=== PATIENT | male | born 1960 | race Caucasian/White ===

== ENCOUNTER → 2016-05-12 | Outpatient (CLI) | payer OTHER ==
[~2016-05-12] MED LIST: /ADVA50050; /DULO30CA; /GLIP10TAB; /PANT40TA; /TIOT18INH; ALBU17IN2; ALBU83IN; ATEN25TA; AVAP300T; BABY81CH; BENT20TA; BYETTA; DEPA500T2; GLUCTAB2; JANUVIA; KLON1TAB; LASI20TA; PROZ40CA; SIMV40TA2; SYNT300T; THERGRAN; TOPI200T; TRAZ50TA; VITAMIN B-6; XANA0.5T
[2016-05-12 17:38] LABS: FREE T4 1.16 NG/DL (0.76-1.46)
== END ==
LOC: M WUC 14:50
PROVIDERS: ATTEND Physician Assistant Medical
DX: E06.3 Autoimmune thyroiditis (principal)

== ENCOUNTER → 2017-03-06 | Outpatient (CLI) | payer OTHER ==
[2017-03-06 13:39] LABS: HEMATOCRIT 45.6 % (42.0-52.0); HEMOGLOBIN 14.6 g/dl (14.0-18.0); MEAN CORPUSCULAR HEMOGLOBIN 32.6 pg (27.0-33.0); MEAN CORPUSCULAR VOLUME 101.8 fl (80.0-96.0); PLATELET COUNT, AUTOMATED 304 10^3/uL (150-450); RED BLOOD COUNT 4.48 10^6/uL (4.30-6.10); RED CELL DISTRIBUTION WIDTH 13.7 % (11.5-14.5); WHITE BLOOD COUNT 7.1 10^3/uL (4.0-10.0)
[2017-03-06 13:46] LABS: APPEARANCE, URINE CLEAR (CLEAR); BACTERIA, URINE AUTO NEGATIVE (NEGATIVE); BILIRUBIN, URINE AUTO NEGATIVE (NEGATIVE); BLOOD, URINE BLOOD NEGATIVE (NEGATIVE); COLOR, URINE YELLOW (YELLOW); GLUCOSE, URINE (UA) AUTO 3+ mg/dL (NEGATIVE); KETONE, URINE AUTO NEGATIVE (NEGATIVE); LEUKOCYTE ESTERASE, URINE AUTO NEGATIVE (NEGATIVE); MUCUS, URINE SMALL (NEGATIVE); NITRITE, URINE AUTO NEGATIVE (NEGATIVE); PROTEIN, URINE AUTO NEGATIVE (NEGATIVE); RBC, URINE AUTO 0 /HPF (0-3); SQUAMOUS EPITHELIAL CELL UR AU 0 /HPF (0-6); WBC, URINE AUTO 0 /HPF (0-3)
[2017-03-06 13:51] LABS: INR 0.89; PROTHROMBIN TIME 12.1 SECONDS (12.4-14.5)
[2017-03-06 13:52] LABS: PARTIAL THROMBOPLASTIN TIME 30.9 SECONDS (26.8-37.9)
[2017-03-06 14:04] LABS: ANION GAP 4 MEQ/L (8-16); BLOOD UREA NITROGEN 22 MG/DL (7-18); CALCIUM LEVEL 9.7 MG/DL (8.5-10.1); CARBON DIOXIDE LEVEL 30 MEQ/L (21-32); CHLORIDE LEVEL 112 MEQ/L (98-107); CREATININE FOR GFR 1.06 MG/DL (0.70-1.30); GLOMERULAR FILTRATION RATE > 60.0 (>56); GLUCOSE, FASTING 115 MG/DL (70-105); SODIUM LEVEL 146 MEQ/L (136-145)
[2017-03-06 14:10] LABS: POTASSIUM SERUM 5.7 MEQ/L (3.5-5.1)
== END ==
LOC: M SMT 09:56
DX: Z01.818 Encounter for other preprocedural examination (principal); A63.0 Anogenital (venereal) warts; Z79.01 Long term (current) use of anticoagulants; E11.9 Type 2 diabetes mellitus without complications; Z79.84 Long term (current) use of oral hypoglycemic drugs; Z79.82 Long term (current) use of aspirin; Z79.899 Other long term (current) drug therapy
CPT/HCPCS: 80048

== ENCOUNTER 2018-10-20 18:34 | Emergency (ER) | payer MEDICARE, OTHER ==
[~2018-10-20] VITALS: Ht 182.9 cm; Wt 94.5 kg
[~2018-10-20 18:34] MED LIST changes: -/ADVA50050; -/DULO30CA; -/PANT40TA; -/TIOT18INH; +ADVA1AER2; +CITA40TA4; +CLOP75TA2; +CYMB1CAP5; +GLIM4TAB5 PO; +HYDR-4517 PO; +INVO300T; +LEVO150T7; +LINZ145C PO; +LOSA50TA88; +METO1TAB87; +NAPR-855; +NITR0.4S14; +PROT1TAB2; +SIMV40TA20; +SPIR1CAP; +TOPI200T7
[2018-10-20] MEDS ORDERED: CLOP75TA2 (18:46)
[2018-10-20] MEDS ORDERED: JARD1TAB3 (18:46)
[2018-10-20] MEDS ORDERED: INCR1INH (18:46)
[2018-10-20] MEDS ORDERED: DERMABOND TOPICAL SKIN ADHESIVE TOP ONE (19:15)
[2018-10-20 19:43] VITALS: BP 164/92
== END 2018-10-20 19:43 | disposition home or self-care (01) ==
LOC: M ED 18:34
DX: S61.512A Laceration without foreign body of left wrist, initial encounter (principal); W26.0XXA Contact with knife, initial encounter; Y92.018 Other place in single-family (private) house as the place of occurrence of the external cause; E11.9 Type 2 diabetes mellitus without complications; J44.9 Chronic obstructive pulmonary disease, unspecified; K21.9 Gastro-esophageal reflux disease without esophagitis; I25.10 Atherosclerotic heart disease of native coronary artery without angina pectoris; Z95.5 Presence of coronary angioplasty implant and graft; Z79.899 Other long term (current) drug therapy; Z79.84 Long term (current) use of oral hypoglycemic drugs; Z79.82 Long term (current) use of aspirin; Z79.01 Long term (current) use of anticoagulants; Z88.8 Allergy status to other drugs, medicaments and biological substances; Z87.891 Personal history of nicotine dependence

== ENCOUNTER 2020-12-27 15:17 | Inpatient (IN) | payer MEDICARE ==
[~2020-12-27] VITALS: Ht 182.9 cm; Wt 95.5 kg
[~2020-12-27 15:17] MED LIST changes: +INCR1INH; +JARD1TAB3; +dexameTHASONE 4 MG/ML 1ML VIAL (J1100 PER 1MG) IV SCH
--- OUTSIDE RECORDS SUMMARY | 2020-12-27 15:23 | CCD | Continuity of Care Document ---
Author Author Jesse SEGURA PA-C Organization Unknown Address [address] [place] [address], [address] [place] [address] Phone [phone] Care Team Providers Care Graphite Grinder Name Role Phone Tanner Agiula M.D. AUTM [phone] Lori Gil MD AUTM [phone] Problems Active Problems Provider Date Essential hypertension Selina Guadarrama NP Onset: History of polyp of colon Selina Guadarrama NP Onset: 2020 Social History Type Date Description Comments Sex Unknown ETOH Use 12/07/2020 Denies alcohol use Tobacco Use Reviewed: 12/07/20 Patient has never smoked Smoking Status Reviewed: 12/07/20 Patient has never smoked Tattoo/Piercing 12/07/2020 Tattoo Tattoo/Piercing 12/07/2020 Pierced ears Allergies and adverse reactions Active Allergies Criticality Reaction | Severity Comments Date Zoloft Unable to assess criticality 01/05/2020 Medications Active Medications SIG Qnty Indications Ordering Provide r Date Miralax 17GM/Scoop Powder 255 gm bottle take as directed for colon prep with 4 dulcolax tabs 2 hours before 255gm Z86.010 Yamile Segura PA-C 12/07/2020 Trazodone HCL 50mg Tablets 2 In PM Unknown Nitroglycerin 0.4mg Tablets Sub 1 every 5 minutes does not exceed 3 in 15 as needed Unknow n Bystolic 10mg Tablets 1 by mouth once a day Unknown Albuterol Sulfate (2 .5mg/3ML) 0.083% Nebulizer 1 unit dose via nebulizer every 2-4 hours for sob or wheezing Unknown Anoro Ellipta 62.5-25mcg/Inh Aeros ol 1 Dose In Am Unknown Spiriva Handihaler 18mcg Capsules 1 Dose In Am 1 In PM Unknown Melatonin ER 10mg Tablets ER as needed Unknown Multi Vitamin Tablets 1 by mouth every day Unknown Aspirin [address] 1 by mouth every day Unknown Metoprolol Tartrate 25mg Tablets 1/2 In Am 1/2 In PM Unknown Topiramate 100mg Tablets 1 tab by mouth in am 2 tabs by mouth at bedtime Unknown Simvastatin 40mg Tablets 1 by mouth once a day Unknown Pantoprazole Sodium 40mg Tablets D R 1 by mouth every day Unknown Losartan Potassium 50mg Tablets 1 by mouth every day Unknown Levothyroxine Sodium 175mcg Tablet s 1 In Am Unknown Naproxen 375mg Tablets take one tablet by mouth twice a day with food Unknown Metformin HCL 500mg Tablets 2 In Am 2 In PM Unknown Citalopram Hydrobromide 40mg Table ts 1 PO AT Bedtime Unknown Immunizations Description No Information Available Vital Signs Date Vital Result Comment 12/07/2020 10:15am Body Temperature 97.4 F Height 72 inches 6'0" Weight 227.00 lb BP Systolic 127 mmHg BP Diastolic 82 mmHg Heart Rate 87 /min BMI (Body Mass Index) 30.8 kg/m2 03/18/2020 8:38am Body Temperature 97.7 F Height 72 inches 6'0" Weight 242.00 lb BP Systolic 120 mmHg BP Diastolic 72 mmHg Heart Rate 82 /min BMI (Body Mass Index) 32.8 kg/m2 Results Description No Information Available Procedures Date Code Description Status 12/07/2020 15960 Office/Outpatient Established Mo d MDM 30-39 Min Completed Medical Devices Description No Information Available Encounters Type Date Location Provider Dx Diagnosis Office Visit 12/07/2020 10:00a [facility] Office SINDI Espinosa Z86.010 Personal history of colonic polyps K21.9 Gastro-esophageal reflux dis ease without esophagitis Assessments Date Code Description Provider 12/07/2020 Z86.010 Personal history of colonic poly ps Yamile Segura PA-C 12/07/2020 K21.9 Gastro-esophageal reflux disease without esophagitis Yamile Segura PA-C Plan of Treatment Future Appointment(s):* 03/17/2021 9:20 am - Yamile Segura PA-C at [facility] * 03/10/2021 9:30 am - Conrad Bryant MD at Outpatient - 12/07/2020 - Yamile Segura PA-C* Z86.010 Personal history of colonic polyps * K21.9 Gastro-esophageal reflux disease without esophagitis * * New Medication:* Miralax 17 GM/Scoop * Comments:* CRC surveillance:60-year-old male with a personal history of colon polyps. Discussed the risks of colonoscopy including but not limited to bleeding, infection, and perforation. Discussed alternatives to colonoscopy including stool studies and imaging however given the patient's history of colon polyps a colonoscopy is recommended. The patient understands risks and benefits and agrees to proceed with colonoscopy. He has a significant cardiac history so we will schedule this at [facility]. We will obtain cardiac clearance. He will hold Plavix 5 days prior to procedure.Reflux:70-year-old male with longstanding history of reflux on PPI therapy. I discussed with the patient that I like to obtain endoscopy to evaluate for including but not limited to esophagitis, precancerous and cancerous lesions. The risks of endoscopy were reviewed including but not li mited to bleeding, infection, perforation. The patient understands the risk and benefits of the procedure and agrees to proceed. Discussed that antireflux medicines can make it harder to absorb calcium, magnesium, iron, and B12 and they should have these levels checked yearly with his PCP. Also discussed the link between PPIs and cardiac and kidney disease and dementia. The patient will follow-up after the procedure. Functional Status Description No Information Available Mental Status Description No Information Available Referrals Description No Information Available
--- OUTSIDE RECORDS SUMMARY | 2020-12-27 15:23 | CCD | Continuity of Care Document ---
Author Author Jesse Gil MD Organization Unknown Address [address] [place] [address] Phone [phone] Care Team Providers Care Public Health Teacher Name Role Phone Vale, Harley Finney AUTM [phone] Tanner Aguila M.D. AUTM [phone] Steven Landry M.D. AUTM [phone] [facility] AUTM [phone] HouseUriah ware MD AUTM [phone] Hamilton Jensen D.O. AUTM [phone] Jayla Bee MD AUTM [phone] Benito Waever MD AUTM [phone] Problems Active Problems Provider Date Essential hypertension Tanner Caldera MD Onset: 2017 Mixed hyperlipidemia Tanner Caldera MD Onset: 07/20/19 18 Type 2 diabetes mellitus Tanner Caldera MD Onset: 06/27 Generalized anxiety disorder Tanner Caldera MD Onset: 07/19/2017 Depressive disorder Tanner Caldera MD Onset: 8 Hypothyroidism Tanner Caldera MD Onset: 8 Chronic obstructive lung disease Tanner Caldera MD Ons et: 07/19/2017 Chronic pain Tanner Caldera MD Onset: 8 History of Hodgkin lymphoma Tanner Caldera MD Onset: 0 07/19/2017 Myocardial infarction Tanner Caldera MD Onset: 018 Coronary artery bypass grafts x 2 Tanner Caldera MD On set: 07/19/2017 Migraine Tanner Caldera MD Onset: 8 History of human papilloma virus infection Tanner avery MD Onset: 07/19/2017 Gastroesophageal reflux disease Tanner Caldera MD Onse t: 07/19/2017 Obstructive sleep apnea syndrome Tanner Caldera MD Ons et: 07/19/2017 Note: severe Carcinoma of prostate Darrell Hancock PA-C Onset: 01/26/2019 Hereditary peripheral neuropathy Lori Gil MD Onset: 09/14/2020 Note: I think he has [place]-Znpho-Cakbt , based on foot exam Social History Type Date Description Comments Sex Male Tobacco Use Start: Unknown End: Former Cigarette Sm oker 1 ppd x3 years quit over 30 years ago Tobacco Use Start: Unknown End: Unknown Current smokless tob acco user 1 can per day x40 years Smoking Status Reviewed: 09/14/20 Current smokless tobacco user 1 can per day x40 years Smokeless Tobacco 09/14/2020 Current Smokeless Tobacco User 1 can per day x40 years ETOH Use 09/14/2020 Has consumed alcohol in the past sober x7 years Recreational Drug Use 09/14/2020 Denies Drug Use Tobacco Use Reviewed: 09/11/19 Patient is a former smoker 1 ppd x3 years quit over 30 years ago Exercise Type/Frequency 03/27/2019 Does not exercise unable Allergies and adverse reactions Active Allergies Criticality Reaction | Severity Comments Date Zoloft Unable to assess criticality suicidal | Severe 07/19/2017 Medications Active Medications SIG Qnty Indications Ordering Provide r Date Glipizide ER 5mg Tablets ER 24HR Take 1 Tablet By Mouth Once Daily With Largest Meal 90tabs Stephen Gil MD 09/14/2020 Levothyroxine Sodium 175mcg Tablet s take 1 tablet by mouth once daily 90tabs E03.8 Lori Gil MD 01/2021 E03.9 Pantoprazole Sodium 40mg Tablets D R take 1 tablet by mouth once daily 90tabs K21.9 Lori Gil MD Onetouch Verio Strips test 2x/day 300units E11.21 Lori Gil MD 12/04/2018 Bufystouch Verio w/Device Kit use as directed 1units E11.21 Tanner Caldera MD 12/05/19 19 Onetouch Finepoint Lancets Misc test 1-3 times daily and as needed 270units E11.21 Mahad Wilson 12/04/2018 Topiramate 200mg Tablets Take 1 tablet by mouth once daily 90tabs G43.009 Lori Gil MD 07/19/2017 Proair HFA 108(90Base) mcg/Act Aer osol 1-2 puffs q4-6 as needed wheezing/sob 25.5gm J44.9 Tanner caromna MD 07/19/2017 Citalopram Hydrobromide 40mg Table ts take 1 tablet by mouth once daily 90tabs F41.1 Lori Gil MD 0 07/19/2017 F43.23 Trazodone HCL 50mg Tablets Take 1 To 2 Tablets By Mouth Once Daily AT Bedtime 180tabs G47.09 Lori adamson MD 07/19/2017 Simvastatin 40mg Tablets Take 1 Tablet By Mouth Once Daily AT Bedtime 90tabs E78.2 Lori Gil MD Albuterol Sulfate (2 .5mg/3ML) 0.083% Nebulizer Use 1 Vial In Nebulizer Every 2 To 4 Michael rs For Shortness Of Breath For Wheezing 375units J44.9 Tanner Caldera MD 07/20/19 18 Losartan Potassium 50mg Tablets Take 1 tablet by mouth once daily 90tabs I10 Lori Gil MD Metformin HCL ER 500mg Tablets ER 24HR take 2 tablets by mouth twice daily 360tabs E11.21 Leann guillermo MD Aspirin 81 Low Dose 81mg Chewtabs 1 by mouth every day I10 Unknown Nitrostat 0.4mg Tablets Sub 1 sl as needed chest pain q5 min (max 3tabs in 15 min) I25.10 Unknown Naproxen 375mg Tablets Take 1 tablet by mouth twice daily as needed 180tabs M54.5 Lori Gil MD Multivitamin Adult Chewtabs 1 by mouth every morning 30units Unknown Melatonin 10mg Capsules 1 by mouth every night one hour before bedtime G47.09 Unknown Bystolic 10mg Tablets 1 by mouth twice a day I10 Tanner Aguila M.D. Stiolto Respimat 2.5-2.5mcg/Act Ae rosol 2 inhalations daily J44.9 Unknown Clopidogrel Bisulfate 75mg Tablets 1 by mouth every day Tanner Aguila M.D. Immunizations CPT Code Status Date Vaccine Lot # [id number] Given 12/15/2020 Flu, Multi-Dose Vial W/Preservative (Age 6Mo And Up)Quad 0.5 [id number] Given 12/12/2019 Flu, Multi-Dose Vial W/Preservative (Age 6Mo And Up)Quad 0.5 [id number] 29414 Given 11/21/2018 Flu, Multi-Dose Vial W/Preservative (Age 6Mo And Up)Quad 0.5 [id number] Given 12/11/2017 Zoster (Shingles) Shingrix 49391 Given 11/20/2017 Adacel - Tdap [id number] 66499 Given 11/20/2017 Flu, Multi-Dose Vial W/Preservative (Age 6Mo And Up)Quad 0.5 [id number] Given 05/05/2017 Zoster (Shingles) Shingrix 27045 Given 02/26/2014 Pneumococcal 23 Vaccine 63852 Given 01/19/2010 Adacel - Tdap Vital Signs Date Vital Result Comment 12/15/2020 10:10am BP Systolic 134 mmHg BP Diastolic 70 mmHg Heart Rate 80 /min Body Temperature 98.6 F Respiratory Rate 16 /min Weight 223.00 lb Weight 101.153 kg Height 71 inches 5'11" BMI (Body Mass Index) 31.1 kg/m2 [place] Body Weight 172 lb 09/14/2020 9:07am BP Systolic 132 mmHg BP Diastolic 72 mmHg Heart Rate 86 /min Body Temperature 98.5 F Respiratory Rate 18 /min Weight 222.00 lb Weight 100.699 kg Height 71 inches 5'11" BMI (Body Mass Index) 31.0 kg/m2 [place] Body Weight 172 lb Results Test Acquired Date Facility Test Result H/L Range Note Glycohemoglobin 12/15/2020 [facility] %A1cwb 6.80 High 4.00-6.00 1, 2 Estimated Average Glucose 148.46 mg/dL Comprehensive Metabolic Panel 12/15/2020 [facility] Glucose 120.00 mg/dL High 70.00-110.00 Urea Nitrogen 27 mg/dL High 9-21 Creatinine 1.1 mg/dL 0.7-1.3 GFR 72.99 mL/min 3 Potassium 4.9 mmol/L 3.5-5.1 Chloride 108 mmol/L High 98-107 Total Protein 6.7 g/dL 6.4-8.3 Albumin 4.19 g/dL 3.30-5.00 Alt 14 U/L 0-55 Ast 18 U/L 5-34 Alkaline Phosphatase 66 U/L 40-150 Carbon Dioxide 22.24 mmol/L 22.00-31.00 Albumin/Globulin 1.67 Ratio Osmolality 300.00 High 275.00-295.00 Calcium 9.70 mg/dL 8.90-10.40 Total Bilirubin 0.3 mg/dL 0.2-1.2 Globulin 2.51 2.30-4.20 BUN/Creatinine 24.55 Ratio Sodium 142 mmol/L 136-145 Laboratory test finding 12/15/2020 [facility] TSH 1.461 uIU/mL 0.350-4.940 CBC/Automated Differential 12/15/2020 [facility] WBC 6.10 k/uL 4.60-10.20 Abs Neut 4.17 2.00-7.50 % Neut 68.3 % 37.0-80.0 Abs Lymphs 1.07 Low 1.20-4.80 % Lymphs 17.5 % 10.0-50.0 Abs Monos 0.650 0.000-0.900 % Monos 10.70 % 0.00-12.00 Abs Eos 0.160 0.000-0.700 % Eos 2.60 % 0.00-7.00 Abs Basos 0.040 0.000-0.200 % Baso 0.70 % 0.00-4.00 Abs Ig 0.010 0.000-0.040 % Ig 0.20 % 0.00-0.50 RBC 4.07 m/uL 4.04-6.13 Hemoglobin 13.3 g/dL 12.2-18.1 Hematocrit 41.4 % Low 42.0-53.7 MCV 101.7 fL High 80.0-97.0 MCH 32.7 pg High 27.0-31.2 MCHC 32.1 g/dL 31.8-35.4 RDW-CV 13.4 % 11.6-14.8 Platelet 349 K/uL 142-424 MPV 10.8 fL 0.0-99.9 Laboratory test finding 12/15/2020 [facility] Vitamin B12 665.80 pg/mL 213.00-816.00 Lipid Panel(New) 12/15/2020 [facility] Cholesterol 129 mg/dL 112-200 4 Triglyceride 77 mg/dL 1-200 5 HDL 50 mg/dL 30-70 6 Cholesterol/HDL 2.58 Low 4.00-6.70 NHDL 79.00 mg/dL 0.00-100.00 7 Calculated LDL 63.60 mg/dL 20.00-130.00 8 Glycohemoglobin 09/14/2020 [facility] %A1cwb 7.00 High 4.00-6.00 9, 10 Estimated Average Glucose 154.20 mg/dL Comprehensive Metabolic Panel 09/14/2020 [facility] Glucose 168.00 mg/dL High 70.00-110.00 Urea Nitrogen 20 mg/dL 9-21 Creatinine 1.2 mg/dL 0.7-1.3 GFR 66.07 mL/min 11 Potassium 4.8 mmol/L 3.5-5.1 Chloride 111 mmol/L High 98-107 Total Protein 6.4 g/dL 6.4-8.3 Albumin 3.89 g/dL 3.30-5.00 Alt 21 U/L 0-55 Ast 17 U/L 5-34 Alkaline Phosphatase 73 U/L 40-150 Carbon Dioxide 26.40 mmol/L 22.00-31.00 Albumin/Globulin 1.55 Ratio Osmolality 304.00 High 275.00-295.00 Calcium 9.10 mg/dL 8.90-10.40 Total Bilirubin 0.2 mg/dL 0.2-1.2 Globulin 2.51 2.30-4.20 BUN/Creatinine 16.67 Ratio Sodium 144 mmol/L 136-145 1 FASTING Fastin hours FAS TING Fastin hours FASTING Fastin hours FASTING Fastin hours FASTING Fastin hours FASTING Fastin hours 2 GOAL <7 3 NORMAL FUNCTION OR MILD DEANNE L DISEASE:>60 ml/min ADVANCED RENAL DISEASE:15-59 ml/min RENAL FAILURE:<15 ml/min 4 GOAL LESS THAN 200 5 GOAL LESS THAN 200 6 GOAL GREATER THAN 45 7 GOAL LESS THAN 100 8 GOAL LESS THAN 100 9 FASTING Fastin hours FAS TING Fastin hours 10 GOAL <7 11 NORMAL FUNCTION OR MILD DEANNE L DISEASE:>60 ml/min ADVANCED RENAL DISEASE:15-59 ml/min RENAL FAILURE:<15 ml/min Procedures Date Code Description Status 12/15/2020 85272 Office/Outpatient Established Mo d MDM 30-39 Min Completed 09/14/2020 01881 Office/Outpatient Established Mo d MDM 30-39 Min Completed 12/12/2019 [id number] Diabetic Retinal Eye Exam Comple [facility] 10/30/2019 [id number] Depression Screening Completed 03/20/2019 273923203 Depression Screening Completed 09/11/2018 [id number] Depression Screening Completed 04/09/2018 [id number] Diabetic Retinal Eye Exam Comple [facility] 07/19/2017 [id number] Depression Screening Completed 06/12/2017 [id number] Diabetic Retinal Eye Exam Comple [facility] 2012 [id number] Colonoscopy Completed Medical Devices Description No Information Available Encounters Type Date Location Provider Dx Diagnosis Office Visit 12/15/2020 9:30a [address] Lori Gil MD 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 I10 Essential (primary) hyperten jorge alberto E78.2 Mixed hyperlipidemia E03.9 Hypothyroidism, unspecified 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, including tongue R53.83 Other fatigue Z23 Encounter for immunization R06.02 Shortness of breath Z68.31 Body mass index [BMI] 31.0-3 1.9, adult Office Visit 09/14/2020 8:45a [address] Lori Gil MD 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 I10 Essential (primary) hyperten jorge alberto E78.2 Mixed hyperlipidemia E03.9 Hypothyroidism, unspecified K21.9 Gastro-esophageal reflux dis ease without esophagitis J44.9 Chronic obstructive pulmonar y disease, unspecified G47.09 Other insomnia M25.541 Pain in joints of right hand F41.1 Generalized anxiety disorder Z12.11 Encounter for screening for malignant neoplasm of colon Assessments Date Code Description Provider 12/15/2020 E11.21 Type 2 diabetes mellitus with di abetic nephropathy Lori Gil MD 12/15/2020 I10 Essential (primary) hypertension Lori Gil MD 12/15/2020 E78.2 Mixed hyperlipidemia Lori estrada MD 12/15/2020 E03.9 Hypothyroidism, unspecified Wendy Gil MD 12/15/2020 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, incl uding tongue Lori Gil MD 12/15/2020 R53.83 Other fatigue Mahad Kaiser 12/15/2020 Z23 Encounter for immunization Lori Gil MD 12/15/2020 R06.02 Shortness of breath Lori gastelum MD 12/15/2020 Z68.31 Body mass index [BMI] 31.0-31.9, adult Lori Gil MD 09/14/2020 E11.21 Type 2 diabetes mellitus with di abetic nephropathy Lori Gil MD 09/14/2020 I10 Essential (primary) hypertension Lori Gil MD 09/14/2020 E78.2 Mixed hyperlipidemia Lori estrada MD 09/14/2020 E03.9 Hypothyroidism, unspecified Wendy Gil MD 09/14/2020 K21.9 Gastro-esophageal reflux disease without esophagitis Lori Gil MD 09/14/2020 J44.9 Chronic obstructive pulmonary di sease, unspecified Lori Gil MD 09/14/2020 G47.09 Other insomnia Mahad Kaiser 09/14/2020 M25.541 Pain in joints of right hand Stephen Gil MD 09/14/2020 F41.1 Generalized anxiety disorder Stephen Gil MD 09/14/2020 Z12.11 Encounter for screening for christian gnant neoplasm of colon Lori Gil MD Plan of Treatment Future Appointment(s):* 03/22/2021 10:00 am - Lori Gil MD at [address] 12/15/2020 - Lori Gil MD* E11.21 Type 2 diabetes mellitus with diabetic nephropathy* Comments:* Patient Goals: Advised to watch a diet low in carbohydrates and sugar. Patient advised to exercise as tolerated 3-5 days a week for at least 30 minutes per day. Check feet on a regular basis and keep skin moist call the office with blood sugar reading below 70 or above 400. Advised to continue current medications. Patients labs drawn today and the office will notify the patient of results and if any change in treatment plan needed. Last Hgb A1C: 7.0 on 09/14/20 Return in 3 months * I10 Essential (primary) hypertension* Comments:* Patient Goals: Patient advised to follow a low sodium and low caffeine diet. Encouraged patient to increase exercise and physical activity. Patient advised to continue checking blood pressures at home and keep log for next office visit. Continue present management. * E78.2 Mixed hyperlipidemia* Comments:* Continue present management and medications. Follow healthy, low fat diet and exercise as tolerated. Will check lipid panel today and notify with resultsLast LDL 67 on 03/15/20 * E03.9 Hypothyroidism, unspecified* Comments:* Labs drawn. Office will notify patient of results and if any change in dose needed. 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 Tolerated well. Advised if body aches, headache, chills or fevers occur, this should resolve in 24 to 48 hours. Please contact office if it lasts longer than this. Patient advised can use over the counter Ibuprofen or Tylenol if tolerated. If swelling occurs at injection site, can apply ice 15 minutes on 15 minutes off. * R06.02 Shortness of breath* Comments:* Advised patient to call Dr. Whittaker's office to get an appointment sooner than January for evaluation of SOB and symptom of flutter * Z68.31 Body mass index [BMI] 31.0-31.9, adult* Comments:* Patient advised to follow a low fat, low cholesterol diet and increase exercise as tolerated. Functional Status Functional Condition Comment Date Status Glasses Active Mental Status Description No Information Available Referrals Refer to Reason for Referral Status Appt Date Benito Weaver MD Referral Reason: Consult for leukoplakia on gums . Sent [facility] [address] [facility] [place] [address] [phone] Hamilton Jensen D.O. This is a regular referral. Patient needs consultation for colonscopy. Please evaluate and treat. Existing patient to specialist but not seen in over 1 year Closed 12/07/2020 [facility] [id number] [facility], [address] [place] [address] [phone]
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
--- OUTSIDE RECORDS SUMMARY | 2020-12-27 15:23 | CCD | Continuity of Care Document ---
Author Author Jesse SEGURA PA-C Organization Unknown Address [address] [place] [address], [address] [place] [address] Phone [phone] Care Team Providers Care Air Lift Operator Name Role Phone Tanner Aguila M.D. AUTM [phone] Lori Gil MD AUTM [phone] Problems Active Problems Provider Date Essential hypertension [...] kg/m2 Results Description No Information Available Procedures Description No Information Available Medical Devices Description No Information Available Encounters Description No Information Available Assessments Date Code Description Provider 12/07/2020 Z86.010 Personal history of colonic poly ps Yamile Segura PA-C 12/07/2020 K21.9 Gastro-esophageal reflux disease without esophagitis Yamile Segura PA-C Plan of Treatment Future Appointment(s):* 03/17/2021 9:20 am - Yamile Segura PA-C at [facility] * 03/10/2021 9:30 am - Conrad Bryant MD at [facility] 12/07/2020 - Yamile Segura PA-C* Z86.010 Personal history of colonic polyps * K21.9 Gastro-esophageal reflux disease without esophagitis* New Medication:* Miralax 17 GM/Scoop Functional Status Description No Information Available Mental Status Description No Information Available Referrals Description No Information Available
--- OUTSIDE RECORDS SUMMARY | 2020-12-27 15:23 | CCD | Continuity of Care Document ---
Author Author Jesse Gil MD Organization Unknown Address [address] [place] [address] Phone [phone] Care Team Providers Care Case Mgr Name Role Phone Vale, Harley Finney AUTM [phone] Tanner Aguila M.D. AUTM [phone] Steven Landry M.D. AUTM [phone] [facility] AUTM [phone] HouseUriah ware MD AUTM [phone] Hamilton Jensen D.O. AUTM [phone] Jayla Bee MD AUTM [phone] Benito Weaver MD AUTM [phone] Problems Active Problems Provider Date Essential hypertension [...] Onset: 09/14/2020 Note: I think he has Smfdymn-Cvybs-Guyls , based on foot exam Social History [...] 2x/day 300units E11.21 Lori Gil MD 12/04/2018 [employer] Verio w/Device Kit use as directed 1units [...] Of Breath For Wheezing 375units J44.9 Tanner Caldear MD 07/20/19 18 Losartan Potassium 50mg Tablets [...] CPT Code Status Date Vaccine Lot # [id number] Given 12/15/2020 Flu, Multi-Dose Vial W/Preservative (Age 6Mo And Up)Quad 0.5 [id number] 34247 Given 12/12/2019 Flu, Multi-Dose Vial W/Preservative (Age 6Mo And Up)Quad 0.5 [id number] 25739 Given 11/21/2018 Flu, Multi-Dose Vial W/Preservative (Age 6Mo And Up)Quad 0.5 [id number] 79427 Given 12/11/2017 Zoster (Shingles) Shingrix 26518 Given 11/20/2017 Adacel - Tdap [id number] 42719 Given 11/20/2017 Flu, Multi-Dose Vial W/Preservative (Age 6Mo And Up)Quad 0.5 [id number] 24596 Given 05/05/2017 Zoster (Shingles) Shingrix 28715 Given 02/26/2014 Pneumococcal 23 Vaccine 35230 Given 01/19/2010 Adacel - Tdap Vital Signs Date Vital Result Comment 12/15/2020 10:10am BP Systolic 134 mmHg BP Diastolic 70 mmHg Heart Rate 80 /min Body Temperature 98.6 F Respiratory Rate 16 /min Weight 223.00 lb Weight 101.153 kg Height 71 inches 5'11" BMI (Body Mass Index) 31.1 kg/m2 [facility] [facility] Weight 172 lb 09/14/2020 9:07am BP Systolic 132 mmHg BP Diastolic 72 mmHg Heart Rate 86 /min Body Temperature 98.5 F Respiratory Rate 18 /min Weight 222.00 lb Weight 100.699 kg Height 71 inches 5'11" BMI (Body Mass Index) 31.0 kg/m2 [facility] Weight 172 lb Results Test Acquired [...] 10.8 fL 0.0-99.9 Laboratory test finding 12/15/2020 [facility] Vitamin B12 665.80 pg/mL 213.00-816.00 Lipid Panel(New) 12/15/2020 [facility] Cholesterol 129 mg/dL 112-200 4 Triglyceride 77 mg/dL 1-200 5 HDL 50 mg/dL 30-70 6 Cholesterol/HDL 2.58 Low 4.00-6.70 NHDL 79.00 mg/dL 0.00-100.00 7 Calculated LDL 63.60 mg/dL 20.00-130.00 8 Glycohemoglobin 09/14/2020 [facility] %A1cwb 7.00 High 4.00-6.00 9, 10 Estimated Average Glucose 154.20 mg/dL Comprehensive Metabolic Panel 09/14/2020 [facility] Glucose 168.00 mg/dL High 70.00-110.00 Urea [...] ml/min Procedures Date Code Description Status 12/15/2020 01937 Office/Outpatient Established Mo d MDM 30-39 Min Completed 09/14/2020 97420 Office/Outpatient Established Mo d MDM 30-39 Min Completed 12/12/2019 [id number] Diabetic Retinal Eye Exam [facility] 10/30/2019 [id number] Depression Screening Completed 03/20/2019 972460896 Depression Screening Completed 09/11/2018 798113940 Depression Screening Completed 04/09/2018 [id number] Diabetic Retinal Eye Exam [facility] 07/19/2017 827229813 Depression Screening Completed 06/12/2017 [id number] Diabetic Retinal Eye Exam [facility] 2012 [id number] Colonoscopy Completed Medical Devices Description No Information [...] diabetic nephropathy I10 Essential (primary) hyperten jorge alberot E78.2 Mixed hyperlipidemia E03.9 Hypothyroidism, unspecified K21.9 [...] Consult for leukoplakia on gums . Sent [facility] [address] [facility] [place] [address] [phone] Hamilton Jensen D.O. This is a regular referral. Patient needs consultation for colonscopy. Please evaluate and treat. Existing patient to specialist but not seen in over 1 year Closed 12/07/2020 [facility] [address] [facility], [address] [place] [address] [phone]
--- OUTSIDE RECORDS SUMMARY | 2020-12-27 15:26 | CCD ---
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 Home Care Physical Therapist Name Role Phone Carina GOTTLIEB MD Unavailable Unavailable Carina GOTTLIEB MD Unavailable Unavailable Carina GOTTLIEB MD Unavailable Unavailable Carina GOTTLIEB MD Unavailable Unavailable Carina GOTTLIEB MD Unavailable Unavailable Carina GOTTLIEB MD Unavailable Unavailable Carina GOTTLIEB MD Unavailable Unavailable Carina GOTTLIEB MD Unavailable Unavailable Carina GOTTLIEB MD Unavailable Unavailable Carina GOTTLIEB MD Unavailable Unavailable Carina GOTTLIEB MD Unavailable Unavailable Carina GOTTLIEB MD Unavailable Unavailable Carina GOTTLIEB MD Unavailable Unavailable Carina GOTTLIEB MD Unavailable Unavailable Carina GOTTLIEB MD Unavailable Unavailable Carina GOTTLIEB MD Unavailable Unavailable Carina GOTTLIEB MD Unavailable Unavailable Carina GOTTLIEB MD Unavailable Unavailable Carina GOTTLIEB MD Unavailable Unavailable Carina GOTTLIEB MD Unavailable Unavailable Carina GOTTLIEB MD Unavailable Unavailable Carina GOTTLIEB MD Unavailable Unavailable Carina GOTTLIEB MD Unavailable Unavailable Carina GOTTLIEB MD Unavailable Unavailable Carina GOTTLIEB MD Unavailable Unavailable Carina GOTTLIEB MD Unavailable Unavailable Carina GOTTLIEB MD Unavailable Unavailable Carina GOTTLIEB MD Unavailable Unavailable Carina GOTTLIEB MD Unavailable Unavailable Carina GOTTLIEB MD Unavailable Unavailable Carina GOTTLIEB MD Unavailable Unavailable Carina GOTTLIEB MD Unavailable Unavailable Carina GOTTLIEB MD Unavailable Unavailable Carina GOTTLIEB MD Unavailable Unavailable Carina GOTTLIEB MD Unavailable Unavailable Carina GOTTLIEB MD Unavailable Unavailable Carina GOTTLIEB MD Unavailable Unavailable Carina GOTTLIEB MD Unavailable Unavailable Carina GOTTLIEB MD Unavailable Unavailable Carina GOTTLIEB MD Unavailable Unavailable Carina GOTTLIEB MD Unavailable Unavailable Carina GOTTLIEB MD Unavailable Unavailable Carina GOTTLIEB MD Unavailable Unavailable Carina GOTTLIEB MD Unavailable Unavailable Carina GOTTLIEB MD Unavailable Unavailable Carina GOTTLIEB MD Unavailable Unavailable Carina GOTTLIEB MD Unavailable Unavailable Carina GOTTLIEB MD Unavailable Unavailable Carina GOTTLIEB MD Unavailable Unavailable Carina GOTTLIEB MD Unavailable Unavailable Carina GOTTLIEB MD Unavailable Unavailable Carina GOTTLIEB MD Unavailable Unavailable Carina GOTTLIEB MD Unavailable Unavailable Carina GOTTLIEB MD Unavailable Unavailable Carina GOTTLIEB MD Unavailable Unavailable Carina GOTTLIEB MD Unavailable Unavailable Carina GOTTLIEB MD Unavailable Unavailable Carina GOTTLIEB MD Unavailable Unavailable Carina GOTTLIEB MD Unavailable Unavailable Carina GOTTLIEB MD Unavailable Unavailable Carina GOTTLIEB MD Unavailable Unavailable Carina GOTTLIEB MD Unavailable Unavailable Carina GOTTLIEB MD Unavailable Unavailable Carina GOTTLIEB MD Unavailable Unavailable Carina GOTTLIEB MD Unavailable Unavailable Carina GOTTLIEB MD Unavailable Unavailable Carina GOTTLIEB MD Unavailable Unavailable Carina GOTTLIEB MD Unavailable Unavailable Carina GOTTLIEB MD Unavailable Unavailable Carina GOTTLIEB MD Unavailable Unavailable Carina GOTTLIEB MD Unavailable Unavailable Carina GOTTLIEB MD Unavailable Unavailable Carina GOTTLIEB MD Unavailable Unavailable Carina GOTTLIEB MD Unavailable Unavailable Carina GOTTLIEB MD Unavailable Unavailable Carina GOTTLIEB MD Unavailable Unavailable Carina GOTTLIEB MD Unavailable Unavailable Carina GOTTLIEB MD Unavailable Unavailable Carina GOTTLIEB MD Unavailable Unavailable Carina GOTTLIEB MD Unavailable Unavailable BULL, E ZANE MD Unavailable Unavailable BULL, E ZANE MD Unavailable Unavailable BULL, E ZANE MD Unavailable Unavailable BULL, E ZANE MD Unavailable Unavailable Segura, R Yamile PA Unavailable Unavailable Segura, R Yamile PA Unavailable Unavailable Segura, R Yamile PA Unavailable Unavailable Segura, R Yamile PA Unavailable Unavailable Segura, R Yamile PA Unavailable Unavailable Segura, R Yamile PA Unavailable Unavailable Segura, R Yamile PA Unavailable Unavailable Segura, R Yamile PA Unavailable Unavailable Segura, R Yamile PA Unavailable Unavailable Segura, R Yamile PA Unavailable Unavailable Segura, R Yamile PA Unavailable Unavailable Segura, R Yamile PA Unavailable Unavailable Segura, R Yamile PA Unavailable Unavailable Segura, R Yamile PA Unavailable Unavailable Segura, R Yamile PA Unavailable Unavailable Segura, R Yamile PA Unavailable Unavailable Segura, R Yamile PA Unavailable Unavailable Segura, R Yamile PA Unavailable Unavailable Segura, R Yamile PA Unavailable Unavailable Segura, R Yamile PA Unavailable Unavailable Segura, R Yamile PA Unavailable Unavailable Segura, R Yamile PA Unavailable Unavailable Segura, R Yamile PA Unavailable Unavailable El-Khally, A Ziad MD Unavailable Unavailable El-Khally, A Ziad MD Unavailable Unavailable El-Khally, A Ziad MD Unavailable Unavailable El-Khally, A Ziad MD Unavailable Unavailable El-Khally, A Ziad MD Unavailable Unavailable El-Khally, A Ziad MD Unavailable Unavailable El-Khally, A Ziad MD Unavailable Unavailable El-Khally, A Ziad MD Unavailable Unavailable El-Khally, A Ziad MD Unavailable Unavailable El-Khally, A Ziad MD Unavailable Unavailable El-Khally, A Ziad MD Unavailable Unavailable El-Khally, A Ziad MD Unavailable Unavailable El-Khally, A Ziad MD Unavailable Unavailable El-Khally, A Ziad MD Unavailable Unavailable El-Khally, A Ziad MD Unavailable Unavailable El-Khally, A Ziad MD Unavailable Unavailable El-Khally, A Ziad MD Unavailable Unavailable El-Khally, A Ziad MD Unavailable Unavailable El-Khally, A Ziad MD Unavailable Unavailable El-Khally, A Ziad MD Unavailable Unavailable El-Khally, A Ziad MD Unavailable Unavailable El-Khally, A Ziad MD Unavailable Unavailable El-Khally, A Ziad MD Unavailable Unavailable El-Khally, A Ziad MD Unavailable Unavailable El-Khally, A Ziad MD Unavailable Unavailable El-Khally, A Ziad MD Unavailable Unavailable El-Khally, A Ziad MD Unavailable Unavailable El-Khally, A Ziad MD Unavailable Unavailable El-Khally, A Ziad MD Unavailable Unavailable El-Khally, A Ziad MD Unavailable Unavailable El-Khally, A Ziad MD Unavailable Unavailable El-Khally, A Ziad MD Unavailable Unavailable El-Khally, A Ziad MD Unavailable Unavailable El-Khally, A Ziad MD Unavailable Unavailable El-Khally, A Ziad MD Unavailable Unavailable El-Khally, A Ziad MD Unavailable Unavailable El-Khally, A Ziad MD Unavailable Unavailable El-Khally, A Ziad MD Unavailable Unavailable El-Khally, A Ziad MD Unavailable Unavailable El-Khally, A Ziad MD Unavailable Unavailable El-Khally, A Ziad MD Unavailable Unavailable El-Khally, A Ziad MD Unavailable Unavailable El-Khally, A Ziad MD Unavailable Unavailable OMARBASHACHRIS MD Unavailable Unavailable OMARBASHA, CHRIS MD Unavailable Unavailable OMARBASHA, BASXIOMARA MD Unavailable Unavailable OMARBASHA, CHRIS MD Unavailable Unavailable OMARBASHA, CHRIS MD Unavailable Unavailable OMARBASHACHRIS MD Unavailable Unavailable OMARBASHA, CHRIS MD Unavailable Unavailable OMARBASHA, CHRIS MD Unavailable Unavailable OMARBASHA, CHRIS MD Unavailable Unavailable OMARBASHA, CHRIS MD Unavailable Unavailable OMARBASHA, CHRIS MD Unavailable Unavailable OMARBASHA, CHRIS MD Unavailable Unavailable OMARBASHA, CHRIS MD Unavailable Unavailable OMARBASHA, CHRIS MD Unavailable Unavailable OMARBASHACHRIS MD Unavailable Unavailable OMARBASHA BASXIOMARA MD Unavailable Unavailable OMARBASHA BASXIOMARA MD Unavailable Unavailable OMARBASHA, BASHAR MD Unavailable Unavailable OMARBASHA, BASXIOMARA MD Unavailable Unavailable OMARBASHA, BASHAR MD Unavailable Unavailable OMARBASHA, BASXIOMARA MD Unavailable Unavailable OMARBASHA, BASXIOMARA MD Unavailable Unavailable OMARBASHA, BASXIOMARA MD Unavailable Unavailable OMARBASHA, BASHAR MD Unavailable Unavailable OMARBASHA, BASHAR MD Unavailable Unavailable OMARBASHA, BASXIOMARA MD Unavailable Unavailable OMARBASHA, BASXIOMARA MD Unavailable Unavailable OMARBASHA, BASXIOMARA MD Unavailable Unavailable OMARBASHA, BASXIOMARA MD Unavailable Unavailable OMARBASHA, BASXIOMARA MD Unavailable Unavailable OMARBASHA, BASXIOMARA MD Unavailable Unavailable OMARBASHA, CHRIS MD Unavailable Unavailable OMARBASHA, CHRIS MD Unavailable Unavailable OMARBASHACHRIS MD Unavailable Unavailable OMARBASHA, CHRIS MD Unavailable Unavailable OMARBASHA, CHRIS MD Unavailable Unavailable OMARBASHA, CHRIS MD Unavailable Unavailable OMARBASHA, CHRIS MD Unavailable Unavailable OMARBASHA, CHRIS MD Unavailable Unavailable OMARBASHA, CHRIS MD Unavailable Unavailable OMARBASHA, CHRIS MD Unavailable Unavailable OMARBASHA, CHRIS MD Unavailable Unavailable OMARBASHA, CHRIS MD Unavailable Unavailable OMARBASHA, CHRIS MD Unavailable Unavailable OMARBASHA, CHRIS MD Unavailable Unavailable OMARBASHA, CHRIS MD Unavailable Unavailable OMARBASHA, CHRIS MD Unavailable Unavailable OMARBASHA, CHRIS MD Unavailable Unavailable OMARBASHA, CHRIS MD Unavailable Unavailable OMARBASHACHRIS MD Unavailable Unavailable OMARBASHACHRIS MD Unavailable Unavailable OMARBASHACHRIS MD Unavailable Unavailable OMARBASHA, CHRIS MD Unavailable Unavailable OMARBASHA, CHRIS MD Unavailable Unavailable OMARBASHACHRIS MD Unavailable Unavailable OMARBASHACHRIS MD Unavailable Unavailable OMARBASHACHRIS MD Unavailable Unavailable OMARBASHACHRIS MD Unavailable Unavailable OMARBASHACHRIS MD Unavailable Unavailable OMARBASHACHRIS MD Unavailable Unavailable OMARBASHACHRIS MD Unavailable Unavailable OMARBASHACHRIS MD Unavailable Unavailable OMARBASHACHRIS MD Unavailable Unavailable OMARBASHACHRIS MD Unavailable Unavailable OMARBASHACHRIS MD Unavailable Unavailable OMARBASHACHIRS MD Unavailable Unavailable OMARBASHACHRIS MD Unavailable Unavailable OMARBASHACHRIS MD Unavailable Unavailable OMARBASHACHRIS MD Unavailable Unavailable OMARBASHACHRIS MD Unavailable Unavailable OMARBASHACHRIS MD Unavailable Unavailable OMARBASHACHRIS MD Unavailable Unavailable OMARBASHACHRIS MD Unavailable Unavailable OMARBASHACHRIS MD Unavailable Unavailable OMARBASHA, CHRIS MD Unavailable Unavailable Marina Javed MD Unavailable Unavailable Marina Javed MD Unavailable Unavailable Marina Javed MD Unavailable Unavailable Marina Javed MD Unavailable Unavailable Marina Javed MD Unavailable Unavailable Flintrop, Marina Edwards MD Unavailable Unavailable [place], Marina Edwards MD Unavailable Unavailable [place], Marina Edwards MD Unavailable Unavailable [place], Marina Edwards MD Unavailable Unavailable [place], Marina Edwards MD Unavailable Unavailable [place], Marina Edwards MD Unavailable Unavailable [place], Marina Edwards MD Unavailable Unavailable [place], Marina Edwards MD Unavailable Unavailable [place], Marina Edwards MD Unavailable Unavailable [place], Marina Edwards MD Unavailable Unavailable [place], Marina Edwards MD Unavailable Unavailable [place], Marina Edwards MD Unavailable Unavailable [place], Marina Edwards MD Unavailable Unavailable [place], Marina Edwards MD Unavailable Unavailable [place], Marina Edwards MD Unavailable Unavailable [place], Marina Edwards MD Unavailable Unavailable [place], Marina Edwards MD Unavailable Unavailable [place], Marina Edwards MD Unavailable Unavailable [place], Marina Edwards MD Unavailable Unavailable [place], Marina Edwards MD Unavailable Unavailable [place], Marina Edwards MD Unavailable Unavailable [place], Marina Edwards MD Unavailable Unavailable [place], Marina Edwards MD Unavailable Unavailable [place], Marina Edwards MD Unavailable Unavailable [place], Marina Edwards MD Unavailable Unavailable [place], Marina Edwards MD Unavailable Unavailable [place], Marina Edwards MD Unavailable Unavailable [place], Marina Edwards MD Unavailable Unavailable [place], Marina Edwards MD Unavailable Unavailable [place], Marina Edwards MD Unavailable Unavailable [place], Marina Edwards MD Unavailable Unavailable [place], Marina Edwards MD Unavailable Unavailable [place], Marina Edwards MD Unavailable Unavailable [place], Marina Edwards MD Unavailable Unavailable [place], Marina Edwards MD Unavailable Unavailable [place], Marina Edwards MD Unavailable Unavailable [place], Marina Edwards MD Unavailable Unavailable [place], Marina Edwards MD Unavailable Unavailable [place], Marina Edwards MD Unavailable Unavailable [place], Marina Edwards MD Unavailable Unavailable [place], Marina Edwards MD Unavailable Unavailable [place], Marina Edwards MD Unavailable Unavailable [place], Marina Edwards MD Unavailable Unavailable [place], Marina Edwards MD Unavailable Unavailable [place], Marina Edwards MD Unavailable Unavailable [place], Marina Edwards MD Unavailable Unavailable [place], Marina Edwards MD Unavailable Unavailable [place], Marina Edwards MD Unavailable Unavailable [place], Marina Edwards MD Unavailable Unavailable [place], Marina Edwards MD Unavailable Unavailable [place]rop, Marina Edwards MD Unavailable Unavailable [place], Marina Edwards MD Unavailable Unavailable [place], Marina Edwards MD Unavailable Unavailable [place], Marina Edwards MD Unavailable Unavailable [place], Marina Edwards MD Unavailable Unavailable [place], Marina Edwards MD Unavailable Unavailable [place], Marina Edwards MD Unavailable Unavailable [place], Marina Edwards MD Unavailable Unavailable [place], Marina Edwards MD Unavailable Unavailable [place], Marina Edwards MD Unavailable Unavailable [place], Marina Edwards MD Unavailable Unavailable [place], Marina Edwards MD Unavailable Unavailable [place], Marina Edwards MD Unavailable Unavailable [place]rop, Marina Edwards MD Unavailable Unavailable [place], Marina Edwards MD Unavailable Unavailable [place], Marina Edwards MD Unavailable Unavailable [place], Marina Edwards MD Unavailable Unavailable [place]rop, Marina Edwards MD Unavailable Unavailable [place]rop, Marina Edwards MD Unavailable Unavailable [place]rop, Marina Edwards MD Unavailable Unavailable [place], Marina Edwards MD Unavailable Unavailable [place], Marina Edwards MD Unavailable Unavailable [place], Marina Edwards MD Unavailable Unavailable MINCOLLA, Isabel EDWARDS MD Unavailable Unavailable MINCOLLA, Isabel EDWARDS MD Unavailable Unavailable MINCOLLA, Isabel EDWARDS MD Unavailable Unavailable MINCOLLA, Isabel EDWARDS MD Unavailable Unavailable MINCOLLA, Isabel EDWARDS MD Unavailable Unavailable MINCOLLA, Isabel EDWARDS MD Unavailable Unavailable MINCOLLA, Isabel EDWARDS MD Unavailable Unavailable MINCOLLA, Isabel EDWARDS MD Unavailable Unavailable MINCOLLA, Isabel EDWARDS MD Unavailable Unavailable MINCOLLIsabel López MD Unavailable Unavailable MINCOLLIsabel López MD Unavailable Unavailable MINCOLLAIsabel MD Unavailable Unavailable MINCOLLA, Isabel EDWARDS MD Unavailable Unavailable MINCOLLA, Isabel EDWARDS MD Unavailable Unavailable MINCOLLA, Isabel EDWARDS MD Unavailable Unavailable MINCOLLA, Isabel EDWARDS MD Unavailable Unavailable MINCOLLA, Isabel EDWARDS MD Unavailable Unavailable MINCOLLA, Isabel EDWARDS MD Unavailable Unavailable MINCOLLA, Isabel EDWARDS MD Unavailable Unavailable MINCOLLAIsabel MD Unavailable Unavailable MINCOLLAIsabel MD Unavailable Unavailable MINCOLLAIsabel MD Unavailable Unavailable MINCOLLAIsabel MD Unavailable Unavailable MINCOLLAIsabel MD Unavailable Unavailable MINCOLLAIsabel MD Unavailable Unavailable MINCOLLAIsabel MD Unavailable Unavailable MINCOLLAIsabel MD Unavailable Unavailable MINCOLLIsabel López MD Unavailable Unavailable MINCOLLAIsabel MD Unavailable Unavailable MINCOLLIsabel López MD Unavailable Unavailable MINCOLLIsabel López MD Unavailable Unavailable MINCOWINNIEAIsabel MD Unavailable Unavailable MINCOLLAIsabel MD Unavailable Unavailable MINCOLLAIsabel MD Unavailable Unavailable MINCOLLA, Isabel EDWARDS MD Unavailable Unavailable MINCOLLA, Isabel EDWARDS MD Unavailable Unavailable MINCOLLA, Isabel EDWARDS MD Unavailable Unavailable MINCOLLA, Isabel EDWARDS MD Unavailable Unavailable MINCOLLA, Isabel EDWARDS MD Unavailable Unavailable MINCOLLA, Isabel EDWARDS MD Unavailable Unavailable MINCOLLA, Isabel EDWARDS MD Unavailable Unavailable MINCOLLA, Isabel EDWARDS MD Unavailable Unavailable MINCOLLA, Isabel EDWARDS MD Unavailable Unavailable MINCOLLA, Isabel EDWARDS MD Unavailable Unavailable MINCOLLA, Isabel EDWARDS MD Unavailable Unavailable MINCOLLA, Isabel EDWARDS MD Unavailable Unavailable MINCOLLA, Isabel EDWARDS MD Unavailable Unavailable MINCOLLA, Isabel EDWARDS MD Unavailable Unavailable MINCOLLA, Isabel EDWARDS MD Unavailable Unavailable MINCOLLA, Isabel EDWARDS MD Unavailable Unavailable MINCOLLA, Isabel EDWARDS MD Unavailable Unavailable MINCOLLA, Isabel EDWARDS MD Unavailable Unavailable MINCOLLA, Isabel EDWARDS MD Unavailable Unavailable MINCOLLA, Isabel EDWARDS MD Unavailable Unavailable MINCOLLA, Isabel EDWARDS MD Unavailable Unavailable MINCOLLA, Isabel EDWARDS MD Unavailable Unavailable MINCOLLA, Isabel EDWARDS MD Unavailable Unavailable MINCOLLA, Isabel EDWARDS MD Unavailable Unavailable MINCOLLA, Isabel EDWARDS MD Unavailable Unavailable MINCOLLA, Isabel EDWARDS MD Unavailable Unavailable MINCOLLA, Isabel EDWARDS MD Unavailable Unavailable MINCOLLA, Isabel EDWARDS MD Unavailable Unavailable MINCOLLA, Isabel EDWARDS MD Unavailable Unavailable MINCOLLA, Isabel EDWARDS MD Unavailable Unavailable MINCOLLA, Isabel EDWARDS MD Unavailable Unavailable MINCOLLA, Isabel EDWARDS MD Unavailable Unavailable MINCOLLA, Isabel EDWARDS MD Unavailable Unavailable MINCOLLA, Isabel EDWARDS MD Unavailable Unavailable MINCOLLA, Isabel EDWARDS MD Unavailable Unavailable MINCOLLA, Isabel EDWARDS MD Unavailable Unavailable MINCOLLA, Isabel EDWARDS MD Unavailable Unavailable MINCOLLA, Isabel EDWARDS MD Unavailable Unavailable MINCOLLA, Isabel EDWARDS MD Unavailable Unavailable MINCOLLA, Isabel EDWARDS MD Unavailable Unavailable MINCOLLA, Isabel EDWARDS MD Unavailable Unavailable MINCOLLA, Isabel EDWARDS MD Unavailable Unavailable MINCOLLA, Isabel EDWARDS MD Unavailable Unavailable MINCOLLA, Isabel EDWARDS MD Unavailable Unavailable MINCOLLA, Isabel EDWARDS MD Unavailable Unavailable MINCOLLA, Isabel EDWARDS MD Unavailable Unavailable MINCOLLA, Isabel EDWARDS MD Unavailable Unavailable MINCOLLA, Isabel EDWARDS MD Unavailable Unavailable MINCOLLA, Isabel EDWARDS MD Unavailable Unavailable MINCOLLA, Isabel EDWARDS MD Unavailable Unavailable Mahoney, Suze PAINTER SPRAY Unavailable Unavailable Mahoney, Suze PAINTER SPRAY Unavailable Unavailable Mahoney, Suze PAINTER SPRAY Unavailable Unavailable Mahoney, Suze PAINTER SPRAY Unavailable Unavailable Mahoney, Suze PAINTER SPRAY Unavailable Unavailable Mahoney, Suze PAINTER SPRAY Unavailable Unavailable Mahoney, Suze PAINTER SPRAY Unavailable Unavailable Mahoney, Suze PAINTER SPRAY Unavailable Unavailable Mahoney, Suze PAINTER SPRAY Unavailable Unavailable Mahoney, Suze PAINTER SPRAY Unavailable Unavailable Mahoney, Suze PAINTER SPRAY Unavailable Unavailable Mahoney, Suze PAINTER SPRAY Unavailable Unavailable Mahoney, Suze PAINTER SPRAY Unavailable Unavailable CEMER, ADNAN MD Unavailable Unavailable CEMER, ADNAN MD Unavailable Unavailable CEMER, ADNAN MD Unavailable Unavailable CEMER, ADNAN MD Unavailable Unavailable CEMER, ADNAN MD Unavailable Unavailable CEMER, ADNAN MD Unavailable Unavailable CEMER, ADNAN MD Unavailable Unavailable CEMER, ADNAN MD Unavailable Unavailable CEMER, ADNAN MD Unavailable Unavailable CEMER, ADNAN MD Unavailable Unavailable CEMER, ADNAN MD Unavailable Unavailable CEMER, ADNAN MD Unavailable Unavailable CEMER, ADNAN MD Unavailable Unavailable CEMER, ADNAN MD Unavailable Unavailable CEMER, ADNAN MD Unavailable Unavailable CEMER, ADNAN MD Unavailable Unavailable CEMER, ADNAN MD Unavailable Unavailable CEMER, ADNAN MD Unavailable Unavailable CEMER, ADNAN MD Unavailable Unavailable CEMER, ADNAN MD Unavailable Unavailable CEMER, ADNAN MD Unavailable Unavailable CEMER, ADNAN MD Unavailable Unavailable CEMER, ADNAN MD Unavailable Unavailable CEMER, ADNAN MD Unavailable Unavailable CEMER, ADNAN MD Unavailable Unavailable CEMER, ADNAN MD Unavailable Unavailable CEMER, ADNAN MD Unavailable Unavailable CEMER, ADNAN MD Unavailable Unavailable CEMER, ADNAN MD Unavailable Unavailable CEMER, ADNAN MD Unavailable Unavailable CEMER, ADNAN MD Unavailable Unavailable CEMER, ADNAN MD Unavailable Unavailable CEMER, ADNAN MD Unavailable Unavailable CEMER, ADNAN MD Unavailable Unavailable CEMER, ADNAN MD Unavailable Unavailable CEMER, ADNAN MD Unavailable Unavailable CEMER, ADNAN MD Unavailable Unavailable CEMER, ADNAN MD Unavailable Unavailable CEMER, ADNAN MD Unavailable Unavailable CEMER, ADNAN MD Unavailable Unavailable CEMER, ADNAN MD Unavailable Unavailable CEMER, ADNAN MD Unavailable Unavailable CEMER, ADNAN MD Unavailable Unavailable CEMER, ADNAN MD Unavailable Unavailable CEMER, ADNAN MD Unavailable Unavailable CEMER, ADNAN MD Unavailable Unavailable CEMER, ADNAN MD Unavailable Unavailable CEMER, ADNAN MD Unavailable Unavailable CEMELANA DAN MD Unavailable Unavailable CEMELANA DAN MD Unavailable Unavailable CEMELANA DAN MD Unavailable Unavailable CEMELANA DAN MD Unavailable Unavailable CEMELANA DAN MD Unavailable Unavailable CEMELANA DAN MD Unavailable Unavailable CEMELANA DAN MD Unavailable Unavailable CEMERELANA MD Unavailable Unavailable ZABOROWSKI, J DUONG PAINTER SPRAY Unavailable Unavailable ZABOROWSKI, J DUONG PAINTER SPRAY Unavailable Unavailable ZABOROWSKI, J DUONG PAINTER SPRAY Unavailable Unavailable ZABOROWSKI, J DUONG PAINTER SPRAY Unavailable Unavailable ZABOROWSKI, J DUONG PAINTER SPRAY Unavailable Unavailable ZABOROWSKI, J DUONG PAINTER SPRAY Unavailable Unavailable ZABOROWSKI, J DUONG PAINTER SPRAY Unavailable Unavailable ZABOROWSKI, J DUONG PAINTER SPRAY Unavailable Unavailable ZABOROWSKI, J DUONG PAINTER SPRAY Unavailable Unavailable ZABOROWSKI, J DUONG PAINTER SPRAY Unavailable Unavailable ZABOROWSKI, J DUONG PAINTER SPRAY Unavailable Unavailable ZABOROWSKI, J DUONG PAINTER SPRAY Unavailable Unavailable ZABOROWSKI, J DUONG PAINTER SPRAY Unavailable Unavailable ZABOROWSKI, J DUONG PAINTER SPRAY Unavailable Unavailable ZABOROWSKI, J DUONG PAINTER SPRAY Unavailable Unavailable ZABOROWSKI, J DUONG PAINTER SPRAY Unavailable Unavailable ZABOROWSKI, J DUONG PAINTER SPRAY Unavailable Unavailable ZABOROWSKI, J DUONG PAINTER SPRAY Unavailable Unavailable ZABOROWSKI, J DUONG PAINTER SPRAY Unavailable Unavailable ZABOROWSKI, J DUONG PAINTER SPRAY Unavailable Unavailable ZABOROWSKI, J DUONG PAINTER SPRAY Unavailable Unavailable ZABOROWSKI, J DUONG PAINTER SPRAY Unavailable Unavailable ZABOROWSKI, J DUONG PAINTER SPRAY Unavailable Unavailable ZABOROWSKI, J DUONG PAINTER SPRAY Unavailable Unavailable ZABOROWSKI, J DUONG PAINTER SPRAY Unavailable Unavailable ZABOROWSKI, J DUONG PAINTER SPRAY Unavailable Unavailable ZABOROWSKI, J DUONG PAINTER SPRAY Unavailable Unavailable ZABOROWSKI, J DUONG PAINTER SPRAY Unavailable Unavailable ZABOROWSKI, J DUONG PAINTER SPRAY Unavailable Unavailable ZABOROWSKI, J DUONG PAINTER SPRAY Unavailable Unavailable ZABOROWSKI, J DUONG PAINTER SPRAY Unavailable Unavailable ZABOROWSKI, J DUONG PAINTER SPRAY Unavailable Unavailable ZABOROWSKI, J DUONG PAINTER SPRAY Unavailable Unavailable ZABOROWSKI, J DUONG PAINTER SPRAY Unavailable Unavailable ZABOROWSKI, J DUONG PAINTER SPRAY Unavailable Unavailable ZABOROWSKI, J DUONG PAINTER SPRAY Unavailable Unavailable ZABOROWSKI, J DUONG PAINTER SPRAY Unavailable Unavailable ZABOROWSKI, J DUONG PAINTER SPRAY Unavailable Unavailable ZABOROWSKI, J DUONG PAINTER SPRAY Unavailable Unavailable ZABOROWSKI, J DUONG PAINTER SPRAY Unavailable Unavailable ZABOROWSKI, J DUONG PAINTER SPRAY Unavailable Unavailable ZABOROWSKI, J DUONG PAINTER SPRAY Unavailable Unavailable ZABOROWSKI, J DUONG PAINTER SPRAY Unavailable Unavailable ZABOROWSKI, J DUONG PAINTER SPRAY Unavailable Unavailable ZABOROWSKI, J DUONG PAINTER SPRAY Unavailable Unavailable ZABOROWSKI, J DUONG PAINTER SPRAY Unavailable Unavailable ZABOROWSKI, J DUONG PAINTER SPRAY Unavailable Unavailable ZABOROWSKI, J DUONG PAINTER SPRAY Unavailable Unavailable MINCOLLA, Isabel EDWARDS MD Unavailable Unavailable MINCOLLA, Isabel EDWARDS MD Unavailable Unavailable MINCOLLA, Isabel EDWARDS MD Unavailable Unavailable MINCOLLA, Isabel EDWARDS MD Unavailable Unavailable MINCOLLA, Isabel EDWARDS MD Unavailable Unavailable MINCOLLA, Isabel EDWARDS MD Unavailable Unavailable MINCOLLA, Isabel EDWARDS MD Unavailable Unavailable MINCOLLA, Isabel EDWARDS MD Unavailable Unavailable MINCOLLA, Isabel EDWARDS MD Unavailable Unavailable MINCOLLA, Isabel EDWARDS MD Unavailable Unavailable MINCOLLA, Isabel EDWARDS MD Unavailable Unavailable MINCOLLA, Isabel EDWARDS MD Unavailable Unavailable MINCOLLA, Isabel EDWARDS MD Unavailable Unavailable MINCOLLA, Isabel EDWARDS MD Unavailable Unavailable MINCOLLA, Isabel EDWARDS MD Unavailable Unavailable MINCOLLA, Isabel EDWARDS MD Unavailable Unavailable MINCOLLA, Isabel EDWARDS MD Unavailable Unavailable MINCOLLA, Isabel EDWARDS MD Unavailable Unavailable MINCOLLA, Isabel EDWARDS MD Unavailable Unavailable MINCOLLA, Isabel EDWARDS MD Unavailable Unavailable MINCOLLA, Isabel EDWARDS MD Unavailable Unavailable MINCOLLA, Isabel EDWARDS MD Unavailable Unavailable MINCOLLA, Isabel EDWARDS MD Unavailable Unavailable MINCOLLA, Isabel EDWARDS MD Unavailable Unavailable MINCOLLA, Isabel EDWARDS MD Unavailable Unavailable MINCOLLA, Isabel EDWARDS MD Unavailable Unavailable MINCOLLA, Isabel EDWARDS MD Unavailable Unavailable MINCOLLA, Isabel EDWARDS MD Unavailable Unavailable MINCOLLA, Isabel EDWARDS MD Unavailable Unavailable MINCOLLA, Isabel EDWARDS MD Unavailable Unavailable MINCOLLA, Isabel EDWARDS MD Unavailable Unavailable MINCOLLA, Isabel EDWARDS MD Unavailable Unavailable MINCOLLA, Isabel EDWARDS MD Unavailable Unavailable MINCOLLA, Isabel EDWARDS MD Unavailable Unavailable MINCOLLA, Isabel EDWARDS MD Unavailable Unavailable MINCOLLA, Isabel EDWARDS MD Unavailable Unavailable MINCOLLA, Isabel EDWARDS MD Unavailable Unavailable MINCOLLA, Isabel EDWARDS MD Unavailable Unavailable MINCOLLA, Isabel EDWARDS MD Unavailable Unavailable MINCOLLA, Isabel EDWARDS MD Unavailable Unavailable MINCOLLA, Isabel EDWARDS MD Unavailable Unavailable MINCOLLA, Isabel EDWARDS MD Unavailable Unavailable MINCOLLA, Isabel EDWARDS MD Unavailable Unavailable MINCOLLA, Isabel EDWARDS MD Unavailable Unavailable MINCOLLA, Isabel EDWARDS MD Unavailable Unavailable MINCOLLA, Isabel EDWARDS MD Unavailable Unavailable MINCOLLA, Isabel EDWARDS MD Unavailable Unavailable MINCOLLA, Isabel EDWARDS MD Unavailable Unavailable MINCOLLA, Isabel EDWARDS MD Unavailable Unavailable MINCOLLA, Isabel EDWARDS MD Unavailable Unavailable MINCOLLA, Isabel EDWARDS MD Unavailable Unavailable MINCOLLA, Isabel EDWARDS MD Unavailable Unavailable MINCOLLA, Isabel EDWARDS MD Unavailable Unavailable MINCOLLA, Isabel EDWARDS MD Unavailable Unavailable MINCOLLA, Isabel EDWARDS MD Unavailable Unavailable MINCOLLA, Isabel EDWARDS MD Unavailable Unavailable MINCOLLA, Isabel EDWARDS MD Unavailable Unavailable MINCOLLA, Isabel EDWARDS MD Unavailable Unavailable MINCOLLA, Isabel EDWARDS MD Unavailable Unavailable MINCOLLA, Isabel EWDARDS MD Unavailable Unavailable MINCOLLA, Isabel EDWARDS MD Unavailable Unavailable MINCOLLA, Isabel EDWARDS MD Unavailable Unavailable MINCOLLA, Isabel EDWARDS MD Unavailable Unavailable MINCOLLA, Isabel EDWARDS MD Unavailable Unavailable MINCOLLA, Isabel EDWARDS MD Unavailable Unavailable MINCOLLA, Isabel EDWARDS MD Unavailable Unavailable MINCOLLA, Isabel EDWARDS MD Unavailable Unavailable MINCOLLA, Isabel EDWARDS MD Unavailable Unavailable MINCOLLA, Isabel EDWARDS MD Unavailable Unavailable MINCOLLA, Isabel EDWARDS MD Unavailable Unavailable MINCOLLA, Isabel EDWARDS MD Unavailable Unavailable MINCOLLA, Isabel EDWARDS MD Unavailable Unavailable MINCOLLA, Isabel EDWARDS MD Unavailable Unavailable MINCOLLA, Isabel EDWARDS MD Unavailable Unavailable MINCOLLA, Isabel EDWARDS MD Unavailable Unavailable MINCOLLA, Isabel EDWARDS MD Unavailable Unavailable MINCOLLA, Isabel EDWARDS MD Unavailable Unavailable MINCOLLA, Isabel EDWARDS MD Unavailable Unavailable MINCOLLA, Isabel EDWARDS MD Unavailable Unavailable MINCOLLA, Isabel EDWARDS MD Unavailable Unavailable MINCOLLA, Isabel EDWARDS MD Unavailable Unavailable MINCOLLA, Isabel EDWARDS MD Unavailable Unavailable MINCOLLA, Isabel EDWARDS MD Unavailable Unavailable MINCOLLA, Isabel EDWARDS MD Unavailable Unavailable Cumberland, D Selina PAINTER SPRAY Unavailable Unavailable Cumberland, D Selina PAINTER SPRAY Unavailable Unavailable Cumberland, D Selina PAINTER SPRAY Unavailable Unavailable Chiara, D Selina PAINTER SPRAY Unavailable Unavailable Chiara, D Selina PAINTER SPRAY Unavailable Unavailable Chiara, D Selina PAINTER SPRAY Unavailable Unavailable Cumberland, D Selina PAINTER SPRAY Unavailable Unavailable Chiara, D Selina PAINTER SPRAY Unavailable Unavailable Chiara, D Selina PAINTER SPRAY Unavailable Unavailable Chiara, D Selina PAINTER SPRAY Unavailable Unavailable Cumberland, D Selina PAINTER SPRAY Unavailable Unavailable Cumberland, D Selina PAINTER SPRAY Unavailable Unavailable Cumberland, D Selina PAINTER SPRAY Unavailable Unavailable Chiara, D Selina PAINTER SPRAY Unavailable Unavailable Cumberland, D Selina PAINTER SPRAY Unavailable Unavailable Chiara, D Selina PAINTER SPRAY Unavailable Unavailable Chiara, D Selina PAINTER SPRAY Unavailable Unavailable Cihara, D Selina PAINTER SPRAY Unavailable Unavailable Chiara, D Selina PAINTER SPRAY Unavailable Unavailable Chiara, D Selina PAINTER SPRAY Unavailable Unavailable Cumberland, D Selina PAINTER SPRAY Unavailable Unavailable Cumberland, D Selina PAINTER SPRAY Unavailable Unavailable Chiara, D Selina PAINTER SPRAY Unavailable Unavailable Cumberland, D Selina PAINTER SPRAY Unavailable Unavailable Chiara, D Selina PAINTER SPRAY Unavailable Unavailable Cumberland, D Selina PAINTER SPRAY Unavailable Unavailable Cumberland, D Selina PAINTER SPRAY Unavailable Unavailable Cumberland, D Selina PAINTER SPRAY Unavailable Unavailable Gris, Sharmin Harris MD Unavailable Unavailable Gris, Sharmin Harris MD Unavailable Unavailable Gris, Sharmin Harris MD Unavailable Unavailable Gris, Sharmin Harris MD Unavailable Unavailable Gris, Sharmin Harris MD Unavailable Unavailable Gris, Sharmin Harris MD Unavailable Unavailable Gris, Sharmin Harris MD Unavailable Unavailable Gris, Sharmin Harris MD Unavailable Unavailable Gris, Sharmin Harris MD Unavailable Unavailable Gris, Sharmin Harris MD Unavailable Unavailable Gris, Sharmin Harris MD Unavailable Unavailable Gris, Sharmin Harris MD Unavailable Unavailable Gris, Sharmin Harris MD Unavailable Unavailable Gris, Sharmin Harris MD Unavailable Unavailable Gris, Sharmin Harris MD Unavailable Unavailable Gris, Sharmin Harris MD Unavailable Unavailable Gris, Sharmin Harris MD Unavailable Unavailable Dieterzpauline, Sharmin Harris MD Unavailable Unavailable DieterzSharmin carpenter MD Unavailable Unavailable Odalyshamee, Sharmin Harrsi MD Unavailable Unavailable Gris, Sharmin Harris MD Unavailable Unavailable Gris, Sharmin Harris MD Unavailable Unavailable Gris, Sharmin Harris MD Unavailable Unavailable Gris, Sharmin Harris MD Unavailable Unavailable Gris, Sharmin Harris MD Unavailable Unavailable Gris, Sharmin Harris MD Unavailable Unavailable Gris, Sharmin Harris MD Unavailable Unavailable Gris, Sharmin Harris MD Unavailable Unavailable Gris, Sharmin Harris MD Unavailable Unavailable Dieterzhauer, Sharmin Harris MD Unavailable Unavailable Salzhauer, Sharmin Harris MD Unavailable Unavailable Salzhauer, Sharmin Harris MD Unavailable Unavailable Salzhauer, Sharmin Harris MD Unavailable Unavailable Salzhauer, Sharmin Harris MD Unavailable Unavailable Salzhauer, Sharmin Harris MD Unavailable Unavailable Salzhauer, Sharmin Harris MD Unavailable Unavailable Salzhauer, Sharmin Harris MD Unavailable Unavailable Salzhauer, Sharmin Harris MD Unavailable Unavailable Salzhauer, Sharmin Harris MD Unavailable Unavailable Salzhauer, Sharmin Harris MD Unavailable Unavailable Salzhauer, Sharmin Harris MD Unavailable Unavailable Salzhauer, Sharmin Harris MD Unavailable Unavailable Salzhauer, Sharmin Harris MD Unavailable Unavailable Salzhauer, Sharmin Harris MD Unavailable Unavailable Salzhauer, Sharmin Harris MD Unavailable Unavailable Salzhauer, Sharmin Harris MD Unavailable Unavailable Salzhauer, Sharmin Harris MD Unavailable Unavailable Salzhauer, Sharmin Harris MD Unavailable Unavailable Salzhauer, Sharmin Harris MD Unavailable Unavailable Salzhauer, Sharmin Harris MD Unavailable Unavailable Salzhauer, Sharmin Harris MD Unavailable Unavailable Salzhauer, Sharmin Harris MD Unavailable Unavailable Salzhauer, Sharmin Harris MD Unavailable Unavailable Salzhauer, Sharmin Harris MD Unavailable Unavailable Salzhauer, Sharmin Harris MD Unavailable Unavailable Salzhauer, Sharmin Harris MD Unavailable Unavailable Salzhauer, Sharmin Harris MD Unavailable Unavailable Salzhauer, Sharmin Harris MD Unavailable Unavailable Salzhamee, Sharmin Harris MD Unavailable Unavailable Salzhauer, Sharmin Harris MD Unavailable Unavailable Salzhauer, Sharmin Harris MD Unavailable Unavailable Salzhauer, Sharmin Harris MD Unavailable Unavailable Salzhauer, Sharmin Harris MD Unavailable Unavailable Salzhauer, Sharmin Harris MD Unavailable Unavailable Salzhauer, Sharmin Harris MD Unavailable Unavailable Salzhauer, Sharmin Harris MD Unavailable Unavailable Salzhauer, Sharmin Harris MD Unavailable Unavailable Salzhauer, Sharmin Harris MD Unavailable Unavailable Salzhauer, Sharmin Harris MD Unavailable Unavailable Salzhamee, Sharmin Harris MD Unavailable Unavailable Salzpauline, Sharmin Harris MD Unavailable Unavailable Salzhauer, Sharmin Harris MD Unavailable Unavailable Salzpauline, Sharmin Harris MD Unavailable Unavailable Salzhauer, Sharmin Harris MD Unavailable Unavailable Salzhauer, W Steven MD Unavailable Unavailable Salzhauer, W Steven MD Unavailable Unavailable Salzhauer, W Steven MD Unavailable Unavailable Salzhauer, W Steven MD Unavailable Unavailable Salzhauer, W Steven MD Unavailable Unavailable Salzhauer, W Steven MD Unavailable Unavailable ALEKSIC, ILIJA MD Unavailable Unavailable ALEKSIC, ILIJA MD Unavailable Unavailable ALEKSIC, ILIJA MD Unavailable Unavailable ALEKSIC, ILIJA MD Unavailable Unavailable ALEKSIC, ILIJA MD Unavailable Unavailable ALEKSIC, ILIJA MD Unavailable Unavailable ALEKSIC, ILIJA MD Unavailable Unavailable ALEKSIC, ILIJA MD Unavailable Unavailable ALEKSIC, ILIJA MD Unavailable Unavailable ALEKSIC, ILIJA MD Unavailable Unavailable ALEKSIC, ILIJA MD Unavailable Unavailable ALEKSIC, ILIJA MD Unavailable Unavailable ALEKSIC, ILIJA MD Unavailable Unavailable ALEKSIC, ILIJA MD Unavailable Unavailable ALEKSIC, ILIJA MD Unavailable Unavailable ALEKSIC, ILIJA MD Unavailable Unavailable ALEKSIC, ILIJA MD Unavailable Unavailable ALEKSIC, ILIJA MD Unavailable Unavailable ALEKSIC, ILIJA MD Unavailable Unavailable ALEKSIC, ILIJA MD Unavailable Unavailable ALEKSIC, ILIJA MD Unavailable Unavailable ALEKSIC, ILIJA MD Unavailable Unavailable ALEKSIC, ILIJA MD Unavailable Unavailable ALEKSIC, ILIJA MD Unavailable Unavailable ALEKSIC, ILIJA MD Unavailable Unavailable ALEKSIC, ILIJA MD Unavailable Unavailable ALEKSIC, ILIJA MD Unavailable Unavailable ALEKSIC, ILIJA MD Unavailable Unavailable ALEKSIC, ILIJA MD Unavailable Unavailable ALEKSIC, ILIJA MD Unavailable Unavailable ALEKSIC, ILIJA MD Unavailable Unavailable ALEKSIC, ILIJA MD Unavailable Unavailable ALEKSIC, ILIJA MD Unavailable Unavailable ALEKSIC, ILIJA MD Unavailable Unavailable ALEKSIC, ILIJA MD Unavailable Unavailable Re-disclosure Warning The records that you are about to access may contain information from federally-assisted alcohol or drug abuse programs. If such information is present, then the following federally mandated warning applies: This information has been disclosed to you from records protected by federal confidentiality rules (42 CFR part 2). The federal rules prohibit you from making any further disclosure of this information unless further disclosure is expressly permitted by the written consent of the person to whom it pertains or as otherwise permitted by 42 CFR part 2. A general authorization for the release of medical or other information is NOT sufficient for this purpose. The Federal rules restrict any use of the information to criminally investigate or prosecute any alcohol or drug abuse patient.The records that you are about to access may contain highly sensitive health information, the redisclosure of which is protected by Article 27-F of the [facility] Public Health law. If you continue you may have access to information: Regarding HIV / AIDS; Provided by facilities licensed or operated by the [facility] Office of Mental Health; or Provided by the [facility] Office for People With Developmental Disabilities. If such information is present, then the following [facility] mandated warning applies: This information has been disclosed to you from confidential records which are protected by state law. State law prohibits you from making any further disclosure of this information without the specific written consent of the person to whom it pertains, or as otherwise permitted by law. Any unauthorized further disclosure in violation of state law may result in a fine or retirement sentence or both. A general authorization for the release of medical or other information is NOT sufficient authorization for further disc losure. Advance Directives Directive Description Marker Maker Prefitter Status Observation Descr iption Data Source(s) 42986-7 HIPAA - Effective on 12/02/19. Expiration date unspecified. Scanned Document is available upon request. Phong Ribeiro completed [employer] ([facility]) 69814-8 HIPAA - Effective on 12/02/19. Expiration date unspecified. Scanned Document is available upon request. Phong Ribeiro completed [employer] ([facility]) Allergies and Adverse Reactions Type Description Substance Reaction Status Data Source(s ) Drug allergy tamsulosin tamsulosin Rash [facility] [facility] Drug allergy sertraline sertraline suicidial thought [facility] Family History Family Member Name Family Member Gender Family Member Status Date o f Status Description Data Source(s) Unknown Male Problem [facility] ([facility] Unknown Male Problem [facility] ([facility]) () Unknown Unknown Problem [facility] ([facility]) Unknown Unknown Problem [facility] ([facility]) Encounters Encounter Providers Location Date Indications Data Source(s ) Outpatient Attender: ZANE GOTTLIEB MD Main Office 12/15/2020 09:30:00 AM EDT [facility] ([facility]) Outpatient Attender: Yamile DELONG [facility] 5 11/26 10:00:00 AM EDT [facility] ([facility] Outpatient Attender: DUONG BALL NP [facility] 12:00:00 AM EDT - 11/22/2020 01:39:[address] [facility] <td><content ID="_[id number]">Medication Order</content>
<content><content styleCode="xSecondary xLabel">Encounter Diagnosis</content>: <content ID="_[id number]" styleCode="xSecondary">COPD (CHRONIC OBSTRUCTIVE PULMONARY DISEASE)</content></content></td><td><content styleCode="xSecondary">15-Sep-2020 10:06 </content><content styleCode="xLabel xSecondary"> To </content><content styleCode="xSecondary">15-Sep-2020 10:08</content>
<content styleCode="xSecondary">Pulmonary Health [facility] Office</content></td><td></td>Medication Order [facility] Office 09/15/2020 10:06:21 AM EDT - 09/15/2020 10:08:51 AM EDT COPD (CHRONIC OBSTRUCTIVE PULMONARY DISEASE) [employer] ([facility]) COPD (CHRONIC OBSTRUCTIVE PULMONARY DISE ASE) Outpatient Attender: ZANE GOTTLIEB MD Main Office 09/14/2020 08:45:00 AM EDT [facility] ([facility]) Outpatient Attender: ZANE GOTTLIEB MD Main Office 06/14/2020 02:30:00 PM EDT [facility] ([facility]) Outpatient<td><content ID="_[id number]">Office Visit</content>
<content><content styleCode="xLabel xSecondary">Encounter Reason</content>: <content ID="_[id number]" styleCode="xSecondary">COPD - The primary physician is Dr. Jerry Patel MD . The last office visit was 6 m onth(s) ago. Management changes made at the last visit include ordering Ct chest. The Gold Classification is Stage 3: Severe COPD (as per patient, from testing at Dr Woods years ago). Symptoms include dyspnea on exertion and clear sputum production, while symptoms do not include wheezing or non-productive cough. There is no known event that preceded symptom onset. The symptoms occur frequently. The episodes occur daily. The patient describes this as severe and worsening. Symptoms are exacerbated by activity. Symptoms are relieved by inhaler use and use of a nebulizer. Associated symptoms do not include fever, w eakness, hemoptysis, upper respiratory infection symptoms or chest pain. Current treatment includes inhaled albuterol and inhaled short-acting beta-2 agonists. By report there is good compliance with treatment, good tolerance of treatment and good symptom control. Pertinent medical history includes smoking (has quit).</content></content>
<content><content styleCode="xSecondary xLabel"> Encounter Diagnosis</content>: <content ID="_[id number]" styleCode="xSecondary">COPD (CHRONIC OBSTRUCTIVE PULMONARY DISEASE)</content><content styleCode="xSecondary">, </content><content [id number]" styleCode="xSecondary">PULMONARY NODULE</content></content></td><td><content styleCode="xSecondary">03-Jun-2020 13:15 </content><content styleCode="xLabel xSecondary"> To </content><content styleCode="xSecondary">03-Jun-2020 13:31</content>
<content styleCode="xSecondary">Pulmonary [facility] Office</content></td><td></td> [facility] Pulmonary [facility] Office 06/03/2020 01:15:00 PM EDT - 06/03/2020 01:31:14 PM EDT COPD - The primary physician is Dr. Jerry Patel MD . The last office visit was 6 month(s) ago. Management changes made at the last visit include ordering Ct chest. The Gold Classification is Stage 3: Severe COPD (as per patient, from testing at Dr [facility] years ago). Symptoms include dyspnea on exertion and clear sputum production, while symptoms do not include wheezing or non-productive cough. T here is no known event that preceded symptom onset. The symptoms occur frequently. The episodes occur daily. The patient describes this as severe and worsening. Symptoms are exacerbated by activity. Symptoms are relieved by inhaler use and use of a nebulizer. Associated symptoms do not include fever, weakness, hemoptysis, upper respiratory infection symptoms or chest pain. Current treatment includes inhaled albuterol and inhaled short-acting beta-2 agonists. By report there is good compliance with treatment, good tolerance of treatment and good symptom control. Pertinent medical history includes smoking (has quit).PULMONARY NODULECOPD (CHRONIC OBSTRUCTIVE PULMONARY DISEASE) [facility] ([facility]) COPD - The primary physician is Dr. Bakari Patel MD . The last office visit was 6 month(s) ago. Management changes made at the last visit include ordering Ct chest. The Gold Classification is Stage 3: Severe COPD (as per patient, from testing at Dr [facility] years ago). Symptoms include dyspnea on exertion and clear sputum production, while symptoms do not include wheezing or non-productive cough. There is no known event that preceded symptom onset. The symptoms occur frequently. The episodes occur daily. The patient describes this as severe and worsening. Symptoms are exacerbated by activity. Symptoms are relieved by inhaler use and use of a nebulizer. Associated symptoms do not include fever, weakness, hemoptysis, upper respiratory infection symptoms or chest pain. Current treatment includes inhaled albuterol and inhaled short-acting beta-2 agonists. By report there is good compliance with treatment, good tolerance of treatment and good symptom control. Pertinent medical history includes smoking (has quit). PULMONARY NODULE COPD (CHRONIC OBSTRUCTIVE PULMONARY DISE ASE) Outpatient Referrer: Jerry Javed MD 06/03/2020 08:08: 11 AM EDT [facility] Outpatient Attender: Selina Guadarrama NP [facility] 03/18/2020 0 7:20:00 AM EST [facility] ([facility] Outpatient Attender: JERRY PATEL MD Main Office 03/15/2020 09:00:00 AM EST [facility] ([facility]) Outpatient Attender: DUONG BALL NP [facility] 07/2020 12:00:00 AM EST - 03/03/2020 09:19:[address] [facility] Inpatient Attender: Noel Henson MDAdmitter: Noel knapp MD [email or web address] 02/11/2020 05:24:00 PM EST - 02/13/2020 01:35:00 PM EST [facility] Patient discharged. Outpatient Attender: Suze Perry efraín 02/01/2020 10:20:00 AM EST [facility] ([facility]) Outpatient Attender: CHRIS BLAKE MD 01:59:00 PM EST - 01/26/2020 02:00:00 PM EST PRE-OP N52.31 [facility] PRE-OP N52.31 Patient discharged. Outpatient Attender: CHRIS BLAKE MD 12:00:00 AM EST - 01/26/2020 11:59:00 PM EST COVID TESTING [facility] COVID TESTING Patient discharged. Medication Order<td><content ID="_[id number]">Medication Order</content>
<content><content styleCode="xSecondary xLabel">Encounter Diagnosis</content>: <content [id number]" styleCode="xSecondary">COPD (CHRONIC OBSTRUCTIVE PULMONARY DISEASE)</content></content></td><td><content styleCode="xSecondary">21-Jan-2020 11:34 </content><content styleCode="xLabel xSecondary"> To </content><content styleCode="xSecondary">21-Jan-2020 11:42</content>
<content styleCode="xSecondary">Pulmonary [facility] Office</content></td><td></td> [facility] Pulmonary [facility] Office 01/21/2020 11:34:20 AM EST - 01/21/2020 11:42:26 AM EST COPD (CHRONIC OBSTRUCTIVE PULMONARY DISEASE) [facility] ([facility]) COPD (CHRONIC OBSTRUCTIVE PULMONARY DISE ASE) Preadmit Attender: CHRIS Tobin DAdmitter: JERRY PATEL MDReferrer: CHRIS BLAKE MD 01/05/2020 07:45:00 AM EST ERECTILE DYSF UNCTION FOLLOWING RADICAL PROSTATECTO [facility] ERECTILE DYSFUNCTION FOLLOWING RADICAL P ROSTATECTO Admission cancelled. Disregard status an d admitted date. Outpatient Attender: Steven Landry MD [place] 12/26/2019 09:15:00 AM EDT [facility] ([facility] Outpatient Attender: GUANACO LONG MD [place] 12/16/2019 03:30:00 PM EDT [facility] ([facility] Outpatient Attender: JERRY PATEL MD Main Office 12/12/2019 11:00:00 AM EDT [facility] ([facility]) Outpatient<td><content [id number]">Office Visit</content>
<content><content styleCode="xLabel xSecondary">Encounter Reason</content>: <content [id number]" styleCode="xSecondary">COPD - The primary physician is Dr. Jerry Patel MD . The last office visit was 2 m onth(s) ago. Management changes made at the last visit include ordering CT chest and PFT. The Gold Classification is Stage 3: Severe COPD (as per patient, from testing at Dr [facility] years ago). Symptoms include dyspnea on exertion. Onset was gradual year(s) ago (in his early 40's). There is no known event that preceded symptom onset. The symptoms occur constantly (working around the house, mows his lawn with a riding mower, can't use a mask (failed a fit test at his prior work-[employer], a paper [employer])-before covid, couldn't walk around the house.). The episodes occur daily. The patient describes this as severe and worsening. Symptoms are exacerbated by activity. Symptoms are relieved by inhaler use and use of a nebulizer. Associated symptoms do not include fever, weakness, hemoptysis, upper respiratory infection symptoms or chest pain.</content></content>
<content><content styleCode="xSecondary xLabel">Encounter Diagnosis</content>: <content ID="_[id number]" styleCode="xSecondary">COPD (CHRONIC OBSTRUCTIVE PULMONARY DISEASE)</content><content styleCode="xSecondary">, </content><content ID="_[id number]" styleCode="xSecondary">ASBESTOS EXPOSURE</content><content styleCode="xSecondary">, </content><content ID="_[id number]" styleCode="xSecondary">SLEEP APNEA</content><content styleCode="xSecondary">, </content><content ID="_[id number]" styleCode="xSecondary">OBESITY</content><content styleCode="xSecondary">, </content><content [id number]" styleCode="xSecondary">PROSTATE CA</content><content styleCode="xSecondary">, </content><content [id number]" styleCode="xSecondary">MYOCARDIAL INFARCT</content><content styleCode="xSecondary">, </content><content ID="_[id number]" styleCode="xSecondary">HYPERLIPIDEMIA</content><content styleCode="xSecondary">, </content><content [id number]" styleCode="xSecondary">HYPERTENSION</content><content styleCode="xSecondary">, </content><content ID="_[id number]" styleCode="xSecondary">DIABETES MELLITUS, TYPE 2</content><content styleCode="xSecondary">, </content><content [id number]" styleCode="xSecondary">CAD (CORONARY ARTERY DISEASE)</content><content styleCode="xSecondary">, </content><content [id number]" styleCode="xSecondary">HODGKIN'S DISEASE</content></content></td><td><content styleCode="xSecondary">04-Dec-2019 14:45 </content><content styleCode="xLabel xSecondary"> To </content><content styleCode="xSecondary">04-Dec-2019 15:05</content>
<content styleCode="xSecondary">[facility] [place] [facility]</content></td><td></td> [facility] Pulmonary [facility] Office 12/04/2019 02:45:00 PM EDT - 12/04/2019 03:05:14 PM EDT PROSTATE CAMYOCARDIAL INFARCTHODGKIN'S D ISEASECOPD - The primary physician is Dr. Jerry Patel MD . The last office visit was 2 month(s) ago. M anagement changes made at the last visit include ordering CT chest and PFT. The Gold Classification is Stage 3: Severe COPD (as per patient, from testing at Dr Woods years ago). Symptoms include dyspnea on exertion. Onset was gradual year(s) ago (in his early 40's). There is no known event that preceded symptom onset. The symptoms occur constantly (working around the house, mows his lawn with a riding mower, can't use a mask (failed a fit test at his prior work- [employer], a [employer])-before covid, couldn't walk around the house.). The episodes occur daily. The patient describes this as severe and worsening. Symptoms are exacerbated by activity. Symptoms are relieved by inhaler use and use of a nebulizer. Associated symptoms do not include fever, weakness, hemoptysis, upper respiratory infection symptoms or chest pain.CAD (CORONARY ARTERY DISEASE)DIABETES MELLITUS, TYPE 2HYPERTENSIONHYPERLIPIDEMIAOBESITYSLEEP APNEAASBESTOS EXPOSURECOPD (CHRONIC OBSTRUCTIVE PULMONARY DISEASE) [facility] ([facility]) PROSTATE CA MYOCARDIAL INFARCT HODGKIN'S DISEASE COPD - The primary physician is Dr. Bakari Patel MD . The last office visit was 2 month(s) ago. Management changes made at the last visit include ordering CT chest and PFT. The Gold Classification is Stage 3: Severe COPD (as per patient, from testing at Dr Woods years ago). Symptoms include dyspnea on exertion. Onset was gradual year(s) ago (in his early 40's). There is no known event that preceded symptom onset. The symptoms occur constantly (working around the house, mows his lawn with a riding mower, can't use a mask (failed a fit test at his prior work-[employer], a [employer]-before covid, couldn't walk around the house.). The episodes occur daily. The patient describes this as severe and worsening. Symptoms are exacerbated by activity. Symptoms are relieved by inhaler use and use of a nebulizer. Associated symptoms do not include fever, weakness, hemoptysis, upper respiratory infection symptoms or chest pain. CAD (CORONARY ARTERY DISEASE) DIABETES MELLITUS, TYPE 2 HYPERTENSION HYPERLIPIDEMIA OBESITY SLEEP APNEA ASBESTOS EXPOSURE COPD (CHRONIC OBSTRUCTIVE PULMONARY DISE ASE) <td><content ID="_[id number]">Historical Summary</content></td><td><content styleCode="xSecondary">04-Dec-2019 14:45 </content><content styleCode="xLabel xSecondary"> To </content><content styleCode="xSecondary">28-Nov-2019 12:33</content>
<content styleCode="xSecondary">[facility] [place] [facility]</content></td><td></td>Historical Summary [facility] Office 12/04/2019 02:45:00 PM EDT - 11/28/2019 12:33:13 PM EDT [facility] ([facility]) <td><content ID="_[id number]">Radiology</content>
<content><con tent styleCode="xSecondary xLabel">Encounter Diagnosis</content>: <content [id number]" styleCode="xSecondary">ASBESTOS EXPOSURE</content></content></td><td><content styleCode="xSecondary">02-Dec-2019 9:15 </content><content styleCode="xLabel xSecondary"> To </content><content styleCode="xSecondary">02-Dec-2019 8:53</content>
<content styleCode="xSecondary">Pulmonary [facility]</content></td><td></td>Radiology [facility] Office 12/02/2019 09:15:00 AM EDT - 12/02/2019 08:53:09 AM EDT ASBESTOS EXPOSURE [facility] ([facility]) ASBESTOS EXPOSURE Outpatient Referrer: Jerry Javed MD 12/02/2019 08:33: 49 AM EDT [facility] PFT Testing<td><content [id number]">PFT Testing</content>
<content><content styleCode="xSecondary xLabel">Encounter Diagnosis</content>: <content ID="_[id number]" styleCode="xSecondary">COPD (CHRONIC OBSTRUCTIVE PULMONARY DISEASE)</content></content></td><td><content styleCode="xSecondary">02-Dec-2019 8:30 </content><content styleCode="xLabel xSecondary"> To </content><content styleCode="xSecondary">02-Dec-2019 8:53</content>
<content styleCode="xSecondary">[facility]</content></td><td></td> [facility] [place] 12/02/2019 08:30:00 AM EDT - 12/02/2019 08:53:33 AM EDT COPD (CHRONIC OBSTRUCTIVE PULMONARY DISEASE) [facility] ([facility]) COPD (CHRONIC OBSTRUCTIVE PULMONARY DISE ASE) Outpatient<td><content ID="_[id number]">Nurse Visit</content>
<content><content styleCode="xSecondary xLabel">Encounter Diagnosis</content>: <content ID="_[id number]" styleCode="xSecondary">COPD (CHRONIC OBSTRUCTIVE PULMONARY DISEASE)</content><content styleCode="xSecondary">, </content><content [id number]" styleCode="xSecondary">EXPOSURE TO SARS-ASSOCIATED CORONAVIRUS</content></content></td><td><content styleCode="xSecondary"> 28-Nov-2019 10:30 </content><content styleCode="xLabel xSecondary"> To </content><content styleCode="xSecondary">28-Nov-2019 16:22</content>
<content styleCode="xSecondary">Pulmonary [facility] Office</content></td><td></td> [facility] [place] 11/28/2019 10:30:00 AM EDT - 11/28/2019 04:22:58 PM EDT EXPOSURE TO SARS-ASSOCIATED CORONAVIRUSCOPD (CHRONIC OBSTRUCTIVE PULMONARY DISEASE) [facility] ([facility]) EXPOSURE TO SARS-ASSOCIATED CORONAVIRUS COPD (CHRONIC OBSTRUCTIVE PULMONARY DISE ASE) Outpatient Attender: CHRIS Tobin DAdmitter: JERRY PATEL MDConsultant: ELANA MESSER MD 11/17/2019 12:19:00 AM EDT - 11/17/2019 12:35:00 PM EDT [facility] Patient discharged. Outpatient Attender: CHRIS BLAKE MD 09:30:00 AM EDT - 11/12/2019 09:31:00 AM EDT COVID TESTING [facility] Patient discharged. Outpatient Attender: Jerry Javed MDReferrer: JERRY MESSINA MD [place] 11/07/2019 08:45:00 PM EDT - 11/07/2019 11:59:00 PM EDT [facility] Patient discharged. Outpatient Attender: JERRY PATEL MD Main Office 10/30/2019 09:15:00 AM EDT [facility] ([facility]) Immunizations Vaccine Date Status Description Data Source(s) New in 2012. IIV4 12/15/2020 10:53:00 AM EDT completed [facility] ([facility]) New in 2012. IIV4 12/12/2019 12:10:00 PM EDT completed [facility] ([facility]) Medications Medication Brand Name Start Date Product Form Dose Route Admi nistrative Instructions Pharmacy Instructions Status Indications Reaction Description Data Source(s) POLYETHYLENE GLYCOL 3350 142 MG/ML Oral Solution [Miralax] M iralax 12/07/2020 12:00:00 AM EDT active M [facility] ([facility]) perflutren lipid microsphere (DEFINITY) 8.476 mg in 10 mL NS IV drug or medication 11/22/2020 01:34:13 PM EDT mL Intravenous active [facility] Nitroglycerin 0.4 MG Sublingual Tablet n itroglycerin (NITROSTAT) 0.4 MG SL tablet nitroglycerin (NITROSTAT) 0.4 MG SL tablet 11/22/2020 12:00:00 A M EDT 0.[address] 1 t ablet (0.4 mg total) under the tongue every 5 (five) minutes as needed for chest pain [facility] Stiolto Respimat 2.5-2.5 MCG/ACT AERS [id number] 10/18/2020 12:00 :00 AM EDT active INHALE 2 PUFFS BY MOUTH ONCE DAILY [facility] 200 ACTUAT Albuterol 0.09 MG/ACTUAT Mete red Dose Inhaler [ProAir] ProAir HFA 108 (90 Base) MCG/ACT Inhalation Aerosol Solution ProAir HFA 108 (90 Base) MCG/ACT Inhalation Aerosol Solution 09/15/2020 12:00:00 AM EDT 2 {Puff} C3821 6 active ProAir HFA [facility] Medication taken as needed. Albuterol 0.83 MG/ML Inhalant Solution A lbuterol Sulfate (2.5 MG/3ML) 0.083% Inhalation Nebulization Solution Albuterol Sulfate (2.5 MG/3ML) 0.083% Inhalation Nebulization Solution 09/15/2020 12:00:00 AM EDT 1 {ampu le} [id number] active Albuterol Sulfate [facility] ([facility]) Medication taken as needed. 24 HR Glipizide 5 MG Extended Release Oral Tablet Glipizide ER 09/14/2020 12:00:00 AM EDT active M EDENT ([facility]) nebivolol 10 MG Oral Tablet nebivolol (Bystolic) 10 MG tablet nebivolol (Bystolic) 10 MG tablet 09/09/2020 12:00:00 AM EDT 10 mg Oral active Take 1 tablet (10 mg total) by mouth daily [facility] clopidogrel 75 MG Oral Tablet clopidogrel (PLAVIX) 75 MG tablet clopidogrel (PLAVIX) 75 MG tablet 09/09/2020 12:00:00 AM EDT 75 mg Oral active Take 1 tablet (75 mg total) by mouth daily [facility] 24 HR Glipizide 2.5 MG Extended Release Oral Tablet Glipizid e ER 06/18/2020 12:00:00 AM EDT ORAL completed [facility] ([facility]) Levothyroxine Sodium 0.175 MG Oral Tablet Levothyroxine Sodi um 06/07/2020 12:00:00 AM EDT ORAL active M [facility] ([facility]) Stiolto Respimat 2.5-2.5 MCG/ACT Inhalation Aerosol Solution [id number] 06/03/2020 12:00:00 AM EDT 2 {Aerosol_Soln} [id number] active Stiolto Respimat [facility] ([facility]) Suprep Bowel Prep Kit Suprep Bowel Prep Kit 03/18/2020 12:00:00 AM EST active [facility] ([facility]) nebivolol 10 MG Oral Tablet nebivolol (BYSTOLIC) 10 MG tablet nebivolol (BYSTOLIC) 10 MG tablet 03/03/2020 12:00:00 AM EST 10 mg Oral active Take 1 tablet (10 mg total) by mouth daily [facility] 30 ACTUAT umeclidinium 0.0625 MG/ACTUAT / vilanterol 0.025 MG/ACTUAT Dry Powder Inhaler [Anoro] ANORO ELLIPTA 62.5-25 MCG/INH inhaler ANORO ELLIPTA 62.5-25 MCG/INH inhaler 02/19/2020 12:00:00 AM EST ab orted INHALE 1 PUFF BY MOUTH ONCE DAILY [facility] empagliflozin 25 MG / Linagliptin 5 MG O ral Tablet [Glyxambi] GLYXAMBI 25-5 MG TABS GLYXAMBI 25-5 MG TABS 02/19/2020 12:00:00 AM EST 1 {tbl} Oral aborted Take 1 tablet by mouth daily [facility] clopidogrel 75 MG Oral Tablet clopidogrel (PLAVIX) 75 MG tablet clopidogrel (PLAVIX) 75 MG tablet 02/14/2020 12:00:00 AM EST 75 mg Oral active Take 1 tablet (75 mg total) by mouth daily [facility] 24 HR metoprolol succinate 50 MG Extende d Release Oral Tablet metoprolol succinate (TOPROL-XL) 50 MG 24 hr tablet metoprolol succinate (TOPROL-XL) 50 MG 24 hr tablet 02/14/2020 12:00:00 AM EST 50 mg Oral abort ed Take 1 tablet (50 mg total) by mouth daily [facility] 24 HR metoprolol succinate 50 MG Extende d Release Oral Tablet metoprolol succinate (TOPROL-XL) 24 hr tablet 50 mg metoprolol succinate (TOPROL-XL) 24 hr tablet 50 mg 02/13/2020 09:00:00 AM EST 50 mg Oral activ e 50 mg, Oral, Daily, First dose on 02/13/20 at 0900 [facility] Medication administered onsite Citalopram 40 MG Oral Tablet citalopram (CeleXA) table t 40 mg citalopram (CeleXA) tablet 40 mg 02/12/2020 09:00:00 PM EST 40 mg Oral active 40 mg, Oral, Nightly, First dose on Bernie 02/12/20 at 2100 [facility] Medication administered onsite Metoprolol Tartrate 25 MG Oral Tablet me toprolol tartrate (LOPRESSOR) tablet 25 mg metoprolol tartrate (LOPRESSOR) tablet 25 mg 02/12/2020 04:00:00 PM EST 25 mg Oral completed 25 mg, Oral, Once, Bernie 02/12/20 at 1600, For 1 dose [facility] Medication administered onsite furosemide (LASIX) injection 20 mg [id number] 02/12/2020 03:00:00 PM EST 20 mg Intravenous completed 20 mg, I ntravenous, Once, Bernie 02/12/20 at 1500, For 1 dose [facility] Medication administered onsite linaclotide 0.145 MG Oral Capsule linaclotide (LINZESS ) capsule 145 mcg linaclotide (LINZESS) capsule 145 mcg 02/12/2020 09:00:00 AM EST 14 5 ug Oral active 145 mcg, Oral, Every other day, First dose on Bernie 02/12/20 at 0900 [facility] Medication administered onsite pantoprazole 40 MG Delayed Release Oral Tablet pantoprazole (PROTONIX) EC tablet 40 mg pantoprazole (PROTONIX) EC tablet 40 mg 02/12/2020 09:00:[address] 40 mg Oral active Gastroesophageal Reflux Diseas e 40 mg, Oral, Daily, Indications: Gastroesophageal Reflux Disease, First dose on Bernie 02/12/20 at 0900 [facility] Gastroesophageal Reflux Disease Medication administered onsite topiramate 100 MG Oral Tablet topiramate (TOPAMAX) tab let 200 mg topiramate (TOPAMAX) tablet 200 mg 02/12/2020 09:00:00 AM EST 200 mg Oral active 200 mg, Oral, Daily, First dose on Bernie 02/12/20 at 0900
For administration and preparation considerations, refer to Hazardous Drugs in the Workplace Policy on Intranet.
[facility] Medication administered onsite clopidogrel 75 MG Oral Tablet clopidogrel (PLAVIX) tab let 75 mg clopidogrel (PLAVIX) tablet 75 mg 02/12/2020 09:00:00 AM EST 75 mg Oral active 75 mg, Oral, Daily, First dose on Bernie 02/12/20 at 0900, Post-op
May begin the same day
[facility] Medication administered onsite Losartan Potassium 25 MG Oral Tablet losartan (COZAAR) tablet 50 mg losartan (COZAAR) tablet 50 mg 02/12/2020 09:00:00 AM EST 50 mg Oral active 50 mg, Oral, Daily, First dose on Bernie 02/12/20 at 0900 [facility] Medication administered onsite 24 HR metoprolol succinate 25 MG Extende d Release Oral Tablet metoprolol succinate (TOPROL-XL) 24 hr tablet 25 mg metoprolol succinate (TOPROL-XL) 24 hr tablet 25 mg 02/12/2020 09:00:00 AM EST 25 mg Oral abort ed 25 mg, Oral, Daily, First dose on Bernie 02/12/20 at 0900 [facility] Medication administered onsite Insulin Lispro 100 UNT/ML Injectable Maricarmen ution insulin lispro (HumaLOG) injection 1-4 Units insulin lispro (HumaLOG) injection 1-4 Units 0 08:00:00 AM EST Subcutaneous active 1-4 Units, Subcutaneous, MEALSS, First dose on Sun02/12/20 at 0800
2 units Nutritional and Correction Insulin Scale Blood Glucose (mg/dl) <70 start hypoglycemia protocol Glucose &nbsp ; Eats >=50% Eats <50%& amp;nbsp; Eats Nothing (mg/dl) of meal of meal or NPO &am p;nbsp;70- 120 1 units 1 units 0 units 121-170 & amp;nbsp; 2 units 1 units 0 units 171-220 & nbsp; 2 units 1 units 0 units 221-270 &n bsp; 3 units 2 units 1 units 271- 320 3 units 2 units 1 units 321- 370 3 units 2 units 1 units 371-42 0 4 units 3 units 2 units >420 call MD 4 units 3 units 2 units Test glucose within 30 minutes of insulin administration. Administer insulin within 15 minutes (before or after) of the patient starting to eat. For patients that are NPO, use the NPO (correction) scale to cover POC glucose at 08:00, 12:00, 17:00.
[facility] Medication administered onsite Levothyroxine Sodium 0.175 MG Oral Table t levothyroxine (SYNTHROID, LEVOTHROID) tablet 175 mcg levothyroxine (SYNTHROID, LEVOTHROID) tablet 175 mcg 1 04/14/2019 06:00:00 AM EST 175 ug Oral active 175 mcg, Oral, Daily, First dose on Bernie 02/12/20 at 0600 [facility] Medication administered onsite atorvastatin 40 MG Oral Tablet atorvastatin (LIPITOR) tablet 80 mg atorvastatin (LIPITOR) tablet 80 mg 02/11/2020 09:00:00 PM EST 80 mg Oral active 80 mg, Oral, Nightly, First dose on Sun02/11/20 at 2100 [facility] Medication administered onsite Trazodone Hydrochloride 100 MG Oral Tablet traZODone ( DESYREL) tablet 100 mg traZODone (DESYREL) tablet 100 mg 02/11/2020 09:00:00 PM EST 100 mg Oral active 100 mg, Oral, Nightly, First dos e on Sun02/11/20 at 2100 [facility] Medication administered onsite 60 ACTUAT formoterol fumarate 0.005 MG/A CTUAT / mometasone furoate 0.2 MG/ACTUAT Metered Dose Inhaler mometasone-formoterol (DULERA) 200-5 MCG/ACT inhaler 2 puff mometasone-formoterol (DULERA) 200-5 MCG/ACT inhaler 2 puff 02/11/2020 08:00:00 PM EST 2 {puff} Inhalation active 2 puff, Inhalation, 2 times daily, First dose on Sun02/11/20 at 1999 [facility] Medication administered onsite Ipratropium [place] 0.2 MG/ML Inhalant S olution ipratropium (ATROVENT) 0.02 % nebulizer solution 0.5 mg ipratropium (ATROVENT) 0.02 % nebulizer solution 0.5 mg 02/11/2020 08:00:00 PM EST 0.5 mg active 0.5 mg, Nebulization, 4 times daily, First dose on Sun02/11/20 at 1999 [facility] Medication administered onsite normal saline flush 0.9 % injection 3 mL [id number] 02/11/2020 06:00:00 PM EST 3 mL Intravenous active 3 mL , Intravenous, Every 8 hours (scheduled), First dose on Sun02/11/20 at 1800
flush per protocol, D/C Main IV fluid if appropriate
[facility] Medication administered onsite Aspirin 81 MG Chewable Tablet aspirin chewable tablet 81 mg aspirin chewable tablet 81 mg 02/11/2020 06:00:00 PM EST 81 mg Oral activ e 81 mg, Oral, Daily, First dose on Sun02/11/20 at 1800, Post-op
D/C any prior aspirin order
[facility] Medication administered onsite Nitroglycerin 0.4 MG Sublingual Tablet n itroglycerin (NITROSTAT) SL tablet 0.4 mg nitroglycerin (NITROSTAT) SL tablet 0.4 mg 02/11/2020 05:32:54 P M EST 0.4 mg Sublingual active 0.4 mg, S ublingual, Every 5 min PRN, chest pain, Starting Sun02/11/20 at 1732, Post-op
May administer every 5 minutes for 3 doses and call cardio lab MD.
[facility] Medication administered onsite Acetaminophen 325 MG Oral Tablet acetaminophen (TYLENO L) 325 MG tablet 650 mg acetaminophen (TYLENOL) 325 MG tablet 650 mg 02/11/2020 05:32:54 PM EST 650 mg Oral active 650 mg, Or al, Every 4 hours PRN, headaches, and non cardiac pain, Starting Sun02/11/20 at 1732, Post-op
"Maximum dose of acetaminophen is 4,000 mg from all sources in 24 hours."
[facility] Medication administered onsite Albuterol 0.83 MG/ML Inhalant Solution a lbuterol (PROVENTIL) nebulizer solution 2.5 mg albuterol (PROVENTIL) nebulizer solution 2.5 mg 2019 05:32:32 PM EST 2.5 mg active 2.5 mg, Nebulization, RT every 6 hours as needed, wheezing, shortness of breath, Starting Sun02/11/20 at 1732 [facility] Medication administered onsite eptifibatide 0.75 MG/ML Injectable Solut ion eptifibatide (INTEGRILIN) 75 MG/100ML infusion eptifibatide (INTEGRILIN) 75 MG/100ML infusion 020 05:20:00 PM EST 2 ug/kg/min Intravenous aborted 2 mcg/kg/min, Intravenous, Continuous, Starting Sun02/11/20 at 1720
Infuse this medication only through single port tubing ([facility] Infusion Set ref [id number]). Medica tion and tubing is to be discarded if infusion off for 4 hours.
Duration of Infusion: Until 100 ml bottle is complete [facility] Medication administered onsite 30 ACTUAT umeclidinium 0.0625 MG/ACTUAT / vilanterol 0.025 MG/ACTUAT Dry Powder Inhaler [Anoro] Anoro Ellipta 62.5-25 MCG/INH Inhalation Aerosol Powder Breath Activated Anoro Ellipta 62.5-25 MCG/INH Inhalation Aerosol Powder Breath Activated 01/21/2020 12:00:00 AM EST 1 {Aero_Pow_Br_Act} [id number] suspended Anoro Ellipta [facility] Levothyroxine Sodium 0.175 MG Oral Tablet [Euthyrox] Euthyro x 11/30/2019 12:00:00 AM EDT ORAL active M [facility] ([facility]) Cephalexin 250 MG Oral Capsule Cephalexin 11/16/2019 12:00:00 AM EDT ORAL completed [facility] ([facility]) Acetaminophen 300 MG / Codeine Phosphate 30 MG Oral Ta blet Acetaminophen-Codeine #3 11/16/2019 12:00:00 AM EDT ORAL completed [facility] ([facility]) Docusate Sodium 100 MG Oral Capsule [Colace] Colace 12:00:00 AM EDT ORAL completed [facility] ([facility]) Levofloxacin 500 MG Oral Tablet Levofloxacin 10/02/2019 12:00:00 AM EDT completed [facility] ([facility]) chlorhexidine gluconate 40 MG/ML Medicated Liquid Soap [Hibi clens] Hibiclens 10/02/2019 12:00:00 AM EDT completed [facility] ([facility]) chlorhexidine gluconate 40 MG/ML Medicated Liquid Soap [Hibi clens] Hibiclens 10/02/2019 12:00:00 AM EDT completed [facility] ([facility]) Levofloxacin 500 MG Oral Tablet Levofloxacin 10/02/2019 12:00:00 AM EDT completed [facility] ([facility]) Metoprolol Tartrate 25 MG Oral Tablet mi toprolol tartrate (LOPRESSOR) 25 MG tablet metoprolol tartrate (LOPRESSOR) 25 MG tablet 03/25/2019 12:0 0:00 AM EST 25 mg Oral aborted Take 1 tablet (2 5 mg total) by mouth 2 (two) times a day [facility] Nitroglycerin 0.4 MG Sublingual Tablet n itroglycerin (NITROSTAT) 0.4 MG SL tablet nitroglycerin (NITROSTAT) 0.4 MG SL tablet 03/25/2019 12:00:00 A M EST 0.[address] 1 t ablet (0.4 mg total) under the tongue every 5 (five) minutes as needed for chest pain [facility] Bacitracin 0.5 UNT/MG / Neomycin 0.0035 MG/MG / Polymyxin B 10 UNT/MG Topical Ointment elbhcmjg-ycrmydeooy-aniqzmgjl (NEOSPORIN) 5-400-5000 ointment airruxmp-snuyshwkcv-uggbpdekz (NEOSPORIN) 5-400-5000 ointment 03/06/2019 12:00:00 AM EST 1 {application} Topical aborted Apply 1 application topically every 2 (two) hours as needed (for irritation) [facility] empagliflozin 25 MG Oral Tablet [Jardiance] JARDIANCE 25 MG TABS JARDIANCE 25 MG TABS 10/09/2018 12:00:00 AM EDT 25 mg Oral aborted Take 25 mg by mouth daily [facility] sitagliptin 50 MG Oral Tablet sitaGLIPtin (JANUVIA) 50 MG tablet sitaGLIPtin (JANUVIA) 50 MG tablet 50 mg Oral aborted Take 50 mg by mouth nightly [facility] Acetaminophen 325 MG / Hydrocodone Sea trate 10 MG Oral Tablet HYDROcodone- acetaminophen (NORCO 10-325) 10-325 MG per tablet HYDROcodone-acetaminophen (NORCO 10-325) 10-325 MG per tablet 1 {tbl} Oral a borted Take 1 tablet by mouth 2 (two) times a day [facility] 7 ACTUAT umeclidinium 0.0625 MG/ACTUAT D ry Powder Inhaler Umeclidinium [place] (INCRUSE ELLIPTA) 62.5 MCG/INH AEPB Umeclidinium [place] (INCRUSE ELLIPTA) 6 2.5 MCG/INH AEPB 1 {puff} Inhalation aborted Inh smita 1 puff daily [facility] 60 ACTUAT Fluticasone propionate 0.5 MG/ ACTUAT / salmeterol 0.05 MG/ACTUAT Dry Powder Inhaler fluticasone-salmeterol (ADVAIR) 500-50 MCG/DOSE DISKUS fluticasone-salmeterol (ADVAIR) 500-50 MCG/DOSE DISKUS 1 {puff} Inhalation aborted Inhale 1 puff 2 (two) jen es a day [facility] linaclotide 0.145 MG Oral Capsule linaclotide (LINZESS ) 145 MCG CAPS linaclotide (LINZESS) 145 MCG CAPS 145 ug Oral aborted Take 145 mcg by mouth every other day [facility] Tiotropium [place] Monohydrate (SPIRIVA HANDIHALER IN) drug or medica tion Inhalation aborted Inhale [facility] Linagliptin 5 MG Oral Tablet linaGLIPtin (TRADJENTA) 5 MG TABS linaGLIPtin (TRADJENTA) 5 MG TABS 5 mg Oral aborted Ta ke 5 mg by mouth daily [facility] Betamethasone 0.5 MG/ML Topical Cream be tamethasone dipropionate (DIPROLENE) 0.05 % cream betamethasone dipropionate (DIPROLENE) 0.05 % cream 1 {application} Topical aborted Apply 1 application topically 2 (two) times a day [facility] Insurance Providers Payer name Policy type / Coverage type Policy ID Covered green party ID Covered green party's relationship to ibarra Policy Ibarra Plan Information [place] Medigap Part B [id number] Self S [id number] BS [place] Medigap Part B [id number] [id number] Self S [id number] BS [place] Medigap Part B [id number] [id number] Self S [id number] BS [place] Medigap Part B [id number] [id number] Self S [id number] [place] Medigap Part B [id number] [id number] Self S [id number] BS [place] Medigap Part B [id number] Self BS [place] Medigap Part B [id number] Self [id number] BS [place] Medigap Part B [id number] [id number] Self S [id number] Ghi/Emblem HLTH (pr) Medigap Part B [id number] [id number] Family Dependent 9 [id number] Ghi/Emblem HLTH (pr) Medigap Part B [id number] [id number] Family Dependent 9 [id number] Ghi/Emblem HLTH (pr) Medigap Part B [id number] 2.840.1.313595.3.227.99.991.13792.0 Family Dependent 9 [id number] Ghi/Emblem HLTH (pr) Medigap Part B [id number] 2.0.1.032262.3.227.99.991.12295.0 Family Dependent 9 [id number] Ghi/Emblem HLTH (pr) Medigap Part B [id number] Family Dependent [id number] Ghi/Emblem HLTH (pr) Medigap Part B [id number] Family Depende nt Ghi/Emblem HLTH (pr) Medigap Part B [id number] 2.840.1.604429.3.227.99.991.69236.0 Family Dependent 9 [id number] Ghi/Emblem HLTH (pr) Medigap Part B [id number] 2.840.1.809606.3.227.99.991.43815.0 Family Dependent 9 [id number] MEDICARE [id number] xxxxxxxxxxx [id number] MEDICARE B [id number] P [id number] Medicare [place] Primary [id number] 2.840.1.539356.3.227.99.991.47675.0 Self 1 [id number] MEDICARE A [id number] P [id number] Medicare [place] Medicare Primary [id number] Self [id number] MEDICARE [id number] SP [id number] A Medicare [place] Medicare Primary [id number] 2.16.840.1.88[id number] Self 1 [id number] Medicare [place] Medicare Primary [id number] 2.16.840.1.780267.3.227.99.991.96056.0 Self 1 [id number] [place] Medicare Primary [id number] Self MEDICARE [id number] Aliza [id number] [id number] Medicare [place] Medicare Primary [id number] 2.16.840.1.03[id number] Self 1 [id number] Medicare [place] Medicare Primary [id number] 2.16840.1.653192.3.227.99.991.00183.0 Self 1 [id number] Medicare [place] Medicare Primary [id number] 2.16840.1.961177.3.227.99.991.43649.0 Self 1 [id number] MEDICARE BLUE PPO 306 [id number] [id number] [facility] [id number] Self [id number] [facility] [id number] Self TODAYS OPTION MEDICARE [id number] Aliza [id number] TODAYS OPTIONS [id number] SP [id number] WELLCARE [id number] SP [id number] Todays Options Ppo Commercial [id number] 2.0.1.104153.3.22 [id number] Self [id number] [employer] Medicare Adv Plan F [id number] SELF [id number] Wellcare Health Plans 14 [id number] SELF [id number] Wellcare Commercial [id number] Self [id number] WELLCARE MEDICARE [id number] Aliza [id number] [facility] [id number] Aliza [id number] [facility] [id number] xxxxxxxxxxx [id number] [facility] AARP [id number] P [id number] [facility] AARP [id number] P [id number] 1 [facility] [id number] Aliza [id number] INSURANCE COVID-19 COVID Aliza C OVID INSURANCE COVID-19 [id number] xxxxx 2 [id number] INSURANCE COVID-19 COVID Aliza C OVID [employer] PROGRESSIVE [id number] SP [id number] MEDICARE - [place] MCR [id number] S [id number] [employer]OREAN PROGRESSIVE S [id number] S [id number] MEDICARE P [id number] S [id number] A [id number] MEDICARE B [id number] P [id number] MEDICARE A [id number] [facility] AARP [id number] 1 [employer] Commercial [id number] Self [id number] [employer] Commercial [id number] Self [id number] [employer] [facility] [id number] Self [id number] [employer] [employer] (pr) Medigap Part B [id number] Self [id number] Wellcare Commercial [id number] Self [id number] [employer] Medigap Part B [id number] Self [id number] [employer] Medigap Part B [id number] 2.0.1.112980.3.227.99.991.14297.0 Self 1 [id number] [employer] (pr) [facility] Part B [id number] 2.16840.1.828034.3.227.99.991.15112.0 Self [id number] Wellcare Commercial [id number] 2.840.1.019027.3.227.99.991.31109.0 Self [id number] [employer] Commercial [id number] 2.0.1.246385.3.227.99 .824.817965.0 Self [id number] [employer] Commercial [id number] 2.0.1.394340.3.227.99 .824.782764.0 Self [id number] Wellcare Health Plans F [id number] SELF [id number] [employer] Commercial [id number] 2.0.1.141339.3.227.99 .824.000337.0 Self [id number] WELLCARE HEALTH PLANS O [id number] S [id number] Tod[employer] Options/Wellcare Commercial [id number] 2.0.1.945031.3.227.99.824.711612.0 Self [id number] TODAYS OPTIONS/SALVADOREAN O [id number] S [id number] Benef[employer] [facility] Part B [id number] 2.0.1.136593.3.227.99.991.64812.0 Self 1 [id number] [employer] (pr) [facility] Part B [id number] 2.160.1.531684.3.227.99.991.41626.0 Self [id number] [employer] Commercial [id number] 2.160.1.844096.3.227.99.991.5 1869.0 Self [id number] Tod[employer] Opt[employer] Progress Commercial [id number] 2.0.1.797729.3.227.99.824.601006.0 Self [id number] [employer] Commercial [id number] 2.0.1.935363.3.227.99.824.140487.0 Self [id number] [employer] Medigap Part B [id number] 2.16840.1.233654.3.227.99.991.88283.0 Self 1 [id number] [employer] (pr) Medigap Part B [id number] 2.160.1.841134.3.227.99.991.03393.0 Self [id number] [employer] Commercial [id number] 2.0.1.220635.3.227.99.824.640088.0 Self [id number] [employer] Commercial [id number] 2.0.1.876391.3.227.99.824.740452.0 Self [id number] [employer] Commercial [id number] 2.0.1.277900.3.227.99.824.382182.0 Self [id number] TODAYS OPTION MEDICARE PI PI TODAYS OPTION MEDICARE [id number] Aliza [id number] [employer] Medicare Adv Plan F [id number] SELF [id number] [facility] [facility] B [id number] 2.0.1.587644.3.227.99.991.67985.0 Self 1 [id number] [employer] (pr) Medigap Part B [id number] 2.160.1.564981.3.227.99.991.54326.0 Self [id number] TODAYS OPTIONS [id number] SP [id number] [employer] Options [employer] [id number] 0 [id number] [employer] Medigap Part B [id number] 2.160.1.384169.3.227.99.991.19342.0 Self 1 [id number] [employer] (pr) Medigap Part B [id number] 2.0.1.722350.3.227.99.991.48247.0 Self 4 [id number] [employer] Medigap Part B [id number] 2.16.840.1.096293.3.227.99.991.93364.0 Self 1 [id number] [employer] (pr) Medigap Part B [id number] 2.16.840.1.072518.3.227.99.991.36770.0 Self [id number] Today's Option Medicare Commercial 2.16.840.1.766152 .[id number] Self [employer] Medigap Part B [id number] Self [place] Progressive (pr) Medigap Part B [id number] Self [employer] Options Commercial [id number] Self Todays Options [id number] 18 [id number] [facility] [id number] SP [id number] [facility] [id number] S [id number] Problems, Conditions, and Diagnoses Code Display Name Description Problem Type Effective Dates Data Source(s) I34.0 Nonrheumatic mitral (valve) insufficienc y Nonrheumatic mitral (valve) insufficienc Diagnosis 11/22/2020 12:58:27 PM EDT [facility] Z79.4 alf (current) use of insulin buttermaker (cu rrent) use of insulin Diagnosis 11/22/2020 12:58:27 PM EDT [facility] E11.9 Type 2 diabetes mellitus without complic ations Type 2 diabetes mellitus without complic Diagnosis 11/22/2020 12:58:27 PM EDT [facility] I10 Essential (primary) hypertension Essential (primary) h ypertension Diagnosis 11/22/2020 12:58:27 PM EDT [facility] E78.00 Pure hypercholesterolemia, unspecified P ure hypercholesterolemia, unspecified Diagnosis 11/22/2020 12:58:27 PM EDT [facility] I25.10 Atherosclerotic heart diseas e of [place] coronary artery without angina pectoris Atherosclerotic heart disease of [place] Diagnosis 11/22/2020 12:58:27 PM EDT [facility] E78.5 Hyperlipidemia, unspecified Hyperlipidemia, unspecifie d Diagnosis 03/03/2020 08:41:47 AM EST [facility] I21.29 ST elevation (STEMI) myocardial infarcti on involving other sites ST elevation (STEMI) myocardial infarcti Diagnosis 03/03/2020 08:41:47 AM [facility] I21.3 ST elevation (STEMI) myocardial infarcti on of unspecified site ST elevation (STEMI) myocardial infarcti Diagnosis 02/11/2020 05:24:00 PM EST [facility] N52.31 Erectile dysfunction following radical p rostatectomy ERECTILE DYSFUNCTION FOLLOWING RADICAL PROSTATECTOMY Diagnosis 01/26/2020 01:59:00 PM [facility] Z01.812 Encounter for preprocedural laboratory e xamination ENCOUNTER FOR PREPROCEDURAL LABORATORY EXAMINATION Diagnosis 01/26/2020 01:59:00 PM [facility] Z20.828 Contact with and (suspected) exposure to other viral communicable diseases CONTACT W AND EXPOSURE TO OTH VIRAL COMMUNICABLE DISEASES Di agnosis 01/26/2020 01:30:00 PM [facility] Z11.59 Encounter for screening for other viral diseases ENCOUNTER FOR SCREENING FOR OTHER VIRAL DISEASES Diagnosis 01/26/2020 01:30:00 PM [facility] N47.1 Phimosis PHIMOSIS Diagnosis 11/17/2019 12:19:00 AM ED T [facility] I34.0 Nonrheumatic mitral valve regurgitation Nonrheumatic mitral valve regurgitation [id number] 11/22/2020 12:00:00 AM EDT [facility] [id number] Hereditary peripheral neuropathy Hereditary sue pheral neuropathy Problem 09/14/2020 12:00:00 AM EDT [facility]) Note: I think he has Ynznzba-Zcofw-Txpzj , based on foot exam Z86.010 History of polyp of colon History of polyp of colon Pr oblem 03/18/2020 12:00:00 AM EST [facility] ([facility] [id number] Essential hypertension Essential hypertension Problem 03/11/2020 12:00:00 AM EST [facility] ([facility] E11.9 Diabetes mellitus Diabetes mellitus [id number] 02/11/2020 12:00:00 AM [facility] E78.5 HLD (hyperlipidemia) HLD (hyperlipidemia) [id number] 02/11/2020 12:00:00 AM [facility] I10 HTN (hypertension) HTN (hypertension) [id number] 0 12:00:00 AM [facility] I21.3 STEMI (ST elevation myocardial infarctio n) STEMI (ST elevation myocardial infarction) [id number] 02/11/2020 12:00:00 AM [facility] Surgeries/Procedures Procedure Description Date Indications Data Source(s) OFFICE OUTPATIENT VISIT 25 MINUTES 12/15/2020 12:00:00 AM EDT [facility] ([facility]) OFFICE OUTPATIENT VISIT 25 MINUTES 12/07/2020 12:00:00 AM EDT [facility] ([facility] OFFICE OUTPATIENT VISIT 25 MINUTES 09/14/2020 12:00:00 AM EDT [facility] ([facility]) OFFICE OUTPATIENT VISIT 25 MINUTES 06/14/2020 12:00:00 AM EDT [facility] ([facility]) OFFICE OUTPATIENT VISIT 25 MINUTES 06/03 01:15:00 PM EDT - 06/03/2020 01:31:14 PM EDT [facility] ([facility]) CT THORAX W/O CONTRAST MATERIAL <td colspan="2"> CAT SCAN OF CHEST: CT THORAX W/O DYE (29944)Result: Are you or could you become ?: No; When was you last CXR/CT?: over week ago; Construction Rep: JOSIE Salcido</td><td> Status: Completed 03-Jun-2020 </td> 06/03/2020 12:50:37 PM EDT - 06/03/2020 12:50:48 PM EDT [facility] ([facility]) Computed tomography of chest (procedure) <td>CT Scan o f Chest</td><td></td><td>Status: Completed 03-Jun-2020 </td> 06/03/2020 12:00:00 AM EDT - 06/03/2020 12:00:00 AM EDT [facility] ([facility]) GLUC BLD GLUC MNTR DEV CLEARED FDA SPEC HOME USE <td>P OCT GLUCOSE</td><td>Routine</td><td>02/13/2020 11:32 AM EST</td><td></td><td> </td> 02/13/2020 04:32:00 PM EST [facility] GLUC BLD GLUC MNTR DEV CLEARED FDA SPEC HOME USE <td>P OCT GLUCOSE</td><td>Routine</td><td>02/13/2020 8:47 AM EST</td><td></td><td> </td> 02/13/2020 01:47:00 PM EST [facility] BLOOD COUNT COMPLETE AUTO&AUTO DIFRNTL WBC COUNT <td>C BC AND DIFFERENTIAL</td><td>Timed</td><td>02/13/2020 5:40 AM EST</td><td></td><td> </td> 02/13/2020 10:40:00 AM EST [facility] BASIC METABOLIC PANEL CALCIUM TOTAL <td>BASIC METABOLI C PANEL</td><td>Timed</td><td>02/13/2020 5:40 AM EST</td><td></td><td> </td> 02/13/2020 10:40:00 AM EST [facility] GLUC BLD GLUC MNTR DEV CLEARED FDA SPEC HOME USE <td>P OCT GLUCOSE</td><td>Routine</td><td>02/12/2020 5:50 PM EST</td><td></td><td> </td> 02/12/2020 10:50:00 PM EST [facility] CMB <td>CMB</td><td>Timed</td><t d>02/12/2020 5:19 PM EST</td><td></td><td> </td> 02/12/2020 10:19:00 PM EST [facility] POTASSIUM SERUM PLASMA/WHOLE BLOOD <td>POTASSIUM</td>< td>STAT</td><td>02/12/2020 5:19 PM EST</td><td></td><td> </td> 02/12/2020 10:19:00 PM EST [facility] CREATINE KINASE MB FRACTION ONLY <td>CKMB</td><td>Time d</td><td>02/12/2020 5:19 PM EST</td><td></td><td> </td> 02/12/2020 10:19:00 PM EST [facility] GLUC BLD GLUC MNTR DEV CLEARED FDA SPEC HOME USE <td>P OCT GLUCOSE</td><td>Routine</td><td>02/12/2020 2:10 PM EST</td><td></td><td> </td> 02/12/2020 07:10:00 PM EST [facility] ECHO TTHRC R-T 2D W/WOM-MODE COMPL SPEC&COLR DOP <td>E CHOCARDIOGRAM TRANSTHORACIC</td><td>Routine</td><td>02/12/2020 11:49 AM EST</td><td></td><td> </td> 02/12/2020 04:49:08 PM EST [facility] GLUC BLD GLUC MNTR DEV CLEARED FDA SPEC HOME USE <td>P OCT GLUCOSE</td><td>Routine</td><td>02/12/2020 9:49 AM EST</td><td></td><td> </td> 02/12/2020 02:49:00 PM EST [facility] CMB <td>CMB</td><td>STAT</td><td >02/12/2020 8:25 AM EST</td><td></td><td> </td> 02/12/2020 01:25:00 PM EST [facility] TROPONIN QUANTITATIVE <td>TROPONIN I</td><td>Routi ne</td><td>02/12/2020 8:25 AM EST</td><td></td><td> </td> 02/12/2020 01:25:00 PM EST [facility] CREATINE KINASE MB FRACTION ONLY <td>CKMB</td><td>Time d</td><td>02/12/2020 8:25 AM EST</td><td></td><td> </td> 02/12/2020 01:25:00 PM EST [facility] LIPID PANEL <td>LIPID PANEL</td><td>Add- On</td><td>02/12/2020 8:25 AM EST</td><td></td><td> </td> 02/12/2020 01:25:00 PM EST [facility] BASIC METABOLIC PANEL CALCIUM TOTAL <td>BASIC METABOLI C PANEL</td><td>Add- On</td><td>02/12/2020 8:25 AM EST</td><td></td><td> </td> 02/12/2020 01:25:00 PM EST [facility] CMB <td>CMB</td><td>STAT</td><td >02/12/2020 12:15 AM EST</td><td></td><td> </td> 02/12/2020 05:15:00 AM EST [facility] BLOOD COUNT COMPLETE AUTOMATED <td>CBC</td><td>Timed</ td><td>02/12/2020 12:15 AM EST</td><td></td><td> </td> 02/12/2020 05:15:00 AM EST [facility] LIPOPROTEIN DIRECT MEASUREMENT LDL CHOLESTEROL <td>LDL CHOLESTEROL, DIRECT</td><td>Timed</td><td>02/12/2020 12:15 AM EST</td><td></td><td> </td> 02/12/2020 05:15:00 AM EST [facility] HEMOGLOBIN GLYCOSYLATED A1C <td>HEMOGLOBIN A1C</td><td>Routine</td><td>02/12/2020 12:15 AM EST</td><td></td><td> </td> 02/12/2020 05:15:00 AM EST [facility] CREATINE KINASE MB FRACTION ONLY <td>CKMB</td><td>Time d</td><td>02/12/2020 12:15 AM EST</td><td></td><td> </td> 02/12/2020 05:15:00 AM EST [facility] LIPID PANEL <td>LIPID PANEL</td><td>Time d</td><td>02/12/2020 12:15 AM EST</td><td></td><td> </td> 02/12/2020 05:15:00 AM EST [facility] BASIC METABOLIC PANEL CALCIUM TOTAL <td>BASIC METABOLI C PANEL</td><td>Timed</td><td>02/12/2020 12:15 AM EST</td><td></td><td> </td> 02/12/2020 05:15:00 AM EST [facility] PROCALCITONIN (PCT) <td>PROCALCITONIN</td><td>Ro utine</td><td>02/11/2020 8:35 PM EST</td><td></td><td> </td> 02/12/2020 01:35:00 AM EST [facility] TROPONIN QUANTITATIVE <td>TROPONIN I</td><td>Timed </td><td>02/11/2020 8:35 PM EST</td><td></td><td> </td> 02/12/2020 01:35:00 AM EST [facility] GLUC BLD GLUC MNTR DEV CLEARED FDA SPEC HOME USE <td>P OCT GLUCOSE</td><td>Routine</td><td>02/11/2020 7:26 PM EST</td><td></td><td> </td> 02/12/2020 12:26:00 AM EST [facility] ECG ROUTINE ECG W/LEAST 12 LDS TRCG ONLY W/O I&R <td>E CG 12- LEAD</td><td>Routine</td><td>02/11/2020 6:30 PM EST</td><td></td><td></td> 02/11/2020 11:30:[address] [facility] CMB <td>CMB</td><td>STAT</td><td >02/11/2020 5:15 PM EST</td><td></td><td> </td> 02/11/2020 10:15:00 PM EST [facility] TROPONIN QUANTITATIVE <td>TROPONIN I</td><td>STAT< /td><td>02/11/2020 5:15 PM EST</td><td></td><td> </td> 02/11/2020 10:15:00 PM EST [facility] BLOOD COUNT COMPLETE AUTOMATED <td>CBC</td><td>STAT</t d><td>02/11/2020 5:15 PM EST</td><td></td><td> </td> 02/11/2020 10:15:00 PM EST [facility] CREATINE KINASE MB FRACTION ONLY <td>CKMB</td><td>STAT </td><td>02/11/2020 5:15 PM EST</td><td></td><td> </td> 02/11/2020 10:15:00 PM EST [facility] COMPREHENSIVE METABOLIC PANEL <td>COMPREHENSIVE METABO LIC PANEL</td><td>STAT</td><td>02/11/2020 5:15 PM EST</td><td></td><td> </td> 02/11/2020 10:15:00 PM EST [facility] INSJ IMPLANTABLE INTRA-ARTERIAL INFUSION PUM <td>CARDI AC CATHETERIZATION</td><td>Routine</td><td>02/11/2020 5:06 PM EST</td><td> STEMI (ST elevation myocardial infarction)</td><td></td> 02/11/2020 10:06:00 PM EST STEMI (ST elevation myocardial infarction) [facility] STEMI (ST elevation myocardial infarctio n) 2018 NCOV AMPLIFIED <td>2019 NCOV AMPLIFIED</td> <td>STAT</td><td>02/11/2020 4:40 PM EST</td><td></td><td> </td> 02/11/2020 09:40:00 PM EST [facility] Colonoscopy 12/16/2019 12:00:00 AM LUIS FERNANDO HENSON ([facility]) Diabetic Retinal Eye Exam 12/12/2019 12:00:00 AM LUIS FERNANDO LUNDBERG ([facility]) FUNDUS PHOTOGRAPHY W/INTERPRETATION & REPORT 0 12:00:00 AM EDT [facility] ([facility]) CT THORAX W/O CONTRAST MATERIAL <td colspan="2"> CAT SCAN OF CHEST: CT THORAX W/O DYE (12547)Result: Are you or could you become ?: No; When was you last CXR/CT?: over a week ago; Construction Rep: Leann Bond LRT</td><td> Status: Completed 02-Dec-2019 </td> 12/02/2019 08:46:37 AM EDT - 12/02/2019 08:46:48 AM EDT [facility] ([facility]) PFT <td>PFT</td><td></td><td>Sta tus: Completed 02-Dec-2019 Comments: Abnormal. Moderate Obstruction. No Restriction. Normal Diffusion Capacity. FEV1 60%; TLC 80%; DLCO 81%</td> 12/02/2019 12:00:00 AM EDT - 12/02/2019 12:00:00 AM EDT [facility] ([facility]) Abnormal. Moderate Obstruction. No Restr iction. Normal Diffusion Capacity. FEV1 60%; TLC 80%; DLCO 81% Computed tomography of chest (procedure) <td>CT Scan o f Chest</td><td></td><td>Status: Completed 02-Dec-2019 Comments: Abnormal. small left effusion, small RLL nodule</td> 12/02/2019 12:00:00 AM EDT - 12/02/2019 12:00:00 AM EDT [facility] ([facility]) Abnormal. small left effusion, small RLL nodule DIFFUSING CAPACITY <td>DLCO (CARBON MONOXIDE DI FFUSING CAPACITY) (74584)</td><td></td><td>Status: Completed 02-Dec-2019 </td> 12/02/2019 12:00:00 AM EDT - 12/02/2019 12:00:00 AM EDT [facility] ([facility]) GAS DILUT/WASHOUT LUNG VOL W/WO DISTRIB VENT&VOL <td>T HORACIC GAS VOLUME: AIRWAY CLOSING VOLUME MEASUREMENT: PULM FUNCTION TEST BY GAS ([id number])</td><td></td><td>Status: Completed 02-Dec-2019 </td> 12/02/2019 12:00:00 AM EDT - 12/02/2019 12:00:00 AM EDT [facility] ([facility]) VITAL CAPACITY TOTAL SEPARATE PROCEDURE <td>TOTAL PABLO L CAPACITY (98005)</td><td></td><td>Status: Completed 02-Dec-2019 </td> 12/02/2019 12:00:00 AM EDT - 12/02/2019 12:00:00 AM EDT [facility] ([facility]) SPMTRY W/VC EXPIRATORY EDDI +-MXML VOL VNTJ <td>PFT SIM PLE: BREATHING CAPACITY TEST: BREATHING CAPACITY TEST (35149)</td><td></td><td>Status: Completed 02-Dec-2019 </td> 12/02/2019 12:00:00 AM EDT - 12/02/2019 12:00:00 AM EDT [facility] ([facility]) NONINVASIVE EAR/PULSE OXIMETRY SINGLE DETER <td>REST O XIMETRY (40186)</td><td></td><td>Status: Completed 02-Dec-2019 </td> 12/02/2019 12:00:00 AM EDT - 12/02/2019 12:00:00 AM EDT [facility] ([facility]) OFFICE OUTPATIENT VISIT 5 MINUTES 2019 10:30:00 AM EDT - 11/28/2019 04:22:58 PM EDT [facility] ([facility]) COVID 19 Testing <td>COVID 19 Testing</td><td ></td><td>Status: Completed 28-Nov-2019 Comments: Pt came to the office for pre-procedural COVID19 swab. Full PFT is scheduled.</td> 11/28/2019 12:00:00 AM EDT - 11/28/2019 12:00:00 AM EDT [facility] ([facility]) Pt came to the office for pre-procedural COVID19 swab. Full PFT is scheduled. Excision; Circumcision Older Than 28 Days Of Age 0911/16 12:00:00 AM EDT [facility] ([facility]) Excision; Circumcision Older Than 28 Days Of Age 0911/16 12:00:00 AM EDT [facility] ([facility]) Polysomnography <td>Polysomnography</td><td> </td><td>Status: Completed 07-Nov-2019 Comments: Abnormal. index 5.6, low sat 87%; increased in REM and supine</td> 11/07/2019 12:00:00 AM EDT - 11/07/2019 12:00:00 AM EDT [facility] ([facility]) Abnormal. index 5.6, low sat 87%; increa sed in REM and supine Depression screening (procedure) 10/30/2019 12:00:00 A M EDT [facility] ([facility]) ECG ROUTINE ECG W/LEAST 12 LDS W/I&R 10/30/2019 12:00: 00 AM EDT [facility] ([facility]) Results ID Date Data Source [id number] 12/15/2020 12:14:00 PM EDT [facility] ([facility]) Name Value Range Interpretation Code Description Data Lucia rce(s) Supporting Document(s) Cholesterol [Mass/volume] in Serum or Plasma 129 mg/dL 112-200 [facility] [facility] ([facility]) FASTING Fastin hours FASTING Fasting : 0 hours FASTING Fastin hours FASTING Fastin hours FASTING Fastin hours FASTING Fastin hours Triglyceride [Mass/volume] in Serum or Plasma 77 mg/dL 1-200 [facility] ([facility]) FASTING Fastin hours FASTING Fasting : 0 hours FASTING Fastin hours FASTING Fastin hours FASTING Fastin hours FASTING Fastin hours Cholesterol in HDL [Mass/volume] in Serum or Plasma 50 mg/dL 30-70 [facility] ([facility]) FASTING Fastin hours FASTING Fasting : 0 hours FASTING Fastin hours FASTING Fastin hours FASTING Fastin hours FASTING Fastin hours Cholesterol.total/Cholesterol in HDL [Mass Ratio] in Serum o r Plasma 2.58 4.00-6.70 [facility] ([facility]) FASTING Fastin hours FASTING Fasting : 0 hours FASTING Fastin hours FASTING Fastin hours FASTING Fastin hours FASTING Fastin hours Cholesterol non HDL [Mass/volume] in Serum or Plasma 79.00 mg/dL 0 .00-100.00 [facility] ([facility]) FASTING Fastin hours FASTING Fasting : 0 hours FASTING Fastin hours FASTING Fastin hours FASTING Fastin hours FASTING Fastin hours Cholesterol in LDL [Mass/volume] in Serum or Plasma by calcu lation 63.60 mg/dL 20.00-130.00 [facility] ([facility]) FASTING Fastin hours FASTING Fasting : 0 hours FASTING Fastin hours FASTING Fastin hours FASTING Fastin hours FASTING Fastin hours ID Date Data Source [id number] 12/15/2020 12:14:00 PM EDT [facility] ([facility]) Name Value Range Interpretation Code Description Data Lucia rce(s) Supporting Document(s) Vitamin B12 665.80 pg/mL 213.00-816.00 [facility] ([facility]) FASTING Fastin hours FASTING Fasting : 0 hours FASTING Fastin hours FASTING Fastin hours FASTING Fastin hours FASTING Fastin hours ID Date Data Source [id number] 12/15/2020 12:14:00 PM EDT [facility] ([facility]) Name Value Range Interpretation Code Description Data Lucia rce(s) Supporting Document(s) WBC 6.10 k/uL 4.60-10.20 [facility] ([facility]) FASTING Fastin hours FASTING Fasting : 0 hours FASTING Fastin hours FASTING Fastin hours FASTING Fastin hours FASTING Fastin hours Neutrophils [#/volume] in Blood by Automated count 4.17 2.00-7. 50 [facility] ([facility]) FASTING Fastin hours FASTING Fasting : 0 hours FASTING Fastin hours FASTING Fastin hours FASTING Fastin hours FASTING Fastin hours Neutrophils/100 leukocytes in Blood by Automated count 68.3 % 37. 0-80.0 [facility] ([facility]) FASTING Fastin hours FASTING Fasting : 0 hours FASTING Fastin hours FASTING Fastin hours FASTING Fastin hours FASTING Fastin hours Lymphocytes/100 leukocytes in Blood by Automated count 1.07 1.2 0-4.80 [facility] ([facility]) FASTING Fastin hours FASTING Fasting : 0 hours FASTING Fastin hours FASTING Fastin hours FASTING Fastin hours FASTING Fastin hours Lymphocytes/100 leukocytes in Blood by Automated count 17.5 % 10. 0-50.0 [facility] ([facility]) FASTING Fastin hours FASTING Fasting : 0 hours FASTING Fastin hours FASTING Fastin hours FASTING Fastin hours FASTING Fastin hours Monocytes [#/volume] in Blood by Automated count 0.650 0.000-0.9 00 [facility] ([facility]) FASTING Fastin hours FASTING Fasting : 0 hours FASTING Fastin hours FASTING Fastin hours FASTING Fastin hours FASTING Fastin hours Monocytes/100 leukocytes in Blood by Automated count 10.70 % 0.00- 12.00 [facility] ([facility]) FASTING Fastin hours FASTING Fasting : 0 hours FASTING Fastin hours FASTING Fastin hours FASTING Fastin hours FASTING Fastin hours Eosinophils [#/volume] in Blood by Automated count 0.160 0.000-0 .700 [facility] ([facility]) FASTING Fastin hours FASTING Fasting : 0 hours FASTING Fastin hours FASTING Fastin hours FASTING Fastin hours FASTING Fastin hours Eosinophils/100 leukocytes in Blood by Automated count 2.60 % 0.0 0-7.00 [facility] ([facility]) FASTING Fastin hours FASTING Fasting : 0 hours FASTING Fastin hours FASTING Fastin hours FASTING Fastin hours FASTING Fastin hours Basophils/100 leukocytes in Blood by Automated count 0.70 % 0.00- 4.00 [facility] ([facility]) FASTING Fastin hours FASTING Fasting : 0 hours FASTING Fastin hours FASTING Fastin hours FASTING Fastin hours FASTING Fastin hours Basophils [#/volume] in Blood by Automated count 0.040 0.000-0.2 00 [facility] ([facility]) FASTING Fastin hours FASTING Fasting : 0 hours FASTING Fastin hours FASTING Fastin hours FASTING Fastin hours FASTING Fastin hours Laboratory test finding (navigational concept) 0.010 0.000-0.040 [facility] ([facility]) FASTING Fastin hours FASTING Fasting : 0 hours FASTING Fastin hours FASTING Fastin hours FASTING Fastin hours FASTING Fastin hours Laboratory test finding (navigational concept) 0.20 % 0.00-0.50 [facility] ([facility]) FASTING Fastin hours FASTING Fasting : 0 hours FASTING Fastin hours FASTING Fastin hours FASTING Fastin hours FASTING Fastin hours Hemoglobin [Mass/volume] in Blood 13.3 g/dL 12.2-18.1 [facility] ([facility]) FASTING Fastin hours FASTING Fasting : 0 hours FASTING Fastin hours FASTING Fastin hours FASTING Fastin hours FASTING Fastin hours Erythrocytes [#/volume] in Blood by Automated count 4.07 m/uL 4.04-6 .13 [facility] ([facility]) FASTING Fastin hours FASTING Fasting : 0 hours FASTING Fastin hours FASTING Fastin hours FASTING Fastin hours FASTING Fastin hours Hematocrit [Volume Fraction] of Blood by Automated count 41.4 % 4 2.0-53.7 [facility] ([facility]) FASTING Fastin hours FASTING Fasting : 0 hours FASTING Fastin hours FASTING Fastin hours FASTING Fastin hours FASTING Fastin hours Erythrocyte mean corpuscular volume [Entitic volume] b y Automated count 101.7 fL 80.0-97.0 [facility] ([facility]) FASTING Fastin hours FASTING Fasting : 0 hours FASTING Fastin hours FASTING Fastin hours FASTING Fastin hours FASTING Fastin hours Erythrocyte mean corpuscular hemoglobin [Entitic mass] by Automated count 32.7 pg 27.0-31.2 [facility] ([facility]) FASTING Fastin hours FASTING Fasting : 0 hours FASTING Fastin hours FASTING Fastin hours FASTING Fastin hours FASTING Fastin hours Erythrocyte mean corpuscular hemoglobin concentration [Mass/volume] by Automated count 32.1 g/dL 31.8-35.4 [facility] ([facility]) FASTING Fastin hours FASTING Fasting : 0 hours FASTING Fastin hours FASTING Fastin hours FASTING Fastin hours FASTING Fastin hours Erythrocyte distribution width [Ratio] by Automated count 13.4 % 11.6-14.8 [facility] ([facility]) FASTING Fastin hours FASTING Fasting : 0 hours FASTING Fastin hours FASTING Fastin hours FASTING Fastin hours FASTING Fastin hours Platelets [#/volume] in Blood by Automated count 349 K/uL 142-424 [facility] ([facility]) FASTING Fastin hours FASTING Fasting : 0 hours FASTING Fastin hours FASTING Fastin hours FASTING Fastin hours FASTING Fastin hours Platelet mean volume [Entitic volume] in Blood by [place] 10.8 f L 0.0-99.9 [facility] ([facility]) FASTING Fastin hours FASTING Fasting : 0 hours FASTING Fastin hours FASTING Fastin hours FASTING Fastin hours FASTING Fastin hours ID Date Data Source [id number] 12/15/2020 12:14:00 PM EDT [facility] ([facility]) Name Value Range Interpretation Code Description Data Lucia rce(s) Supporting Document(s) TSH 1.461 uIU/mL 0.350-4.940 [facility] ([facility]) FASTING Fastin hours FASTING Fasting : 0 hours FASTING Fastin hours FASTING Fastin hours FASTING Fastin hours FASTING Fastin hours ID Date Data Source [id number] 12/15/2020 12:14:00 PM EDT [facility] ([facility]) Name Value Range Interpretation Code Description Data Lucia rce(s) Supporting Document(s) Glucose [Mass/volume] in Serum or Plasma 120.00 mg/dL 70.00-110.00 [facility] ([facility]) FASTING Fastin hours FASTING Fasting : 0 hours FASTING Fastin hours FASTING Fastin hours FASTING Fastin hours FASTING Fastin hours Urea nitrogen [Mass/volume] in Serum or Plasma 27 mg/dL 9-21 [facility] ([facility]) FASTING Fastin hours FASTING Fasting : 0 hours FASTING Fastin hours FASTING Fastin hours FASTING Fastin hours FASTING Fastin hours Creatinine [Mass/volume] in Serum or Plasma 1.1 mg/dL 0.7-1.3 [facility] ([facility]) FASTING Fastin hours FASTING Fasting : 0 hours FASTING Fastin hours FASTING Fastin hours FASTING Fastin hours FASTING Fastin hours GFR 72.99 mL/min [facility] ([facility]) FASTING Fastin hours FASTING Fasting : 0 hours FASTING Fastin hours FASTING Fastin hours FASTING Fastin hours FASTING Fastin hours Potassium [Moles/volume] in Serum or Plasma 4.9 mmol/L 3.5-5.1 [facility] ([facility]) FASTING Fastin hours FASTING Fasting : 0 hours FASTING Fastin hours FASTING Fastin hours FASTING Fastin hours FASTING Fastin hours Chloride [Moles/volume] in Serum or Plasma 108 mmol/L 98-107 [facility] ([facility]) FASTING Fastin hours FASTING Fasting : 0 hours FASTING Fastin hours FASTING Fastin hours FASTING Fastin hours FASTING Fastin hours Protein [Mass/volume] in Serum or Plasma 6.7 g/dL 6.4-8.3 [facility] ([facility]) FASTING Fastin hours FASTING Fasting : 0 hours FASTING Fastin hours FASTING Fastin hours FASTING Fastin hours FASTING Fastin hours Albumin [Mass/volume] in Serum or Plasma 4.19 g/dL 3.30-5.00 [facility] ([facility]) FASTING Fastin hours FASTING Fasting : 0 hours FASTING Fastin hours FASTING Fastin hours FASTING Fastin hours FASTING Fastin hours Alanine aminotransferase [Enzymatic activity/volume] in Seru m or Plasma 14 U/L 0-55 [facility] ([facility]) FASTING Fastin hours FASTING Fasting : 0 hours FASTING Fastin hours FASTING Fastin hours FASTING Fastin hours FASTING Fastin hours Aspartate aminotransferase [Enzymatic activity/volume] in Serum or Plasma 18 U/L 5-34 [facility] ([facility]) FASTING Fastin hours FASTING Fasting : 0 hours FASTING Fastin hours FASTING Fastin hours FASTING Fastin hours FASTING Fastin hours Alkaline phosphatase [Enzymatic activity/volume] in Serum or Plasma 66 U/L 40-150 [facility] ([facility]) FASTING Fastin hours FASTING Fasting : 0 hours FASTING Fastin hours FASTING Fastin hours FASTING Fastin hours FASTING Fastin hours Carbon dioxide, total [Moles/volume] in Serum or Plasma 22.2 4 mmol/L 22.00-31.00 [facility] ([facility]) FASTING Fastin hours FASTING Fasting : 0 hours FASTING Fastin hours FASTING Fastin hours FASTING Fastin hours FASTING Fastin hours Osmolality of Serum or Plasma by calculation 300.00 275.00-295.00 [facility] ([facility]) FASTING Fastin hours FASTING Fasting : 0 hours FASTING Fastin hours FASTING Fastin hours FASTING Fastin hours FASTING Fastin hours Albumin/Globulin [Mass Ratio] in Serum or Plasma 1.67 Ratio [facility] ([facility]) FASTING Fastin hours FASTING Fasting : 0 hours FASTING Fastin hours FASTING Fastin hours FASTING Fastin hours FASTING Fastin hours Calcium [Mass/volume] in Serum or Plasma 9.70 mg/dL 8.90-10.40 [facility] ([facility]) FASTING Fastin hours FASTING Fasting : 0 hours FASTING Fastin hours FASTING Fastin hours FASTING Fastin hours FASTING Fastin hours Bilirubin.total [Mass/volume] in Serum or Plasma 0.3 mg/dL 0.2-1.2 [facility] ([facility]) FASTING Fastin hours FASTING Fasting : 0 hours FASTING Fastin hours FASTING Fastin hours FASTING Fastin hours FASTING Fastin hours Globulin [Mass/volume] in Serum by calculation 2.51 2.30-4.20 [facility] ([facility]) FASTING Fastin hours FASTING Fasting : 0 hours FASTING Fastin hours FASTING Fastin hours FASTING Fastin hours FASTING Fastin hours Urea nitrogen/Creatinine [Mass Ratio] in Serum or Plasma 24.55 Ratio [facility] ([facility]) FASTING Fastin hours FASTING Fasting : 0 hours FASTING Fastin hours FASTING Fastin hours FASTING Fastin hours FASTING Fastin hours Sodium [Moles/volume] in Serum or Plasma 142 mmol/L 136-145 [facility] ([facility]) FASTING Fastin hours FASTING Fasting : 0 hours FASTING Fastin hours FASTING Fastin hours FASTING Fastin hours FASTING Fastin hours ID Date Data Source [id number] 12/15/2020 12:14:00 PM EDT [facility] ([facility]) Name Value Range Interpretation Code Description Data Lucia rce(s) Supporting Document(s) Hemoglobin A1c/Hemoglobin.total in Blood 6.80 4.00-6.00 [facility] ([facility]) FASTING Fastin hours FASTING Fasting : 0 hours FASTING Fastin hours FASTING Fastin hours FASTING Fastin hours FASTING Fastin hours Estimated Average Glucose 148.46 mg/dL [facility] ([facility]) FASTING Fastin hours FASTING Fasting : 0 hours FASTING Fastin hours FASTING Fastin hours FASTING Fastin hours FASTING Fastin hours ID Date Data Source [id number] 11/22/2020 01:49:19 PM EDT [facility] INFORMATIONPatient MRN Name Date of Age Gend*PT [id number] Marilyn Ribeiro 1960 60 years M ---PT Location Admission Date/Time Visit ID Attending Provider --- --- --- --- EPI ID CSN Admitting Provider [id number] ---Cardiology Office NoteName: Marilyn Ribeiro Gender: maleDate of : 1960 Age: 60 yearsPrimary Care Provider / Referring Physician: RYAN Kaiserurrent HistoryChief Complaint: 8-month follow-upHPI:This patient is a 60 years male presents today for follow-up. He has thefollowing medical problem list:1. Cardiac catheterization 06/14/2017 showing no progression of CAD. Patient hasprevious stent placement to the right coronary artery and diagonal denmpc0411/15/2016. Cardiac catheterization 05/2017 widely patent stents in the mid rightcoronary artery and first diagonal branch. Mild disease elsewhere.2. Asthma/COPD3. Diabetes mellitus4. Hypertension5. Hyperlipidemia6. Obstructive sleep apnea, per pt repeat sleep study unremarkable, not usingcpap anymore.7. Prostatectomy for prostate cancer February. Presentation on 02/11/[address] elevation lateral wall; cardiaccatheterization revealed thrombotic occlusion anterior branch of the firstdiagonal treated with balloon angioplasty; patent stents in the right; patientdoes have moderate to severe disease in the mid LADPatient presents today for follow-up. Overall, he tells me that he has beenfeeling well. He does remain on disability secondary to back issues. 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 He hasnot had any chest pain, shortness of breath, lower extremity edema and hisweight is been stable. He does feel that his diabetes is under better control.He will be having a recheck of his lipids next month and follow- up with primarycare. Patient is very hesitant to come off of Plavix. I told him that he willbe on it at least until January. I will have him establish care with [facility] in the absence of Dr Aguila. I will have him repeat echocardiogram inDecember as well. I do appreciate his systolic murmur most likely his mitralregurgitation. He does appreciate shortness of breath if he walks upstairs buthe attributes some of that to COPD. He has not had any lower extremity edema.We reviewed his medications and he is taking them as prescribed. His bloodpressure was better upon recheck by myself.Review of Systems General Denies dizziness or lightheadedness. Denies any recent, unexpectedweight changes. HEENT Denies any loss or change of vision. Denies tinnitus. Respiratory Denies PND, orthopnea, ROMERO, hemoptysis, cough Cardiac Denies chest pain or pressure, denies palpitations GI Denies melena, hematochezia, nausea, or vomiting. MS Denies any lower extremity edema. Neuro Denies speech, motor, or sensory impairment. Psych Denies depression or anxiety. Endo Denies polyuria or polydipsia, denies temperature intolerance. Derm Denies diaphoresis, non-healing skin woundsPast HistoryPast Medical History:Diagnosis Date Acid reflux CAD (coronary artery disease) RCA, 1st diagonal Cancer COPD (chronic obstructive pulmonary disease) Depression Diabetes mellitus Excessive anger Herniated cervical disc HLD (hyperlipidemia) HTN (hypertension) Lymphoma s/p radiation and chemo Myocardial infarction STEMI OA (osteoarthritis) Sleep apnea Denies this as a problem now, does not use any device. Sleep apneaPast Surgical History:Procedure Laterality Date APPENDECTOMY CARDIAC CATHETERIZATION 11/15/2016 LAD=40% stenosis, 1st diagonal=95% stenosis, RCA=75% stenosis CARDIAC CATHETERIZATION N/A 06/14/2017 Procedure: Cardiac catheterization; Surgeon: Jerry Aguila MD; Laterality:N/A; CARDIAC CATHETERIZATION N/A 06/14/2017 Procedure: Angioplasty-coronary; Surgeon: Jerry Aguila MD; Laterality:N/A; CARDIAC CATHETERIZATION N/A 02/11/2020 Procedure: Percutaneous coronary intervention; Surgeon: GEENA INVASIVECARDIOLOGIST; Laterality: N/A; CARDIAC CATHETERIZATION N/A 02/11/2020 Procedure: Left heart cath; Surgeon: GEENA CAD TECHNICIAN;Laterality: N/A; CARDIAC CATHETERIZATION N/A 02/11/2020 Procedure: Coronary angiography; Surgeon: GEENA CAD TECHNICIAN;Laterality: N/A; CARDIAC CATHETERIZATION N/A 02/11/2020 Procedure: Left ventriculography; Surgeon: GEENA, CAD TECHNICIAN;Laterality: N/A; KNEE SURGERY Left LAPAROSCOPIC RETROPUBIC PROSTATECTOMY N/A 03/05/2019 Procedure: PROSTATECTOMY, RADICAL, ROBOT-ASSISTED, USING XI; Surgeon: MD Lencho; Laterality: N/A; MEDIASTINOSCOPY SEPTOPLASTY TONSILLECTOMY adenoids VASECTOMYFamily HistoryProblem Relation Age of Onset Heart failure Father COPD Mother Heart attack Sister Coronary artery disease BrotherSocial HistorySocioeconomic History Marital status: Legally Spouse name: Not on file Number of children: Not on file Years of education: Not on file Highest education level: Not on fileOccupational History Not on fileTobacco Use Smoking status: Former Smoker Packs/day: 0.50 Years: 2.00 Pack years: 1.00 Types: Cigarettes Quit date: 1982 Years since quittin.7 Smokeless tobacco: Current User Types: ChewVaping Use Vaping Use: Never usedSubstance and Sexual Activity Alcohol use: No Drug use: No Sexual activity: NeverOther Topics Concern Bike Helmet Not Asked History of Falls Not Asked Self-Exams Not Asked Caffeine Concern Not Asked Hobby Hazards Not Asked Sleep Concern Not Asked Daily Calcium Supplement Not Asked Lead Exposure Not Asked Special Diet Not Asked Daily Vitamin D Supplement Not Asked Service Not Asked Stress Concern Not Asked Domestic Violence in home Not Asked Radon exposure Not Asked Weight Concern Not Asked Exercise No Comment: active Seat Belt Not Asked Well water Not Asked Firearms in home Not AskedSocial History Narrative Not on fileSocial Determinants of HealthFinancial Resource Strain: Difficulty of Paying Living Expenses:Food Insecurity: Worried About Running Out of Food in the Last Year: Ran Out of Food in the Last Year:Transportation Needs: Lack of Transportation (Medical): Lack of Transportation (Non-Medical):Physical Activity: Days of Exercise per Week: Minutes of Exercise per Session:Stress: Feeling of Stress :Social Connections: Frequency of Communication with Friends and Family: Frequency of Social Gatherings with Friends and Family: Attends Sikh Services: Active Member of Clubs or Organizations: Attends Club or Organization Meetings: Marital Status:Intimate Partner Violence: Fear of Current or Ex-Partner: Emotionally Abused: Physically Abused: Sexually Abused:Medications and AllergiesALLERGIES/SENSITIVITIES: Zoloft [sertraline hcl]Current Outpatient Medications: albuterol (PROVENTIL HFA;VENTOLIN HFA) 108 (90 Base) MCG/ACT inhaler, Inhale2 puffs every 4 (four) hours as needed for wheezing, Disp: , Rfl: albuterol (PROVENTIL) (2.5 MG/3ML) 0.083% nebulizer solution, Take 2.5 mg bynebulization 2 (two) times a day as needed for shortness of breath, Disp: , Rfl: aspirin EC 81 MG EC tablet, Take 1 tablet (81 mg total) by mouth daily, Disp:, Rfl: citalopram (CELEXA) 40 MG tablet, Take 40 mg by mouth nightly , Disp: , Rfl: clopidogrel (PLAVIX) 75 MG tablet, Take 1 tablet (75 mg total) by mouthdaily, Disp: 90 tablet, Rfl: 0 clotrimazole (LOTRIMIN) 1 % cream, Apply 1 application topically 2 (two)times a day, Disp: , Rfl: glipiZIDE (GLUCOTROL) 5 MG tablet, Take 5 mg by mouth daily, Disp: , Rfl: levothyroxine (SYNTHROID, LEVOTHROID) 175 MCG tablet, Take 175 mcg by mouthdaily , Disp: , Rfl: losartan (COZAAR) 50 MG tablet, Take 50 mg by mouth daily, Disp: , Rfl: metFORMIN (GLUCOPHATE-XR) 500 MG 24 hr tablet, Take 1,000 mg by mouth 2 (two)times a day, Disp: , Rfl: naproxen (NAPROSYN) 375 MG tablet, Take 375 mg by mouth 2 (two) times a daywith meals , Disp: , Rfl: nebivolol (Bystolic) 10 MG tablet, Take 1 tablet (10 mg total) by mouthdaily, Disp: 90 tablet, Rfl: 0 nitroglycerin (NITROSTAT) 0.4 MG SL tablet, Place 1 tablet (0.4 mg total)under the tongue every 5 (five) minutes as needed for chest pain, Disp: 25tablet, Rfl: 2 pantoprazole (PROTONIX) 40 MG tablet, Take 40 mg by mouth daily, Disp: , Rfl: simvastatin (ZOCOR) 40 MG tablet, Take 40 mg by mouth nightly, Disp: , Rfl: Stiolto Respimat 2.5-2.5 MCG/ACT AERS, INHALE 2 PUFFS BY MOUTH ONCE DAILY,Disp: , Rfl: topiramate (TOPAMAX) 200 MG tablet, Take 200 mg by mouth daily, Disp: , Rfl: traZODone (DESYREL) 100 MG tablet, Take 100 mg by mouth nightly, Disp: , Rfl:Current Facility-Administered Medications: perflutren lipid microsphere (DEFINITY) 8.476 mg in 10 mL NS IV, 2-10 mL,Intravenous, Once PRN, Duong Ball NPPhysicalBMI: Body mass index is 30.83 kg/m .Blood Pressure: BP: 124/80 Pulse: Heart Rate: 84Temperature: Temp: 99.2 F Respirations: Resp: 18 Weight: Weight: (!) 103.1 kg (227 lb 6.4 oz) O2 Saturation: SpO2: 94 %Physical Exam General Well developed, well nourished, no acute distress Neck Soft and supple without lymphadenopathy or thyromegaly. No JVD. Nobruits. Lungs Clear to auscultation, no crackles, rhonchi, or wheezes Heart Normal S1 S2, systolic murmur grade 2 3/6 heard loudest at left sternalborder, no clicks, or gallops Musculoskeletal Appears to have normal range of motion x 4 extremities, nojoint swelling. No pedal edema Neuro Alert, orientedx3, no facial asymmetry Derm No rashes, or ulcers Vascular Pulses palpableDiagnosticsLabBlood work from 09/14/2020 reveals sodium 144, potassium 4.8, glucose 168, BUN20, creatinine 1.2, normal liver functions, hemoglobin A1c 7.0EKG: N/AAssessment & Plan1. Known CAD; patient had ST elevation lateral [place] February 11, 2020 treatedwith balloon angioplasty; patient does have moderate to severe disease in themid LAD2. Mild mitral regurgitation; his murmur is more impressive on today's exam. Iwkelsey have him repeat echocardiogram in . Hypertension; blood pressures under good control with current medicaltherapy4. Diabetes mellitus; followed by PCP and his A1c is under better control5. Hyperlipidemia; he is on simvastatin and lipids will be drawn at the end ofnext monthPatient will return in January for echocardiogram and to establish care with [facility] in the absence of Dr Aguila. He knows to contact our office in theinterim if he has any signs or symptoms of cardiovascular concern.We appreciate the opportunity to care for this patient.Signature: Duong Ball NPDate: November 22, 2020Time: 1:46 PMThis document or parts of this document, were dictated using [employer]. A reasonable attempt at proofreading has been made to minimize errors.Please call with any questions or corrections. Name Value Range Interpretation Code Description Data Lucia rce(s) Supporting Document(s) ID Date Data Source [id number] 09/14/2020 09:33:00 AM EDT [facility] Name Value Range Interpretation Code Description Data Lucia rce(s) Supporting Document(s) Glucose [Mass/volume] in Serum or Plasma 168.00 mg/dL 70.00-110.00 [facility] ([facility]) FASTING Fastin hours FASTING Fasting : 0 hours Urea nitrogen [Mass/volume] in Serum or Plasma 20 mg/dL 9-21 [facility] ([facility]) FASTING Fastin hours FASTING Fasting : 0 hours Creatinine [Mass/volume] in Serum or Plasma 1.2 mg/dL 0.7-1.3 [facility] ([facility]) FASTING Fastin hours FASTING Fasting : 0 hours GFR 66.07 mL/min [facility] FASTING Fastin hours FASTING Fasting : 0 hours Potassium [Moles/volume] in Serum or Plasma 4.8 mmol/L 3.5-5.1 [facility] ([facility]) FASTING Fastin hours FASTING Fasting : 0 hours Chloride [Moles/volume] in Serum or Plasma 111 mmol/L 98-107 [facility] ([facility]) FASTING Fastin hours FASTING Fasting : 0 hours Protein [Mass/volume] in Serum or Plasma 6.4 g/dL 6.4-8.3 [facility] ([facility]) FASTING Fastin hours FASTING Fasting : 0 hours Alanine aminotransferase [Enzymatic activity/volume] in Seru m or Plasma 21 U/L 0-55 [facility] ([facility]) FASTING Fastin hours FASTING Fasting : 0 hours Albumin [Mass/volume] in Serum or Plasma 3.89 g/dL 3.30-5.00 [facility] ([facility]) FASTING Fastin hours FASTING Fasting : 0 hours Aspartate aminotransferase [Enzymatic activity/volume] in Serum or Plasma 17 U/L 5-34 [facility]) FASTING Fastin hours FASTING Fasting : 0 hours Alkaline phosphatase [Enzymatic activity/volume] in Serum or Plasma 73 U/L 40-150 [facility] ([facility]) FASTING Fastin hours FASTING Fasting : 0 hours Carbon dioxide, total [Moles/volume] in Serum or Plasma 26.4 0 mmol/L 22.00-31.00 [facility] ([facility]) FASTING Fastin hours FASTING Fasting : 0 hours Albumin/Globulin [Mass Ratio] in Serum or Plasma 1.55 Ratio [facility] ([facility]) FASTING Fastin hours FASTING Fasting : 0 hours Osmolality of Serum or Plasma by calculation 304.00 275.00-295.00 [facility]) FASTING Fastin hours FASTING Fasting : 0 hours Calcium [Mass/volume] in Serum or Plasma 9.10 mg/dL 8.90-10.40 [facility]) FASTING Fastin hours FASTING Fasting : 0 hours Bilirubin.total [Mass/volume] in Serum or Plasma 0.2 mg/dL 0.2-1.2 [facility] ([facility]) FASTING Fastin hours FASTING Fasting : 0 hours Globulin [Mass/volume] in Serum by calculation 2.51 2.30-4.20 [facility]) FASTING Fastin hours FASTING Fasting : 0 hours Urea nitrogen/Creatinine [Mass Ratio] in Serum or Plasma 16.67 Ratio [facility] ([facility]) FASTING Fastin hours FASTING Fasting : 0 hours Sodium [Moles/volume] in Serum or Plasma 144 mmol/L 136-145 [facility]) FASTING Fastin hours FASTING Fasting : 0 hours ID Date Data Source [id number] 09/14/2020 09:33:00 AM EDT [facility]) Name Value Range Interpretation Code Description Data Lucia rce(s) Supporting Document(s) Hemoglobin A1c/Hemoglobin.total in Blood 7.00 4.00-6.00 [facility]) FASTING Fastin hours FASTING Fasting : 0 hours Estimated Average Glucose 154.20 mg/dL [facility] ([facility]) FASTING Fastin hours FASTING Fasting : 0 hours ID Date Data Source [id number] 09/14/2020 09:33:00 AM EDT [facility]) Name Value Range Interpretation Code Description Data Lucia rce(s) Supporting Document(s) Hemoglobin A1c/Hemoglobin.total in Blood Laboratory test result [facility] ([facility]) ID Date Data Source [id number] 06/22/2020 08:08:00 AM EDT [facility] Name Value Range Interpretation Code Description Data Lucia rce(s) Supporting Document(s) Prostate Specific Ag, Serum 0.0-4.0 [facility] [place] ECLIA methodology. According to th e [place] [employer], Serum PSA shoulddecrease and remain at undetectable levels after radicalprostatectomy. The AUA defines biochemical recurrence as an initialPSA value 0.2 ng/mL or greater followed by a subsequent confirmatoryPSA value 0.2 ng/mL or greater.Values obtained with different assay methods or kits cannot be usedinterchangeably. Results cannot be interpreted as absolute evidenceof the presence or absence of malignant disease. ID Date Data Source [id number] 06/14/2020 05:55:00 PM EDT [facility] ([facility]) Name Value Range Interpretation Code Description Data [facility] rce(s) Supporting Document(s) Opiates Urine 6 Am Laboratory test result [facility] ([facility]) INTERPRETIVE INFORMATION: Opiates, Urine , Quantitative Methodology: Quantitative Liquid Chromatography-Tandem Mass Spectrometry Positive cutoff: 20 ng/mL except as specified below 6-acetylmorphine 10 ng/mL For medical purposes only; not valid for forensic use. Identification of specific drug(s) taken by specimen donor is problematic due to common metabolites, some of which are prescription drugs themselves. The absence of expected drug(s) and/or drug metabolite(s) may indicate non-compliance, inappropriate timing of specimen collection relative to drug administration, poor drug absorption, diluted/adulterated urine, or limitations of testing. All drug analytes covered are in the non-glucuronidated (free) forms. The concentration value must be greater than or equal to the cutoff to be reported as positive. A very small amount of an unexpected drug analyte in the presence of a large amount of an expected drug analyte may reflect pharmaceutical impurity. Interpretive questions should be directed to the laboratory. This test was developed and its performance characteristics determined by [facility]. It has not been cleared or approved by the US Food and Drug Administration. This test was performed in a CLIA certified laboratory and is intended for clinical purposes. Opiates Codeine Laboratory test result [facility] ([facility]) Opiates Morphine Laboratory test result [facility]) Opiates Hydrocodone 462 ng/mL [facility] Consistent with use of a drug containing hydrocodone. Low concentrations may reflect impurity of another drug such as oxycodone. Opiates Hydromorpho Laboratory test result [facility] ([facility]) Opiates Oxycodone Laboratory test result [facility]) Opiates Oxymorphone Laboratory test result [facility]) Opiates Noroxycodone Laboratory test result [facility] ([facility]) Unit: ng/mL Opiates Noroxymorpho Laboratory test result [facility] ([facility]) Unit: ng/mL Opiates Norhydrocodo 1255 [facility] Unit: ng/mL Norhydrocodone is a metabolite of hydrocodone; consistent with use of a drug containing hydrocodone. Hydrocodone may also be a metabolite of codeine, or an impurity of oxycodone. Performed By: [facility] [address] [place] [id number] Repair Order Clerk: Ning James MD Unless otherwise specified, testing performed by [facility] [address] [address] ID Date Data Source [id number] 06/14/2020 05:55:00 PM EDT [facility] Name Value Range Interpretation Code Description Data Lucia rce(s) Supporting Document(s) Amphetamines,Urine Laboratory test result [facility]) Barbiturates,Urine Laboratory test result [facility]) Benzodiazepine,Urine Laboratory test result [facility]) Cannabinoids,Urine Laboratory test result [facility] ([facility]) Cocaine [Mass/volume] in Urine Laboratory test result [facility]) Opiates [Mass/volume] in Urine by Confirmatory method Laboratory test result Abnormal (applies to non-numeric results) [facility] ([facility]) SPECIMEN HAS BEEN SENT FOR CONFIRMATION. NOTE: Oxycodone is not sufficiently detected by this screening assay. A more sensitive assay is available upon request. Please Note: Laboratory test result [facility] ([facility]) THESE ARE SCREENING IMMUNOASSAY TESTS TH AT ARE REPORTED POSITIVE WHEN THE RESULTS EXCEED THE THRESHOLD (CUTOFF) INDICATED. A LIST OF POTENTIAL INTERFERENCES FOR EACH METHOD CAN BE MADE AVAILABLE UPON REQUEST. A CONFIRMATORY ANALYSIS IS ORDERED ON ALL DRUG CLASSES SCREENING POSITIVE BY THIS METHOD. * * * * * * * * * * * * * * * THIS ASSAY IS NOT INTENDED TO BE USED FOR MONITORING MEDICATION COMPLIANCE. Unless otherwise specified, testing performed by [facility], [address] [address] Phencyclidine,Urine Laboratory test result [facility] ([facility]) ID Date Data Source [id number] 06/14/2020 10:13:04 PM EDT [facility] Name Value Range Interpretation Code Description Data Lucia rce(s) Supporting Document(s) AMPHETAMINES,URINE (NEG) [facility] BARBITURATES,URINE (NEG) [facility] BENZODIAZEPINE,URINE (NEG) [facility] CANNABINOIDS,URINE (NEG) [facility] COCAINE,URINE (NEG) [facility] OPIATES,URINE (NEG) A [facility] SPECIMEN HAS BEEN SENT FOR CONFIRMATION. NOTE: Oxycodone is not sufficientlydetected by this screening assay. A moresensitive assay is available upon request. PHENCYCLIDINE,URINE (NEG) [facility] PLEASE NOTE: [facility] ARE REPORTED POSITIVE WHEN THE RESULT SEXCEED THE THRESHOLD (CUTOFF) INDICATED. ALIST OF POTENTIAL INTERFERENCES FOR EACHMETHOD CAN BE MADE AVAILABLE UPON REQUEST.A CONFIRMATORY ANALYSIS IS ORDERED ONALL DRUG CLASSES SCREENING POSITIVE BYTHIS METHOD.* * * * * * * * * * * * * * *THIS ASSAY IS NOT INTENDED TO BE USED FORMONITORING MEDICATION COMPLIANCE. ID Date Data Source [id number] 06/17/2020 06:12:49 PM EDT [facility] Name Value Range Interpretation Code Description Data Lucia rce(s) Supporting Document(s) OPIATES URINE 6 AM <10 ng/mL [facility] INTERPRETIVE INFORMATION: Opiates, Urin e, Quantitative Methodology: Quantitative Liquid Chromatography-Tandem Mass Spectrometry Positive cutoff: 20 ng/mL except as specified below 6- acetylmorphine 10 ng/mL For medical purposes only; not valid for forensic use. Identification of specific drug(s) taken by specimen donor is problematic due to common metabolites, some of which are prescription drugs themselves. The absence of expected drug(s) and/or drug metabolite(s) may indicate non- compliance, inappropriate timing of specimen collection relative to drug admin istration, poor drug absorption, diluted/adulterated urine, or limitations of testing. All drug analytes covered are in the non-glucuronidated (free) forms. The concentration value must be greater than or equal to the cutoff to be reported as positive. A very small amount of an unexpected drug analyte in the presence of a large amount of an expected drug analyte may reflect pharmaceutical impurity. Interpretive questions should be directed to the laboratory. This test was developed and its performance characteristics determined by [facility]. It has not been cleared or approved by the US Food and Drug Administration. This test was performed in a CLIA certified laboratory and is intended for clinical purposes. OPIATES CODEINE <20 ng/mL [facility] OPIATES MORPHINE <20 ng/mL [facility] OPIATES HYDROCODONE 462 ng/mL [facility] Consistent with use of a drug containin g hydrocodone. Low concentrations may reflect impurity of another drug such as oxycodone. OPIATES HYDROMORPHO <20 ng/mL [facility] OPIATES OXYCODONE <20 ng/mL [facility] OPIATES OXYMORPHONE <20 ng/mL [facility] OPIATES NOROXYCODONE <20 [facility] Unit: ng/mL OPIATES NOROXYMORPHO <20 [facility] Unit: ng/mL OPIATES NORHYDROCODO 1255 [facility] Unit: ng/mL Norhydrocodone is a metaboli te of hydrocodone; consistent with use of a drug containing hydrocodone. Hydrocodone may also be a metabolite of codeine, or an impurity of oxycodone. Performed By: [facility] [address] [place] [id number] Repair Order Clerk: Ning James MD ID Date Data Source [id number] 06/14/2020 08:26:00 AM EDT [facility]) Name Value Range Interpretation Code Description Data Lucia rce(s) Supporting Document(s) Free T4 1.26 ng/dL 0.70-1.48 [facility] ([facility]) TSH 3.811 uIU/mL 0.350-4.940 [facility] Vitamin B12 390.00 pg/mL 213.00-816.00 [facility]) Folate [Mass/volume] in Serum or Plasma 15.10 ng/mL 7.00-31.40 [facility] ([facility]) Iron [Mass/volume] in Serum or Plasma 91.00 ug/dL 31.00-144.00 [facility] ([facility]) ID Date Data Source [id number] 06/14/2020 08:26:00 AM EDT [facility]) Name Value Range Interpretation Code Description Data Lucia rce(s) Supporting Document(s) Glucose [Mass/volume] in Serum or Plasma 160.00 mg/dL 70.00-110.00 [facility]) Urea nitrogen [Mass/volume] in Serum or Plasma 24 mg/dL 9-21 [facility]) Creatinine [Mass/volume] in Serum or Plasma 1.1 mg/dL 0.7-1.3 [facility]) GFR 70.16 mL/min [facility]) <content>NORMAL FUNCTION OR MILD RENAL D ISEASE:>60 ml/min</content>
<content>ADVANCED RENAL DISEASE:15-59 ml/min</content>
<content>RENAL FAILURE:<15 ml/min</content>
<content></content> Sodium [Moles/volume] in Serum or Plasma 139 mmol/L 136-145 [facility] ([facility]) Potassium [Moles/volume] in Serum or Plasma 4.6 mmol/L 3.5-5.1 [facility]) Chloride [Moles/volume] in Serum or Plasma 106 mmol/L 98-107 [facility]) Protein [Mass/volume] in Serum or Plasma 7.1 g/dL 6.4-8.3 [facility] ([facility]) Alanine aminotransferase [Enzymatic activity/volume] in Seru m or Plasma 22 U/L 0-55 [facility]) Albumin [Mass/volume] in Serum or Plasma 4.50 g/dL 3.30-5.00 [facility] ([facility]) Aspartate aminotransferase [Enzymatic activity/volume] in Serum or Plasma 17 U/L 5-34 [facility]) Alkaline phosphatase [Enzymatic activity/volume] in Serum or Plasma 70 U/L 40-150 [facility]) Carbon dioxide, total [Moles/volume] in Serum or Plasma 23.0 0 mmol/L 22.00-31.00 [facility]) Albumin/Globulin [Mass Ratio] in Serum or Plasma 1.73 Ratio [facility] ([facility]) Osmolality of Serum or Plasma by calculation 295.46 275.00-295.00 [facility] ([facility]) Calcium [Mass/volume] in Serum or Plasma 9.20 mg/dL 8.90-10.40 [facility]) Bilirubin.total [Mass/volume] in Serum or Plasma 0.5 mg/dL 0.2-1.2 [facility]) Globulin [Mass/volume] in Serum by calculation 2.60 2.30-4.20 [facility]) Urea nitrogen/Creatinine [Mass Ratio] in Serum or Plasma 21.05 Ratio [facility]) ID Date Data Source [id number] 06/14/2020 08:26:00 AM EDT [facility] Name Value Range Interpretation Code Description Data Lucia rce(s) Supporting Document(s) Leukocytes [#/volume] in Blood by Automated count 9.70 k/uL 4.60-10. 20 [facility]) Neutrophils [#/volume] in Blood by Automated count 7.53 2.00-7. 50 [facility]) Neutrophils/100 leukocytes in Blood by Automated count 77.7 % 37. 0-80.0 [facility]) Lymphocytes [#/volume] in Blood by Automated count 1.27 K/UL 1.20-4. 80 [facility]) Lymphocytes/100 leukocytes in Blood by Automated count 13.1 % 10. 0-50.0 [facility]) Monocytes [#/volume] in Blood by Automated count 0.735 0.000-0.9 00 [facility]) Monocytes/100 leukocytes in Blood by Automated count 7.58 % 0.00- 12.00 [facility]) Eosinophils [#/volume] in Blood by Automated count 0.072 0.000-0 .700 [facility]) Eosinophils/100 leukocytes in Blood by Automated count 0.74 % 0.0 0-7.00 [facility]) Basophils [#/volume] in Blood by Automated count 0.085 0.000-0.2 00 [facility]) Basophils/100 leukocytes in Blood by Automated count 0.87 % 0.00- 4.00 [facility]) Erythrocytes [#/volume] in Blood by Automated count 4.69 m/uL 4.04-6 .13 [facility]) Hemoglobin [Mass/volume] in Blood 15.1 g/dL 12.2-18.1 [facility]) Hematocrit [Volume Fraction] of Blood by Automated count 47.2 % 4 2.0-53.7 [facility]) Erythrocyte mean corpuscular volume [Entitic volume] b y Automated count 101.0 fL 80.0-97.0 [facility]) Erythrocyte mean corpuscular hemoglobin [Entitic mass] by Automated count 32.1 pg 27.0-31.2 [facility] ([facility]) Erythrocyte distribution width [Ratio] by Automated count 12.7 % 11.6-14.8 [facility]) Erythrocyte mean corpuscular hemoglobin concentration [Mass/volume] by Automated count 31.9 g/dL 31.8-35.4 [facility]) Platelets [#/volume] in Blood by Automated count 300 K/uL 142-424 [facility]) Platelet mean volume [Entitic volume] in Blood by [place] 7.4 fL 0.0-99.9 [facility] ([facility]) ID Date Data Source [id number] 06/14/2020 08:26:00 AM EDT [facility]) Name Value Range Interpretation Code Description Data Lucia rce(s) Supporting Document(s) Color Laboratory test result [facility]) Clarity Laboratory test result [facility]) Leukocytes Laboratory test result [facility]) Nitrite Laboratory test result [facility]) Urobilinogen Laboratory test result [facility]) Protein Laboratory test result [facility]) pH 6.0 5.0-7.5 [facility] Hemoglobin Laboratory test result [facility]) Specific [place] 1.038 1.005-1.030 Abnormal (applies to non-nume giovanna results) [facility]) Ketones Laboratory test result [facility]) Bilirubin Laboratory test result [facility]) Glucose Laboratory test result Abnormal (applies to non -numeric results) [facility]) Laboratory test finding (navigational concept) Laboratory test result 0-5 [facility]) Laboratory test finding (navigational concept) Laboratory test result 0-2 [facility]) ID Date Data Source [id number] 06/14/2020 08:26:00 AM EDT [facility] Name Value Range Interpretation Code Description Data Lucia rce(s) Supporting Document(s) Hemoglobin A1c/Hemoglobin.total in Blood 7.53 4.00-6.00 [facility]) <content>GOAL <7</content>
<content> </content> Estimated Average Glucose 169.45 mg/dL [facility] ([facility]) ID Date Data Source [id number] 06/03/2020 01:05:00 PM EDT [facility] CT C HEST WO IV CONTRASTCLINICAL HISTORY: COPDCOMPARISON: 12/02/2019TECHNIQUE: CT scan of the chest without intravenous contrast.FINDINGS: There is no anterior chest wall mass identified. There are no significantly sized axillary lymph nodes noted.The heart is not enlarged. There is no pericardial thickening or effusion. There are coronary artery calcifications. The ascending thoracic aorta measures approximately 3.5 cm. There is no significant mediastinal lymphadenopathy noted.The central tracheobronchial tree appears patent. There is bibasilar scarring/atelectasis. There is a 3 mm pulmonary nodule in the right lower lobe, axial image number 60, stable. The previously described 5 mm right lower lobe nodular density has the appearance of focal scarring on today's CT scan. There is biapical pleuroparenchymal scarring/thickening. There is a 4 mm subpleural nodular density in the right middle lobe, axial image number 65, stable. Again noted is a trace left pleural effusion versus pleural scarring which is unchanged.Evaluation of the upper abdomen demonstrates a coarse calcification within the cortex of the left upper kidney. This is without significant change. There is no abnormal mass lesion or fluid collection identified.There are mild to moderate degenerative changes involving the thoracic spine.IMPRESSION: Stable bilateral pulmonary nodular densities as outlined above. Previously described 5 mm nodular density in the right lower lobe has the appearance of scarring on today's CT scan. Stable trace left pleural effusion versus pleural scarring. No new pulmonary nodule or mass lesion.Dictated by: SHAUNA KHAN MD on 1 Transcribed by: aa on <<TranscriptionDateTime1>>CDS G code: ,CDS Modifier: ,cc: Name Value Range Interpretation Code Description Data Lucia rce(s) Supporting Document(s) ID Date Data Source [id number] 04/26/2020 09:24:00 AM EST [facility] Name Value Range Interpretation Code Description Data Lucia rce(s) Supporting Document(s) TSH 8.387 uIU/mL 0.350-4.940 [facility] Free T4 1.10 ng/dL 0.70-1.48 [facility]) ID Date Data Source [id number] 04/26/2020 09:24:00 AM EST [facility] Name Value Range Interpretation Code Description Data Lucia rce(s) Supporting Document(s) Glucose [Mass/volume] in Serum or Plasma 171.00 mg/dL 70.00-110.00 [facility]) Sodium [Moles/volume] in Serum or Plasma 140 mmol/L 136-145 [facility]) Potassium [Moles/volume] in Serum or Plasma 4.8 mmol/L 3.5-5.1 [facility]) Chloride [Moles/volume] in Serum or Plasma 106 mmol/L 98-107 [facility]) Carbon dioxide, total [Moles/volume] in Serum or Plasma 24.0 0 mmol/L 22.00-31.00 [facility]) Urea nitrogen [Mass/volume] in Serum or Plasma 27 mg/dL 9-21 [facility]) GFR 60.86 mL/min [facility] <content>NORMAL FUNCTION OR MILD RENAL D ISEASE:>60 ml/min</content>
<content>ADVANCED RENAL DISEASE:15-59 ml/min</content>
<content>RENAL FAILURE:<15 ml/min</content>
<content></content> Creatinine [Mass/volume] in Serum or Plasma 1.3 mg/dL 0.7-1.3 [facility]) Osmolality of Serum or Plasma by calculation 299.14 275.00-295.00 [facility]) Calcium [Mass/volume] in Serum or Plasma 9.50 mg/dL 8.90-10.40 [facility]) Urea nitrogen/Creatinine [Mass Ratio] in Serum or Plasma 20.93 Ratio [facility]) ID Date Data Source [id number] 03/15/2020 10:31:00 AM EST [facility] Name Value Range Interpretation Code Description Data Lucia rce(s) Supporting Document(s) Leukocytes [#/volume] in Blood by Automated count 8.01 k/uL 4.60-10. 20 [facility]) Neutrophils [#/volume] in Blood by Automated count 5.44 2.00-7. 50 [facility]) Lymphocytes [#/volume] in Blood by Automated count 1.54 K/UL 1.20-4. 80 [facility]) Lymphocytes/100 leukocytes in Blood by Automated count 19.3 % 10. 0-50.0 [facility]) Neutrophils/100 leukocytes in Blood by Automated count 67.9 % 37. 0-80.0 [facility]) Monocytes [#/volume] in Blood by Automated count 0.699 0.000-0.9 00 [facility]) Monocytes/100 leukocytes in Blood by Automated count 8.73 % 0.00- 12.00 [facility]) Eosinophils [#/volume] in Blood by Automated count 0.238 0.000-0 .700 [facility]) Basophils [#/volume] in Blood by Automated count 0.091 0.000-0.2 00 [facility]) Eosinophils/100 leukocytes in Blood by Automated count 2.97 % 0.0 0-7.00 [facility]) Erythrocytes [#/volume] in Blood by Automated count 4.98 m/uL 4.04-6 .13 [facility]) Basophils/100 leukocytes in Blood by Automated count 1.13 % 0.00- 4.00 [facility]) Hemoglobin [Mass/volume] in Blood 15.9 g/dL 12.2-18.1 [facility] [facility] Hematocrit [Volume Fraction] of Blood by Automated count 50.8 % 4 2.0-53.7 [facility] ([facility]) Erythrocyte mean corpuscular hemoglobin [Entitic mass] by Automated count 32.0 pg 27.0-31.2 [facility] ([facility]) Erythrocyte mean corpuscular volume [Entitic volume] b y Automated count 102.0 fL 80.0-97.0 [facility] ([facility]) Erythrocyte mean corpuscular hemoglobin concentration [Mass/volume] by Automated count 31.4 g/dL 31.8-35.4 [facility] ([facility]) Erythrocyte distribution width [Ratio] by Automated count 13.1 % 11.6-14.8 [facility] ([facility]) Platelets [#/volume] in Blood by Automated count 297 K/uL 142-424 [facility] ([facility]) Platelet mean volume [Entitic volume] in Blood by [place] 7.5 fL 0.0-99.9 [facility] ([facility]) ID Date Data Source [id number] 03/15/2020 10:31:00 AM EST [facility] ([facility]) Name Value Range Interpretation Code Description Data Lucia rce(s) Supporting Document(s) Free T4 0.91 ng/dL 0.70-1.48 [facility] ([facility]) TSH 24.051 uIU/mL 0.350-4.940 [facility] ID Date Data Source [id number] 03/15/2020 10:31:00 AM EST [facility]) Name Value Range Interpretation Code Description Data Lucia rce(s) Supporting Document(s) Hemoglobin A1c/Hemoglobin.total in Blood 7.51 4.00-6.00 [facility] ([facility]) <content>GOAL <7</content>
<content> </content> Estimated Average Glucose 168.71 mg/dL M [facility] ([facility]) ID Date Data Source [id number] 03/15/2020 10:31:00 AM EST [facility] ([facility]) Name Value Range Interpretation Code Description Data Lucia rce(s) Supporting Document(s) Triglyceride [Mass/volume] in Serum or Plasma 157 mg/dL 1-200 [facility] ([facility]) GOAL LESS THAN 200 Cholesterol [Mass/volume] in Serum or Plasma 147 mg/dL 112-200 [facility] ([facility]) GOAL LESS THAN 200 Cholesterol in HDL [Mass/volume] in Serum or Plasma 48 mg/dL 30-70 [facility] ([facility]) GOAL GREATER THAN 45 Cholesterol.total/Cholesterol in HDL [Mass Ratio] in Serum o r Plasma 3.06 4.00-6.70 [facility] ([facility]) Cholesterol in LDL [Mass/volume] in Serum or Plasma by calcu lation 67.60 mg/dL 20.00-130.00 [facility] ([facility]) GOAL LESS THAN 100 Cholesterol non HDL [Mass/volume] in Serum or Plasma 99.00 mg/dL 0 .00-100.00 [facility] ([facility]) GOAL LESS THAN 100 ID Date Data Source [id number] 03/15/2020 10:31:00 AM EST [facility] ([facility]) Name Value Range Interpretation Code Description Data Lucia rce(s) Supporting Document(s) Urea nitrogen [Mass/volume] in Serum or Plasma 23 mg/dL 9-21 [facility]) Glucose [Mass/volume] in Serum or Plasma 179.00 mg/dL 70.00-110.00 [facility]) Sodium [Moles/volume] in Serum or Plasma 139 mmol/L 136-145 [facility] ([facility]) GFR 57.29 mL/min [facility] <content>NORMAL FUNCTION OR MILD RENAL D ISEASE:>60 ml/min</content>
<content>ADVANCED RENAL DISEASE:15-59 ml/min</content>
<content>RENAL FAILURE:<15 ml/min</content>
<content></content> Creatinine [Mass/volume] in Serum or Plasma 1.4 mg/dL 0.7-1.3 [facility] ([facility]) Chloride [Moles/volume] in Serum or Plasma 106 mmol/L 98-107 [facility] ([facility]) Potassium [Moles/volume] in Serum or Plasma 4.8 mmol/L 3.5-5.1 [facility] ([facility]) Protein [Mass/volume] in Serum or Plasma 7.1 g/dL 6.4-8.3 [facility] ([facility]) Albumin [Mass/volume] in Serum or Plasma 4.40 g/dL 3.30-5.00 [facility] ([facility]) Aspartate aminotransferase [Enzymatic activity/volume] in Serum or Plasma 23 U/L 5-34 [facility]) Alanine aminotransferase [Enzymatic activity/volume] in Seru m or Plasma 26 U/L 0-55 [facility] ([facility]) Alkaline phosphatase [Enzymatic activity/volume] in Serum or Plasma 78 U/L 40-150 [facility] ([facility]) Carbon dioxide, total [Moles/volume] in Serum or Plasma 25.0 0 mmol/L 22.00-31.00 [facility] ([facility]) Albumin/Globulin [Mass Ratio] in Serum or Plasma 1.63 Ratio [facility] ([facility]) Calcium [Mass/volume] in Serum or Plasma 9.70 mg/dL 8.90-10.40 [facility] ([facility]) Osmolality of Serum or Plasma by calculation 296.16 275.00-295.00 [facility] ([facility]) Urea nitrogen/Creatinine [Mass Ratio] in Serum or Plasma 16.91 Ratio [facility] ([facility]) Bilirubin.total [Mass/volume] in Serum or Plasma 0.4 mg/dL 0.2-1.2 [facility] ([facility]) Globulin [Mass/volume] in Serum by calculation 2.70 2.30-4.20 [facility] ([facility]) ID Date Data Source [id number] 03/15/2020 10:31:00 AM EST [facility] Name Value Range Interpretation Code Description Data Lucia rce(s) Supporting Document(s) Calcidiol [Mass/volume] in Serum or Plasma 44 ng/mL 30-100 [facility] ([facility]) ID Date Data Source [id number] 03/15/2020 10:31:00 AM EST [facility] Name Value Range Interpretation Code Description Data Lucia rce(s) Supporting Document(s) Hemoglobin A1c/Hemoglobin.total in Blood Laboratory test result [facility] ([facility]) Free T4 Laboratory test result [facility] ([facility]) TSH Laboratory test result [facility] ([facility]) ID Date Data Source [id number] 03/03/2020 10:10:17 AM EST [facility] INFORMATIONPatient MRN Name Date of Age Gend*PT [id number] [place] 1960 59 years M ---PT Location Admission Date/Time Visit ID Attending Provider --- --- --- --- EPI ID CSN Admitting Provider [id number] ---Cardiology Office NoteName: Marilyn Gema Gender: maleDate of : 1960 Age: 59 yearsPrimary Care Provider / Referring Physician: RYAN Napolesurrent HistoryChief Complaint: Hospital follow-upHPI:This patient is a 59 years male presents today for follow-up. He has thefollowing medical problem list:1. Cardiac catheterization 06/14/2017 showing no progression of CAD. Patient hasprevious stent placement to the right coronary artery and diagonal [id number]/15/2016. Cardiac catheterization 05/2017 widely patent stents in the mid rightcoronary artery and first diagonal branch. Mild disease elsewhere.2. Asthma/COPD3. Diabetes mellitus4. Hypertension5. Hyperlipidemia6. Obstructive sleep apnea, per pt repeat sleep study unremarkable, not usingcpap anymore.7. Prostatectomy for prostate cancer February. Presentation on 02/11/[address] elevation lateral wall; cardiaccatheterization revealed thrombotic occlusion anterior branch of the firstdiagonal treated with balloon angioplasty; patent stents in the right; patientdoes have moderate to severe disease in the mid LADPatient presents today for follow-up. We have reviewed his history and recentlywhat transpired. The patient does admit that he had cut out his metoprolol fora while as it was causing him a "headache". He also admits that his diabeteshas not been well controlled and he will be speaking to primary care regardingthat. He currently feels well. We have discussed the importance of taking hismedications as prescribed. He would like to try another beta-lamont as he doesfeel that the metoprolol causes him a headache consistently. I will switch himto Bystolic 10 mg daily. He understands the importance of taking hismedications. His lipids have been under pretty good control and he does remainon a statin. He currently denies any chest pain, shortness of breath, lowerextremity edema and weight is been stable. His cath site to right radial ishealing.Review of Systems General Denies dizziness or lightheadedness. Denies any recent, unexpectedweight changes. HEENT Denies any loss or change of vision. Denies tinnitus. Respiratory Denies PND, orthopnea, ROMERO, hemoptysis, cough, or shortness ofbreath. Cardiac Denies chest pain or pressure, denies palpitations GI Denies melena, hematochezia, nausea, or vomiting. MS Denies any lower extremity edema. Neuro Denies speech, motor, or sensory impairment. Psych Denies depression or anxiety. Endo Denies polyuria or polydipsia, denies temperature intolerance. Derm Denies diaphoresis, non-healing skin woundsPast HistoryPast Medical History:Diagnosis Date Acid reflux CAD (coronary artery disease) RCA, 1st diagonal Cancer COPD (chronic obstructive pulmonary disease) Depression Diabetes mellitus Excessive anger Herniated cervical disc HLD (hyperlipidemia) HTN (hypertension) Lymphoma s/p radiation and chemo Myocardial infarction STEMI OA (osteoarthritis) Sleep apnea Denies this as a problem now, does not use any device. Sleep apneaPast Surgical History:Procedure Laterality Date APPENDECTOMY CARDIAC CATHETERIZATION 11/15/2016 LAD=40% stenosis, 1st diagonal=95% stenosis, RCA=75% stenosis CARDIAC CATHETERIZATION N/A 06/14/2017 Procedure: Cardiac catheterization; Surgeon: Jerry Aguila MD; Laterality:N/A; CARDIAC CATHETERIZATION N/A 06/14/2017 Procedure: Angioplasty-coronary; Surgeon: Jerry Aguila MD; Laterality:N/A; CARDIAC CATHETERIZATION N/A 02/11/2020 Procedure: Percutaneous coronary intervention; Surgeon: GEENA INVASIVECARDIOLOGIST; Laterality: N/A; CARDIAC CATHETERIZATION N/A 02/11/2020 Procedure: Left heart cath; Surgeon: GEENA CAD TECHNICIAN;Laterality: N/A; CARDIAC CATHETERIZATION N/A 02/11/2020 Procedure: Coronary angiography; Surgeon: GEENA CAD TECHNICIAN;Laterality: N/A; CARDIAC CATHETERIZATION N/A 02/11/2020 Procedure: Left ventriculography; Surgeon: GEENA CAD TECHNICIAN;Laterality: N/A; KNEE SURGERY Left LAPAROSCOPIC RETROPUBIC PROSTATECTOMY N/A 03/05/2019 Procedure: PROSTATECTOMY, RADICAL, ROBOT-ASSISTED, USING XI; Surgeon: MD Lencho; Laterality: N/A; MEDIASTINOSCOPY SEPTOPLASTY TONSILLECTOMY adenoids VASECTOMYFamily HistoryProblem Relation Age of Onset Heart failure Father COPD Mother Heart attack Sister Coronary artery disease BrotherSocial HistorySocioeconomic History Marital status: Legally Spouse name: Not on file Number of children: Not on file Years of education: Not on file Highest education level: Not on fileOccupational History Not on fileSocial Needs Financial resource strain: Not on file Food insecurity: Worry: Not on file Inability: Not on file Transportation needs: Medical: Not on file Non-medical: Not on fileTobacco Use Smoking status: Former Smoker Packs/day: 0.50 Years: 2.00 Pack years: 1.00 Types: Cigarettes Last attempt to quit: 1982 Years since quittin.0 Smokeless tobacco: Current User Types: ChewSubstance and Sexual Activity Alcohol use: No Drug use: No Sexual activity: NeverLifestyle Physical activity: Days per week: Not on file Minutes per session: Not on file Stress: Not on fileRelationships Social connections: Talks on phone: Not on file Gets together: Not on file Attends islam service: Not on file Active member of club or organization: Not on file Attends meetings of clubs or organizations: Not on file Relationship status: Not on file Intimate partner violence: Fear of current or ex partner: Not on file Emotionally abused: Not on file Physically abused: Not on file Forced sexual activity: Not on fileOther Topics Concern Bike Helmet Not Asked History of Falls Not Asked Self-Exams Not Asked Caffeine Concern Not Asked Hobby Hazards Not Asked Sleep Concern Not Asked Daily Calcium Supplement Not Asked Lead Exposure Not Asked Special Diet Not Asked Daily Vitamin D Supplement Not Asked Service Not Asked Stress Concern Not Asked Domestic Violence in home Not Asked Radon exposure Not Asked Weight Concern Not Asked Exercise No Comment: active Seat Belt Not Asked Well water Not Asked Firearms in home Not AskedSocial History Narrative Not on fileMedications and AllergiesALLERGIES/SENSITIVITIES: Zoloft [sertraline hcl]Current Outpatient Medications: albuterol (PROVENTIL HFA;VENTOLIN HFA) 108 (90 Base) MCG/ACT inhaler, Inhale2 puffs every 4 (four) hours as needed for wheezing, Disp: , Rfl: albuterol (PROVENTIL) (2.5 MG/3ML) 0.083% nebulizer solution, Take 2.5 mg bynebulization 2 (two) times a day as needed for shortness of breath, Disp: , Rfl: ANORO ELLIPTA 62.5-25 MCG/INH inhaler, INHALE 1 PUFF BY MOUTH ONCE DAILY,Disp: , Rfl: aspirin EC 81 MG EC tablet, Take 1 tablet (81 mg total) by mouth daily, Disp:, Rfl: betamethasone dipropionate (DIPROLENE) 0.05 % cream, Apply 1 applicationtopically 2 (two) times a day, Disp: , Rfl: citalopram (CELEXA) 40 MG tablet, Take 40 mg by mouth nightly , Disp: , Rfl: clopidogrel (PLAVIX) 75 MG tablet, Take 1 tablet (75 mg total) by mouthdaily, Disp: 30 tablet, Rfl: 11 clotrimazole (LOTRIMIN) 1 % cream, Apply 1 application topically 2 (two)times a day, Disp: , Rfl: fluticasone-salmeterol (ADVAIR) 500-50 MCG/DOSE DISKUS, Inhale 1 puff 2 (two)times a day, Disp: , Rfl: GLYXAMBI 25-5 MG TABS, Take 1 tablet by mouth daily, Disp: , Rfl: HYDROcodone-acetaminophen (NORCO 10-325) 10-325 MG per tablet, Take 1 tabletby mouth 2 (two) times a day , Disp: , Rfl: levothyroxine (SYNTHROID, LEVOTHROID) 175 MCG tablet, Take 175 mcg by mouthdaily , Disp: , Rfl: linaclotide (LINZESS) 145 MCG CAPS, Take 145 mcg by mouth every other day ,Disp: , Rfl: losartan (COZAAR) 50 MG tablet, Take 50 mg by mouth daily, Disp: , Rfl: metFORMIN (GLUCOPHATE-XR) 500 MG 24 hr tablet, Take 1,000 mg by mouth 2 (two)times a day, Disp: , Rfl: metoprolol succinate (TOPROL-XL) 50 MG 24 hr tablet, Take 1 tablet (50 mgtotal) by mouth daily, Disp: 30 tablet, Rfl: 5 naproxen (NAPROSYN) 375 MG tablet, Take 375 mg by mouth 2 (two) times a daywith meals , Disp: , Rfl: zgfqavft-hseewdkull-gahkbekga (NEOSPORIN) 5-400-5000 ointment, Apply 1application topically every 2 (two) hours as needed (for irritation), Disp: 28.3g, Rfl: 0 nitroglycerin (NITROSTAT) 0.4 MG SL tablet, Place 1 tablet (0.4 mg total)under the tongue every 5 (five) minutes as needed for chest pain, Disp: 25tablet, Rfl: 2 pantoprazole (PROTONIX) 40 MG tablet, Take 40 mg by mouth daily, Disp: , Rfl: simvastatin (ZOCOR) 40 MG tablet, Take 40 mg by mouth nightly, Disp: , Rfl: Tiotropium [place] Monohydrate (SPIRIVA HANDIHALER IN), Inhale, Disp: , Rfl: topiramate (TOPAMAX) 200 MG tablet, Take 200 mg by mouth daily, Disp: , Rfl: traZODone (DESYREL) 100 MG tablet, Take 100 mg by mouth nightly, Disp: , Rfl:PhysicalBMI: Body mass index is 31.32 kg/m .Blood Pressure: BP: 104/62 Pulse: Heart Rate: 79Temperature: Temp: 97.6 F Respirations: Resp: 20 Weight: Weight: (!) 104.8 kg (231 lb) O2 Saturation: SpO2: 96 %Physical Exam General Well developed, well nourished, no acute distress Neck Soft and supple without lymphadenopathy or thyromegaly. No JVD. Nobruits. Lungs Clear to auscultation, no crackles, rhonchi, or wheezes Heart Normal S1 S2, no murmurs, clicks, or gallops Musculoskeletal Appears to have normal range of motion x 4 extremities, nojoint swelling. No pedal edema Neuro Alert, orientedx3, no facial asymmetry Derm No rashes, or ulcers Vascular Pulses palpableDiagnosticsLabBMP:Lab ResultsComponent Value Date NA 138 02/13/2020 K 4.5 02/13/2020 CL 104 02/13/2020 CO2 25 02/13/2020 ANIONGAP 9 02/13/2020 CALCIUM 9.7 02/13/2020 GLU 173 (H) 02/13/2020 BUN 33 (H) 02/13/2020 CREATININE 1.22 02/13/2020 GFRAA >60 02/13/2020 GFRNONAA >60 02/13/2020Hyperlipidemia:Lab ResultsComponent Value Date CHOL 152 02/12/2020 TRIG 141 02/12/2020 HDL 54 02/12/2020 CHOLHDL 2.8 02/12/2020 LDLCALC 70 02/12/2020Cardiac:Lab ResultsComponent Value Date TROPONINI 13.90 (HH) 02/12/2020 POCTROP 13.61 (HH) 11/15/2016CBC Brief:Lab ResultsComponent Value Date WBC 9.0 02/13/2020 HGB 16.9 02/13/2020 HCT 49.8 02/13/2020 PLT 288 02/13/2020HgbA1c:Lab ResultsComponent Value Date HGBA1C 7.0 (H) 02/12/2020EKG: N/AAssessment & Plan1. Known CAD with recent WI; he did have angioplasty and does have moderatedisease in the mid LAD which we will need to continue to monitor.2. Hypertension; this is under good control. Per his request, we will switchhis metoprolol to another beta-lamont and will choose Bystolic 10 mg 1 p.o.daily due to headache. He will contact us if this does not improve3. Hyperlipidemia; he does remain on a statin and his LDL has been less than 704. Diabetes mellitus; this has been elevated recently and he will be speakingwith primary care regarding his treatment for that.I will have patient return to the office in 6 months time for follow-up orsooner if need arises. He knows to contact our office if he has any signs orsymptoms of cardiovascular concern.We appreciate the opportunity to care for this patient.Signature: Duong Ball NPDate: March 03, 2020Time: 9:00 AMThis document or parts of this document, were dictated using [employer]. A reasonable attempt at proofreading has been made to minimize errors.Please call with any questions or corrections. Name Value Range Interpretation Code Description Data Lucia rce(s) Supporting Document(s) ID Date Data Source [id number] 02/16/2020 11:22:13 AM EST [facility]PAT[facility] NT INFORMATIONPatient MRN Name Date of Age Gend*PT [id number] Marilyn Ribeiro 1960 59 years M IPPT Location Admission Date/Time Visit ID Attending ProviderCV-10 02/11/20 1724 --- --- EPI ID CSN Admitting Prov ider [id number] Noel Henson MD([id number]) Attestation signed by Noel Henson MD at 02/16/2020 11:22 AMSignature: JUNIOR Gonzalezate: February 16, 2020Time: 11:22 AM Physician Discharge Summary Marilyn RibeiroMRN: [id number] date: 02/11/2020Attending Physician: Noel Henson MDAdmission Diagnosis: <principal problem not specified>Principle Procedures:1. Cardiac catheterization: 02/11/2020Interpretation [id number] man with diabetes and coronary artery disease post drug-elutingstent to the right and high diagonal who presents with acute myocardialinfarction with ST elevation in the high lateral leads.1. Thrombotic occlusion of the anterior branch of the first diagonal statuspost balloon angioplasty.2. Patent stents in the posterior branch of the same diagonal and in the rightand moderate to severe disease in the mid LAD.3. Preserved left ventricular systolic function.4. High left ventricular end-diastolic pressure may be a sign of diastolicheart failure related to diastolic dysfunction at the time of the heart attack.5. Right radial access. The patient received balloon angioplasty and we restored the flow to the culpritlesion. He has residual moderate to severe disease in the mid LAD which isessentially unchanged from the last angiogram. He will be continued withmedical therapy for that and he will follow with his electric meter inspector. He should beon dual antiplatelet therapy for at least another year. There is no residualplaque to suggest plaque rupture. I believe this was the case of a very latestent thrombosis.Echocardiogram: 02/12/2020Interpretation Summary No thrombus present. No thrombus present in the inferior vena cava. No mass seen in the inferior vena cava. The mitral valve is abnormal in structure.There is mild mitral valve leafletthickening. There is mild mitral valve leaflet calcification. There is mildmitral annular calcification.Ejection fraction mildly reduced 50 to 55% with apical hypokinesis.Fibrocalcific degenerative changes aortic and mitral valvesTrace tricuspid valve insufficiency with normal pulmonary artery pressureMild mitral valve insufficiencyTrace aortic valve insufficiencyIndication for Admission: "This patient is a 59 years male with past medical history of the followin. Cardiac catheterization 06/14/2017 showing no progression of CAD. Patient hasprevious stent placement to the right coronary artery and diagonal [id number]/15/2016. Cardiac catheterization 05/2017 widely patent stents in the mid rightcoronary artery and first diagonal branch. Mild disease elsewhere.2. Asthma/COPD3. Diabetes mellitus4. Hypertension5. Hyperlipidemia6. Obstructive sleep apnea, per pt repeat sleep study unremarkable, not usingcpap anymore. Patient reports sudden midsternal chest pain around 2 PM while havingintercourse, chest pain is substernal, associated with shortness of breath,nausea and radiated pain to right arm and jaw. Patient tried sublingual nitrowith minimal relief. EKG showed acute myocardial infarction with ST ovationusing a high lateral leads. Patient underwent emergent cardiac catheterizationwhich revealed thrombotic occlusion of the anterior branch of the first diagonalwhich was treated with balloon angioplasty was restored flow to the culpritlesion, patent stent in posterior branch. Moderate to severe disease in the midLAD, recommending medical therapy. Patient will remain on Integrilin drip,continue dual antiplatelet therapy for at least 1 year. Patient toleratedprocedure well, blue HemoBand intact right radial cath site. No hematomadrainage noted. "Hospital Course & Complications: Patient was admitted for acute myocardialinfarcton, patient underwent emergent cardiac catheterization which revealedthrombotic lesion of the anterior branch of the first diagonal, patient wastreated with balloon angioplasty and started on Integrilin drip. Patient hastolerated procedure well and post op course was un eventful. Renal functionstable post op. Procedure site right radial stable, no hematoma or drainagenoted. Patient was found in acute diastolic heart failure and lasix 40mg x 1 wasgiven yesterday, diuresed well. Beta-lamont dose increased for heart ratecontrol, patient tolerated. Patient was monitored on telemetry and remained insinus rhythm. All vital signs stable, lab reviewed. Patient was ambulatingwithout symptoms.Patient was seen and evaluated by Dr. El- Khally and deemed appropriate fordischarge to home. Patient was in agreement. Patient is in stable condition,ambulating, no angina, vital signs stable. No EKG changes. All dischargeinstructions, activity limitations and medications were reviewed. All questionsanswered. Patient verbalized the understanding of the need for strictmedications and follow up compliance. Patient will be send home with DAPT (ASA,Plavix), BB, Statin. Patient will be follow up with Dr. Aguila in 1-2 weeks.Patient is to contact our office with any discomfort or issues immediately.Past Medical History:Past Medical History:Diagnosis Date Acid reflux CAD (coronary artery disease) RCA, 1st diagonal Cancer COPD (chronic obstructive pulmonary disease) Depression Diabetes mellitus Excessive anger Herniated cervical disc HLD (hyperlipidemia) HTN (hypertension) Lymphoma s/p radiation and chemo Myocardial infarction STEMI OA (osteoarthritis) Sleep apnea Denies this as a problem now, does not use any device. Sleep apneaMost Recent Labs:Cardiac:Lab ResultsComponent Value Date TROPONINI 13.90 () 02/12/2020 POCTROP 13.61 () 11/15/2016CBC with Diff:Lab ResultsComponent Value Date WBC 9.0 02/13/2020 RBC 5.16 02/13/2020 HGB 16.9 02/13/2020 HCT 49.8 02/13/2020 MCV 96.4 (H) 02/13/2020 MCH 32.6 (H) 02/13/2020 MCHC 33.9 02/13/2020 RDW 14.8 (H) 02/13/2020 PLT 288 02/13/2020 MPV 8.1 02/13/2020 LYMPHOPCT 17.2 02/13/2020 MONOPCT 12.0 (H) 02/13/2020 EOSPCT 1.2 02/13/2020 BASOPCT 0.7 02/13/2020 NEUTROABS 6.2 02/13/2020 MONOABS 1.1 (H) 02/13/2020 BASOSABS 0.1 02/13/2020CMP:Lab ResultsComponent Value Date NA 138 02/13/2020 K 4.5 02/13/2020 CL 104 02/13/2020 CO2 25 02/13/2020 ANIONGAP 9 02/13/2020 BUN 33 (H) 02/13/2020 CREATININE 1.22 02/13/2020 BCR 27.0 (H) 02/13/2020 GLU 173 (H) 02/13/2020 CALCIUM 9.7 02/13/2020 ALBUMIN 3.7 02/11/2020 GLOB 2.4 (L) 02/11/2020 AGRC 1.5 02/11/2020 ALKPHOS 61 02/11/2020 LABBILI 0.4 02/11/2020 AST 31 02/11/2020 ALT 22 02/11/2020 GFRAA >60 02/13/2020 GFRNONAA >60 02/13/2020Coags:Lab ResultsComponent Value Date APTT 25.7 11/15/2016D-Dimer:Lab ResultsComponent Value Date PROCALCITON <0.10 02/11/2020HgbA1c:Lab ResultsComponent Value Date HGBA1C 7.0 (H) 02/12/2020Hyperlipidemia:Lab ResultsComponent Value Date CHOL 152 02/12/2020 TRIG 141 02/12/2020 HDL 54 CHOLHDL 2.8 02/12/2020 LDLCALC 70 02/12/2020Medications:Your medication listSTART taking these medications Instructions Last Dose Given Morning Afternoon Evening Bedtime As Neededclopidogrel 75 MG tabletCommonly known as: PLAVIXStart taking on: February 14, 2020 Take 1 tablet (75 mg total) by mouth dailymetoprolol succinate 50 MG 24 hr tabletCommonly known as: TOPROL-XLStart taking on: February 14, 2020 Take 1 tablet (50 mg total) by mouth dailyCONTINUE taking these medications Instructions Last Dose Given Morning Afternoon Evening Bedtime As Neededalbuterol (2.5 MG/3ML) 0.083% nebulizer solutionCommonly known as: PROVENTIL Take 2.5 mg by nebulization 2 (two) times a day as needed for shortness ofbreathalbuterol 108 (90 Base) MCG/ACT inhalerCommonly known as: PROVENTIL HFA;VENTOLIN HFA Inhale 2 puffs every 4 (four) hours as needed for wheezingaspirin EC 81 MG EC tablet Take 1 tablet (81 mg total) by mouth dailybetamethasone dipropionate 0.05 % creamCommonly known as: DIPROLENE Apply 1 application topically 2 (two) times a daycitalopram 40 MG tabletCommonly known as: CeleXA Take 40 mg by mouth nightlyclotrimazole 1 % creamCommonly known as: LOTRIMIN Apply 1 application topically 2 (two) times a dayfluticasone-salmeterol 500-50 MCG/DOSE DISKUSCommonly known as: ADVAIR Inhale 1 puff 2 (two) times a dayHYDROcodone-acetaminophen 10-325 MG per tabletCommonly known as: NORCO 10- 325 Take 1 tablet by mouth 2 (two) times a dayIncruse Ellipta 62.5 MCG/INH AepbGeneric drug: Umeclidinium [place] Inhale 1 puff dailyJardiance 25 MG TabsGeneric drug: Empagliflozin Take 25 mg by mouth dailylevothyroxine 175 MCG tabletCommonly known as: SYNTHROID, LEVOTHROID Take 175 mcg by mouth dailylinaclotide 145 MCG CapsCommonly known as: LINZESS Take 145 mcg by mouth every other daylosartan 50 MG tabletCommonly known as: COZAAR Take 50 mg by mouth dailymetFORMIN 500 MG 24 hr tabletCommonly known as: GLUCOPHATE-XR Take 1,000 mg by mouth 2 (two) times a daynaproxen 375 MG tabletCommonly known as: NAPROSYN Take 375 mg by mouth 2 (two) times a day with jhqqwmkxfktlv-ghajhexuii-marebdner 5-400-5000 ointment Apply 1 application topically every 2 (two) hours as needed (for irritation)nitroglycerin 0.4 MG SL tabletCommonly known as: NITROSTAT Place 1 tablet (0.4 mg total) under the tongue every 5 (five) minutes as neededfor chest painpantoprazole 40 MG tabletCommonly known as: PROTONIX Take 40 mg by mouth dailysimvastatin 40 MG tabletCommonly known as: ZOCOR Take 40 mg by mouth nightlysitaGLIPtin 50 MG tabletCommonly known as: JANUVIA Take 50 mg by mouth nightlySPIRIVA HANDIHALER IN Inhaletopiramate 200 MG tabletCommonly known as: TOPAMAX Take 200 mg by mouth dailyTradjenta 5 MG TabsGeneric drug: linaGLIPtin Take 5 mg by mouth dailytraZODone 100 MG tabletCommonly known as: DESYREL Take 100 mg by mouth nightlySTOP taking these medicationsmetoprolol tartrate 25 MG tabletCommonly known as: LOPRESSORWhere to Get Your MedicationsThese medications were [facility] [place] [address] clopidogrel 75 MG tablet metoprolol succinate 50 MG 24 hr tabletDischarge Exam:Vitals: Temp: [98.4 F-98.9 F] 98.9 FHeart Rate: [77-92] 86Resp: [16] 16BP: (122-156)/(77-91) 133/79Pleasant, comfortable, not in acute distress.Awake, alert, oriented times 3.Moves all extremities.HEENT: No recent change in vision or hearing.Lungs: Clear to auscultation bilaterally.Chest wall: no tendernessHeart: regular rate and rhythm, S1, S2 normal, no murmur, click, rub or gallopAbdomen: Soft, nontender, bowel sounds present.Extremities: No edema. Cardiac cath site right radial, with dry dressing,dressing C/D/I, no hematoma noted, + pulsePulses: 2+ and symmetricSkin: No rash or lumps.Neuro: grossly normalLymph nodes: Cervical, supraclavicular, and axillary nodes normal.The remainder of the physical exam is noncontributory.Discharged Condition:stableDisposition: Home or Self CareFollow Up: Dr. Aguila in 1-2 weeksSignature: Lynda Cheek NPDate: February 13, 2020Time: 12:37 PM Name Value Range Interpretation Code Description Data Lucia rce(s) Supporting Document(s) ID Date Data Source [id number] 02/13/2020 01:26:48 PM EST [facility] NT INFORMATIONPatient MRN Name Date of Age Gend*PT [id number] Marilyn Ribeiro 1960 59 years M IPPT Location Admission Date/Time Visit ID Attending ProviderCV-10 02/11/20 5031 --- Noel Henson MD([id number]) EPI ID CSN Admitting Provider [id number] Noel Henson MD([id number])DISCHARGE SUMMARYAdmission Date: 02/11/2020Discharge date: 02/13/20PRINCIPAL DIAGNOSIS: Acute high lateral myocardial infarctionCURRENT ISBOOAIHMQJA09-mmci-aut man with coronary artery disease post stenting to the right and highdiagonal about 2 years ago who presents with sudden onset substernal chest painand ST elevation in the high lateral leads.HOSPITAL COURSECoronary angiography on admission showed thrombosis in the anterior branch ofthe high diagonal just off the previously deployed stent. Systolic function wasnormal but the left ventricular end-diastolic pressure was high. He r eceivedballoon angioplasty had restored the flow. After the procedure he became chestpain-free. He had S3 gallop yesterday and he was given a higher dose ofbeta-blockers and given 1 dose of Lasix. He has residual moderate disease inthe LAD. He will be discharged to follow with Dr. Aguila.TODAY'S PHYSICAL EXAM:BP 133/79 | Pulse 86 | Temp 98.9 F (Oral) | Resp 16 | Ht 1.829 m (6') | Wt(!) 104.8 kg (231 lb 0.7 oz) | SpO2 96% | BMI 31.33 kg/m Alert and oriented. No JVD. Lungs are clear to auscultation heart sounds arenormal.SIGNIFICANT DIAGNOSTIC DATA:Results from last 7 daysLab Units 02/12/200540WBC 10*3/uL 9.0HEMOGLOBIN g/dL 16.9HEMATOCRIT % 49.8PLATELETS 10*3/uL 288Results from last 7 daysLab Units 02/12/2005048872RGSQAF mmol/L 138POTASSIUM mmol/L 4.5CHLORIDE mmol/L 104CO2 mmol/L 25BUN mg/dL 33*CREATININE mg/dL 1.22GLUCOSE mg/dL 173*CALCIUM mg/dL 9.7Results from last 7 daysLab Units 02/12/2008CK TOTAL U/L 280 371* 547*Results from last 7 daysLab Units 02/11/2020TROPONIN I ng/mL 13.90* 30.60* 1.74*Results from last 7 daysLab Units 02/12/2008358862UVOFDPUNJGM mg/dL 152TRIGLYCERIDES mg/dL 141HDL mg/dL 54DISCHARGE MEDICATION LIST Josefa Ribeiro Medication Instructions [id number] Printed on:02/13/20 1324Medication Informationalbuterol (PROVENTIL HFA;VENTOLIN HFA) 108 (90 Base) MCG/ACT inhalerInhale 2 puffs every 4 (four) hours as needed for wheezingalbuterol (PROVENTIL) (2.5 MG/3ML) 0.083% nebulizer solutionTake 2.5 mg by nebulization 2 (two) times a day as needed for shortness ofbreathaspirin EC 81 MG EC tabletTake 1 tablet (81 mg total) by mouth dailybetamethasone dipropionate (DIPROLENE) 0.05 % creamApply 1 application topically 2 (two) times a daycitalopram (CELEXA) 40 MG tabletTake 40 mg by mouth nightlyclopidogrel (PLAVIX) 75 MG tabletTake 1 tablet (75 mg total) by mouth dailyclotrimazole (LOTRIMIN) 1 % creamApply 1 application topically 2 (two) times a dayfluticasone-salmeterol (ADVAIR) 500-50 MCG/DOSE DISKUSInhale 1 puff 2 (two) times a dayHYDROcodone-acetaminophen (NORCO 10-325) 10-325 MG per tabletTake 1 tablet by mouth 2 (two) times a dayJARDIANCE 25 MG TABSTake 25 mg by mouth dailylevothyroxine (SYNTHROID, LEVOTHROID) 175 MCG tabletTake 175 mcg by mouth dailylinaclotide (LINZESS) 145 MCG CAPSTake 145 mcg by mouth every other daylinaGLIPtin (TRADJENTA) 5 MG TABSTake 5 mg by mouth dailylosartan (COZAAR) 50 MG tabletTake 50 mg by mouth dailymetFORMIN (GLUCOPHATE-XR) 500 MG 24 hr tabletTake 1,000 mg by mouth 2 (two) times a daymetoprolol succinate (TOPROL-XL) 50 MG 24 hr tabletTake 1 tablet (50 mg total) by mouth dailynaproxen (NAPROSYN) 375 MG tabletTake 375 mg by mouth 2 (two) times a day with xsezmkwpqxyaz-zyecsyuxkg-vlvlmbsda (NEOSPORIN) 5-400-5000 ointmentApply 1 application topically every 2 (two) hours as needed (for irritation)nitroglycerin (NITROSTAT) 0.4 MG SL tabletPlace 1 tablet (0.4 mg total) under the tongue every 5 (five) minutes as neededfor chest painpantoprazole (PROTONIX) 40 MG tabletTake 40 mg by mouth dailysimvastatin (ZOCOR) 40 MG tabletTake 40 mg by mouth nightlysitaGLIPtin (JANUVIA) 50 MG tabletTake 50 mg by mouth nightlyTiotropium [place] Monohydrate (SPIRIVA HANDIHALER IN)Inhaletopiramate (TOPAMAX) 200 MG tabletTake 200 mg by mouth dailytraZODone (DESYREL) 100 MG tabletTake 100 mg by mouth nightlyUmeclidinium [place] (INCRUSE ELLIPTA) 62.5 MCG/INH AEPBInhale 1 puff dailySignature: Noel Henson MDDate: February 13, 2020Time: 1:24 [facility]: Dr. Malhotra document or parts of this document, were dictated using Likewise [employer] software. A reasonable attempt at proofreading has been made tominimize errors. Please call with any questions or corrections. Name Value Range Interpretation Code Description Data Lucia rce(s) Supporting Document(s) ID Date Data Source [id number] 02/13/2020 11:33:32 AM EST [facility] Name Value Range Interpretation Code Description Data Lucia rce(s) Supporting Document(s) POC NOVA GLU 185 mg/dL (70-99) [facility] [place] [facility] ID Date Data Source [id number] 02/13/2020 08:48:59 AM EST [facility] [place] Name Value Range Interpretation Code Description Data Lucia rce(s) Supporting Document(s) POC NOVA GLU 186 mg/dL (70-99) [facility] [place] [facility] ID Date Data Source [id number] 02/13/2020 06:50:33 AM EST [facility] [place] Name Value Range Interpretation Code Description Data Lucia rce(s) Supporting Document(s) SODIUM 138 mmol/L (136-145) [facility] POTASSIUM 4.5 mmol/L (3.6-5.2) [facility] CHLORIDE 104 mmol/L (100-108) [facility] CO2 25 mmol/L (22-31) [facility] ANION GAP 9 mmol/L (7-16) [facility] UREA NITROGEN 33 mg/dL (7-24) [facility] CREATININE 1.22 mg/dL (0.80-1.30) [facility] BUN/CREAT RATIO 27.0 RATIO (10.0-20.0) [facility] GLUCOSE 173 mg/dL (70-99) [facility] CALCIUM 9.7 mg/dL (8.4-10.2) [facility] GFR >60 ml/min/1.73m2 (>59) [facility] GFR ( AMER) >60 ml/min/1.73m2 (>59) [facility] GFR INTERPRETATION [facility] --NORMAL KIDNEY FUNCTION OR MILD DISEASE - GFR >OR= 60CHRONIC KIDNEY DISEASE - GFR 15 - 59RENAL FAILURE - GFR <15 Est. GFR calculation based on the MDRDstudy equation, which assumes a steadystate for creatinine. Est. GFR should notbe used for medication dosing. ID Date Data Source [id number] 02/13/2020 06:21:14 AM EST [facility] Name Value Range Interpretation Code Description Data Lucia rce(s) Supporting Document(s) WBC 9.0 10*3/uL (4.1-11.0) [facility] [place] RBC 5.16 10*6/uL (4.60-6.10) [facility] HGB 16.9 g/dL (13.5-18.0) [facility] HCT 49.8 % (41.0-53.0) [facility] MCV 96.4 fL (80.0-95.0) [facility] MCH 32.6 pg (27.0-32.0) [facility] MCHC 33.9 g/dL (32.0-36.0) [facility] RDW 14.8 % (10.5-14.5) [facility] PLT 288 10*3/uL (150-450) [facility] MPV 8.1 fL (7.1-10.7) [facility] NEUT % 68.9 % (35.0-75.0) [facility] LYMPH % 17.2 % (16.0-52.0) [facility] MONO % 12.0 % (0.0-8.0) [facility] EOS % 1.2 % (0.0-5.0) [facility] BASO % 0.7 % (0.0-4.0) [facility] NEUT # 6.2 10*3/uL (1.8-7.7) [facility] LYMPH # 1.6 10*3/uL (1.2-4.8) [facility] MONO # 1.1 10*3/uL (0.0-0.8) [facility] Eosinophils [#/volume] in Blood by Automated count 0.1 10*3/uL (0.0-0 .5) [facility] BASO # 0.1 10*3/uL (0.0-0.2) [facility] ID Date Data Source [id number] 02/12/2020 05:51:45 PM EST [facility] Name Value Range Interpretation Code Description Data Lucia rce(s) Supporting Document(s) POC NOVA GLU 175 mg/dL (70-99) [facility] [place] [facility] ID Date Data Source [id number] 02/12/2020 08:15:28 PM EST [facility] Name Value Range Interpretation Code Description Data Lucia rce(s) Supporting Document(s) CKMB 12.5 ng/mL (0.0-5.0) [facility] ALERTED CRITICAL RESULT TOAMANDA([id number]) ON CVAU AT 201202/12/2020 44889 CKMB RELATIVE INDEX 4.5 {index_val} (0.0-4.0) [facility] ID Date Data Source [id number] 02/12/2020 07:03:27 PM EST [facility] [place] Name Value Range Interpretation Code Description Data Lucia rce(s) Supporting Document(s) CK 280 U/L (39-308) [facility] ID Date Data Source [id number] 02/12/2020 06:58:34 PM EST [facility] Name Value Range Interpretation Code Description Data Lucia rce(s) Supporting Document(s) POTASSIUM 4.4 mmol/L (3.6-5.2) [facility] [place] ID Date Data Source [id number] 02/12/2020 03:31:24 PM EST [facility]PAT[facility] NT INFORMATIONPatient MRN Name Date of Age Gend*PT [id number] Marilyn Ribeiro 1960 59 years M IPPT Location Admission Date/Time Visit ID Attending ProviderCV-10 02/11/20 1724 --- Noel Henson MD([id number]) EPI ID CSN Admitting Provider [id number] Noel Henson MD([id number]) Attestation signed by Noel Henson MD at 02/12/2020 3:31 PMSignature: JUNIOR Gonzalezate: February 12, 2020Time: 3:31 PM --ADMISSION HISTORY AND PHYSICALName: Marilyn Ribeiro Gender: maleDate of : 1960 Age: 59 yearsDate/Time of Admit: 02/11/2020 5:24 PM Code Status: Full CodePrimary Care Provider / Referring Physician: Jerry Patel MDInformant:Current HistoryChief Complaint: chest painHPI:This patient is a 59 years male with past medical history of the followin. Cardiac catheterization 06/14/2017 showing no progression of CAD. Patient hasprevious stent placement to the right coronary artery and diagonal osklkx6711/15/2016. Cardiac catheterization 05/2017 widely patent stents in the mid rightcoronary artery and first diagonal branch. Mild disease elsewhere.2. Asthma/COPD3. Diabetes mellitus4. Hypertension5. Hyperlipidemia6. Obstructive sleep apnea, per pt repeat sleep study unremarkable, not usingcpap anymore.Patient reports sudden midsternal chest pain around 2 PM while havingintercourse, chest pain is substernal, associated with shortness of breath,nausea and radiated pain to right arm and jaw. Patient tried sublingual nitrowith minimal relief. EKG showed acute myocardial infarction with ST ovationusing a high lateral leads. Patient underwent emergent cardiac catheterizationwhich revealed thrombotic occlusion of the anterior branch of the first diagonalwhich was treated with balloon angioplasty was restored flow to the culpritlesion, patent stent in posterior branch. Moderate to severe disease in the midLAD, recommending medical therapy. Patient will remain on Integrilin drip,continue dual antiplatelet therapy for at least 1 year. Patient toleratedprocedure well, blue HemoBand intact right radial cath site. No hematomadrainage noted.Patient currently denies any anginal equivalent symptoms. Resting comfortablyin bed.Review of systems:General: Denies dizziness or lightheadedness. Denies any recent, unexpectedweight changes.HEENT: denies any loss or change of vision. Denies tinnitus.Respiratory: Denies paroxysmal nocturnal dyspnea, orthopnea, dyspnea onexertion. Denies hemoptysis, cough or shortness of breath.Cardiac: Reports chest pain. Denies presyncope, syncope or palpitations.GI: Denies melena, hematochezia, abdominal pain, nausea, vomiting or diarrhea.MS: Denies arthralgia, myalgia. Denies bilateral lower extremity edema.Neuro: Denies speech, motor or sensory impairment.Psych: denies anxiety or depression.Endo: Denies polyuria, polydipsia. Denies temperature intolerance.Derm: denies diaphoresis, non-healing skin wounds.Past HistoryPast Medical History:Diagnosis Date Acid reflux CAD (coronary artery disease) RCA, 1st diagonal Cancer COPD (chronic obstructive pulmonary disease) Depression Diabetes mellitus Excessive anger Herniated cervical disc HLD (hyperlipidemia) HTN (hypertension) Lymphoma s/p radiation and chemo Myocardial infarction STEMI OA (osteoarthritis) Sleep apnea Denies this as a problem now, does not use any device. Sleep apneaPast Surgical History:Procedure Laterality Date APPENDECTOMY CARDIAC CATHETERIZATION 11/15/2016 LAD=40% stenosis, 1st diagonal=95% stenosis, RCA=75% stenosis CARDIAC CATHETERIZATION N/A 06/14/2017 Procedure: Cardiac catheterization; Surgeon: Jerry Aguila MD; Laterality:N/A; CARDIAC CATHETERIZATION N/A 06/14/2017 Procedure: Angioplasty-coronary; Surgeon: Jerry Aguila MD; Laterality:N/A; KNEE SURGERY Left LAPAROSCOPIC RETROPUBIC PROSTATECTOMY N/A 03/05/2019 Procedure: PROSTATECTOMY, RADICAL, ROBOT-ASSISTED, USING XI; Surgeon: MD Lencho; Laterality: N/A; MEDIASTINOSCOPY SEPTOPLASTY TONSILLECTOMY adenoids VASECTOMYFamily HistoryProblem Relation Age of Onset Heart failure Father COPD Mother Heart attack Sister Coronary artery disease BrotherSocial HistorySocial History Narrative Not on fileSocial HistorySocioeconomic History Marital status: Legally Spouse name: Not on file Number of children: Not on file Years of education: Not on file Highest education level: Not on fileOccupational History Not on fileSocial Needs Financial resource strain: Not on file Food insecurity: Worry: Not on file Inability: Not on file Transportation needs: Medical: Not on file Non-medical: Not on fileTobacco Use Smoking status: Former Smoker Packs/day: 0.50 Years: 2.00 Pack years: 1.00 Types: Cigarettes Last attempt to quit: 1982 Years since quittin.9 Smokeless tobacco: Current User Types: ChewSubstance and Sexual Activity Alcohol use: No Drug use: No Sexual activity: NeverLifestyle Physical activity: Days per week: Not on file Minutes per session: Not on file Stress: Not on fileRelationships Social connections: Talks on phone: Not on file Gets together: Not on file Attends islam service: Not on file Active member of club or organization: Not on file Attends meetings of clubs or organizations: Not on file Relationship status: Not on file Intimate partner violence: Fear of current or ex partner: Not on file Emotionally abused: Not on file Physically abused: Not on file Forced sexual activity: Not on fileOther Topics Concern Bike Helmet Not Asked History of Falls Not Asked Self-Exams Not Asked Caffeine Concern Not Asked Hobby Hazards Not Asked Sleep Concern Not Asked Daily Calcium Supplement Not Asked Lead Exposure Not Asked Special Diet Not Asked Daily Vitamin D Supplement Not Asked Service Not Asked Stress Concern Not Asked Domestic Violence in home Not Asked Radon exposure Not Asked Weight Concern Not Asked Exercise No Comment: active Seat Belt Not Asked Well water Not Asked Firearms in home Not AskedSocial History Narrative Not on fileMedications and AllergiesALLERGIES/SENSITIVITIES:AllergiesAllergen Reactions Zoloft [Sertraline Hcl] Other (See Comments) Increased depressionScheduled Meds: aspirin 81 mg Oral Daily [START ON 02/12/2020] citalopram 40 mg Oral Nightly [START ON 02/12/2020] clopidogrel 75 mg Oral Daily [START ON 02/12/2020] insulin lispro 1-4 Units Subcutaneous With mealssliding scale ipratropium 0.5 mg Nebulization QID [START ON 02/12/2020] levothyroxine 175 mcg Oral Daily [START ON 02/12/2020] linaclotide 145 mcg Oral Every Other Day mometasone-formoterol 2 puff Inhalation RTBID normal saline flush 3 mL Intravenous Q8H KAMERON [START ON 02/12/2020] pantoprazole 40 mg Oral Daily [START ON 02/12/2020] topiramate 200 mg Oral Daily traZODone 100 mg Oral NightlyContinuous Infusions: eptifibatidePRN Meds:.acetaminophen, acetaminophen, albuterol, atropine sulfate, atropinesulfate, nitroglycerinPhysicalBlood Pressure: BP: 123/78 Pulse: Heart Rate: 81Temperature: Respirations: Resp: 16Admission Weight: Weight: (!) 104.8 kg (231 lb 0.7 oz) O2 Saturation: SpO2: 95 %Today's Weight: Weight: (!) 104.8 kg (231 lb 0.7 oz)Physical ExamPleasant, comfortable, not appear in acute distress.Awake, alert, oriented times 3.Moves all extremities.HEENT: No recent change in vision or hearing. No JVD. Carotids 2 + and equalbilaterally, without bruitsLungs: Clear to auscultation bilaterally.Chest wall: no tendernessHeart: regular rate and rhythm, S1, S2 normal, no murmur, click, rub or gallopAbdomen: Soft, nontender, bowel sounds present.Extremities: No clubbing, cyanosis or edema.Pulses: 2+ and symmetricSkin: warm, dry and intactNeurologic: Grossly normalThe remainder of the physical exam is noncontributory.DiagnosticsReviewed.EKG: Sinus rhythm was ST elevation in the lateral leadsAssessment & PlanActive Problems: STEMI (ST elevation myocardial infarction) HTN (hypertension) HLD (hyperlipidemia) Diabetes mellitus-ST elevation myocardial infarction: Patient presented with chest pain withexertion, EKG showed acute myocardial infarction with ST elevation in the highlateral leads. Patient underwent emergent cardiac catheterization which wastreated with balloon angioplasty was restored flow to the culprit lesion.Patient has tolerated the procedure well. Right radial cath site with blueHemoBand, no hematoma or drainage noted. Will admit patient on telemetry 1,repeat EKG a.m. Updating labs in a.m. Continue Integrilin drip overnight.Continue telemetry monitoring. Continue chewable baby aspirin, Plavix,sublingual nitrate as needed for chest pain. Will start high intensity statin.Hold off beta-lamont for now.-Hypertension: Blood pressure acceptable, monitor. May consider adding qxm-mlfifeip-tdvmgup in a.m.-Hyperlipidemia: Will start high intensity statin.- Diabetes mellitus type 2: We will update hemoglobin A1c, continue meal insulinsliding scale coverage. Accu-Cheks 3 times daily AC. Diabetic diet.Full code.DVT prophylaxis: Integrilin drip.Further plan per Dr. Henson.Signature: Lynda Cheek NPDate: February 11, 2020Time: 6:35 PM Name Value Range Interpretation Code Description Data Lucia rce(s) Supporting Document(s) ID Date Data Source [id number] 02/12/2020 02:11:43 PM EST [facility] Name Value Range Interpretation Code Description Data Lucia rce(s) Supporting Document(s) POC NOVA GLU 161 mg/dL (70-99) [facility] [place] [facility] ID Date Data Source [id number] 02/12/2020 11:54:05 AM EST [facility] Name Value Range Interpretation Code Description Data Lucia rce(s) Supporting Document(s) &PDF [facility] GHOSRu6kBaUYFsLf35/JELdjDMPab0TgZNsdSHa4WUbqWCOmC2TtgSjxYQZXEX6FXLBGYFJDS0yrXTZq oRX [file] AgICAgICAgICAgICAgICAgICAgICAgICAgICAgICAgICAgICAgICAgICAgICAgICAgICANCiAgICAgIC AgICAgICAgICAgICAgICAgICAgICAgICAgICAgICAg ICAgICAgICAgICAgICAgICAgICAgICAgICAgICAgICAgICAgICAgICAgICAgICAgICAgICAgICAgICAg ICANCiAgICAgICAgICAgICAgICAgICAgICAgICAgICAgICAgICAgICAgICAgICAgICAgICAgICAgICAg ICAgICAgICAgICAgICAgICAgICAgICAgICAgICAgIC AgICAgICAgICAgICANCiAgICAgICAgICAgICAgICAgICAgICAgICAgICAgICAgICAgICAgICAgICAgIC AgICAgICAgICAgICAgICAgICAgICAgICAgICAgICAgICAgICAgICAgICAgICAgICAgICAgICANCiAgIC AgICAgICAgICAgICAgICAgICAgICAgICAgICAgICAg ICAgICAgICAgICAgICAgICAgICAgICAgICAgICAgICAgICAgICAgICAgICAgICAgICAgICAgICAgICAg ICAgICANCiAgICAgICAgICAgICAgICAgICAgICAgICAgICAgICAgICAgICAgICAgICAgICAgICAgICAg ICAgICAgICAgICAgICAgICAgICAgICAgICAgICAgIC AgICAgICAgICAgICAgICANCiAgICAgICAgICAgICAgICAgICAgICAgICAgICAgICAgICAgICAgICAgIC AgICAgICAgICAgICAgICAgICAgICAgICAgICAgICAgICAgICAgICAgICAgICAgICAgICAgICAgICANCi AgICAgICAgICAgICAgICAgICAgICAgICAgICAgICAg ICAgICAgICAgICAgICAgICAgICAgICAgICAgICAgICAgICAgICAgICAgICAgICAgICAgICAgICAgICAg ICAgICAgICANCiAgICAgICAgICAgICAgICAgICAgICAgICAgICAgICAgICAgICAgICAgICAgICAgICAg ICAgICAgICAgICAgICAgICAgICAgICAgICAgICAgIC AgICAgICAgICAgICAgICAgICANCiAgICAgICAgICAgICAgICAgICAgICAgICAgICAgICAgICAgICAgIC AgICAgICAgICAgICAgICAgICAgICAgICAgICAgICAgICAgICAgICAgICAgICAgICAgICAgICAgICAgIC ANCjw/lINeY0zczCSkomX3E0hbMp8GGc9SWE1de4Iq JOChVCswwaNhJatUBrLjJQPjOumTLsb9CUjzYG1LdEOsS6WwN7TmTVhbRD8GIQYdUEYfkFJoORTyTDCl IoJ9KMWsAPyeST7UnUSaKYwtQMRmDJXgUtVaSYCkEYGmQTZwGY9ZMGRjE324zkIqIj3LDu0ACcJlNW5v um5NTecvXPXlQllSErw3UPclLJ8HaWCsD2VzyUZxv4 pOIiSgP0QXEIE4ZHLzMs4AAMUbCgDwYJMyDKxdCS0kNGOtSNNQgFgmqyJ2ML5ALF7ugdVkKU8ONhNrSa 4tWp1YDrJiX9MpL2GzYRFbAAZKPXacRE2DXAMeFHW5SEHrMwJuYOPCPfZlA03eMF3ZB7Jbk21vFpG8TU CiSyDnXKchBV30nGwppjGkiZPkgDzzHY8SVj5+DQpl hdJeSutXDdxoHDAWZwHnOiiLRvIlVZHzRSSoPKKdJyQ7TsIyTx7WWQHhOSJuYRAgJhNkEBRbDYLbDDsg HYUpGBR3KeKiVNUkNMOrWR0POmFfKUFqEhq0BEBcYGGhFNLaha2TBKYqOELnXTU8VNUiVACtXMJtNNru CAIwBHSlLPrsDELdBTOwYV6KJiDeIOHaDQNwITNvYT FiRZGspg5CFSBzWAWaZbF8PXScXENqDKYgHUnxLQWhSSW0Oqm5UYQcKEIhAF5GBtXvZDJiDBiyUBSdAO UgLJFoit6FEFVjYXVuNhWiRKZrOBKdGNXlWRiiLZIuKGO3BCo1WPDgBQJePX4KHwFuYGDyTOc3TbQrEG ZsPTDufn6CIZTvSKSyOAk8RMDpXGDvUQBkQMtgNGTd FWW5KJG7BMIwDDXoBY5DVvKfDYQdPGNaRJPoVDOvXPEdzy7EYYHxATCdAOKsIYGbNFGkIWSzQFwqKFDg BVZ5JNKjMVKhYUCvIG4JOuHeCQRdWVIvTwalIPElQBVhfe0HMZZqSOIjAKC2QHAkXPWeAMZiZOxkYNSs BDR6IOB0JHYiTDIaYN6DVgDeHYCvYBQ7ReTeCGGgCI Iuaf4VUXBmWQMaZelpBMBhHIRsFFTvYSjrYMWoHTY9JNNqUMXlWEYbHL8VPgUmXWIaJSfhYlDvDCEeTT Gckd5YGQLeQQTmJtH8LcXaONQtPEBkYBbzHAElPXR7NtA9QSPrALOdJU8TMrHtEPNxDiquCGLjIDEaHX Vthh1GESSuRDQoTDYgCCEvPXCdXXCqIQh5xaBsgNWa OZm6EA6MC2NaqnAqNjeBVp7Mp226PRB3PZFnNq9YR9yiYv6qFXViQDOEZu6FKHk0WqAnLIHzOXIsJwv5 TWO6LQFpTNWgDIH0KLJpJTL0KYV+NLnjM6ZmRZY5BDP6KPw4ECG6CTBfXfCjOgjjFFRoOJLdFK6nMCVS Cj4+WTsvnKSxbSjmVMJZCxX5YcfcZOolVFWWQn5V ID Date Data Source [id number] 02/12/2020 09:51:47 AM EST [facility] Name Value Range Interpretation Code Description Data Lucia rce(s) Supporting Document(s) POC NOVA GLU 159 mg/dL (70-99) H [facility] [place] [facility]FOR[facility] BY [facility] ID Date Data Source [id number] 02/12/2020 05:43:44 PM EST [facility] Name Value Range Interpretation Code Description Data Lucia rce(s) Supporting Document(s) CHOLESTEROL @ 152 mg/dL (0-200) [facility] TRIGLYCERIDE @ 141 mg/dL (30-200) [facility] HDL CHOLESTEROL @ 54 mg/dL (>40) [facility] PER NCEP ATP III GUIDELINES:RESULTS LOWE R THAN 40 MG/DL ARE SUGGESTIVEOF INCREASED RISK FOR CORONARY ARTERYDISEASE. RESULTS > OR = TO 60 MG/DL ARECONSIDERED A NEGATIVE RISK FACTOR. CHOL/HDL RATIO 2.8 RATIO [facility] INTERPRETATION OF CHOL-HDL RATIO CHD RISK FEMALE MALEVERY HIGH >8.3 >14.3HIGH 5.6- 8.3 6.7- 14.3AVERAGE 3.7- 5.6 4.0- 6.7BELOW AVERAGE 2.5- 3.7 2.7- 4.0PROTECTED <2.5 <2.7 LDL CHOL (CALC) 70 mg/dL (<130) [facility] [place] PER NCEP ATP III GUIDELINES: OPTIMAL < 100 NEAR OPTIMAL 100 - 129BORDERLINE HIGH 130 - 159 HIGH 160 - 189 VERY HIGH > 189 ID Date Data Source [id number] 02/12/2020 03:50:37 PM EST [facility] Name Value Range Interpretation Code Description Data Lucia rce(s) Supporting Document(s) SODIUM 141 mmol/L (136-145) [facility] POTASSIUM 6.1 mmol/L (3.6-5.2) HH [facility] ALERTED CRITICAL RESULT TOCHRISTINE(1601 6) CVAU 29914 1217. 1546 69112 CHLORIDE 108 mmol/L (100-108) [facility] CO2 25 mmol/L (22-31) [facility] ANION GAP 8 mmol/L (7-16) [facility] UREA NITROGEN 25 mg/dL (7-24) H [facility] CREATININE 1.13 mg/dL (0.80-1.30) [facility] BUN/CREAT RATIO 22.1 RATIO (10.0-20.0) [facility] GLUCOSE 165 mg/dL (70-99) H [facility] CALCIUM 10.3 mg/dL (8.4-10.2) [facility] [place] GFR >60 ml/min/1.73m2 (>59) [facility] GFR ( AMER) >60 ml/min/1.73m2 (>59) [facility] GFR INTERPRETATION [facility] --NORMAL KIDNEY FUNCTION OR MILD DISEASE - GFR >OR= 60CHRONIC KIDNEY DISEASE - GFR 15 - 59RENAL FAILURE - GFR <15 Est. GFR calculation based on the MDRDstudy equation, which assumes a steadystate for creatinine. Est. GFR should notbe used for medication dosing. ID Date Data Source [id number] 02/12/2020 11:27:33 AM EST [facility] Name Value Range Interpretation Code Description Data Lucia rce(s) Supporting Document(s) CKMB 22.8 ng/mL (0.0-5.0) [facility] [place] ALERTED CRITICAL RESULT TOPAM(1219)[place] [address] ON 142091 AT 1021 [place] [address] CKMB RELATIVE INDEX 6.1 {index_val} (0.0-4.0) H [facility] [place] ALERTED CRITICAL RESULT TOPAM(9369)[place] [address] ON 375124 AT 1021 [place] [address] ID Date Data Source [id number] 02/12/2020 10:09:43 AM EST [facility] Name Value Range Interpretation Code Description Data Lucia rce(s) Supporting Document(s) TROPONIN I 13.90 ng/mL (<0.05) [facility] [place] Less than 0.05: Myocardial injury unlike lyGreater than or equal to 0.05: Highly suggestive of myocardial injuryCorrelation with rise and/or fall ofserial troponins, clinical symptomsand ECG changes is necessary.ALERTED CRITICAL RESULT TOPAM(3629)[place] [address] ON 139483 AT 1008 BY 92605 ID Date Data Source [id number] 02/12/2020 10:03:20 AM EST [facility] Name Value Range Interpretation Code Description Data Lucia rce(s) Supporting Document(s) CK 371 U/L (39-308) H [facility] ID Date Data Source [id number] 02/12/2020 07:31:54 AM EST [facility] Name Value Range Interpretation Code Description Data Lucia rce(s) Supporting Document(s) EKG [facility] [id number]n1D1U0dEHdR1RigWNaw4qsT0XcX3NgZNLhWOGXFJ6BlPQn jb2 [file] ID Date Data Source [id number] 02/12/2020 03:22:37 PM EST [facility] Name Value Range Interpretation Code Description Data Lucia rce(s) Supporting Document(s) DIRECT LDL @ 60 mg/dL (<130) [facility] [place] PER NCEP ATP III GUIDELINES: OPTIMAL < 100 NEAR OPTIMAL 100 - 129BORDERLINE HIGH 130 - 159 HIGH 160 - 189 VERY HIGH > 189 ID Date Data Source [id number] 02/12/2020 09:22:19 AM EST [facility] Name Value Range Interpretation Code Description Data Lucia rce(s) Supporting Document(s) CHOLESTEROL @ 137 mg/dL (0-200) [facility] [place] TRIGLYCERIDE @ 376 mg/dL (30-200) H [facility] HDL CHOLESTEROL @ 43 mg/dL (>40) [facility] [place] PER NCEP ATP III GUIDELINES:RESULTS LOWE R THAN 40 MG/DL ARE SUGGESTIVEOF INCREASED RISK FOR CORONARY ARTERYDISEASE. RESULTS > OR = TO 60 MG/DL ARECONSIDERED A NEGATIVE RISK FACTOR. CHOL/HDL RATIO 3.2 RATIO [facility] INTERPRETATION OF CHOL-HDL RATIO CHD RISK FEMALE MALEVERY HIGH >8.3 >14.3HIGH 5.6- 8.3 6.7- 14.3AVERAGE 3.7- 5.6 4.0- 6.7BELOW AVERAGE 2.5- 3.7 2.7- 4.0PROTECTED <2.5 <2.7 LDL CHOL (CALC) (<130) [facility] INTERFERENCE FROM ELEVATED TRIGLYCERIDES (GREATER THAN 300 MG/DL). SEE RESULTFOR DIRECT LDL. ID Date Data Source [id number] 02/12/2020 02:44:01 AM EST [facility] Name Value Range Interpretation Code Description Data Lucia rce(s) Supporting Document(s) CKMB 33.0 ng/mL (0.0-5.0) [facility] [place] ALERTED CRITICAL RESULT TOALLISON(09319) CVAU(39261) AT 0240 ON 02/12/20 BY [address]1130 CKMB RELATIVE INDEX 6.0 {index_val} (0.0-4.0) H [facility] ID Date Data Source [id number] 02/12/2020 02:02:04 AM EST [facility] Name Value Range Interpretation Code Description Data Lucia rce(s) Supporting Document(s) HEMOGLOBIN A1C @ 7.0 % (4.0-6.0) H [facility] Performed using Siemens Carlos immunoassa y.Care must be taken when interpreting BwP4pgekoanl in patients with a hemoglobin variantor decreased erythrocyte lifespan. Values 5.7 - 6.4% suggest prediabetes.Values >=6.5% are diagnostic for diabetes.REFERENCE: DIABETES CARE 2018: 41(S13-S27).PERFORMED AT [address] [place] [address] 605[address] EST AVERAGE GLUCOSE 154 mg/dL [facility] ID Date Data Source [id number] 02/12/2020 01:50:21 AM EST [facility] Name Value Range Interpretation Code Description Data Lucia rce(s) Supporting Document(s) CK 547 U/L (39-308) H [facility] ID Date Data Source [id number] 02/12/2020 01:50:21 AM EST [facility] Name Value Range Interpretation Code Description Data Lucia rce(s) Supporting Document(s) SODIUM 141 mmol/L (136-145) [facility] POTASSIUM 4.0 mmol/L (3.6-5.2) [facility] CHLORIDE 110 mmol/L (100-108) H [facility] CO2 24 mmol/L (22-31) [facility] ANION GAP 7 mmol/L (7-16) [facility] UREA NITROGEN 27 mg/dL (7-24) H [facility] CREATININE 0.98 mg/dL (0.80-1.30) [facility] BUN/CREAT RATIO 27.6 RATIO (10.0-20.0) H [facility] GLUCOSE 151 mg/dL (70-99) H [facility] CALCIUM 9.3 mg/dL (8.4-10.2) [facility] GFR >60 ml/min/1.73m2 (>59) [facility] GFR ( AMER) >60 ml/min/1.73m2 (>59) [facility] GFR INTERPRETATION [facility] --NORMAL KIDNEY FUNCTION OR MILD DISEASE - GFR >OR= 60CHRONIC KIDNEY DISEASE - GFR 15 - 59RENAL FAILURE - GFR <15 Est. GFR calculation based on the MDRDstudy equation, which assumes a steadystate for creatinine. Est. GFR should notbe used for medication dosing. ID Date Data Source [id number] 02/12/2020 01:12:13 AM EST [facility] [place] Name Value Range Interpretation Code Description Data Lucia rce(s) Supporting Document(s) WBC 8.0 10*3/uL (4.1-11.0) [facility] [place] RBC 4.51 10*6/uL (4.60-6.10) L [facility] HGB 14.8 g/dL (13.5-18.0) [facility] HCT 44.4 % (41.0-53.0) [facility] MCV 98.4 fL (80.0-95.0) H [facility] MCH 32.9 pg (27.0-32.0) H [facility] MCHC 33.4 g/dL (32.0-36.0) [facility] RDW 14.2 % (10.5-14.5) [facility] PLT 282 10*3/uL (150-450) [facility] MPV 8.2 fL (7.1-10.7) [facility] ID Date Data Source [id number] 02/11/2020 10:52:03 PM EST [facility] Name Value Range Interpretation Code Description Data Lucia rce(s) Supporting Document(s) TROPONIN I 30.60 ng/mL (<0.05) [facility] [place] Less than 0.05: Myocardial injury unlike lyGreater than or equal to 0.05: Highly suggestive of myocardial injuryCorrelation with rise and/or fall ofserial troponins, clinical symptomsand ECG changes is necessary.ALERTED CRITICAL RESULT TOANDREAISON (37176) [place] [address] ON 02/11/20 AT 2237 [place] [address] ID Date Data Source [id number] 02/11/2020 10:33:15 PM EST [facility] [place] Name Value Range Interpretation Code Description Data Lucia rce(s) Supporting Document(s) PROCALCITONIN @ <0.10 ng/mL (<0.10) [facility] [place] INTERPRETATION OF RESULT < 0.51 Sepsis is not likely.0.51-2.00 Sepsis is possible, but other conditions are known to elevate PCT.2.01-9.99 Sepsis is likely, unless other causes are known. > 9.99 Important systemic inflammatory response, almost exclusively due to severe bacterial sepsis or septic shock.PERFORMED AT [address] [place] [address] ID Date Data Source [id number] 02/11/2020 07:28:03 PM EST [facility] Name Value Range Interpretation Code Description Data Lucia rce(s) Supporting Document(s) POC NOVA GLU 115 mg/dL (70-99) H [facility] [place] PERFOR[facility] BY [facility] ID Date Data Source [id number] 02/11/2020 08:50:04 PM EST [facility] [place] Name Value Range Interpretation Code Description Data Lucia rce(s) Supporting Document(s) CKMB 6.8 ng/mL (0.0-5.0) H [facility] [place] CKMB RELATIVE INDEX 3.0 {index_val} (0.0-4.0) [facility] ID Date Data Source [id number] 02/11/2020 08:40:12 PM EST [facility] Name Value Range Interpretation Code Description Data Lucia rce(s) Supporting Document(s) TROPONIN I 1.74 ng/mL (<0.05) HH [facility] [place] Less than 0.05: Myocardial injury unlike lyGreater than or equal to 0.05: Highly suggestive of myocardial injuryCorrelation with rise and/or fall ofserial troponins, clinical symptomsand ECG changes is necessary.ALERTED CRITICAL RESULT TOSHANDRA(2742) [place] [address] ON 02/11/20 AT 2037 BY [address] ID Date Data Source [id number] 02/11/2020 08:36:40 PM EST [facility] Name Value Range Interpretation Code Description Data Lucia rce(s) Supporting Document(s) SODIUM 141 mmol/L (136-145) [facility] POTASSIUM 4.3 mmol/L (3.6-5.2) [facility] CHLORIDE 108 mmol/L (100-108) [facility] CO2 22 mmol/L (22-31) [facility] ANION GAP 11 mmol/L (7-16) [facility] UREA NITROGEN 23 mg/dL (7-24) [facility] CREATININE 1.02 mg/dL (0.80-1.30) [facility] BUN/CREAT RATIO 22.5 RATIO (10.0-20.0) H [facility] GLUCOSE 128 mg/dL (70-99) H [facility] CALCIUM 9.1 mg/dL (8.4-10.2) [facility] TOTAL PROTEIN 6.1 g/dL (6.4-8.2) L [facility] ALBUMIN 3.7 g/dL (3.5-4.6) [facility] GLOBULIN 2.4 g/dL (2.7-4.3) L [facility] ALB/GLOB RATIO 1.5 RATIO [facility] ALKALINE PHOSPHATASE 61 U/L (45-117) [facility] BILIRUBIN,TOTAL 0.4 mg/dL (0.0-1.0) [facility] PLEASE NOTE:Total bilirubin results may be falselyelevated in patients taking Eltrombopag. AST (SGOT) 31 U/L (11-39) [facility] ALT (SGPT) 22 U/L (12-78) [facility] GFR >60 ml/min/1.73m2 (>59) [facility] GFR ( AMER) >60 ml/min/1.73m2 (>59) [facility] GFR INTERPRETATION [facility] --NORMAL KIDNEY FUNCTION OR MILD DISEASE - GFR >OR= 60CHRONIC KIDNEY DISEASE - GFR 15 - 59RENAL FAILURE - GFR <15 Est. GFR calculation based on the MDRDstudy equation, which assumes a steadystate for creatinine. Est. GFR should notbe used for medication dosing. ID Date Data Source [id number] 02/11/2020 08:36:40 PM EST [facility] [place] Name Value Range Interpretation Code Description Data Lucia rce(s) Supporting Document(s) CK 230 U/L (39-308) [facility] ID Date Data Source [id number] 02/11/2020 07:00:52 PM EST [facility] [place] Name Value Range Interpretation Code Description Data Lucia rce(s) Supporting Document(s) WBC 8.4 10*3/uL (4.1-11.0) [facility] [place] RBC 4.28 10*6/uL (4.60-6.10) L [facility] HGB 14.1 g/dL (13.5-18.0) [facility] HCT 41.9 % (41.0-53.0) [facility] MCV 98.0 fL (80.0-95.0) H [facility] MCH 32.9 pg (27.0-32.0) H [facility] MCHC 33.6 g/dL (32.0-36.0) [facility] RDW 14.4 % (10.5-14.5) [facility] PLT 252 10*3/uL (150-450) [facility] MPV 8.9 fL (7.1-10.7) [facility] ID Date Data Source [id number] 02/11/2020 04:40:00 PM EST [facility] Name Value Range Interpretation Code Description Data Lucia rce(s) Supporting Document(s) SARS coronavirus 2 RNA [Presence] in Res piratory specimen by ENRRIQUE with probe detection [facility] This lab was reported by [facility]. ID Date Data Source [id number] 02/11/2020 10:12:16 PM EST [facility] Name Value Range Interpretation Code Description Data Lucia rce(s) Supporting Document(s) SPECIMEN DESCRIPTION [facility] COVID19 RESULT (NDET) [facility] THIS ASSAY AMPLIFIES AND DETECTSTHE TARG ET RNA USING REAL-TIME PCR.NEGATIVE 2019_NCOV RT-PCR RESULTS DONOT PRECLUDE 2019_NCOV INFECTION ANDSHOULD NOT BE USED THE SOLE BASISFOR PATIENT MANAGEMENT DECISIONS. COMMENT Lab [facility] APPROVED B Y THE [place]. THE [place] FOODAND DRUG ADMINISTRATION HAS NOT APPROVEDTHIS TEST. NEGATIVE RESULTS DO NOT [id number] INFECTION AND SHOULD NOT BEUSED THE SOLE BASIS FOR CLINICALDIAGNOSIS OR PATIENT MANAGEMENT DECISIONS.RESULTS EMAILED TO [facility] AT 1460. [id number]. FIRST TEST Lab [facility] SYMPTOMATIC [facility] DATE OF SYMPT ONSET [facility] [place] HOS[facility]ITALIZED [facility] ICU [facility] CONGREGATE CARE SET [facility] ID Date Data Source [id number] 02/01/2020 12:00:00 AM EST [facility] Name Value Range Interpretation Code Description Data Lucia rce(s) Supporting Document(s) SARS coronavirus 2 Ag [facility] This lab was ordered by [facility] and reported by [facility]. ID Date Data Source [id number] 01/26/2020 01:59:00 PM EST [facility] [place] Name Value Range Interpretation Code Description Data Lucia rce(s) Supporting Document(s) Covid-19 Laboratory test result [facility] ([facility] [place]) A Not Detected (negative) test result fo r this test means that SARS-CoV-2 RNA was not present in the specimen above the limit of detection. A negative result does not rule out the possibility of COVID-19 and should not be used as the sole basis for treatment or patient management decisions. If COVID-19 is still suspected, based on exposure history together with other clinical findings, re-testing should be considered in consultation with public health authorities. Laboratory test results should always be considered in the context of clinical observations and epidemiological data in making a final diagnosis and patient management decisions. REFERENCE RANGE: NOT DETECTED This patient specimen was tested using an FDA EUA pooling method. Negative results from pooled testing should not be treated as definitive. If the patient's clinical signs and symptoms are inconsistent with a negative result or results are necessary for patient management, then the patient should be considered for individual testing. Specimens with low viral loads may not be detected in sample pools due to the decreased sensitivity of pooled testing. Please review the "Fact Sheets" and FDA authorized labeling available for health care providers and patients using the following websites: https://www.[employer]/home/Covid-19/HCP/QuestIVD/ fact-sheet.html https://www.[employer]/home/Covid-19/Patients/ QuestIVD/fact-sheet.html This test has been authorized by the FDA under an Emergency Use Authorization (EUA) for use by authorized laboratories. Due to the current public health emergency, [facility] is receiving a high volume of samples from a wide variety of swabs and media for COVID-19 testing. In order to serve patients during this public health crisis, samples from appropriate clinical sources are being tested. Negative test results derived from specimens received in non-commercially manufactured viral collection and transport media, or in media and sample collection kits not yet authorized by FDA for COVID-19 testing should be cautiously evaluated and the patient potentially subjected to extra precautions such as additional clinical monitoring, including collection of an additional specimen. Methodology: Nucleic Acid Amplification Test (NAAT) includes RT-PCR or TMA Additional information about COVID-19 can be found at the [facility] website: www.[employer]/Covid19. THIS TEST WAS PERFORMED AT: [facility] [address] RICHARD HERNANDEZ MD ID Date Data Source [id number] 01/26/2020 01:59:00 PM EST [facility] ([facility] [place] Name Value Range Interpretation Code Description Data Lucia rce(s) Supporting Document(s) Chloride 103 mmol/L 98-107 [facility] ([facility] [place]) Potassium 3.9 mmol/L 3.4-5.0 [facility] ([facility]) Sodium 139 mmol/L 136-145 [facility] ([facility]) Anion Gap 17 mmol/L 10-20 [facility] ([facility]) Glucose 224 mg/dL 70-99 [facility] ([facility]) Co2 23 mmol/L 22-29 [facility] ([facility]) Calcium [Mass/volume] in Serum or Plasma 9.4 mg/dL 8.6-10.2 [facility] ([facility]) Creatinine 1.1 mg/dL 0.7-1.2 [facility] ([facility]) Urea nitrogen [Mass/volume] in Serum or Plasma 21 mg/dL 6-20 [facility] ([facility]) GFR Laboratory test result ND [facility] ([facility]) <content>Estimated Glomerular Filtration Rate is estimated based on</content>
<content>the MDRD equation, which assumes a steady state for</content>
<content>creatinine (Dipti Int Med 139 137-149, 2003),as recommended by</content>
<content>the National Kidney Disease Education Program in conjunction</content>
<content>with the NIH and the National Kidney Foundation. eGFR may be</content>
<content>inaccurate in many clinical situations. An eGFR of < 60</content>
<content>mL/min suggests chronic renal disease only if consistent</content>
<content>over three months.</content>
<content></content>
<content>Interpretive Guidelines:</content>
<content></content>
<content>Stage Description eGFR</content>
<content>(mL/min/1.73 m2)</content>
<content></content>
<content>1 or 2 Normal or Mildly Decreased GFR >60</content>
<content>3 Moderately Decreased GFR 30 - 59</content>
<content>4 Severely Decreased GFR 15 - 29</content>
<content>5 Kidney Failure <15</content>
<content></content> ID Date Data Source [id number] 01/26/2020 01:59:00 PM EST [facility] ([facility] [place] Name Value Range Interpretation Code Description Data Lucia rce(s) Supporting Document(s) Hemoglobin [Mass/volume] in Blood 14.1 g/dL 13.5-17.5 [facility] ([facility]) WBC 7.8 k/UL 4.3-11.0 [facility] ([facility]) RBC 4.39 M/UL 4.20-6.20 [facility] ([facility]) Hematocrit 43.5 % 40.0-54.0 [facility] ([facility]) MCV 99.1 FL 75.0-105.0 [facility] ([facility]) MCH 32.1 pg 26.0-33.0 [facility] ([facility]) MCHC 32.4 g/dL 31.0-36.0 [facility] ([facility]) Platelet Count 267 K/UL 150-400 [facility] ([facility] [place] Red Cell Distribution Width 13.5 % 11.6-14.6 [facility] ([facility]) Lymphocyte Automated 15.1 % 12.0-44.0 MED[facility] NT ([facility]) Mean Platelet Volume 10.2 FL 8.7-12.3 [facility] NT ([facility]) Neutrophils Automated 75.7 % 47.0-76.0 [facility] ([facility]) Basophils Automated 0.6 % 0.0-3.0 [facility] T ([facility]) Eosinophils Automated 0.8 % 0.0-6.0 [facility] ([facility]) Monocytes Automated 7.7 % 2.0-12.0 [facility] T ([facility]) Abs.Neutrophils Automated 5.93 K/UL 1.50-7.50 [facility] ([facility]) Abs. Lymphocytes Automated 1.18 K/UL 0.80-2.80 [facility] ([facility]) Abs.Monocytes Automated 0.60 K/UL 0.20-1.00 M EDENT ([facility]) Abs. Eosinophils Automated 0.06 K/UL 0.20-0.40 [facility] ([facility] [place] Abs. Basophils Automated 0.05 K/UL 0.00-0.20 [facility] ([facility] [place]) Immature Granulocyte 0.1 % 0.0-0.6 [facility] NT ([facility] [place]) Abs Immature Granulocyte 0.01 K/UL 0.00-0.04 [facility] ([facility] [place]) Nucleated RBC 0.0 % 0.0-0.0 [facility] ([facility] [place] ID Date Data Source [id number] 01/26/2020 01:59:00 PM EST [facility] ([facility] [place] Name Value Range Interpretation Code Description Data Lucia rce(s) Supporting Document(s) Inr Laboratory test result [facility] ([facility] [place]) *MONITOR PATIENTS BASED ON INR VALUE* INR RESULT TO BE INTERPRETED FOR PATIENTS ON ORAL ANTICOAGULANT THERAPY ONLY. Conventional Anticoagulation: INR 2.0 - 3.0 Intensive Anticoagulation : INR 2.5 - 3.5 Prothrombin Time 9.8 SEC 9.7-11.9 [facility] ( [facility] [place]) ID Date Data Source [id number] 01/26/2020 01:59:00 PM EST [facility] ([facility] [place] Name Value Range Interpretation Code Description Data Lucia rce(s) Supporting Document(s) Urine Culture Laboratory test result [facility] ([facility] [place] [address] Sandhya Carson M.D., Repair Order Clerk Laboratory Report Pg 1 PATIENT: MARILYN RIBEIRO : 64 M.R.N.: [id number] DOCTOR: Chris Blake MD AGE/SEX: 59/M COPIES TO: LOC: [facility] Chris Blake MD Unknown,Physician Specimen: [id number] COMP Collected: 01/26/20 Received: 01/26/20 Source: NATHALIE Alston Descrip: CLN CATCH Procedure Result Verified M I C R O B I O L O G Y > URINE CULTURE Final 01/28/20 NO GROWTH AFTER 48 HOURS > URINE CULTURE Preliminary (Original rpt) 01/27/20 NO GROWTH AFTER 24 HOURS ID Date Data Source [id number] 01/26/2020 01:59:00 PM EST [facility] ([facility] [place] Name Value Range Interpretation Code Description Data Lucia rce(s) Supporting Document(s) Color of Urine Laboratory test result [facility] ([facility] [place]) Urine Appearance Laboratory test result [facility] ([facility] [place]) Glucose [Presence] in Urine Laboratory test result 0-99 Abnormal (applies to non-numeric results) [facility] ([facility] [facility] [place] Urine Specific [place] [facility] test result 1.005-1.025 [facility] [place] Urine Ketones Laboratory test result 0-14 [facility] [place] Urine Bilirubin Laboratory test result [facility] [place] Blood [Presence] in Urine by Visual Laboratory test result [facility] ([facility]) pH of Urine by Test strip 6.0 5.0-8.0 [facility] [place] Protein [Presence] in Urine by Test strip Laboratory test result 0-30 [facility] ([facility]) Urine Urobilinogen 1.0 EU/DL 0.2-1.0 [facility] ([facility]) Urine Leukocyte Esterase Laboratory test result [facility] ([facility]) Urine Nitrite Laboratory test result [facility] [place] ID Date Data Source [id number] 01/26/2020 02:44:00 [place] [address] Sandhya Carson M.D., Repair Order Clerk Laboratory Report Pg 1 PATIENT: MARILYN RIBEIRO : 64 M.R.N.: [id number] DOCTOR: Chris Blake MD AGE/SEX: 59/M COPIES TO: LOC: [facility] Chris Blake MD Unknown,Physician Specimen: [id number] Collected: 01/26/20 Received: 01/26/201358 Source: UR Sp Descrip: CLN CATCH Procedure Result Verified M I C R O B I O L O G Y > URINE CULTURE Final 01/28/20 NO GROWTH AFTER 48 HOURS > URINE CULTURE Preliminary (Original rpt) 01/27/20746 NO GROWTH AFTER 24 HOURS Name Value Range Interpretation Code Description Data Lucia rce(s) Supporting Document(s) URINE COLOR YELLOW [facility] URINE APPEARANCE CLEAR [facility] URINE SPECIFIC GRAVITY >=1.030 1.005-1.025 [facility] URINE GLUCOSE >=1000 MG/DL 0 - 99 A [facility] URINE BILIRUBIN NEGATIVE NEGATIVE [facility] [place] URINE KETONES NEGATIVE MG/DL 0-14 [facility] URINE BLOOD NEGATIVE NEGATIVE [facility] URINE pH 6.0 5.0 - 8.0 [facility] Ce nter URINE PROTEIN NEGATIVE MG/DL 0-30 [facility] URINE UROBILINOGEN 1.0 EU/DL 0.2-1.0 [facility] URINE NITRITE NEGATIVE NEGATIVE [facility] URINE LEUKOCYTE ESTERASE NEGATIVE NEGATIVE [facility] Center ID Date Data Source [id number] 01/26/2020 02:47:00 [place] [address] Sandhya Carson M.D., Repair Order Clerk Laboratory Report Pg 1 PATIENT: MARILYN RIBEIRO : 64 M.R.N.: [id number] DOCTOR: Chris Blake MD AGE/SEX: 59/M COPIES TO: LOC: [facility] Chris Blake MD Unknown,Physician Specimen: [id number] Collected: 01/26/20 Received: 01/26/201358 Source: NATHALIE Alston Descrip: CLN CATCH Procedure Result Verified M I C R O B I O L O G Y > URINE CULTURE Final 01/28/202745 NO GROWTH AFTER 48 HOURS > URINE CULTURE Preliminary (Original rpt) 01/27/20746 NO GROWTH AFTER 24 HOURS Name Value Range Interpretation Code Description Data Lucia rce(s) Supporting Document(s) PROTHROMBIN TIME 9.8 SEC 9.7-11.9 [facility] INR < 1.0 [facility] Ce nter *MONITOR PATIENTS BASED ON INR VALU E*INR RESULT TO BE INTERPRETED FOR PATIENTS ON ORAL ANTICOAGULANT THERAPY ONLY.Conventional Anticoagulation: INR 2.0 - 3.0Intensive Anticoagulation : INR 2.5 - 3.5 ID Date Data Source [id number] 01/26/2020 02:52:00 [place] [address] Sandhya Carson M.D., Repair Order Clerk Laboratory Report Pg 1 PATIENT: MARILYN RIBEIRO : 64 M.R.N.: [id number] DOCTOR: Chris Blake MD AGE/SEX: 59/M COPIES TO: LOC: [facility] Chris Blake MD Unknown,Physician Specimen: [id number] Collected: 01/26/20 Received: 01/26/201358 Source: NATHALIE Alston Descrip: BRUNO CATCH Procedure Result Verified M I C R O B I O L O G Y > URINE CULTURE Final 01/28/20 NO GROWTH AFTER 48 HOURS > URINE CULTURE Preliminary (Original rpt) 01/27/20746 NO GROWTH AFTER 24 HOURS Name Value Range Interpretation Code Description Data Lucia rce(s) Supporting Document(s) WBC 7.8 k/UL 4.3-11.0 [facility] nter RBC 4.39 M/UL 4.20-6.20 [facility] HEMOGLOBIN 14.1 G/DL 13.5-17.5 [facility] C enter HEMATOCRIT 43.5 % 40.0-54.0 [facility] enter MCV 99.1 FL 75.0-105.0 [facility] C enter MCH 32.1 PG 26.0-33.0 [facility] MCHC 32.4 G/DL 31.0-36.0 [facility] RED CELL DISTRIBUTION WIDTH 13.5 % 11.6-14.6 On [facility] PLATELET COUNT 267 K/UL 150-400 [facility] MEAN PLATELET VOLUME 10.2 FL 8.7-12.3 [facility] NEUTROPHILS AUTOMATED 75.7 % 47.0-76.0 [facility] LYMPHOCYTE AUTOMATED 15.1 % 12.0-44.0 [facility] MONOCYTES AUTOMATED 7.7 % 2.0-12.0 [facility] EOSINOPHILS AUTOMATED 0.8 % 0.0-6.0 [facility] BASOPHILS AUTOMATED 0.6 % 0.0-3.0 [facility] ABS.NEUTROPHILS AUTOMATED 5.93 K/UL 1.50-7.50 [facility] ABS. LYMPHOCYTES AUTOMATED 1.18 K/UL 0.80-2.80 [facility] ABS.MONOCYTES AUTOMATED 0.60 K/UL 0.20-1.00 [facility] ABS. EOSINOPHILS AUTOMATED 0.06 K/UL 0.20-0.40 L [facility] ABS. BASOPHILS AUTOMATED 0.05 K/UL 0.00-0.20 [facility] IMMATURE GRANULOCYTE 0.1 % 0.0-0.6 [facility] ABS IMMATURE GRANULOCYTE 0.01 K/UL 0.00-0.04 [facility] NUCLEATED RBC 0.0 % 0.0-0.0 [facility] ID Date Data Source [id number] 01/26/2020 03:34:00 [place] [address] Sandhya Carson M.D., Repair Order Clerk Laboratory Report Pg 1 PATIENT: MARILYN RIBEIRO : 64 M.R.N.: [id number] DOCTOR: Chris Blake MD AGE/SEX: 59/M COPIES TO: LOC: [facility] Chris Blake MD Unknown,Physician Specimen: [id number] Collected: 01/26/20-4902 Received: 01/26/201358 Source: NATHALIE Altson Descrip: CLN CATCH Procedure Result Verified M I C R O B I O L O G Y > URINE CULTURE Final 01/28/20 NO GROWTH AFTER 48 HOURS > URINE CULTURE Preliminary (Original rpt) 01/27/20746 NO GROWTH AFTER 24 HOURS Name Value Range Interpretation Code Description Data Lucia rce(s) Supporting Document(s) SODIUM 139 MMOL/L 136-145 [facility] C enter POTASSIUM 3.9 MMOL/L 3.4-5.0 [facility] C enter CHLORIDE 103 MMOL/L 98-107 [facility] C enter CO2 23 MMOL/L 22-29 [facility] Ce nter ANION GAP 17 MMOL/L 10-20 [facility] Ce [facility]ter GLUCOSE 224 MG/DL 70-99 H [facility] Ce nter CREATININE 1.1 MG/DL 0.7-1.2 [facility] C enter BUN 21 MG/DL 6-20 H [facility] Ce nter CALCIUM 9.4 MG/DL 8.6-10.2 [facility] Ce nter GFR > 60 ML/MIN [facility] Estimated Glomerular Filtration Rate is estimated based onthe MDRD equation, which assumes a steady state forcreatinine (Dipti Int Med 139 137-149, 2003),as recommended bythe National Kidney Disease Education Program in conjunctionwith the NIH and the National Kidney Foundation. eGFR may beinaccurate in many clinical situations. An eGFR of < 60mL/min suggests chronic renal disease only if consistentover three months.Interpretive Guidelines: Stage Description eGFR (mL/min/1.73 m2) 1 or 2 Normal or Mildly Decreased GFR >60 3 Moderately Decreased GFR 30 - 59 4 Severely Decreased GFR 15 - 29 5 Kidney Failure <15 ID Date Data Source [id number] 01/28/2020 07:54:00 [place] [address] Sandhya Carson M.D., Repair Order Clerk Laboratory Report Pg 1 PATIENT: MARILYN RIBEIRO : 64 M.R.N.: [id number] DOCTOR: Chris Blake MD AGE/SEX: 59/M COPIES TO: LOC: [facility] Chris Blake MD Unknown,Physician Specimen: [id number] Collected: 01/26/20 Received: 01/26/201358 Source: NATHALIE Alston Descrip: BRUNO CATCH Procedure Result Verified M I C R O B I O L O G Y > URINE CULTURE Final 01/28/20-075 NO GROWTH AFTER 48 HOURS > URINE CULTURE Preliminary (Original rpt) 01/27/20746 NO GROWTH AFTER 24 HOURS Name Value Range Interpretation Code Description Data Lucia rce(s) Supporting Document(s) ID Date Data Source [id number] 01/26/2020 01:45:00 PM [facility] Name Value Range Interpretation Code Description Data [facility] Supporting Document(s) SARS-COV-2 RNA RESP QL ENRRIQUE+PROBE [facility] This lab was ordered by [facility] and reported by [facility]. ID Date Data Source [id number] 01/27/2020 10:47:00 PM EST [employer] [facility] Received: 01/27/2020 at 05:21:00 QPT : [facility], [address] [place] [address], [address] [place] [address], [phone], Richard Hernandez MD Name Value Range Interpretation Code Description Data [facility] Supporting Document(s) SARS CoV 2 RNA NOT DETECTED Normal (applies to non-numeric results) [employer] A Not Detected (negative) test result fo r thistest means that SARS-CoV-2 RNA was not presentin the specimen above the limit of detection. Anegative result does not rule out the possibilityof COVID-19 and should not be used as the solebasis for treatment or patient managementdecisions. If COVID-19 is still suspected, basedon exposure history together with other clinicalfindings, re-testing should be considered inconsultation with public health authorities.Laboratory test results should always be consideredin the context of clinical observations andepidemiological data in making a final diagnosisand patient management decisions.REFERENCE RANGE: NOT DETECTEDThis patient specimen was tested using an FDA EUA poolingmethod.Negative results from pooled testing should not betreated as definitive. If the patient's clinicalsigns and symptoms are inconsistent with a negativeresult or results are necessary for patient management,then the patient should be considered for individualtesting. Specimens with low viral loads may not bedetected in sample pools due to the decreased sensitivityof pooled testing.Please review the "Fact Sheets" and FDA authorizedlabeling available for health care providers andpatients using the following websites:https://www.[employer]/home/Covid-19/HCP/QuestIVD/fact-sheet. htmlhttps://www.[employer]ern[employer] im Leben/home/Covid-19/Patients/QuestIVD/fact-sheet. htmlThis test has been authorized by the FDA under anEmergency Use Authorization (EUA) for use by authorizedlaboratories.Due to the current public health emergency, [employer] is receiving a high volume of samples froma wide variety of swabs and media for COVID-19 testing.In order to serve patients during this public healthcrisis, samples from appropriate clinical sources arebeing tested. Negative test results derived fromspecimens received in non- commercially manufacturedviral collection and transport media, or in media andsample collection kits not yet authorized by FDA forCOVID-19 testing should be cautiously evaluated and thepatient potentially subjected to extra precautions suchas additional clinical monitoring, including collectionof an additional specimen.Methodology: Nucleic Acid Amplification Test (NAAT)includes RT-PCR or TMAAdditional information about COVID-19 can be foundat the [employer] website:www.[employer] Leben/Covid19. ID Date Data Source [id number] 01/27/2020 10:47:00 PM EST [facility] Name Value Range Interpretation Code Description Data Lucia rce(s) Supporting Document(s) SARS-COV-2 RNA NOT DETECTED NOT DETECTED [facility] A Not Detected (negative) test result fo r thistest means that SARS-CoV-2 RNA was not presentin the specimen above the limit of detection. Anegative result does not rule out the possibilityof COVID-19 and should not be used as the solebasis for treatment or patient managementdecisions. If COVID-19 is still suspected, basedon exposure history together with other clinicalfindings, re-testing should be considered inconsultation with public health authorities.Laboratory test results should always be consideredin the context of clinical observations andepidemiological data in making a final diagnosisand patient management decisions.REFERENCE RANGE: NOT DETECTEDThis patient specimen was tested using an FDA EUA poolingmethod.Negative results from pooled testing should not betreated as definitive. If the patient's clinicalsigns and symptoms are inconsistent with a negativeresult or results are necessary for patient management,then the patient should be considered for individualtesting. Specimens with low viral loads may not bedetected in sample pools due to the decreased sensitivityof pooled testing.Please review the "Fact Sheets" and FDA authorizedlabeling available for health care providers andpatients using the following websites:https://www.[employer]/home/Covid-19/HCP/QuestIVD/fact-sheet. htmlhttps://www.[employer] im Leben/home/Covid-19/Patients/QuestIVD/fact-sheet. htmlThis test has been authorized by the FDA under anEmergency Use Authorization (EUA) for use by authorizedlaboratories.Due to the current public health emergency, [employer] is receiving a high volume of samples froma wide variety of swabs and media for COVID-19 testing.In order to serve patients during this public healthcrisis, samples from appropriate clinical sources arebeing tested. Negative test results derived fromspecimens received in non- commercially manufacturedviral collection and transport media, or in media andsample collection kits not yet authorized by FDA forCOVID-19 testing should be cautiously evaluated and thepatient potentially subjected to extra precautions suchas additional clinical monitoring, including collectionof an additional specimen.Methodology: Nucleic Acid Amplification Test (NAAT)includes RT-PCR or TMAAdditional information about COVID-19 can be foundat the [employer] website:www.[employer] im Leben/Covid19.THIS TEST WAS PERFORMED AT:[facility] [id number] MERATI,MD ID Date Data Source [id number] 12/26/2019 09:30:00 AM EDT [facility] ([facility]) Name Value Range Interpretation Code Description Data Lucia rce(s) Supporting Document(s) Protein [Presence] in Urine by Test strip Laboratory test result [facility] ([facility] [place] Glucose [Presence] in Urine Laboratory test result [facility] ([facility]) Ua Nitrite Laboratory test result [facility] ([facility]) Blood [Presence] in Urine by Visual Laboratory test result [facility] ([facility]) Ua Leuko Laboratory test result [facility] ([facility]) Clarity of Urine Laboratory test result [facility] ([facility]) Ketones [Presence] in Urine by Test strip Laboratory test result [facility] ([facility]) Color of Urine Laboratory test result [facility] ([facility]) pH of Urine by Test strip 5.0 5.0-7.5 [facility] ([facility]) Ua Specific [place] 1.015 1.003-1.030 [facility] NT ([facility]) Bilirubin.total [Presence] in Urine by Test strip Laboratory test res ult [facility] ([facility]) Urobilinogen [Mass/volume] in Urine by Test strip 0.2 E.U./dL 0.0-1.0 [facility] ([facility]) ID Date Data Source [id number] 12/18/2019 12:24:00 PM EDT [facility] ([facility] Name Value Range Interpretation Code Description Data Lucia rce(s) Supporting Document(s) Prostate specific Ag [Mass/volume] in Serum or Plasma Labora tory test result 0.0-4.0 [facility] ([facility]) A courtesy copy of this report has been sent to the patient, ID Date Data Source [id number] 12/18/2019 12:24:00 PM EDT [facility] ([facility]) Name Value Range Interpretation Code Description Data Lucia rce(s) Supporting Document(s) Prostate specific Ag [Mass/volume] in Serum or Plasma Labora tory test result 0.0-4.0 [facility] ([facility]) A courtesy copy of this report has been sent to the patient, ID Date Data Source [id number] 12/19/2019 08:09:00 AM EDT [facility] Name Value Range Interpretation Code Description Data Lucia rce(s) Supporting Document(s) Prostate Specific Ag, Serum 0.0-4.0 [facility] [place] ECLIA methodology. According to th e [place] [employer], Serum PSA shoulddecrease and remain at undetectable levels after radicalprostatectomy. The AUA defines biochemical recurrence as an initialPSA value 0.2 ng/mL or greater followed by a subsequent confirmatoryPSA value 0.2 ng/mL or greater.Values obtained with different assay methods or kits cannot be usedinterchangeably. Results cannot be interpreted as absolute evidenceof the presence or absence of malignant disease. ID Date Data Source [id number] 12/16/2019 03:58:00 PM EDT [facility] ([facility]) Name Value Range Interpretation Code Description Data Lucia rce(s) Supporting Document(s) Glucose [Presence] in Urine Laboratory test result [facility] ([facility] [place]) Ua Nitrite Laboratory test result [facility] ([facility]) Protein [Presence] in Urine by Test strip Laboratory test result [facility] ([facility]) Ua Leuko Laboratory test result [facility] ([facility]) Blood [Presence] in Urine by Visual Laboratory test result [facility] ([facility]) Ketones [Presence] in Urine by Test strip Laboratory test result [facility] ([facility]) Color of Urine Laboratory test result [facility] ([facility]) Ua Specific [place] 1.020 1.003-1.030 [facility] NT ([facility]) pH of Urine by Test strip 5.5 5.0-7.5 [facility] ([facility]) Clarity of Urine Laboratory test result [facility] ([facility]) Bilirubin.total [Presence] in Urine by Test strip Laboratory test res ult [facility] ([facility]) Urobilinogen [Mass/volume] in Urine by Test strip 0.2 E.U./dL 0.0-1.0 [facility] ([facility]) ID Date Data Source [id number] 12/12/2019 12:14:00 PM EDT [facility]) Name Value Range Interpretation Code Description Data Lucia rce(s) Supporting Document(s) TSH 1.037 uIU/mL 0.350-4.940 [facility]) ID Date Data Source [id number] 12/12/2019 12:14:00 PM EDT [facility] ([facility]) Name Value Range Interpretation Code Description Data Lucia rce(s) Supporting Document(s) Hemoglobin A1c/Hemoglobin.total in Blood 7.63 4.00-6.00 [facility] ([facility]) <content>GOAL <7</content>
<content> </content> Estimated Average Glucose 172.18 mg/dL M [facility] ([facility]) ID Date Data Source [id number] 12/12/2019 12:14:00 PM EDT [facility] ([facility]) Name Value Range Interpretation Code Description Data Lucia rce(s) Supporting Document(s) Triglyceride [Mass/volume] in Serum or Plasma 98 mg/dL 1-200 [facility] ([facility]) GOAL LESS THAN 200 Cholesterol [Mass/volume] in Serum or Plasma 142 mg/dL 112-200 [facility] ([facility]) GOAL LESS THAN 200 Cholesterol in HDL [Mass/volume] in Serum or Plasma 46 mg/dL 30-70 [facility] ([facility]) GOAL GREATER THAN 45 Cholesterol.total/Cholesterol in HDL [Mass Ratio] in Serum o r Plasma 3.09 4.00-6.70 [facility] ([facility]) Cholesterol non HDL [Mass/volume] in Serum or Plasma 96.00 mg/dL 0 .00-100.00 [facility] ([facility]) GOAL LESS THAN 100 Cholesterol in LDL [Mass/volume] in Serum or Plasma by calcu lation 76.40 mg/dL 20.00-130.00 [facility] ([facility]) GOAL LESS THAN 100 ID Date Data Source [id number] 12/12/2019 12:14:00 PM EDT [facility] ([facility]) Name Value Range Interpretation Code Description Data Lucia rce(s) Supporting Document(s) Leukocytes [#/volume] in Blood by Automated count 8.05 k/uL 4.60-10. 20 [facility] ([facility]) Neutrophils [#/volume] in Blood by Automated count 5.56 2.00-7. 50 [facility] ([facility]) Neutrophils/100 leukocytes in Blood by Automated count 69.0 % 37. 0-80.0 [facility] ([facility]) Lymphocytes [#/volume] in Blood by Automated count 1.59 K/UL 1.20-4. 80 [facility] ([facility]) Lymphocytes/100 leukocytes in Blood by Automated count 19.8 % 10. 0-50.0 [facility] ([facility]) Monocytes [#/volume] in Blood by Automated count 0.698 0.000-0.9 00 [facility] ([facility]) Eosinophils [#/volume] in Blood by Automated count 0.112 0.000-0 .700 [facility] ([facility]) Monocytes/100 leukocytes in Blood by Automated count 8.67 % 0.00- 12.00 [facility] ([facility]) Eosinophils/100 leukocytes in Blood by Automated count 1.39 % 0.0 0-7.00 [facility] ([facility]) Basophils [#/volume] in Blood by Automated count 0.089 0.000-0.2 00 [facility] ([facility]) Basophils/100 leukocytes in Blood by Automated count 1.10 % 0.00- 4.00 [facility] ([facility]) Erythrocytes [#/volume] in Blood by Automated count 4.92 m/uL 4.04-6 .13 [facility] ([facility]) Hemoglobin [Mass/volume] in Blood 15.6 g/dL 12.2-18.1 [facility] ([facility]) Hematocrit [Volume Fraction] of Blood by Automated count 47.2 % 4 2.0-53.7 [facility] ([facility]) Erythrocyte mean corpuscular volume [Entitic volume] by Auto mated count 96.0 fL 80.0-97.0 [facility] ([facility]) Erythrocyte mean corpuscular hemoglobin [Entitic mass] by Automated count 31.8 pg 27.0-31.2 [facility] ([facility]) Erythrocyte mean corpuscular hemoglobin concentration [Mass/volume] by Automated count 33.1 g/dL 31.8-35.4 [facility] ([facility]) Erythrocyte distribution width [Ratio] by Automated count 13.2 % 11.6-14.8 [facility] ([facility]) Platelets [#/volume] in Blood by Automated count 314 K/uL 142-424 [facility] ([facility]) Platelet mean volume [Entitic volume] in Blood by Eliud-Inga 7.6 fL 0.0-99.9 [facility] ([facility]) ID Date Data Source [id number] 12/12/2019 12:14:00 PM EDT [facility] ([facility]) Name Value Range Interpretation Code Description Data Lucia rce(s) Supporting Document(s) Glucose [Mass/volume] in Serum or Plasma 159.00 mg/dL 70.00-110.00 [facility] ([facility]) Urea nitrogen [Mass/volume] in Serum or Plasma 19 mg/dL 9-21 [facility] ([facility]) Creatinine [Mass/volume] in Serum or Plasma 1.2 mg/dL 0.7-1.3 [facility] ([facility]) GFR 65.00 mL/min [facility]) <content>NORMAL FUNCTION OR MILD RENAL D ISEASE:>60 ml/min</content>
<content>ADVANCED RENAL DISEASE:15-59 ml/min</content>
<content>RENAL FAILURE:<15 ml/min</content>
<content></content> Sodium [Moles/volume] in Serum or Plasma 140 mmol/L 136-145 [facility] ([facility]) Potassium [Moles/volume] in Serum or Plasma 4.9 mmol/L 3.5-5.1 [facility] ([facility]) Chloride [Moles/volume] in Serum or Plasma 106 mmol/L 98-107 [facility] ([facility]) Protein [Mass/volume] in Serum or Plasma 7.2 g/dL 6.4-8.3 [facility] ([facility]) Albumin [Mass/volume] in Serum or Plasma 4.30 g/dL 3.30-5.00 [facility] ([facility]) Alanine aminotransferase [Enzymatic activity/volume] in Seru m or Plasma 23 U/L 0-55 [facility] ([facility]) Aspartate aminotransferase [Enzymatic activity/volume] in Serum or Plasma 19 U/L 5-34 [facility] ([facility]) Alkaline phosphatase [Enzymatic activity/volume] in Serum or Plasma 74 U/L 40-150 [facility] ([facility]) Carbon dioxide, total [Moles/volume] in Serum or Plasma 26.0 0 mmol/L 22.00-31.00 [facility] ([facility]) Albumin/Globulin [Mass Ratio] in Serum or Plasma 1.48 Ratio [facility] ([facility]) Osmolality of Serum or Plasma by calculation 295.62 275.00-295.00 [facility] ([facility]) Calcium [Mass/volume] in Serum or Plasma 10.20 mg/dL 8.90-10.40 [facility] ([facility]) Bilirubin.total [Mass/volume] in Serum or Plasma 0.2 mg/dL 0.2-1.2 [facility] ([facility]) Urea nitrogen/Creatinine [Mass Ratio] in Serum or Plasma 15.57 Ratio [facility] ([facility]) Globulin [Mass/volume] in Serum by calculation 2.90 2.30-4.20 [facility] ([facility]) ID Date Data Source [id number] 12/12/2019 12:14:00 PM EDT [facility] ([facility] Name Value Range Interpretation Code Description Data Lucia rce(s) Supporting Document(s) Hemoglobin A1c/Hemoglobin.total in Blood 7.63 4.00-6.00 [facility] ([facility]) <content>GOAL <7</content>
<content> </content>
<content></content> Glucose mean value [Mass/volume] in Blood Estimated fr om glycated hemoglobin 172.18 mg/dL [facility] ([facility]) Thyrotropin [Units/volume] in Serum or Plasma 1.037 uIU/mL 0.350-4.94 0 [facility] ([facility]) ID Date Data Source [id number] 12/12/2019 12:14:00 PM EDT [facility] ([facility]) Name Value Range Interpretation Code Description Data Lucia rce(s) Supporting Document(s) Triglyceride [Mass/volume] in Serum or Plasma 98 mg/dL 1-200 [facility] ([facility]) GOAL LESS THAN 200 Cholesterol [Mass/volume] in Serum or Plasma 142 mg/dL 112-200 [facility] ([facility]) GOAL LESS THAN 200 Cholesterol non HDL [Mass/volume] in Serum or Plasma 96.00 mg/dL 0 .00-100.00 [facility] ([facility]) GOAL LESS THAN 100 Cholesterol.total/Cholesterol in HDL [Mass Ratio] in Serum o r Plasma 3.09 4.00-6.70 [facility] ([facility]) Cholesterol in HDL [Mass/volume] in Serum or Plasma 46 mg/dL 30-70 [facility] ([facility]) GOAL GREATER THAN 45 Cholesterol in LDL [Mass/volume] in Serum or Plasma by calcu lation 76.40 mg/dL 20.00-130.00 [facility] ([facility]) GOAL LESS THAN 100 ID Date Data Source [id number] 12/12/2019 12:14:00 PM EDT [facility] ([facility]) Name Value Range Interpretation Code Description Data Lucia rce(s) Supporting Document(s) Creatinine [Mass/volume] in Serum or Plasma 1.2 mg/dL 0.7-1.3 [facility] ([facility]) Urea nitrogen [Mass/volume] in Serum or Plasma 19 mg/dL 9-21 [facility] ([facility]) Glucose [Mass/volume] in Serum or Plasma 159.00 mg/dL 70.00-110.00 [facility] ([facility]) Glomerular filtration rate/1.73 sq M.pre dicted [Volume Rate/Area] in Serum or Plasma by Creatinine-based formula (MDRD) 65.00 mL/min [facility] ([facility]) <content>NORMAL FUNCTION OR MILD RENAL D ISEASE:>60 ml/min</content>
<content>ADVANCED RENAL DISEASE:15-59 ml/min</content>
<content>RENAL FAILURE:<15 ml/min</content>
<content></content>
<content></content> Chloride [Moles/volume] in Serum or Plasma 106 mmol/L 98-107 [facility] ([facility]) Potassium [Moles/volume] in Serum or Plasma 4.9 mmol/L 3.5-5.1 [facility] ([facility]) Sodium [Moles/volume] in Serum or Plasma 140 mmol/L 136-145 [facility] ([facility]) Alanine aminotransferase [Enzymatic activity/volume] in Seru m or Plasma 23 U/L 0-55 [facility] Albumin [Mass/volume] in Serum or Plasma 4.30 g/dL 3.30-5.00 [facility] ([facility]) Protein [Mass/volume] in Serum or Plasma 7.2 g/dL 6.4-8.3 [facility] ([facility] Carbon dioxide, total [Moles/volume] in Serum or Plasma 26.0 0 mmol/L 22.00-31.00 [facility] ([facility] Alkaline phosphatase [Enzymatic activity/volume] in Serum or Plasma 74 U/L 40-150 [facility] Aspartate aminotransferase [Enzymatic activity/volume] in Serum or Plasma 19 U/L 5-34 [facility] ([facility] Albumin/Globulin [Mass Ratio] in Serum or Plasma 1.48 Ratio [facility] ([facility]) Osmolality of Serum or Plasma by calculation 295.62 275.00-295.00 [facility] ([facility]) Globulin [Mass/volume] in Serum by calculation 2.90 2.30-4.20 [facility] ([facility]) Calcium [Mass/volume] in Serum or Plasma 10.20 mg/dL 8.90-10.40 [facility] ([facility] Bilirubin.total [Mass/volume] in Serum or Plasma 0.2 mg/dL 0.2-1.2 [facility] ([facility] ) Urea nitrogen/Creatinine [Mass Ratio] in Serum or Plasma 15.57 Ratio [facility] ([facility] ) ID Date Data Source [id number] 12/02/2019 08:47:00 AM EDT [facility] CT C HEST WO IV CONTRASTCLINICAL HISTORY: Asbestos exposure.COMPARISON: None available.TECHNIQUE: Helical acquisition performed through the chest.FINDINGS: Lung parenchyma and pleura: There is a noncalcified right lower lobe nodule measuring 5 mm (image 58). Just inferior to this is a 2 mm calcification consistent with old granulomatous disease.There is mild left pleural thickening consistent with scarring or small effusion.Heart: Normal size and configuration. No pericardial effusion. There are dense coronary arterial calcifications.Mediastinum: No masses, fluid collections, or adenopathy identified.Chest wall: No masses or fluid collections identified. No axillary adenopathy identified.Upper Abdomen: No masses or fluid collections identified.IMPRESSION: Small left pleural effusion versus pleural scarring.Old granulomatous disease involving the right lower lobe. Right lower lobe additional noncalcified pulmonary nodule. Suggest six-month follow-up.D ense coronary arterial calcifications which can be related significant stenosis.Dictated by: CINDY KIMBALL M.D. on 12/02/2019 Transcribed by: katy on <<TranscriptionDateTime1>>CDS G code: ,CDS Modifier: ,cc: Name Value Range Interpretation Code Description Data Lucia rce(s) Supporting Document(s) ID Date Data Source [id number] 11/28/2019 11:24:00 AM EDT [facility] Name Value Range Interpretation Code Description Data Lucia rce(s) Supporting Document(s) SARS-CoV-2 (COVID19) [place] This lab was ordered by [facility] and reported by [facility]. ID Date Data Source [id number] 11/18/2019 06:02:00 AM EDT [facility] SURGEON: Dr. Blake; PIPE FOREMAN: Dr. Guanaco Long DATE OF PROCEDURE: 11/17/2019 PREOPERATIVE DIAGNOSIS: Phimosis and balanitis. POSTOPERATIVE DIAGNOSIS: Phimosis and balanitis. PROCEDURE PERFORMED: Circumcision. ESTIMATED BLOOD LOSS: Minimal. COMPLICATIONS: None. ANESTHESIA: General endotracheal. DETAILS OF PROCEDURE: After satisfactory induction of anesthesia, the patient was placed in supine position and the lower abdomen and genitalia were prepped and draped in usual fashion. Two incisions were performed at the penile shaft, one on the foreskin and the second one on the penile shaft itself, 0.5 cm away from the coronal sulcus. Both incisions were circumferential incisions. The foreskin was mobilized, divided, resected and sent for pathological confirmation. Careful hemostasis was performed to the penile shaft. The skin edges were approximated in the four corners using 2-0 chromic, and 3-0 chromic was used in between in running fashion. A compressive dressing was applied to the penile shaft. The sponge count and needle count and instrument count was correct x2. The patient was transferred back to the recovery room in satisfactory condition. DICTATED BY Chris Blake MD 11/18/19 0602 Electronically Signed By Chris Blake MD 11/18/19 7365 Transcribed By [email or web address] 11/18/19 1446 Name Value Range Interpretation Code Description Data [facility] rce(s) Supporting Document(s) ID Date Data Source [id number] 11/17/2019 08:43:00 AM EDT [facility] ([facility]) Name Value Range Interpretation Code Description Data [facility] rce(s) Supporting Document(s) Surgical pathology study Laboratory test result [facility] ([facility]) [address] [place] [address] Sandhya Carson M.D., Repair Order Clerk Laboratory Report Pg 1 PATIENT: MARILYN RIBEIRO : 64 M.R.N.: [id number] DOCTOR: Chris Blake MD AGE/SEX: 59/M COPIES TO: LOC: [facility] MD Jerry Coker MD Nurudin Cemer, MD ACCESSION NUMBER: [id number] RECEIVED: 11/18/19 FINAL DIAGNOSIS: Foreskin, circumcision: Skin with focal parakeratosis and patchy mild to moderate acute and chronic inflammation. CLINICAL HISTORY: Phimosis. SPECIMEN: FORESKIN GROSS DESCRIPTION: The specimen is received in formalin labeled with the patient's name a nd "foreskin" and consists of rectangular galan skin measuring 5.5 x 3 x 0.8 cm. The skin surface is wrinkly and focally hemorrhagic. Manager Cash sections are submitted in 1 [facility]. nw Signed (signature on file) Sandhya Carson MD 11/19/19 1232 ID Date Data Source [id number] 11/19/2019 12:32:00 PM EDT [facility] [place] [address] Sandhya angel M.D., Repair Order Clerk Laboratory Report Pg 1 PATIENT: MARILYN RIBEIRO : 64 M.R.N.: [id number]: Chris Blake MD AGE/SEX: 59/M COPIES TO: LOC: [facility] MD Jerry Coker MD Nurudin Cemer, MD ACCESSION NUMBER: [id number] RECEIVED: 11/18/19 FINAL DIAGNOSIS: Foreskin, circumcision: Skin with focal parakeratosis and patchy mild to moderate acute andchronic inflammation. --- CLINICAL HISTORY: Phimosis. SPECIMEN: FORESKIN GROSS DESCRIPTION: The specimen is received in formalin labeled with the patient's name and "foreskin" andconsists of rectangular galan skin measuring 5.5 x 3 x 0.8 cm. The skin surface is wrinklyand focally hemorrhagic. Manager Cash sections are submitted in 1 cassette. nw Signed (signature on file) Sandhya Carson MD 11/19/19 1232 Name Value Range Interpretation Code Description Data [facility](s) Supporting Document(s) ID Date Data Source [id number] 11/12/2019 09:30:00 AM EDT [facility] ([facility]) Name Value Range Interpretation Code Description Data [facility](s) Supporting Document(s) Covid-19 Laboratory test result [facility] ([facility]) TEST PERFORMED AT:\\[id number]\\\\[id number]\\[facility]\\[id number]\\\\[id number]\\[address] [facility];[address] [facility]\\X0D\\ ID Date Data Source [id number] 11/15/2019 12:34:42 PM EDT [facility] Received: 11/13/2019 at 20:46:00 P: [facility], [address] [facility], [address] [place] [address], [place], [address], RICHARD HERNANDEZ MD Name Value Range Interpretation Code Description Data Lucia rce(s) Supporting Document(s) SARS-COV-2 RNA NOT DETECTED [facility] A Not Detected (negative) test result fo r this test meansthat SARS-CoV-2 RNA was not present in the specimen abovethe limit of detection. A negative result does not rule outthe possibility of COVID-19 and should not be used as thesole basis for treatment or patient management decisions.If COVID-19 is still suspected, based on exposure historytogether with other clinical findings, re-testing should beconsidered in consultation with public health authorities.Laboratory test results should always be considered in thecontext of clinical observations and epidemiological datain making a final diagnosis and patient managementdecisions.Due to the current public health emergency, [employer] [facility] [facility] is receiving a high volume of samples from awide variety of swabs and media for COVID-19 testing.In order to serve patients during this public health crisis,samples from appropriate clinical sources are being tested.Negative test results derived from specimens received innon-commercially manufactured viral collection andtransport media, or in media and sample collection kits notyet authorized by FDA for COVID-19 testing should becautiously evaluated and the patient potentially subjectedto extra precautions such as additional clinical monitoring,including collection of an additional specimen.This test has been authorized by the FDA under an EmergencyUse Authorization (EUA) for use by authorized laboratories.Methodology: Real-Time RT-PCRPlease review the "Fact Sheets" for health care providers,and patients and the FDA authorized labeling available [employer] website: www.[employer].com/Covid19 ID Date Data Source [id number] 11/15/2019 12:40:00 PM EDT [facility] TEST PERFORMED AT:[facility] [facility];[address] [place], [place] [address]HTJTERRICHARD HERNANDEZ MD Name Value Range Interpretation Code Description Data Lucia rce(s) Supporting Document(s) SARS-COV-2 RNA NOT DETECTED NOT DETECTED [facility] A Not Detected (negative) test result fo r this test meansthat SARS-CoV-2 RNA was not present in the specimen abovethe limit of detection. A negative result does not rule outthe possibility of COVID-19 and should not be used as thesole basis for treatment or patient management decisions.If COVID-19 is still suspected, based on exposure historytogether with other clinical findings, re-testing should beconsidered in consultation with public health authorities.Laboratory test results should always be considered in thecontext of clinical observations and epidemiological datain making a final diagnosis and patient managementdecisions.Due to the current public health emergency, [facility] is receiving a high volume of samples from awide variety of swabs and media for COVID-19 testing.In order to serve patients during this public health crisis,samples from appropriate clinical sources are being tested.Negative test results derived from specimens received innon-commercially manufactured viral collection andtransport media, or in media and sample collection kits notyet authorized by FDA for COVID-19 testing should becautiously evaluated and the patient potentially subjectedto extra precautions such as additional clinical monitoring,including collection of an additional specimen.This test has been authorized by the FDA under an EmergencyUse Authorization (EUA) for use by authorized laboratories.Methodology: Real-Time RT-PCRPlease review the "Fact Sheets" for health care providers,and patients and the FDA authorized labeling available [employer] website: www.[employer]/Covid19 ID Date Data Source [id number] 11/12/2019 12:00:00 AM EDT [facility] Name Value Range Interpretation Code Description Data Lucia rce(s) Supporting Document(s) SARS coronavirus 2 RNA [facility] This lab was ordered by [facility] and [facility]. ID Date Data Source [id number] 11/06/2019 11:54:00 AM EDT [facility] ([facility] Name Value Range Interpretation Code Description Data Lucia rce(s) Supporting Document(s) Urea nitrogen [Mass/volume] in Serum or Plasma 20 mg/dL 6-24 [facility] ([facility]) SRC:UC A courtesy copy of this report leger s been sent to the patient, SRC:UC Glucose [Mass/volume] in Serum or Plasma 190 mg/dL 65-99 [facility] ([facility]) SRC:UC A courtesy copy of this report leger s been sent to the patient, SRC:UC eGFR If NonAfricn Am 66 mL/min/1.73 [facility] ([facility]) SRC:UC A courtesy copy of this report leger s been sent to the patient, SRC:UC Creatinine [Mass/volume] in Serum or Plasma 1.21 mg/dL 0.76-1.27 [facility] ([facility]) SRC:UC A courtesy copy of this report leger s been sent to the patient, SRC:UC BUN/Creatinine Ratio 17 9-20 [facility] ([facility]) SRC:UC A courtesy copy of this report leger s been sent to the patient, SRC:UC eGFR If Africn Am 76 mL/min/1.73 [facility] ([facility]) SRC:UC A courtesy copy of this report leger s been sent to the patient, SRC:UC Potassium 5.0 mmol/L 3.5-5.2 [facility] ([facility]) SRC:UC A courtesy copy of this report leger s been sent to the patient, SRC:UC Sodium 143 mmol/L 134-144 [facility] ([facility]) SRC:UC A courtesy copy of this report leger s been sent to the patient, SRC:UC Chloride 107 mmol/L 96-106 [facility] ([facility]) SRC:UC A courtesy copy of this report leger s been sent to the patient, SRC:UC Calcium [Mass/volume] in Serum or Plasma 9.6 mg/dL 8.7-10.2 [facility] ([facility]) SRC:UC A courtesy copy of this report leger s been sent to the patient, SRC:UC Carbon Dioxide, Total 24 mmol/L 20-29 [facility] ([facility]) SRC:UC A courtesy copy of this report leger s been sent to the patient, SRC:UC ID Date Data Source [id number] 11/06/2019 11:54:00 AM EDT [facility] ([facility] [place]) Name Value Range Interpretation Code Description Data Lucia rce(s) Supporting Document(s) WBC 7.6 x10E3/uL 3.4-10.8 [facility] ([facility]) SRC:UC A courtesy copy of this report leger s been sent to the patient, SRC:UC Hemoglobin [Mass/volume] in Blood 14.2 g/dL 13.0-17.7 [facility] ([facility]) SRC:UC A courtesy copy of this report leger s been sent to the patient, SRC:UC RBC 4.34 x10E6/uL 4.14-5.80 [facility] ([facility] [place]) SRC:UC A courtesy copy of this report leger s been sent to the patient, SRC:UC Hematocrit [Volume Fraction] of Blood by Automated count 42.2 % 3 7.5-51.0 [facility] ([facility]) SRC:UC A courtesy copy of this report leger s been sent to the patient, SRC:UC MCV 97 fL 79-97 [facility] ([facility]) SRC:UC A courtesy copy of this report leger s been sent to the patient, SRC:UC MCH 32.7 pg 26.6-33.0 [facility] ([facility]) SRC:UC A courtesy copy of this report leger s been sent to the patient, SRC:UC MCHC 33.6 g/dL 31.5-35.7 [facility] ([facility]) SRC:UC A courtesy copy of this report leger s been sent to the patient, SRC:UC RDW 12.7 % 11.6-15.4 [facility] ([facility]) SRC:UC A courtesy copy of this report leger s been sent to the patient, SRC:UC Platelets 279 x10E3/uL 150-450 [facility] ([facility] [place]) SRC:UC A courtesy copy of this report leger s been sent to the patient, SRC:UC Neutrophils 69 % [facility] ([facility]) SRC:UC A courtesy copy of this report leger s been sent to the patient, SRC:UC Monocytes 10 % [facility] ([facility]) SRC:UC A courtesy copy of this report leger s been sent to the patient, SRC:UC Lymphs 19 % [facility] ([facility]) SRC:UC A courtesy copy of this report leger s been sent to the patient, SRC:UC Basos 1 % [facility] ([facility]) SRC:UC A courtesy copy of this report leger s been sent to the patient, SRC:UC Eos 1 % [facility] ([facility]) SRC:UC A courtesy copy of this report leger s been sent to the patient, SRC:UC Neutrophils (Absolute) 5.2 x10E3/uL 1.4-7.0 [facility] ([facility]) SRC:UC A courtesy copy of this report leger s been sent to the patient, SRC:UC Immature Cells Laboratory test result [facility] ([facility]) SRC:UC A courtesy copy of this report leger s been sent to the patient, SRC:UC Lymphs (Absolute) 1.4 x10E3/uL 0.7-3.1 [facility] T ([facility] [place] SRC:UC A courtesy copy of this report leger s been sent to the patient, SRC:UC Monocytes(Absolute) 0.8 x10E3/uL 0.1-0.9 [facility] ([facility] [place] SRC:UC A courtesy copy of this report leger s been sent to the patient, SRC:UC Baso (Absolute) 0.1 x10E3/uL 0.0-0.2 [facility] ([facility]) SRC:UC A courtesy copy of this report leger s been sent to the patient, SRC:UC Eos (Absolute) 0.1 x10E3/uL 0.0-0.4 [facility] ( [facility]) SRC:UC A courtesy copy of this report leger s been sent to the patient, SRC:UC Immature granulocytes/100 leukocytes in Blood by Automated count 0 % [facility] ([facility] [place]) SRC:UC A courtesy copy of this report leger s been sent to the patient, SRC:UC Immature granulocytes [#/volume] in Blood by Automated count 0.0 x10E3/uL 0.0-0.1 [facility] ([facility]) SRC:UC A courtesy copy of this report leger s been sent to the patient, SRC:UC Hematology Comments: Laboratory test result [facility] ([facility]) SRC:UC A courtesy copy of this report leger s been sent to the patient, SRC:UC NRBC Laboratory test result [facility] ([facility]) SRC:UC A courtesy copy of this report leger s been sent to the patient, SRC:UC ID Date Data Source [id number] 11/06/2019 11:54:00 AM EDT [facility] ([facility]) Name Value Range Interpretation Code Description Data Lucia rce(s) Supporting Document(s) Prothrombin Time 10.0 sec 9.1-12.0 [facility] ( [facility]) SRC:UC A courtesy copy of this report leger s been sent to the patient, SRC:UC Inr 0.9 0.8-1.2 [facility] ([facility] [place] SRC:UC A courtesy copy of this report leger s been sent to the patient, SRC: ID Date Data Source [id number] 11/06/2019 11:54:00 AM EDT [facility] ([facility]) Name Value Range Interpretation Code Description Data Lucia rce(s) Supporting Document(s) Urine Culture, Routine Laboratory test result [facility] ([facility]) SRC:UC A courtesy copy of this report leger s been sent to the patient, SRC:UC Result 1 Laboratory test result [facility] ([facility]) SRC:UC A courtesy copy of this report leger s been sent to the patient, SRC:UC ID Date Data Source [id number] 11/06/2019 11:54:00 AM EDT [facility] ([facility] [place] Name Value Range Interpretation Code Description Data Lucia rce(s) Supporting Document(s) Specific [place] Laboratory test result 1.005-1.030 Abnormal (applies to non- numeric results) [facility] ([facility] [place] SRC:UC A courtesy copy of this report leger s been sent to the patient, SRC:UC Urine-Color Laboratory test result M [facility] ([facility] [place]) SRC:UC A courtesy copy of this report leger s been sent to the patient, SRC:UC pH 5.5 5.0-7.5 [facility] [place] SRC:UC A courtesy copy of this report leger s been sent to the patient, SRC:UC WBC Esterase Laboratory test result [facility] ([facility] [place]) SRC:UC A courtesy copy of this report leger s been sent to the patient, SRC:UC Appearance Laboratory test result [facility] ([facility] [place]) SRC:UC A courtesy copy of this report leger s been sent to the patient, SRC:UC Protein Laboratory test result [facility] ([facility] [facility] [place] SRC:UC A courtesy copy of this report leger s been sent to the patient, SRC:UC Glucose Laboratory test result Abnormal (applies to non -numeric results) [facility] [place]:UC A courtesy copy of this report leger s been sent to the patient, SRC:UC Ketones Laboratory test result ME DENT ([facility] [place]:UC A courtesy copy of this report leger s been sent to the patient, SRC:UC Occult Blood Laboratory test result [facility] ([facility] [place]:UC A courtesy copy of this report leger s been sent to the patient, SRC:UC Urobilinogen,Semi-Qn 0.2 mg/dL 0.2-1.0 MEDE NT ([facility] [place]:UC A courtesy copy of this report leger s been sent to the patient, SRC:UC Bilirubin Laboratory test result [facility] ([facility] [place] [facility]:UC A courtesy copy of this report leger s been sent to the patient, SRC:UC Microscopic Examination Laboratory test result [facility] ([facility] [place]C:UC A courtesy copy of this report leger s been sent to the patient, SRC:UC Nitrite, Urine Laboratory test result [facility] [place] [facility]:UC A courtesy copy of this report leger s been sent to the patient, SRC:UC WBC Laboratory test result 0-5 [facility] [place] [facility]:UC A courtesy copy of this report leger s been sent to the patient, SRC:UC Microscopic observation [Identifier] in Urine sediment by Light microscopy Laboratory test result [facility] [place] [facility]:UC A courtesy copy of this report leger s been sent to the patient, SRC:UC RBC Laboratory test result 0-2 [facility] [place] [facility]:UC A courtesy copy of this report leger s been sent to the patient, SRC:UC Epithelial Cells (non renal) Laboratory test result 0-10 [facility] ([facility]) SRC:UC A courtesy copy of this report leger s been sent to the patient, SRC:UC Casts Laboratory test result ME DENT ([facility]) SRC:UC A courtesy copy of this report leger s been sent to the patient, SRC:UC Cast Type Laboratory test result ME [facility] ([facility]) SRC:UC A courtesy copy of this report leger s been sent to the patient, SRC:UC Epithelial Cells (renal) Laboratory test result [facility] ([facility]) SRC: A courtesy copy of this report leger s been sent to the patient, SRC: Crystals Laboratory test result [facility] [place] [facility]: A courtesy copy of this report leger s been sent to the patient, SRC: Crystal Type Laboratory test result [facility] [place] SRC:UC A courtesy copy of this report leger s been sent to the patient, SRC:UC Mucus Threads Laboratory test result [facility] [place] SRC:UC A courtesy copy of this report leger s been sent to the patient, SRC: Bacteria Laboratory test result [facility] [place] [facility]: A courtesy copy of this report leger s been sent to the patient, SRC: Yeast Laboratory test result [facility] [place] SR[facility]: A courtesy copy of this report leger s been sent to the patient, SRC: Trichomonas Laboratory test result M EDENT ([facility] [place] SRC: A courtesy copy of this report leger s been sent to the patient, SRC: Comment Laboratory test result [facility] [place] [facility]: A courtesy copy of this report leger s been sent to the patient, SRC: ID Date Data Source [id number] 11/07/2019 04:05:00 AM EDT [facility] Name Value Range Interpretation Code Description Data Lucia rce(s) Supporting Document(s) WBC 7.6 x10E3/uL 3.4-10.8 [facility] RBC 4.34 x10E6/uL 4.14-5.80 [facility] Hemoglobin 14.2 g/dL 13.0-17.7 [facility] Hematocrit 42.2 % 37.5-51.0 [facility] MCV 97 fL 79-97 [facility] MCH 32.7 pg 26.6-33.0 [facility] MCHC 33.6 g/dL 31.5-35.7 [facility] RDW 12.7 % 11.6-15.4 [facility] Platelets 279 x10E3/uL 150-450 [facility] Neutrophils 69 % Not Estab. [facility] Lymphs 19 % Not Estab. [facility] Monocytes 10 % Not Estab. [facility] Eos 1 % Not Estab. [facility] Basos 1 % Not Estab. [facility] Neutrophils (Absolute) 5.2 x10E3/uL 1.4-7.0 [facility] Lymphs (Absolute) 1.4 x10E3/uL 0.7-3.1 [facility] Monocytes(Absolute) 0.8 x10E3/uL 0.1-0.9 [facility] Eos (Absolute) 0.1 x10E3/uL 0.0-0.4 [facility] Baso (Absolute) 0.1 x10E3/uL 0.0-0.2 [facility] Immature Granulocytes 0 % Not Estab. [facility] Immature Grans (Abs) 0.0 x10E3/uL 0.0-0.1 [facility] ID Date Data Source [id number] 11/07/2019 06:06:00 AM EDT [facility] Name Value Range Interpretation Code Description Data Lucia rce(s) Supporting Document(s) INR 0.9 0.8-1.2 [facility] Reference interval is for non-anticoagulated patients. Suggested INR therapeutic range for Vitamin K antagonist therapy: Standard Dose (moderate intensity therapeutic range): 2.0 - 3.0 Higher intensity therapeutic range 2.5 - 3.5 Prothrombin Time 10.0 sec 9.1-12.0 [facility] ID Date Data Source [id number] 11/07/2019 07:06:00 AM EDT [facility] Name Value Range Interpretation Code Description Data Lucia rce(s) Supporting Document(s) Specific [place] >=1.030 1.005-1.030 Abnormal (applies to non -numeric results) [facility] pH 5.5 5.0-7.5 [facility] Urine-Color Yellow Yellow [facility] Appearance Clear Clear [facility] WBC Esterase Negative Negative [facility] Protein Negative Negative/Trace [facility] Glucose 3+ Negative Abnormal (applies to non-numeric results ) [facility] Ketones Negative Negative [facility] Occult Blood Negative Negative [facility] Bilirubin Negative Negative [facility] Urobilinogen,Semi-Qn 0.2 mg/dL 0.2-1.0 [facility] Nitrite, Urine Negative Negative [facility] Microscopic Examination [facility] Microscopic follows if indicated. Microscopic Examination See below: [facility] ID Date Data Source [id number] 11/08/2019 01:05:00 AM EDT [facility] Name Value Range Interpretation Code Description Data Lucia rce(s) Supporting Document(s) Urine Culture, Routine Final report [facility] ID Date Data Source [id number] 11/07/2019 04:05:00 AM EDT [facility] Name Value Range Interpretation Code Description Data Lucia rce(s) Supporting Document(s) Glucose 190 mg/dL 65-99 Above high normal [facility] BUN 20 mg/dL 6-24 [facility] Creatinine 1.21 mg/dL 0.76-1.27 [facility] eGFR If NonAfricn Am 66 mL/min/1.73 >59 [facility] eGFR If Africn Am 76 mL/min/1.73 >59 [facility] BUN/Creatinine Ratio 17 9-20 [facility] Sodium 143 mmol/L 134-144 [facility] Potassium 5.0 mmol/L 3.5-5.2 [facility] Chloride 107 mmol/L 96-106 Above high normal [facility] Carbon Dioxide, Total 24 mmol/L 20-29 [facility] Calcium 9.6 mg/dL 8.7-10.2 [facility] ID Date Data Source [id number] 11/07/2019 07:06:00 AM EDT [facility] Name Value Range Interpretation Code Description Data Lucia rce(s) Supporting Document(s) WBC 0-5 /hpf 0 - 5 [facility] RBC None seen /hpf 0 - 2 [facility] Epithelial Cells (non renal) None seen /hpf 0 - 10 [facility] Bacteria None seen None seen/Few [facility] ID Date Data Source [id number] 11/08/2019 01:05:00 AM EDT [facility] Name Value Range Interpretation Code Description Data Lucia rce(s) Supporting Document(s) Result 1 No growth [facility] Procedure Social History Code Duration Value Status Description Data Source(s ) Tattoo/Piercing 12/07/2020 12:00:00 AM EDT Pierced ears completed Pi erced ears [facility] ([facility] Tattoo/Piercing 12/07/2020 12:00:00 AM EDT Tattoo completed Tatt oo [facility] ([facility]) ETOH Use 12/07/2020 12:00:00 AM EDT Denies alcohol use complete d Denies alcohol use [facility] Smoking 12/07/2020 12:00:00 AM EDT Patient has never smoked co mpleted Patient has never smoked [facility] Alcohol intake 11/22/2020 12:00:00 AM EDT Current non-d ignacia of alcohol (finding) completed Current non-drinker of alcohol (finding) [facility] Recreational Drug Use 09/14/2020 12:00:00 AM EDT Denies Drug Use co mpleted Denies Drug Use [facility] ([facility]) ETOH Use 09/14/2020 12:00:00 AM EDT Has consumed alcohol in the past completed Has consumed alcohol in the past [facility] ([facility]) sober x7 years Smokeless Tobacco 09/14/2020 12:00:00 AM EDT Current Smokeless T obacco User completed Current Smokeless Tobacco User [facility] ([facility] ) 1 can per day x40 years Smoking 09/14/2020 12:00:00 AM EDT Current smokless tobacco us er completed Current smokless tobacco user [facility] ([facility]) Alcohol intake 03/03/2020 12:00:00 AM EST No completed [facility] Cigarette pack-years 03/03/2020 12:00:00 AM EST UNK completed [facility] Cigarettes smoked current (pack per day) - Reported 03/03/19 12:00:00 AM EST UNK completed [facility] Smoking 03/03/2020 12:00:00 AM EST Former smoker completed Former smoker [facility] Alcohol intake 02/13/2020 12:00:00 AM EST No completed [facility] Cigarette pack-years 02/13/2020 12:00:00 AM EST UNK completed [facility] Cigarettes smoked current (pack per day) - Reported 02/13/20 12:00:00 AM EST UNK completed [facility] Smoking 02/13/2020 12:00:00 AM EST Former smoker completed Former smoker [facility] Smoking 02/01/2020 12:00:00 AM EST Patient is a former smoker completed Patient is a former smoker [facility] ([facility]) Smoking 12/31/2019 12:00:00 AM EST Former Cigarette Smoker com pleted Former Cigarette Smoker [facility] ([facility] [place] Vital Signs ID Date Data Source UNK Name Value Range Interpretation Code Description Data Source(s) Systolic blood pressure 134 mm[Hg] 134 mm[Hg] M EDENT ([facility]) Body weight 223.00 [lb_av] 223.00 [lb_av] MEDEN T ([facility]) Body weight 101.153 kg 101.153 kg [facility] Diastolic blood pressure 70 mm[Hg] 70 mm[Hg] [facility] ([facility]) Heart rate 80 /min 80 /min [facility] Body temperature 98.6 [degF] 98.6 [degF] [facility] ([facility]) Respiratory rate 16 /min 16 /min [facility] ( [facility]) Body height 71 [in_i] 71 [in_i] [facility] 5'11" Body mass index (BMI) [Ratio] 31.1 kg/m2 31.1 k g/m2 [facility] ([facility]) [place] body weight 172 [lb_av] 172 [lb_av] MEDEN T ([facility]) Body temperature 97.4 [degF] 97.4 [degF] [facility] ([facility]) Body height 72 [in_i] 72 [in_i] [facility]) 6'0" Body weight 227.00 [lb_av] 227.00 [lb_av] MEDEN T ([facility]) Systolic blood pressure 127 mm[Hg] 127 mm[Hg] M EDENT ([facility]) Heart rate 87 /min 87 /min [facility] Diastolic blood pressure 82 mm[Hg] 82 mm[Hg] [facility] ([facility]) Body mass index (BMI) [Ratio] 30.8 kg/m2 30.8 k g/m2 [facility] Systolic blood pressure 124 mm[Hg] 124 mm[Hg] [facility] Diastolic blood pressure 80 mm[Hg] 80 mm[Hg] [facility] Heart rate 84 /min 84 /min [facility] Body temperature 37.33 Mary 37.33 Mary [facility] Respiratory rate 18 /min 18 /min [facility] Body height 182.9 cm 182.9 cm [facility] Body weight 103.148 kg 103.148 kg [facility] Body mass index (BMI) [Ratio] 30.83 kg/m2 30.83 kg/m2 [facility] Oxygen saturation in Arterial blood by Pulse oximetry 94 % 94 % [facility] Diastolic blood pressure 72 mm[Hg] 72 mm[Hg] [facility] ([facility]) Heart rate 86 /min 86 /min [facility] Body temperature 98.5 [degF] 98.5 [degF] [facility] ([facility]) Respiratory rate 18 /min 18 /min [facility] ( [facility]) Body weight 222.00 [lb_av] 222.00 [lb_av] MEDEN T ([facility]) Body weight 100.699 kg 100.699 kg [facility] Body height 71 [in_i] 71 [in_i] [facility] 5'11" Body mass index (BMI) [Ratio] 31.0 kg/m2 31.0 k g/m2 [facility] ([facility]) [place] body weight 172 [lb_av] 172 [lb_av] MEDEN T ([facility]) Systolic blood pressure 132 mm[Hg] 132 mm[Hg] M EDENT ([facility]) Body temperature 98.6 [degF] 98.6 [degF] [facility] ([facility]) Respiratory rate 16 /min 16 /min [facility] ( [facility]) Body weight 232.38 [lb_av] 232.38 [lb_av] MEDEN T ([facility]) Body weight 105.405 kg 105.405 kg [facility] Systolic blood pressure 160 mm[Hg] 160 mm[Hg] M EDENT ([facility]) Diastolic blood pressure 80 mm[Hg] 80 mm[Hg] [facility] ([facility]) Body mass index (BMI) [Ratio] 32.4 kg/m2 32.4 k g/m2 [facility] ([facility]) Diastolic blood pressure 82 mm[Hg] 82 mm[Hg] [facility] ([facility]) [place] body weight 172 [lb_av] 172 [lb_av] MEDEN T ([facility]) Systolic blood pressure 140 mm[Hg] 140 mm[Hg] M EDENT ([facility]) Heart rate 84 /min 84 /min [facility] Body height 71 [in_i] 71 [in_i] [facility] 5'11" Body temperature 97.5 [degF] 97.5 [degF] [facility] ([facility]) Method: Tympanic Heart rate 79 /min 79 /min [employer] ([facility]) Pattern: Regular Oxygen saturation in Arterial blood by Pulse oximetry 97 % 97 % [facility] ([facility]) Room air Respiratory rate 14 /min 14 /min [facility] ([facility]) Pattern: Unlabored Diastolic blood pressure 78 mm[Hg] 78 mm[Hg] [facility] ([facility]) Patient Position: Sitting; Cuff Location : Left Arm; Cuff Size: Standard Body weight 229.2 [lb_av] 229.2 [lb_av] [facility] ([facility]) Body height 72 [in_us] 72 [in_us] [facility] ([facility]) Body mass index (BMI) [Ratio] 31.08 kg/m2 31.08 kg/m2 [facility] ([facility]) Systolic blood pressure 132 mm[Hg] 132 mm[Hg] A [employer] ([facility]) Patient Position: Sitting; Cuff Location : Left Arm; Cuff Size: Standard Body surface area Derived from formula 2.26 m2 2.26 m2 [facility] ([facility]) Heart rate 82 /min 82 /min [facility] Body temperature 97.7 [degF] 97.7 [degF] [facility] ([facility] ) Body height 72 [in_i] 72 [in_i] [facility] ([facility]) 6'0" Systolic blood pressure 120 mm[Hg] 120 mm[Hg] M ED[facility] ([facility] Body weight 242.00 [lb_av] 242.00 [lb_av] MED[facility] T ([facility] ) Diastolic blood pressure 72 mm[Hg] 72 mm[Hg] [facility] ([facility]) Systolic blood pressure 120 mm[Hg] 120 mm[Hg] M EDENT ([facility]) Diastolic blood pressure 72 mm[Hg] 72 mm[Hg] [facility] ([facility]) Heart rate 82 /min 82 /min [facility] Body height 72 [in_i] 72 [in_i] [facility] 6'0" Body weight 242.00 [lb_av] 242.00 [lb_av] MED[facility] T ([facility] ) Body mass index (BMI) [Ratio] 32.8 kg/m2 32.8 k g/m2 [facility] ([facility] ) Body temperature 97.7 [degF] 97.7 [degF] [facility] ([facility] Body mass index (BMI) [Ratio] 32.8 kg/m2 32.8 k g/m2 [facility] ([facility] ) Systolic blood pressure 120 mm[Hg] 120 mm[Hg] M EDENT ([facility]) Respiratory rate 16 /min 16 /min [facility] ( [facility]) Body weight 230.00 [lb_av] 230.00 [lb_av] MEDEN T ([facility]) Body weight 104.328 kg 104.328 kg [facility] Body height 71 [in_i] 71 [in_i] [facility] 5'11" Body mass index (BMI) [Ratio] 32.1 kg/m2 32.1 k g/m2 [facility] ([facility]) [place] body weight 172 [lb_av] 172 [lb_av] MEDEN T ([facility]) Diastolic blood pressure 80 mm[Hg] 80 mm[Hg] [facility] ([facility]) Heart rate 80 /min 80 /min [facility] Body temperature 98.1 [degF] 98.1 [degF] [facility] ([facility]) Body weight 104.781 kg 104.781 kg [facility] Systolic blood pressure 104 mm[Hg] 104 mm[Hg] [facility] Diastolic blood pressure 62 mm[Hg] 62 mm[Hg] [facility] Heart rate 79 /min 79 /min [facility] Body temperature 36.44 Mary 36.44 Mary [facility] Respiratory rate 20 /min 20 /min [facility] Body height 182.9 cm 182.9 cm [facility] Body mass index (BMI) [Ratio] 31.32 kg/m2 31.32 kg/m2 [facility] Oxygen saturation in Arterial blood by Pulse oximetry 96 % 96 % [facility] Diastolic blood pressure 77 mm[Hg] 77 mm[Hg] [facility] Systolic blood pressure 145 mm[Hg] 145 mm[Hg] [facility] Heart rate 88 /min 88 /min [facility] Body temperature 36.78 Mary 36.78 Mary [facility] Respiratory rate 16 /min 16 /min [facility] Oxygen saturation in Arterial blood by Pulse oximetry 96 % 96 % [facility] Body height 182.9 cm 182.9 cm [facility] Body weight 104.8 kg 104.8 kg [facility] Body mass index (BMI) [Ratio] 31.33 kg/m2 31.33 kg/m2 [facility] Systolic blood pressure 118 mm[Hg] 118 mm[Hg] Mahad HENSON ([facility], [facility]) Diastolic blood pressure 78 mm[Hg] 78 mm[Hg] [facility] ([facility]) Heart rate 84 /min 84 /min [facility] ([facility]) Respiratory rate 18 /min 18 /min [facility] ( [facility]) Oxygen saturation in Arterial blood by Pulse oximetry 97 % 97 % [facility] ([facility]) Body temperature 98.8 [degF] 98.8 [degF] [facility] ([facility], [facility]) Body weight 230.00 [lb_av] 230.00 [lb_av] MEDEN T ([facility]) Body height 73 [in_i] 73 [in_i] [facility] ([facility]) 6'1" Body mass index (BMI) [Ratio] 30.3 kg/m2 30.3 k g/m2 [facility] ([facility]) Heart rate 87 /min 87 /min [facility] ([facility] [place] Diastolic blood pressure 76 mm[Hg] 76 mm[Hg] [facility] [place] Body height 72 [in_i] 72 [in_i] [facility] ([facility] [place] 6'0" Body weight 235.00 [lb_av] 235.00 [lb_av] [facility] T ([facility] [place] Body weight 106.596 kg 106.596 kg [facility] [place] Body mass index (BMI) [Ratio] 31.9 kg/m2 31.9 k g/m2 [facility] [place] Systolic blood pressure 127 mm[Hg] 127 mm[Hg] M ED[facility] ([facility] [place] Body mass index (BMI) [Ratio] 32.7 kg/m2 32.7 k g/m2 [facility] ([facility]) Body temperature 98.1 [degF] 98.1 [degF] [facility] ([facility]) Heart rate 92 /min 92 /min [facility]) Systolic blood pressure 122 mm[Hg] 122 mm[Hg] M EDENT ([facility]) Diastolic blood pressure 86 mm[Hg] 86 mm[Hg] [facility] ([facility]) Respiratory rate 16 /min 16 /min [facility] ( [facility]) Body weight 234.12 [lb_av] 234.12 [lb_av] MEDEN T ([facility]) Body weight 106.199 kg 106.199 kg [facility] Body height 71 [in_i] 71 [in_i] [facility] 5'11" [place] body weight 172 [lb_av] 172 [lb_av] MEDEN T ([facility]) Respiratory rate 14 /min 14 /min [facility] ([facility]) Pattern: Unlabored Body temperature 96.6 [degF] 96.6 [degF] [facility] ([facility]) Method: Tympanic Oxygen saturation in Arterial blood by Pulse oximetry 96 % 96 % [facility] ([facility]) Room air Body height 71.5 [in_us] 71.5 [in_us] [facility] ([facility]) Heart rate 85 /min 85 /min [facility] ([facility]) Pattern: Regular Body mass index (BMI) [Ratio] 32.46 kg/m2 32.46 kg/m2 [facility] ([facility]) Body surface area Derived from formula 2.27 m2 2.27 m2 [facility] ([facility]) Body weight 236 [lb_av] 236 [lb_av] [facility] ([facility]) Systolic blood pressure 124 mm[Hg] 124 mm[Hg] M EDENT ([facility]) Diastolic blood pressure 84 mm[Hg] 84 mm[Hg] [facility] ([facility]) Respiratory rate 16 /min 16 /min [facility] ( [facility]) Body weight 235.00 [lb_av] 235.00 [lb_av] MEDEN T ([facility]) Body weight 106.596 kg 106.596 kg [facility] Body height 71 [in_i] 71 [in_i] [facility] 5'11" Body mass index (BMI) [Ratio] 32.8 kg/m2 32.8 k g/m2 [facility] ([facility]) [place] body weight 172 [lb_av] 172 [lb_av] MEDEN T ([facility]) Oxygen saturation in Arterial blood by Pulse oximetry 98 % 98 % [facility] ([facility]) Heart rate 82 /min 82 /min [facility] ([facility]) Body temperature 98.9 [degF] 98.9 [degF] [facility] ([facility]) ID Date Data Source [id number] 11/20/2019 08:24:00 AM EDT [facility] Name Value Range Interpretation Code Description Data Source(s) HEIGHT 182.88 cm 182.88 cm [facility] WEIGHT RECORDED 104.719422 kg 104.458575 kg [facility] HEIGHT 182.88 cm 182.88 cm [facility] WEIGHT RECORDED 106.848967 kg 106.818941 kg [facility] Patient Treatment Plan of Care Planned Activity Planned Date Details Description Data Source (s) perflutren lipid microsphere (DEFINAmbature) 8.476 mg in 10 mL NS IV 11/22/2020 01:34:13 PM EDT [facility] Nitroglycerin 0.4 MG Sublingual Tablet 11/22/2020 12:00:00 AM EDT [facility] Stiolto Respimat 2.5-2.5 MCG/ACT AERS 10/18/2020 12:00:00 AM EDT [facility] 200 ACTUAT Albuterol 0.09 MG/ACTUAT Metered Dose Inhal er [ProAir] 09/15/2020 12:00:00 AM EDT [facility] Albuterol 0.83 MG/ML Inhalant Solution 09/15/2020 12:00:00 AM EDT [facility] ([facility]) clopidogrel 75 MG Oral Tablet 09/09/2020 12:00:00 AM EDT [facility] nebivolol 10 MG Oral Tablet 09/09/2020 12:00:00 AM EDT [facility] Stiolto Respimat 2.5-2.5 MCG/ACT Inhalation Aerosol So lution 06/03/2020 12:00:00 AM EDT [facility] ([facility] nebivolol 10 MG Oral Tablet 03/03/2020 12:00:00 AM EST [facility] empagliflozin 25 MG / Linagliptin 5 MG Oral Tablet [Gl yxambi] 02/19/2020 12:00:00 AM EST [facility] 30 ACTUAT umeclidinium 0.0625 MG/ACTUAT / vilanterol 0.025 MG/ACTUAT Dry Powder Inhaler [Anoro] 02/19/2020 12:00:00 AM EST [facility] 24 HR metoprolol succinate 50 MG Extended Release Oral Tablet 02/14/2020 12:00:00 AM EST [facility] clopidogrel 75 MG Oral Tablet 02/14/2020 12:00:00 AM EST [facility] 30 ACTUAT umeclidinium 0.0625 MG/ACTUAT / vilanterol 0.025 MG/ACTUAT Dry Powder Inhaler [Anoro] 01/21/2020 12:00:00 AM EST [facility] ([facility]) Nitroglycerin 0.4 MG Sublingual Tablet 03/25/2019 12:00:00 AM EST [facility] Metoprolol Tartrate 25 MG Oral Tablet 03/25/2019 12:00:00 AM EST [facility] Bacitracin 0.5 UNT/MG / Neomycin 0.0035 MG/MG / Polymyxin B 10 UNT/MG Topical Ointment 03/06/2019 12:00:00 AM EST [facility] empagliflozin 25 MG Oral Tablet [Jardiance] 10/09/2018 12:00:00 AM EDT [facility] Tiotropium [place] Monohydrate (SPIRIVA HANDIHALER [place]) [facility] Betamethasone 0.5 MG/ML Topical Cream [facility] linaclotide 0.145 MG Oral Capsule [facility] Acetaminophen 325 MG / Hydrocodone Bitartrate 10 MG Oral Tablet [facility] [facility] ACTUAT Fluticasone propionate 0.5 MG/ ACTUAT / salmeterol 0.05 MG/ACTUAT Dry Powder Inhaler [facility] Linagliptin 5 MG Oral Tablet [facility] 7 ACTUAT umeclidinium 0.0625 MG/ACTUAT Dry Powder Inhaler [facility] sitagliptin 50 MG Oral Tablet [facility]
[2020-12-27 16:23] LABS: BASO % 0.1 % (0.0-1.0); HEMOGLOBIN 14.8 g/dl (13.5-17.5); LYMPH # 0.5 10^3/uL (1.5-5.0); LYMPH % 6.9 % (24.0-44.0); MEAN CORPUSCULAR HGB CONC 32.9 g/dl (32.0-36.5); MEAN CORPUSCULAR VOLUME 97.4 fl (80.0-96.0); MONO # 0.5 10^3/uL (0.0-0.8); MONO % 6.7 % (2.0-8.0); NEUTROPHILS # 6.5 10^3/uL (1.5-8.5); PLATELET COUNT, AUTOMATED 314 10^3/uL (150-450); RED BLOOD COUNT 4.62 10^6/uL (4.30-6.10); WHITE BLOOD COUNT 7.6 10^3/uL (4.0-10.0)
--- NOTE | 2020-12-27 16:23 | REP ---
INDICATION: DYSPNEA/COUGH. COMPARISON: 08/13/2013 the latest prior also portable TECHNIQUE: Portable FINDINGS: The technique utilized in obtaining the radiograph has magnified the cardiac silhouette and accentuated the interstitial markings. The cardiomediastinal silhouette is within normal limits. Patchy bilateral airspace and interstitial opacities are seen and heaviest in the left lower lobe. There are no gross pleural effusions. The osseous structures are within normal limits. IMPRESSION: Abnormal opacities as described above. Asymmetric pulmonary edema versus pneumonia. <Electronically signed by Toney Upton > 12/27/20 [id number]
--- OUTSIDE RECORDS SUMMARY | 2020-12-27 16:51 | CCD ---
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 Name Role Phone Carina GOTTLIEB MD Unavailable [...] Isabel EDWARDS MD Unavailable Unavailable Mahoney, Suze IDENTITY MANAGEMENT CONSULTANT Unavailable Unavailable Mahoney, Suze IDENTITY MANAGEMENT CONSULTANT Unavailable Unavailable Mahoney, Suze IDENTITY MANAGEMENT CONSULTANT Unavailable Unavailable Mahoney, Suze IDENTITY MANAGEMENT CONSULTANT Unavailable Unavailable Mahoney, Suze IDENTITY MANAGEMENT CONSULTANT Unavailable Unavailable Mahoney, Suze IDENTITY MANAGEMENT CONSULTANT Unavailable Unavailable Mahoney, Suze IDENTITY MANAGEMENT CONSULTANT Unavailable Unavailable Mahoney, Suze IDENTITY MANAGEMENT CONSULTANT Unavailable Unavailable Mahoney, Suze IDENTITY MANAGEMENT CONSULTANT Unavailable Unavailable Mahoney, Suze IDENTITY MANAGEMENT CONSULTANT Unavailable Unavailable Mahoney, Suze IDENTITY MANAGEMENT CONSULTANT Unavailable Unavailable Mahoney, Suze IDENTITY MANAGEMENT CONSULTANT Unavailable Unavailable Mahoney, Suze IDENTITY MANAGEMENT CONSULTANT Unavailable Unavailable CEMER, ADNAN MD Unavailable Unavailable [...] Unavailable CEMERELANA MD Unavailable Unavailable ZABOROWSKI, J DOUNG IDENTITY MANAGEMENT CONSULTANT Unavailable Unavailable ZABOROWSKI, J DUONG IDENTITY MANAGEMENT CONSULTANT Unavailable Unavailable ZABOROWSKI, J DUONG IDENTITY MANAGEMENT CONSULTANT Unavailable Unavailable ZABOROWSKI, J DUONG IDENTITY MANAGEMENT CONSULTANT Unavailable Unavailable ZABOROWSKI, J DUONG IDENTITY MANAGEMENT CONSULTANT Unavailable Unavailable ZABOROWSKI, J DUONG IDENTITY MANAGEMENT CONSULTANT Unavailable Unavailable ZABOROWSKI, J DUONG IDENTITY MANAGEMENT CONSULTANT Unavailable Unavailable ZABOROWSKI, J DUONG IDENTITY MANAGEMENT CONSULTANT Unavailable Unavailable ZABOROWSKI, J DUONG IDENTITY MANAGEMENT CONSULTANT Unavailable Unavailable ZABOROWSKI, J DUONG IDENTITY MANAGEMENT CONSULTANT Unavailable Unavailable ZABOROWSKI, J DUONG IDENTITY MANAGEMENT CONSULTANT Unavailable Unavailable ZABOROWSKI, J DUONG IDENTITY MANAGEMENT CONSULTANT Unavailable Unavailable ZABOROWSKI, J DUONG IDENTITY MANAGEMENT CONSULTANT Unavailable Unavailable ZABOROWSKI, J DUONG IDENTITY MANAGEMENT CONSULTANT Unavailable Unavailable ZABOROWSKI, J DUONG IDENTITY MANAGEMENT CONSULTANT Unavailable Unavailable ZABOROWSKI, J DUONG IDENTITY MANAGEMENT CONSULTANT Unavailable Unavailable ZABOROWSKI, J DUONG IDENTITY MANAGEMENT CONSULTANT Unavailable Unavailable ZABOROWSKI, J DUONG IDENTITY MANAGEMENT CONSULTANT Unavailable Unavailable ZABOROWSKI, J DUONG IDENTITY MANAGEMENT CONSULTANT Unavailable Unavailable ZABOROWSKI, J DUONG IDENTITY MANAGEMENT CONSULTANT Unavailable Unavailable ZABOROWSKI, J DUONG IDENTITY MANAGEMENT CONSULTANT Unavailable Unavailable ZABOROWSKI, J DUONG IDENTITY MANAGEMENT CONSULTANT Unavailable Unavailable ZABOROWSKI, J DUONG IDENTITY MANAGEMENT CONSULTANT Unavailable Unavailable ZABOROWSKI, J DUONG IDENTITY MANAGEMENT CONSULTANT Unavailable Unavailable ZABOROWSKI, J DUONG IDENTITY MANAGEMENT CONSULTANT Unavailable Unavailable ZABOROWSKI, J DUONG IDENTITY MANAGEMENT CONSULTANT Unavailable Unavailable ZABOROWSKI, J DUONG IDENTITY MANAGEMENT CONSULTANT Unavailable Unavailable ZABOROWSKI, J DUONG IDENTITY MANAGEMENT CONSULTANT Unavailable Unavailable ZABOROWSKI, J DUONG IDENTITY MANAGEMENT CONSULTANT Unavailable Unavailable ZABOROWSKI, J DUONG IDENTITY MANAGEMENT CONSULTANT Unavailable Unavailable ZABOROWSKI, J DUONG IDENTITY MANAGEMENT CONSULTANT Unavailable Unavailable ZABOROWSKI, J DUONG IDENTITY MANAGEMENT CONSULTANT Unavailable Unavailable ZABOROWSKI, J DUONG IDENTITY MANAGEMENT CONSULTANT Unavailable Unavailable ZABOROWSKI, J DUONG IDENTITY MANAGEMENT CONSULTANT Unavailable Unavailable ZABOROWSKI, J DUONG IDENTITY MANAGEMENT CONSULTANT Unavailable Unavailable ZABOROWSKI, J DUONG IDENTITY MANAGEMENT CONSULTANT Unavailable Unavailable ZABOROWSKI, J DUONG IDENTITY MANAGEMENT CONSULTANT Unavailable Unavailable ZABOROWSKI, J DUONG IDENTITY MANAGEMENT CONSULTANT Unavailable Unavailable ZABOROWSKI, J DUONG IDENTITY MANAGEMENT CONSULTANT Unavailable Unavailable ZABOROWSKI, J DUONG IDENTITY MANAGEMENT CONSULTANT Unavailable Unavailable ZABOROWSKI, J DUONG IDENTITY MANAGEMENT CONSULTANT Unavailable Unavailable ZABOROWSKI, J DUONG IDENTITY MANAGEMENT CONSULTANT Unavailable Unavailable ZABOROWSKI, J DUONG IDENTITY MANAGEMENT CONSULTANT Unavailable Unavailable ZABOROWSKI, J DUONG IDENTITY MANAGEMENT CONSULTANT Unavailable Unavailable ZABOROWSKI, J DUONG IDENTITY MANAGEMENT CONSULTANT Unavailable Unavailable ZABOROWSKI, J DUONG IDENTITY MANAGEMENT CONSULTANT Unavailable Unavailable ZABOROWSKI, J DUONG IDENTITY MANAGEMENT CONSULTANT Unavailable Unavailable ZABOROWSKI, J DUONG IDENTITY MANAGEMENT CONSULTANT Unavailable Unavailable MINCOLLA, Isabel EDWARDS MD Unavailable [...] Isabel EDWARDS MD Unavailable Unavailable MINCOLLA, Isabel DEWARDS MD Unavailable Unavailable MINCOLLA, Isabel EDWARDS MD [...] Unavailable MINCOLLA, Isabel EDWARDS MD Unavailable Unavailable [place], D Selina IDENTITY MANAGEMENT CONSULTANT Unavailable Unavailable [place], D Selina IDENTITY MANAGEMENT CONSULTANT Unavailable Unavailable [place], D Selina IDENTITY MANAGEMENT CONSULTANT Unavailable Unavailable Chiara, D Selina IDENTITY MANAGEMENT CONSULTANT Unavailable Unavailable Chiara, D Selina IDENTITY MANAGEMENT CONSULTANT Unavailable Unavailable Chiara, D Selina IDENTITY MANAGEMENT CONSULTANT Unavailable Unavailable [place], D Selina IDENTITY MANAGEMENT CONSULTANT Unavailable Unavailable Chiara, D Selina IDENTITY MANAGEMENT CONSULTANT Unavailable Unavailable Chiara, D Selina IDENTITY MANAGEMENT CONSULTANT Unavailable Unavailable Chiara, D Selina IDENTITY MANAGEMENT CONSULTANT Unavailable Unavailable [place], D Selina IDENTITY MANAGEMENT CONSULTANT Unavailable Unavailable [place], D Selina IDENTITY MANAGEMENT CONSULTANT Unavailable Unavailable [place], D Selina IDENTITY MANAGEMENT CONSULTANT Unavailable Unavailable Chiara, D Selina IDENTITY MANAGEMENT CONSULTANT Unavailable Unavailable [place], D Selina IDENTITY MANAGEMENT CONSULTANT Unavailable Unavailable Chiara, D Selina IDENTITY MANAGEMENT CONSULTANT Unavailable Unavailable Chiara, D Selina IDENTITY MANAGEMENT CONSULTANT Unavailable Unavailable Chiara, D Selina IDENTITY MANAGEMENT CONSULTANT Unavailable Unavailable Chiara, D Selina IDENTITY MANAGEMENT CONSULTANT Unavailable Unavailable Chiara, D Selina IDENTITY MANAGEMENT CONSULTANT Unavailable Unavailable [place], D Selina IDENTITY MANAGEMENT CONSULTANT Unavailable Unavailable [place], D Selina IDENTITY MANAGEMENT CONSULTANT Unavailable Unavailable Chiara, D Selina IDENTITY MANAGEMENT CONSULTANT Unavailable Unavailable [place], D Selina IDENTITY MANAGEMENT CONSULTANT Unavailable Unavailable Chiara, D Selina IDENTITY MANAGEMENT CONSULTANT Unavailable Unavailable [place], D Selina IDENTITY MANAGEMENT CONSULTANT Unavailable Unavailable [place], D Selina IDENTITY MANAGEMENT CONSULTANT Unavailable Unavailable [place], D Selina IDENTITY MANAGEMENT CONSULTANT Unavailable Unavailable Gris, Sharmin Harris MD Unavailable [...] DieterzSharmin carpenter MD Unavailable Unavailable Odalyshamee, Sharmin Harris MD Unavailable Unavailable Gris, Sharmin Harris MD Unavailable Unavailable Grsi, Sharmin Harris MD Unavailable Unavailable Gris, Sharmin [...] Sharmin Harris MD Unavailable Unavailable Salzhauer, Sharmin aHrris MD Unavailable Unavailable Salzhauer, Sharmin Harris MD [...] is protected by Article 27-F of the [facility] Public Health law. If you continue you may have access to information: Regarding HIV / AIDS; Provided by facilities licensed or operated by the [facility] Office of Mental Health; or Provided by the [facility] Office for People With Developmental Disabilities. If such information is present, then the following [facility] mandated warning applies: This information has been [...] law may result in a fine or long-term sentence or both. A general authorization for the release of medical or other information is NOT sufficient authorization for further disc losure. Advance Directives Directive Description [employer] French Drawer Status Observation Descr iption Data Source(s) 50414-1 HIPAA - Effective on 12/02/19. Expiration date unspecified. Scanned Document is available upon request. Phong Ribeiro completed [facility] ([facility]) 50642-1 HIPAA - Effective on 12/02/19. Expiration date unspecified. Scanned Document is available upon request. Phong Ribeiro completed [facility] ([facility]) Allergies and Adverse Reactions Type Description Substance Reaction Status Data Source(s ) Drug allergy tamsulosin tamsulosin Rash [facility] Drug allergy sertraline sertraline suicidial thought [facility] Family History Family Member Name Family Member Gender Family Member Status Date o f Status Description Data Source(s) Unknown Male Problem [facility] ([facility] Unknown Male Problem [facility] ([facility]) () Unknown Unknown Problem [facility] ([facility] Unknown Unknown Problem [facility] ([facility]) Encounters Encounter Providers Location Date Indications Data Source(s ) Outpatient Attender: ZANE GOTTLIEB MD Main Office 12/15/2020 09:30:00 AM EDT [facility] ([facility]) Outpatient Attender: Yamile DELONG [facility] 5 11/26 10:00:00 AM EDT [facility] ([facility] Outpatient Attender: DUONG BALL NP [facility] 12:00:00 AM EDT - 11/22/2020 01:39:52 PM EDT [facility] <td><content ID="_[id number]">Medication Order</content>
<content><content styleCode="xSecondary xLabel">Encounter Diagnosis</content>: <content ID="_[id number]" styleCode="xSecondary">COPD (CHRONIC OBSTRUCTIVE PULMONARY DISEASE)</content></content></td><td><content styleCode="xSecondary">15-Sep-2020 10:06 </content><content styleCode="xLabel xSecondary"> To </content><content styleCode="xSecondary">15-Sep-2020 10:08</content>
<content styleCode="xSecondary">[facility]ulmonary [facility] Office</content></td><td></td>Medication Order [facility] Office 09/15/2020 10:06:21 AM EDT - 09/15/2020 10:08:51 AM EDT COPD (CHRONIC OBSTRUCTIVE PULMONARY DISEASE) [facility] ([facility]) COPD (CHRONIC OBSTRUCTIVE PULMONARY DISE ASE) Outpatient Attender: ZANE GOTTLIEB MD Main Office 09/14/2020 08:45:00 AM EDT [facility] ([facility]) Outpatient Attender: ZANE GOTTLIEB MD Main Office 06/14/2020 02:30:00 PM EDT [facility] ([facility]) <td><content ID="_[id number]">Office Visit</content>
<content><content styleCode="xLabel xSecondary">Encounter Reason</content>: <content ID="_[id number]" styleCode="xSecondary">COPD - The primary physician is Dr. [...] quit).</content></content>
<content><content styleCode="xSecondary xLabel"> Encounter Diagnosis</content>: <content ID="_[id number]" styleCode="xSecondary">COPD (CHRONIC OBSTRUCTIVE PULMONARY DISEASE)</content><content styleCode="xSecondary">, </content><content [id number]" styleCode="xSecondary">PULMONARY NODULE</content></content></td><td><content styleCode="xSecondary">03-Jun-2020 13:15 </content><content styleCode="xLabel xSecondary"> To </content><content styleCode="xSecondary">03-Jun-2020 13:31</content>
<content styleCode="xSecondary">Pulmonary [facility] Office</content></td><td></td>[facility]patient [facility] 06/03/2020 01:15:00 PM EDT - [...] NODULECOPD (CHRONIC OBSTRUCTIVE PULMONARY DISEASE) [facility] ([facility]) COPD - The primary physician [...] Javed MD 06/03/2020 08:08: 11 AM EDT [facility] Outpatient Attender: Selina Guadarrama NP [facility] 5 03/18/2020 0 7:20:00 AM EST [facility] ([facility] Outpatient Attender: JERRY PATEL MD Main Office 03/15/2020 09:00:00 AM EST [facility] Outpatient Attender: DUONG BALL NP [facility] 07/2020 12:00:00 AM EST - 03/03/2020 09:19:20 AM EST [facility] Inpatient Attender: Noel Henson MDAdmitter: Noel knapp MD [facility] 02/11/2020 05:24:00 PM EST - 02/13/2020 01:35:00 PM EST [facility] Patient discharged. Outpatient Attender: Suze Perry efraín 02/01/2020 10:20:00 AM EST [facility] ([facility] Outpatient Attender: CHRIS BLAKE MD 01:59:00 PM EST - 01/26/2020 02:00:00 PM EST PRE-OP N52.31 [facility] PRE-OP N52.31 Patient discharged. Outpatient Attender: CHRIS BLAKE MD 12:00:00 AM EST - 01/26/2020 11:59:00 PM EST COVID TESTING [facility] COVID TESTING Patient discharged. Medication Order<td><content ID="_[id number]">Medication Order</content>
<content><content styleCode="xSecondary xLabel">Encounter Diagnosis</content>: <content ID="_[id number]" styleCode="xSecondary">COPD (CHRONIC OBSTRUCTIVE PULMONARY DISEASE)</content></content></td><td><content styleCode="xSecondary">21-Jan-2020 11:34 </content><content styleCode="xLabel xSecondary"> To </content><content styleCode="xSecondary">21-Jan-2020 11:42</content>
<content styleCode="xSecondary">[facility]</content></td><td></td> [facility] 01/21/2020 11:34:20 AM EST - 01/21/2020 11:42:26 AM EST COPD (CHRONIC OBSTRUCTIVE PULMONARY DISEASE) [facility] ([facility]) COPD (CHRONIC OBSTRUCTIVE PULMONARY DISE ASE) Preadmit Attender: CHRIS Tobin DAdmitter: JERRY PATEL MDReferrer: CHRIS BLAKE MD 01/05/2020 07:45:00 AM EST ERECTILE DYSF UNCTION FOLLOWING RADICAL PROSTATECTO [facility] ERECTILE DYSFUNCTION FOLLOWING RADICAL P ROSTATECTO Admission cancelled. Disregard status an d admitted date. Outpatient Attender: Steven Landry MD [facility] 12/26/2019 09:15:00 AM EDT [facility] ([facility] Outpatient Attender: GUANACO LONG MD [facility] 12/16/2019 03:30:00 PM EDT [facility] ([facility] Outpatient Attender: JERRY PATEL MD Main Office 12/12/2019 11:00:00 AM EDT [facility] ([facility]) Outpatient<td><content [id number]">Office Visit</content>
<content><content styleCode="xLabel xSecondary">Encounter Reason</content>: <content [id number]" styleCode="xSecondary">COPD - The primary physician is Dr. [...] (failed a fit test at his prior work-[employer] a [employer])-before covid, couldn't walk around the house.). The episodes occur daily. The patient describes this as severe and worsening. Symptoms are exacerbated by activity. Symptoms are relieved by inhaler use and use of a nebulizer. Associated symptoms do not include fever, weakness, hemoptysis, upper respiratory infection symptoms or chest pain.</content></content>
<content><content styleCode="xSecondary xLabel">Encounter Diagnosis</content>: <content ID="_[id number]" styleCode="xSecondary">COPD (CHRONIC OBSTRUCTIVE PULMONARY DISEASE)</content><content styleCode="xSecondary">, </content><content ID="_[id number]" styleCode="xSecondary">ASBESTOS EXPOSURE</content><content styleCode="xSecondary">, </content><content [id number]" styleCode="xSecondary">SLEEP APNEA</content><content styleCode="xSecondary">, </content><content ID="_[id number]" styleCode="xSecondary">OBESITY</content><content styleCode="xSecondary">, </content><content [id number]" styleCode="xSecondary">PROSTATE CA</content><content styleCode="xSecondary">, </content><content [id number]" styleCode="xSecondary">MYOCARDIAL INFARCT</content><content styleCode="xSecondary">, </content><content [id number]" styleCode="xSecondary">HYPERLIPIDEMIA</content><content styleCode="xSecondary">, </content><content [id number]" styleCode="xSecondary">HYPERTENSION</content><content styleCode="xSecondary">, </content><content [id number]" styleCode="xSecondary">DIABETES MELLITUS, TYPE 2</content><content styleCode="xSecondary">, </content><content [id number]" styleCode="xSecondary">CAD (CORONARY ARTERY DISEASE)</content><content styleCode="xSecondary">, </content><content [id number]" styleCode="xSecondary">HODGKIN'S DISEASE</content></content></td><td><content styleCode="xSecondary">04-Dec-2019 14:45 </content><content styleCode="xLabel xSecondary"> To </content><content styleCode="xSecondary">04-Dec-2019 15:05</content>
<content styleCode="xSecondary">[facility]</content></td><td></td> [facility] 12/04/2019 02:45:00 PM EDT - [...] a fit test at his prior work- [employer] a [employer])-before covid, couldn't walk around [...] (failed a fit test at his prior work-[employer])-before covid, couldn't walk around the house.). The [...] COPD (CHRONIC OBSTRUCTIVE PULMONARY DISE ASE) <td><content [id number]">Historical Summary</content></td><td><content styleCode="xSecondary">04-Dec-2019 14:45 </content><content styleCode="xLabel xSecondary"> To </content><content styleCode="xSecondary">28-Nov-2019 12:33</content>
<content styleCode="xSecondary">[facility]</content></td><td></td>Historical Summary [facility] Office 12/04/2019 02:45:00 PM EDT - 11/28/2019 12:33:13 PM EDT [facility] ([facility]) <td><content [id number]">Radiology</content>
<content><con tent styleCode="xSecondary xLabel">Encounter Diagnosis</content>: <content [id number]" styleCode="xSecondary">ASBESTOS EXPOSURE</content></content></td><td><content styleCode="xSecondary">02-Dec-2019 9:15 </content><content styleCode="xLabel xSecondary"> To </content><content styleCode="xSecondary">02-Dec-2019 8:53</content>
<content styleCode="xSecondary">Pulmonary [facility]</content></td><td></td>Radiology [facility] Office 12/02/2019 09:15:00 AM EDT - 12/02/2019 08:53:09 AM EDT ASBESTOS EXPOSURE [facility] ([facility]) ASBESTOS EXPOSURE Outpatient Referrer: Jerry Javed MD 12/02/2019 08:33: 49 AM EDT [facility] <td><content ID="_[id number]">PFT Testing</content>
<content><content styleCode="xSecondary xLabel">Encounter Diagnosis</content>: <content [id number]" styleCode="xSecondary">COPD (CHRONIC OBSTRUCTIVE PULMONARY DISEASE)</content></content></td><td><content styleCode="xSecondary">02-Dec-2019 8:30 </content><content styleCode="xLabel xSecondary"> To </content><content styleCode="xSecondary">02-Dec-2019 8:53</content>
<content styleCode="xSecondary">[facility]</content></td><td></td>PFT Testing [facility] Office 12/02/2019 08:30:00 AM EDT - 12/02/2019 08:53:33 AM EDT COPD (CHRONIC OBSTRUCTIVE PULMONARY DISEASE) [facility] ([facility]) COPD (CHRONIC OBSTRUCTIVE PULMONARY DISE ASE) Outpatient<td><content [id number]">Nurse Visit</content>
<content><content styleCode="xSecondary xLabel">Encounter Diagnosis</content>: <content ID="_[id number]" styleCode="xSecondary">COPD (CHRONIC OBSTRUCTIVE PULMONARY DISEASE)</content><content styleCode="xSecondary">, </content><content [id number]" styleCode="xSecondary">EXPOSURE TO SARS-ASSOCIATED CORONAVIRUS</content></content></td><td><content styleCode="xSecondary"> 28-Nov-2019 10:30 </content><content styleCode="xLabel xSecondary"> To </content><content styleCode="xSecondary">28-Nov-2019 16:22</content>
<content styleCode="xSecondary">Pulmonary [facility]</content></td><td></td> [facility] 11/28/2019 10:30:00 AM EDT - 11/28/2019 04:22:58 PM EDT EXPOSURE TO SARS-ASSOCIATED CORONAVIRUSCOPD (CHRONIC OBSTRUCTIVE PULMONARY DISEASE) [facility] ([facility]) EXPOSURE TO SARS-ASSOCIATED CORONAVIRUS COPD (CHRONIC OBSTRUCTIVE PULMONARY DISE ASE) Outpatient Attender: CHRIS Tobin DAdmitter: JERRY PATEL MDConsultant: ELANA MESSER MD 11/17/2019 12:19:00 AM EDT - 11/17/2019 12:35:00 PM EDT PHIMOSIS [facility] PHIMOSIS Patient discharged. Outpatient Attender: CHRIS BLAKE MD 09:30:00 AM EDT - 11/12/2019 09:31:00 AM EDT COVID TESTING [facility] COVID TESTING Patient discharged. Outpatient Attender: Jerry Javed MDReferrer: JERRY MESSINA MD [facility] 11/07/2019 08:45:00 PM EDT - 11/07/2019 11:59:00 PM EDT [facility] Patient discharged. Outpatient Attender: JERRY PATEL MD Main Office 10/30/2019 09:15:[facility] Immun[facility] Vaccine Date Status Description Data Source(s) New in 2012. IIV4 12/15/2020 10:53:00 AM EDT completed [facility] ([facility]) New in 2012. IIV4 12/12/2019 12:10:00 PM EDT completed [facility] ([facility]) Medications Medication Brand Name Start Date Product Form Dose Route Admi nistrative Instructions Pharmacy Instructions Status Indications Reaction Description Data Source(s) POLYETHYLENE GLYCOL 3350 142 MG/ML Oral Solution [Miralax] M iralax 12/07/2020 12:00:00 AM EDT active M [facility] ([facility]) perflutren lipid microsphere (DEFINITY) 8.476 mg in 10 mL NS IV drug or medication 11/22/2020 01:34:13 PM EDT mL Intravenous active [facility] Nitroglycerin 0.4 MG Sublingual Tablet n itroglycerin (NITROSTAT) 0.4 MG SL tablet nitroglycerin (NITROSTAT) 0.4 MG SL tablet 11/22/2020 12:00:00 A M EDT 0.[address] 1 t ablet (0.4 mg total) under the tongue every 5 (five) minutes as needed for chest pain [facility] Stiolto Respimat 2.5-2.5 MCG/ACT AERS 2907-0184-54 10/18/2020 12:00 :00 AM EDT active INHALE 2 PUFFS BY MOUTH ONCE DAILY [facility] 200 ACTUAT Albuterol 0.09 MG/ACTUAT Mete red Dose Inhaler [ProAir] ProAir HFA 108 (90 Base) MCG/ACT Inhalation Aerosol Solution ProAir HFA 108 (90 Base) MCG/ACT Inhalation Aerosol Solution 09/15/2020 12:00:00 AM EDT 2 {Puff} C3821 6 active ProAir HFA [facility] Medication taken as needed. Albuterol 0.83 MG/ML Inhalant Solution A lbuterol Sulfate (2.5 MG/3ML) 0.083% Inhalation Nebulization Solution Albuterol Sulfate (2.5 MG/3ML) 0.083% Inhalation Nebulization Solution 09/15/2020 12:00:00 AM EDT 1 {ampu le} G44919 active Albuterol Sulfate [facility] ([facility]) Medication taken as needed. 24 HR Glipizide 5 MG Extended Release Oral Tablet Glipizide ER 09/14/2020 12:00:00 AM EDT active M [facility] ([facility]) nebivolol 10 MG Oral Tablet nebivolol (Bystolic) 10 MG tablet nebivolol (Bystolic) 10 MG tablet 09/09/2020 12:00:00 AM EDT 10 mg Oral active Take 1 tablet (10 mg total) by mouth daily [facility] clopidogrel 75 MG Oral Tablet clopidogrel (PLAVIX) 75 MG tablet clopidogrel (PLAVIX) 75 MG tablet 09/09/2020 12:00:00 AM EDT 75 mg Oral active Take 1 tablet (75 mg total) by mouth daily [facility] [facility] 24 HR Glipizide 2.5 MG Extended Release Oral Tablet Glipizid e ER 06/18/2020 12:00:00 AM EDT ORAL completed MEDENT ([facility]) Levothyroxine Sodium 0.175 MG Oral Tablet Levothyroxine Sodi um 06/07/2020 12:00:00 AM EDT ORAL active M EDENT ([facility]) Stiolto Respimat 2.5-2.5 MCG/ACT Inhalation Aerosol Solution [id number] 06/03/2020 12:00:00 AM EDT 2 {Aerosol_Soln} [id number] active Stiolto Respimat AllScripts ([facility]) Suprep Bowel Prep Kit Suprep Bowel Prep Kit 03/18/2020 12:00:00 AM EST active MEDENT ([facility]) nebivolol 10 MG Oral Tablet nebivolol (BYSTOLIC) 10 MG tablet nebivolol (BYSTOLIC) 10 MG tablet 03/03/2020 12:00:00 AM EST 10 mg Oral active Take 1 tablet (10 mg total) by mouth daily [facility] 30 ACTUAT umeclidinium 0.0625 MG/ACTUAT / vilanterol 0.025 MG/ACTUAT Dry Powder Inhaler [Anoro] ANORO ELLIPTA 62.5-25 MCG/INH inhaler ANORO ELLIPTA 62.5-25 MCG/INH inhaler 02/19/2020 12:00:00 AM EST ab orted INHALE 1 PUFF BY MOUTH ONCE DAILY [facility] empagliflozin 25 MG / Linagliptin 5 MG O ral Tablet [Glyxambi] GLYXAMBI 25-5 MG TABS GLYXAMBI 25-5 MG TABS 02/19/2020 12:00:00 AM EST 1 {tbl} Oral aborted Take 1 tablet by mouth daily [facility] clopidogrel 75 MG Oral Tablet clopidogrel (PLAVIX) 75 MG tablet clopidogrel (PLAVIX) 75 MG tablet 02/14/2020 12:00:00 AM EST 75 mg Oral active Take 1 tablet (75 mg total) by mouth daily [facility] 24 HR metoprolol succinate 50 MG Extende d Release Oral Tablet metoprolol succinate (TOPROL-XL) 50 MG 24 hr tablet metoprolol succinate (TOPROL-XL) 50 MG 24 hr tablet 02/14/2020 12:00:00 AM EST 50 mg Oral abort ed Take 1 tablet (50 mg total) by mouth daily [facility] 24 HR metoprolol succinate 50 MG Extende d Release Oral Tablet metoprolol succinate (TOPROL-XL) 24 hr tablet 50 mg metoprolol succinate (TOPROL-XL) 24 hr tablet 50 mg 02/13/2020 09:00:00 AM EST 50 mg Oral activ e 50 mg, Oral, Daily, First dose on 02/13/20 at 0900 [facility] Medication administered onsite Citalopram 40 MG Oral Tablet citalopram (CeleXA) table t 40 mg citalopram (CeleXA) tablet 40 mg 02/12/2020 09:00:00 PM EST 40 mg Oral active 40 mg, Oral, Nightly, First dose on Bernie 02/12/20 at 2100 [facility] Medication administered onsite Metoprolol Tartrate 25 MG Oral Tablet me toprolol tartrate (LOPRESSOR) tablet 25 mg metoprolol tartrate (LOPRESSOR) tablet 25 mg 02/12/2020 04:00:00 PM EST 25 mg Oral completed 25 mg, Oral, Once, Bernie 02/12/20 at 1600, For 1 dose [facility] Medication administered onsite furosemide (LASIX) injection 20 mg [id number] 02/12/2020 03:00:00 PM EST 20 mg Intravenous completed 20 mg, I ntravenous, Once, Bernie 02/12/20 at 1500, For 1 dose [facility] Medication administered onsite linaclotide 0.145 MG Oral Capsule linaclotide (LINZESS ) capsule 145 mcg linaclotide (LINZESS) capsule 145 mcg 02/12/2020 09:00:00 AM EST 14 5 ug Oral active 145 mcg, Oral, Every other day, First dose on Bernie 02/12/20 at 0900 [facility] Medication administered onsite pantoprazole 40 MG Delayed Release Oral Tablet pantoprazole (PROTONIX) EC tablet 40 mg pantoprazole (PROTONIX) EC tablet 40 mg 02/12/2020 09:00:[address] 40 mg Oral active Gastroesophageal Reflux Diseas e 40 mg, Oral, Daily, Indications: Gastroesophageal Reflux Disease, First dose on Bernie 02/12/20 at 0900 [facility] Gastroesophageal Reflux Disease Medication administered onsite topiramate 100 MG Oral Tablet topiramate (TOPAMAX) tab let 200 mg topiramate (TOPAMAX) tablet 200 mg 02/12/2020 09:00:00 AM EST 200 mg Oral active 200 mg, Oral, Daily, First dose on Bernie 02/12/20 at 0900
For administration and preparation considerations, refer to Hazardous Drugs in the Workplace Policy on Intranet.
[facility] Medication administered onsite clopidogrel 75 MG Oral Tablet clopidogrel (PLAVIX) tab let 75 mg clopidogrel (PLAVIX) tablet 75 mg 02/12/2020 09:00:00 AM EST 75 mg Oral active 75 mg, Oral, Daily, First dose on Bernie 02/12/20 at 0900, Post-op
May begin the same day
[facility] Medication administered onsite Losartan Potassium 25 MG Oral Tablet losartan (COZAAR) tablet 50 mg losartan (COZAAR) tablet 50 mg 02/12/2020 09:00:00 AM EST 50 mg Oral active 50 mg, Oral, Daily, First dose on Bernie 02/12/20 at 0900 [facility] Medication administered onsite 24 HR metoprolol succinate 25 MG Extende d Release Oral Tablet metoprolol succinate (TOPROL-XL) 24 hr tablet 25 mg metoprolol succinate (TOPROL-XL) 24 hr tablet 25 mg 02/12/2020 09:00:00 AM EST 25 mg Oral abort ed 25 mg, Oral, Daily, First dose on Bernie 02/12/20 at 0900 [facility] Medication administered onsite Insulin Lispro 100 UNT/ML Injectable Maricarmen ution insulin lispro (HumaLOG) injection 1-4 Units insulin lispro (HumaLOG) injection 1-4 Units 0 08:00:00 AM EST Subcutaneous active 1-4 Units, Subcutaneous, MEALSS, First dose on Bernie 02/12/20 at 0800
2 units Nutritional and Correction [...] cover POC glucose at 08:00, 12:00, 17:00.
[facility] Medication administered onsite Levothyroxine Sodium 0.175 MG Oral Table t levothyroxine (SYNTHROID, LEVOTHROID) tablet 175 mcg levothyroxine (SYNTHROID, LEVOTHROID) tablet 175 mcg 1 04/14/2019 06:00:00 AM EST 175 ug Oral active 175 mcg, Oral, Daily, First dose on Bernie 02/12/20 at 0600 [facility] Medication administered onsite atorvastatin 40 MG Oral Tablet atorvastatin (LIPITOR) tablet 80 mg atorvastatin (LIPITOR) tablet 80 mg 02/11/2020 09:00:00 PM EST 80 mg Oral active 80 mg, Oral, Nightly, First dose on 02/11/20 at 2100 [facility] Medication administered onsite Trazodone Hydrochloride 100 MG Oral Tablet traZODone ( DESYREL) tablet 100 mg traZODone (DESYREL) tablet 100 mg 02/11/2020 09:00:00 PM EST 100 mg Oral active 100 mg, Oral, Nightly, First dos e on Sun02/11/20 at 2100 [facility] Medication administered onsite 60 ACTUAT formoterol fumarate 0.005 MG/A CTUAT / mometasone furoate 0.2 MG/ACTUAT Metered Dose Inhaler mometasone-formoterol (DULERA) 200-5 MCG/ACT inhaler 2 puff mometasone-formoterol (DULERA) 200-5 MCG/ACT inhaler 2 puff 02/11/2020 08:00:00 PM EST 2 {puff} Inhalation active 2 puff, Inhalation, 2 times daily, First dose on Sun02/11/20 at 1999 [facility] Medication administered onsite Ipratropium [place] 0.2 MG/ML Inhalant S olution ipratropium (ATROVENT) 0.02 % nebulizer solution 0.5 mg ipratropium (ATROVENT) 0.02 % nebulizer solution 0.5 mg 02/11/2020 08:00:00 PM EST 0.5 mg active 0.5 mg, Nebulization, 4 times daily, First dose on Sun02/11/20 at 1999 [facility] Medication administered onsite normal saline flush 0.9 % injection 3 mL [id number] 02/11/2020 06:00:00 PM EST 3 mL Intravenous active 3 mL , Intravenous, Every 8 hours (scheduled), First dose on Sun02/11/20 at 1800
flush per protocol, D/C Main IV fluid if appropriate
[facility] Medication administered onsite Aspirin 81 MG Chewable Tablet aspirin chewable tablet 81 mg aspirin chewable tablet 81 mg 02/11/2020 06:00:00 PM EST 81 mg Oral activ e 81 mg, Oral, Daily, First dose on Sun02/11/20 at 1800, Post-op
D/C any prior aspirin order
[facility] Medication administered onsite Nitroglycerin 0.4 MG Sublingual Tablet n itroglycerin (NITROSTAT) SL tablet 0.4 mg nitroglycerin (NITROSTAT) SL tablet 0.4 mg 02/11/2020 05:32:54 P M EST 0.4 mg Sublingual active 0.4 mg, S ublingual, Every 5 min PRN, chest pain, Starting Sun02/11/20 at 1732, Post-op
May administer every 5 minutes for 3 doses and call cardio lab MD.
[facility] Medication administered onsite Acetaminophen 325 MG Oral Tablet acetaminophen (TYLENO L) 325 MG tablet 650 mg acetaminophen (TYLENOL) 325 MG tablet 650 mg 02/11/2020 05:32:54 PM EST 650 mg Oral active 650 mg, Or al, Every 4 hours PRN, headaches, and non cardiac pain, Starting Sun02/11/20 at 1732, Post-op
"Maximum dose of acetaminophen is 4,000 mg from all sources in 24 hours."
[facility] Medication administered onsite Albuterol 0.83 MG/ML Inhalant Solution a lbuterol (PROVENTIL) nebulizer solution 2.5 mg albuterol (PROVENTIL) nebulizer solution 2.5 mg 2019 05:32:32 PM EST 2.5 mg active 2.5 mg, Nebulization, RT every 6 hours as needed, wheezing, shortness of breath, Starting Sun02/11/20 at 1732 [facility] Medication administered onsite eptifibatide 0.75 MG/ML Injectable Solut ion eptifibatide (INTEGRILIN) 75 MG/100ML infusion eptifibatide (INTEGRILIN) 75 MG/100ML infusion 020 05:20:00 PM EST 2 ug/kg/min Intravenous aborted 2 mcg/kg/min, Intravenous, Continuous, Starting Sun02/11/20 at 1720
Infuse this medication only through single port tubing (SmartSite Infusion Set ref [id number]). Medica tion and tubing is to be discarded if infusion off for 4 hours.
Duration of Infusion: Until 100 ml bottle is complete [facility] Medication administered onsite 30 ACTUAT umeclidinium 0.0625 MG/ACTUAT / vilanterol 0.025 MG/ACTUAT Dry Powder Inhaler [Anoro] Anoro Ellipta 62.5-25 MCG/INH Inhalation Aerosol Powder Breath Activated Anoro Ellipta 62.5-25 MCG/INH Inhalation Aerosol Powder Breath Activated 01/21/2020 12:00:00 AM EST 1 {Aero_Pow_Br_Act} [id number] suspended Anoro Ellipta [facility]s ([facility]) Levothyroxine Sodium 0.175 MG Oral Tablet [Euthyrox] Euthyro x 11/30/2019 12:00:00 AM EDT ORAL active M EDENT ([facility]) Cephalexin 250 MG Oral Capsule Cephalexin 11/16/2019 12:00:00 AM EDT ORAL completed MEDENT ([facility]) Acetaminophen 300 MG / Codeine Phosphate 30 MG Oral Ta blet Acetaminophen-Codeine #3 11/16/2019 12:00:00 AM EDT ORAL completed [facility] ([facility] Docusate Sodium 100 MG Oral Capsule [Colace] Colace 12:00:00 AM EDT ORAL completed [facility] ([facility]) Levofloxacin 500 MG Oral Tablet Levofloxacin 10/02/2019 12:00:00 AM EDT completed MED[facility] ([facility]) chlorhexidine gluconate 40 MG/ML Medicated Liquid Soap [Hibi clens] Hibiclens 10/02/2019 12:00:00 AM EDT completed [facility] ([facility]) chlorhexidine gluconate 40 MG/ML Medicated Liquid Soap [Hibi clens] Hibiclens 10/02/2019 12:00:00 AM EDT completed [facility] ([facility]) Levofloxacin 500 MG Oral Tablet Levofloxacin 10/02/2019 12:00:00 AM EDT completed [facility] ([facility]) Metoprolol Tartrate 25 MG Oral Tablet co toprolol tartrate (LOPRESSOR) 25 MG tablet metoprolol tartrate (LOPRESSOR) 25 MG tablet 03/25/2019 12:0 0:00 AM EST 25 mg Oral aborted Take 1 tablet (2 5 mg total) by mouth 2 (two) times a day [facility] Nitroglycerin 0.4 MG Sublingual Tablet n itroglycerin (NITROSTAT) 0.4 MG SL tablet nitroglycerin (NITROSTAT) 0.4 MG SL tablet 03/25/2019 12:00:00 A M EST 0.[address] 1 t ablet (0.4 mg total) under the tongue every 5 (five) minutes as needed for chest pain [facility] Bacitracin 0.5 UNT/MG / Neomycin 0.0035 MG/MG / Polymyxin B 10 UNT/MG Topical Ointment rnlyctgb-bayoybduee-lvgpukleu (NEOSPORIN) 5-400-5000 ointment rpexffmn-ngqodsyiuv-uhyzrpvpp (NEOSPORIN) 5-400-5000 ointment 03/06/2019 12:00:00 AM EST 1 {application} Topical aborted Apply 1 application topically every 2 (two) hours as needed (for irritation) [facility] empagliflozin 25 MG Oral Tablet [Jardiance] JARDIANCE 25 MG TABS JARDIANCE 25 MG TABS 10/09/2018 12:00:00 AM EDT 25 mg Oral aborted Take 25 mg by mouth daily [facility] sitagliptin 50 MG Oral Tablet sitaGLIPtin (JANUVIA) 50 MG tablet sitaGLIPtin (JANUVIA) 50 MG tablet 50 mg Oral aborted Take 50 mg by mouth nightly [facility] Acetaminophen 325 MG / Hydrocodone Sea trate 10 MG Oral Tablet HYDROcodone- acetaminophen (NORCO 10-325) 10-325 MG per tablet HYDROcodone-acetaminophen (NORCO 10-325) 10-325 MG per tablet 1 {tbl} Oral a borted Take 1 tablet by mouth 2 (two) times a day [facility] 7 ACTUAT umeclidinium 0.0625 MG/ACTUAT D ry Powder Inhaler Umeclidinium [place] (INCRUSE ELLIPTA) 62.5 MCG/INH AEPB Umeclidinium [place] (INCRUSE ELLIPTA) 6 2.5 MCG/INH AEPB 1 {puff} Inhalation aborted Inh smita 1 puff daily [facility] 60 ACTUAT Fluticasone propionate 0.5 MG/ ACTUAT / salmeterol 0.05 MG/ACTUAT Dry Powder Inhaler fluticasone-salmeterol (ADVAIR) 500-50 MCG/DOSE DISKUS fluticasone-salmeterol (ADVAIR) 500-50 MCG/DOSE DISKUS 1 {puff} Inhalation aborted Inhale 1 puff 2 (two) jen es a day [facility] linaclotide 0.145 MG Oral Capsule linaclotide (LINZESS ) 145 MCG CAPS linaclotide (LINZESS) 145 MCG CAPS 145 ug Oral aborted Take 145 mcg by mouth every other day [facility] Tiotropium [place] Monohydrate (SPIRIVA HANDIHALER IN) drug or medica tion Inhalation aborted Inhale [facility] Linagliptin 5 MG Oral Tablet linaGLIPtin (TRADJENTA) 5 MG TABS linaGLIPtin (TRADJENTA) 5 MG TABS 5 mg Oral aborted Ta ke 5 mg by mouth daily [facility] Betamethasone 0.5 MG/ML Topical Cream be tamethasone dipropionate (DIPROLENE) 0.05 % cream betamethasone dipropionate (DIPROLENE) 0.05 % cream 1 {application} Topical aborted Apply 1 application topically 2 (two) times a day [facility] Insurance Providers Payer name Policy type / Coverage type Policy ID Covered green party ID Covered green party's relationship to ibarra Policy Ibarra Plan Information [place] Medigap Part B [id number] Self S [id number] [place] Medigap Part B [id number] Self S [id number] [place] Medigap Part B [id number] [id number] Self S [id number] [place] Medigap Part B [id number] 2.840.1.790381.3.227.99.991.22648.0 Self S [id number] [place] Medigap Part B [id number] 2.840.1.350083.3.227.99.991.89878.0 Self S [id number] [place] Medigap Part B [id number] Self [place] Medigap Part B [id number] Self [id number] [place] Medigap Part B [id number] 2.840.1.371550.3.227.99.991.26411.0 Self S [id number] Ghi/Emblem HLTH (pr) Medigap Part B [id number] 2.16.840.1.393488.3.227.99.991.35197.0 Family Dependent 9 [id number] Ghi/[employer]blem HLTH (pr) Medigap Part B [id number] 2.16.840.1.081922.3.227.99.991.24832.0 Family Dependent 9 [id number] Ghi/Emblem HLTH (pr) Medigap Part B [id number] 2.16.840.1.605792.3.227.99.991.66765.0 Family Dependent 9 [id number] Ghi/Emblem HLTH (pr) Medigap Part B [id number] 2.16.840.1.019839.3.227.99.991.49330.0 Family Dependent 9 [id number] Ghi/[employer] HLTH (pr) Medigap Part B [id number] Family Dependent [id number] Ghi/[employer]blem HLTH (pr) Medigap Part B [id number] Family Depende nt Ghi/Emblem HLTH (pr) Medigap Part B [id number] 2.16.840.1.619363.3.227.99.991.74257.0 Family Dependent 9 [id number] Ghi/Emblem HLTH (pr) Medigap Part B [id number] 2.16.840.1.804959.3.227.99.991.98008.0 Family Dependent 9 [id number] MEDICARE [id number] xxxxxxxxxxx [id number] MEDICARE B [id number] P [id number] Medicare [place] Medicare Primary [id number] [id number]1.03788.0 Self 1 [id number] MEDICARE A [id number] P [id number] Medicare [place] Medicare Primary [id number] Self [id number] MEDICARE [id number] SP [id number] A Medicare [place] Medicare Primary [id number]1.36391.0 Self 1 [id number] Medicare [place] Medicare Primary [id number] 2.16.840.1.354208.3.227.99.991.69776.0 Self 1 [id number] Medicare [place] Medicare Primary [id number] Self MEDICARE [id number] Aliza [id number] Medicare [place] Medicare Primary [id number].991.24770.0 Self 1 [id number] Medicare [place] Medicare Primary [id number] 2.16.840.1.567436.3.227.99.991.44727.0 Self 1 [id number] Medicare [place] Medicare Primary [id number] 2.16.840.1.282519.3.227.99.991.58743.0 Self 1 [id number] MEDICARE BLUE PPO 306 [id number] SP [id number] [place] [facility] Part [facility] [id number] Self [id number] [facility] Advantage [facility] Part B [id number] Self TODAYS OPTION MEDICARE [id number] Aliza [id number] TODAYS OPTIONS [id number] SP [id number] WELLCARE [id number] SP [id number] [employer] Options Ppo Commercial [id number] 2.160.1.143129.3.22 7.99.802.591273.0 Self [id number] [employer] Medicare Adv Plan F [id number] SELF [id number] [employer] 14 [id number] SELF [id number] Wellcare Commercial [id number] Self [id number] WELLCARE MEDICARE [id number] Aliza [id number] [facility] [id number] Aliza [id number] [facility] [id number] xxxxxxxxxxx [id number] [facility] AARP [id number] P [id number] [facility] AARP [id number] P [id number] 1 [facility] [id number] Aliza [id number] INSURANCE COVID-19 COVID Aliza C OVID INSURANCE COVID-19 [id number] xxxxx [id number] INSURANCE COVID-19 COVID Aliza C OVID [place] [id number] SP [id number] MEDICARE - [place] MCR [id number] S [id number] [place] [employer] S [id number] S [id number] MEDICARE P [id number] S [id number] A [id number] MEDICARE B [id number] P [id number] MEDICARE A [id number] [facility] AARP [id number] 1 [employer] Commercial [id number] Self [id number] [employer] Commercial [id number] Self [id number] [employer] [facility] Part B [id number] Self [id number] [place] [employer] (pr) Medigap Part B [id number] Self [id number] Well[employer] Commercial [id number] Self [id number] [employer] Medigap Part B [id number] Self [id number] Benefit Services Group [facility] Part B [id number] 2.840.1.267898.3.227.99.991.11982.0 Self 1 [id number] [employer] (pr) [facility] Part B [id number] 2.16.840.1.879901.3.227.99.991.46831.0 Self [id number] Well[employer] Commercial [id number] 2.840.1.158483.3.227.99.991.32991.0 Self [id number] [employer] Commercial [id number] 2.0.1.776817.3.227.99 .824.453690.0 Self [id number] [employer] Commercial [id number] 2.0.1.349845.3.227.99 .824.071722.0 Self [id number] [employer] Health Plans F [id number] SELF [id number] [employer] Commercial [id number] 2.0.1.824015.3.227.99 .824.211663.0 Self [id number] WELLCARE HEALTH PLANS O [id number] S [id number] [employer]/Wellcare Commercial [id number] 2.0.1.960720.3.227.99.824.671492.0 Self [id number] TODAYS OPTIONS/[place] O [id number] S [id number] Benef[employer] Group [facility] Part B [id number] 2.0.1.524743.3.227.99.991.69997.0 Self 1 [id number] [employer] (pr) Medigap Part B [id number] 2.160.1.163698.3.227.99.991.23682.0 Self [id number] [employer] Commercial [id number] 2.160.1.105389.3.227.99.991.5 1869.0 Self [id number] [employer] Commercial [id number] 2.0.1.188513.3.227.99.824.445037.0 Self [id number] [employer] Commercial [id number] 2.16840.1.483630.3.227.99.824.019625.0 Self [id number] [employer] Medigap Part B [id number] 2.16.840.1.107229.3.227.99.991.64465.0 Self 1 [id number] [employer] (pr) Medigap Part B [id number] 2.16840.1.839524.3.227.99.991.52299.0 Self [id number] [employer] Commercial [id number] 2.0.1.600119.3.227.99.824.202130.0 Self [id number] [employer] Commercial [id number] 2.0.1.002004.3.227.99.824.152905.0 Self [id number] [employer] Commercial [id number] 2.160.1.673349.3.227.99.824.647576.0 Self [id number] TOD[employer]YS OPTION MEDICARE PI PI [employer] OPTION MEDICARE [id number] Aliza [id number] [employer] Medicare Adv Plan F [id number] SELF [id number] [employer] Medigap Part B [id number] 2.840.1.325975.3.227.99.991.77266.0 Self 1 [id number] [employer] (pr) Medigap Part B [id number] 2.16840.1.152157.3.227.99.991.07236.0 Self [id number] TODAYS OPTIONS [id number] SP [id number] [employer] [id number] 0 [id number] [employer] Medigap Part B [id number] 2.16840.1.578083.3.227.99.991.25153.0 Self 1 [id number] [employer] (pr) Medigap Part B [id number] 2.16840.1.010799.3.227.99.991.10066.0 Self 4 [id number] [employer] Medigap Part B [id number] 2.16.840.1.802519.3.227.99.991.90111.0 Self 1 [id number] [employer] (pr) Medigap Part B [id number] 2.16.840.1.546767.3.227.99.991.42557.0 Self [id number] Today's Option Medicare Commercial 2.16.840.1.377417 .3.227.99.1767.10523.0 Self [employer] Medigap Part B [id number] Self [employer] (pr) Medigap Part B [id number] Self [employer] Commercial [id number] Self [employer] Options [id number] 1628 [place] [id number] SP [id number] [facility] [id number] S [id number] Problems, Conditions, and Diagnoses Code Display Name Description Problem Type Effective Dates Data Source(s) I34.0 Nonrheumatic mitral (valve) insufficienc y Nonrheumatic mitral (valve) insufficienc Diagnosis 11/22/2020 12:58:27 PM EDT [facility] Z79.4 assisted (current) use of insulin moth exterminator (cu rrent) use of insulin Diagnosis 11/22/2020 12:58:27 PM EDT [facility] E11.9 Type 2 diabetes mellitus without complic ations Type 2 diabetes mellitus without complic Diagnosis 11/22/2020 12:58:27 PM EDT [facility] I10 Essential (primary) hypertension Essential (primary) h ypertension Diagnosis 11/22/2020 12:58:27 PM EDT [facility] E78.00 Pure hypercholesterolemia, unspecified P ure hypercholesterolemia, unspecified Diagnosis 11/22/2020 12:58:27 PM EDT [facility] I25.10 Atherosclerotic heart diseas e of [place] coronary artery without angina pectoris Atherosclerotic heart disease of [place] Diagnosis 11/22/2020 12:58:27 PM EDT [facility] E78.5 Hyperlipidemia, unspecified Hyperlipidemia, unspecifie d Diagnosis 03/03/2020 08:41:47 AM EST [facility] I21.29 ST elevation (STEMI) myocardial infarcti on involving other sites ST elevation (STEMI) myocardial infarcti Diagnosis 03/03/2020 08:41:47 AM [facility] I21.3 ST elevation (STEMI) myocardial infarcti on of unspecified site ST elevation (STEMI) myocardial infarcti Diagnosis 02/11/2020 05:24:00 PM EST [facility] N52.31 Erectile dysfunction following radical p rostatectomy ERECTILE DYSFUNCTION FOLLOWING RADICAL PROSTATECTOMY Diagnosis 01/26/2020 01:59:00 PM [facility] Z01.812 Encounter for preprocedural laboratory e xamination ENCOUNTER FOR PREPROCEDURAL LABORATORY EXAMINATION Diagnosis 01/26/2020 01:59:00 PM [facility] Z20.828 Contact with and (suspected) exposure to other viral communicable diseases CONTACT W AND EXPOSURE TO OTH VIRAL COMMUNICABLE DISEASES Di agnosis 01/26/2020 01:30:00 PM [facility] Z11.59 Encounter for screening for other viral diseases ENCOUNTER FOR SCREENING FOR OTHER VIRAL DISEASES Diagnosis 01/26/2020 01:30:00 PM [facility] N47.1 Phimosis PHIMOSIS Diagnosis 11/17/2019 12:19:00 AM ED T [facility] I34.0 Nonrheumatic mitral valve regurgitation Nonrheumatic mitral valve regurgitation [id number] 11/22/2020 12:00:00 AM EDT [facility] [id number] Hereditary peripheral neuropathy Hereditary sue pheral neuropathy Problem 09/14/2020 12:00:00 AM EDT [facility] ([facility]) Note: I think he has Vlarpqr-Pdafd-Bdzjh , based on foot exam Z86.010 History of polyp of colon History of polyp of colon Pr oblem 03/18/2020 12:00:00 AM EST [facility] ([facility] [id number] Essential hypertension Essential hypertension Problem 03/11/2020 12:00:00 AM EST [facility] ([facility]) E11.9 Diabetes mellitus Diabetes mellitus [id number] 02/11/2020 12:00:00 AM [facility] E78.5 HLD (hyperlipidemia) HLD (hyperlipidemia) [id number] 02/11/2020 12:00:00 AM [facility] I10 HTN (hypertension) HTN (hypertension) [id number] 0 12:00:00 AM [facility] I21.3 STEMI (ST elevation myocardial infarctio n) STEMI (ST elevation myocardial infarction) [id number] 02/11/2020 12:00:00 AM [facility] Surgeries/Procedures Procedure Description Date Indications Data Source(s) OFFICE OUTPATIENT VISIT 25 MINUTES 12/15/2020 12:00:00 AM EDT [facility] ([facility]) OFFICE OUTPATIENT VISIT 25 MINUTES 12/07/2020 12:00:00 AM EDT [facility] ([facility]) OFFICE OUTPATIENT VISIT 25 MINUTES 09/14/2020 12:00:00 AM EDT [facility] ([facility]) OFFICE OUTPATIENT VISIT 25 MINUTES 06/14/2020 12:00:00 AM EDT [facility] ([facility]) OFFICE OUTPATIENT VISIT 25 MINUTES 06/03 01:15:00 PM EDT - 06/03/2020 01:31:14 PM EDT [facility] ([facility]) CT THORAX W/O CONTRAST MATERIAL <td colspan="2"> CAT SCAN OF CHEST: CT THORAX W/O DYE (53497)Result: Are you or could you become ?: No; When was you last CXR/CT?: over week ago; Skidder Driver: JOSIE Salcido</td><td> Status: Completed 03-Jun-2020 </td> 06/03/2020 [...] AM EST</td><td></td><td> </td> 02/13/2020 04:32:00 PM EST [facility] GLUC BLD GLUC MNTR DEV CLEARED FDA SPEC HOME USE <td>P OCT GLUCOSE</td><td>Routine</td><td>02/13/2020 8:47 AM EST</td><td></td><td> </td> 02/13/2020 01:47:00 PM EST [facility] BLOOD COUNT COMPLETE AUTO&AUTO DIFRNTL WBC COUNT <td>C BC AND DIFFERENTIAL</td><td>Timed</td><td>02/13/2020 5:40 AM EST</td><td></td><td> </td> 02/13/2020 10:40:00 AM EST [facility] BASIC METABOLIC PANEL CALCIUM TOTAL <td>BASIC METABOLI C PANEL</td><td>Timed</td><td>02/13/2020 5:40 AM EST</td><td></td><td> </td> 02/13/2020 10:40:00 AM EST [facility] GLUC BLD GLUC MNTR DEV CLEARED FDA SPEC HOME USE <td>P OCT GLUCOSE</td><td>Routine</td><td>02/12/2020 5:50 PM EST</td><td></td><td> </td> 02/12/2020 10:50:00 PM EST [facility] CMB <td>CMB</td><td>Timed</td><t d>02/12/2020 5:19 PM EST</td><td></td><td> </td> 02/12/2020 10:19:00 PM EST [facility] POTASSIUM SERUM PLASMA/WHOLE BLOOD <td>POTASSIUM</td>< td>STAT</td><td>02/12/2020 5:19 PM EST</td><td></td><td> </td> 02/12/2020 10:19:00 PM EST [facility] CREATINE KINASE MB FRACTION ONLY <td>CKMB</td><td>Time d</td><td>02/12/2020 5:19 PM EST</td><td></td><td> </td> 02/12/2020 10:19:00 PM EST [facility] GLUC BLD GLUC MNTR DEV CLEARED FDA SPEC HOME USE <td>P OCT GLUCOSE</td><td>Routine</td><td>02/12/2020 2:10 PM EST</td><td></td><td> </td> 02/12/2020 07:10:00 PM [facility] ECHO TTHRC R-T 2D W/WOM-MODE COMPL SPEC&COLR DOP <td>E CHOCARDIOGRAM TRANSTHORACIC</td><td>Routine</td><td>02/12/2020 11:49 AM EST</td><td></td><td> </td> 02/12/2020 04:49:08 PM EST [facility] GLUC BLD GLUC MNTR DEV CLEARED FDA SPEC HOME USE <td>P OCT GLUCOSE</td><td>Routine</td><td>02/12/2020 9:49 AM EST</td><td></td><td> </td> 02/12/2020 02:49:00 PM EST [facility] CMB <td>CMB</td><td>STAT</td><td >02/12/2020 8:25 AM EST</td><td></td><td> </td> 02/12/2020 01:25:00 PM EST [facility] TROPONIN QUANTITATIVE <td>TROPONIN I</td><td>Routi ne</td><td>02/12/2020 8:25 AM EST</td><td></td><td> </td> 02/12/2020 01:25:00 PM EST [facility] CREATINE KINASE MB FRACTION ONLY <td>CKMB</td><td>Time d</td><td>02/12/2020 8:25 AM EST</td><td></td><td> </td> 02/12/2020 01:25:00 PM EST [facility] LIPID PANEL <td>LIPID PANEL</td><td>Add- On</td><td>02/12/2020 8:25 AM EST</td><td></td><td> </td> 02/12/2020 01:25:00 PM EST [facility] BASIC METABOLIC PANEL CALCIUM TOTAL <td>BASIC METABOLI C PANEL</td><td>Add- On</td><td>02/12/2020 8:25 AM EST</td><td></td><td> </td> 02/12/2020 01:25:00 PM EST [facility] CMB <td>CMB</td><td>STAT</td><td >02/12/2020 12:15 AM EST</td><td></td><td> </td> 02/12/2020 05:15:00 AM EST [facility] BLOOD COUNT COMPLETE AUTOMATED <td>CBC</td><td>Timed</ td><td>02/12/2020 12:15 AM EST</td><td></td><td> </td> 02/12/2020 05:15:00 AM EST [facility] LIPOPROTEIN DIRECT MEASUREMENT LDL CHOLESTEROL <td>LDL CHOLESTEROL, DIRECT</td><td>Timed</td><td>02/12/2020 12:15 AM EST</td><td></td><td> </td> 02/12/2020 05:15:00 AM EST [facility] HEMOGLOBIN GLYCOSYLATED A1C <td>HEMOGLOBIN A1C</td><td>Routine</td><td>02/12/2020 12:15 AM EST</td><td></td><td> </td> 02/12/2020 05:15:00 AM EST [facility] CREATINE KINASE MB FRACTION ONLY <td>CKMB</td><td>Time d</td><td>02/12/2020 12:15 AM EST</td><td></td><td> </td> 02/12/2020 05:15:00 AM EST [facility] LIPID PANEL <td>LIPID PANEL</td><td>Time d</td><td>02/12/2020 12:15 AM EST</td><td></td><td> </td> 02/12/2020 05:15:00 AM EST [facility] BASIC METABOLIC PANEL CALCIUM TOTAL <td>BASIC METABOLI C PANEL</td><td>Timed</td><td>02/12/2020 12:15 AM EST</td><td></td><td> </td> 02/12/2020 05:15:00 AM EST [facility] PROCALCITONIN (PCT) <td>PROCALCITONIN</td><td>Ro utine</td><td>02/11/2020 8:35 PM EST</td><td></td><td> </td> 02/12/2020 01:35:00 AM EST [facility] TROPONIN QUANTITATIVE <td>TROPONIN I</td><td>Timed </td><td>02/11/2020 8:35 PM EST</td><td></td><td> </td> 02/12/2020 01:35:00 AM EST [facility] GLUC BLD GLUC MNTR DEV CLEARED FDA SPEC HOME USE <td>P OCT GLUCOSE</td><td>Routine</td><td>02/11/2020 7:26 PM EST</td><td></td><td> </td> 02/12/2020 12:26:00 AM EST [facility] ECG ROUTINE ECG W/LEAST 12 LDS TRCG ONLY W/O I&R <td>E CG 12- LEAD</td><td>Routine</td><td>02/11/2020 6:30 PM EST</td><td></td><td></td> 02/11/2020 11:30:50 PM EST [facility] CMB <td>CMB</td><td>STAT</td><td >02/11/2020 5:15 PM EST</td><td></td><td> </td> 02/11/2020 10:15:00 PM EST [facility] TROPONIN QUANTITATIVE <td>TROPONIN I</td><td>STAT< /td><td>02/11/2020 5:15 PM EST</td><td></td><td> </td> 02/11/2020 10:15:00 PM EST [facility] BLOOD COUNT COMPLETE AUTOMATED <td>CBC</td><td>STAT</t d><td>02/11/2020 5:15 PM EST</td><td></td><td> </td> 02/11/2020 10:15:00 PM EST [facility] CREATINE KINASE MB FRACTION ONLY <td>CKMB</td><td>STAT </td><td>02/11/2020 5:15 PM EST</td><td></td><td> </td> 02/11/2020 10:15:00 PM EST [facility] COMPREHENSIVE METABOLIC PANEL <td>COMPREHENSIVE METABO LIC PANEL</td><td>STAT</td><td>02/11/2020 5:15 PM EST</td><td></td><td> </td> 02/11/2020 10:15:00 PM EST [facility] INSJ IMPLANTABLE INTRA-ARTERIAL INFUSION PUM <td>CARDI AC CATHETERIZATION</td><td>Routine</td><td>02/11/2020 5:06 PM EST</td><td> STEMI (ST elevation myocardial infarction)</td><td></td> 02/11/2020 10:06:00 PM EST STEMI (ST elevation myocardial infarction) [facility] STEMI (ST elevation myocardial infarctio n) 2018 NCOV AMPLIFIED <td>2019 NCOV AMPLIFIED</td> <td>STAT</td><td>02/11/2020 4:40 PM EST</td><td></td><td> </td> 02/11/2020 09:40:00 PM EST [facility] Colonoscopy 12/16/2019 12:00:00 AM LUIS FERNANDO HEN[facility] ([facility] Diabetic Retinal Eye Exam 12/12/2019 12:00:00 AM LUIS FERNANDO LUNDBERG ([facility]) FUNDUS PHOTOGRAPHY W/INTERPRETATION & REPORT 0 12:00:00 AM EDT [facility] ([facility]) CT THORAX W/O CONTRAST MATERIAL <td colspan="2"> CAT SCAN OF CHEST: CT THORAX W/O DYE (08208)Result: Are you or could you become ?: No; When was you last CXR/CT?: over a week ago; Skidder Driver: Leann Bond LRT</td><td> Status: Completed 02-Dec-2019 </td> [...] CAPACITY <td>DLCO (CARBON MONOXIDE DI FFUSING CAPACITY) (33122)</td><td></td><td>Status: Completed 02-Dec-2019 </td> 12/02/2019 12:00:00 AM EDT - 12/02/2019 12:00:00 AM EDT [facility] ([facility]) GAS DILUT/WASHOUT LUNG VOL W/WO DISTRIB VENT&VOL <td>T HORACIC GAS VOLUME: AIRWAY CLOSING VOLUME MEASUREMENT: PULM FUNCTION TEST BY GAS (74442)</td><td></td><td>Status: Completed 02-Dec-2019 </td> 12/02/2019 12:00:00 AM EDT - 12/02/2019 12:00:00 AM EDT [facility] ([facility]) VITAL CAPACITY TOTAL SEPARATE PROCEDURE <td>TOTAL PABLO L CAPACITY (53196)</td><td></td><td>Status: Completed 02-Dec-2019 </td> 12/02/2019 12:00:00 AM EDT - 12/02/2019 12:00:00 AM EDT [facility] ([facility]) SPMTRY W/VC EXPIRATORY EDDI +-MXML VOL VNTJ <td>PFT SIM PLE: BREATHING CAPACITY TEST: BREATHING CAPACITY TEST (26056)</td><td></td><td>Status: Completed 02-Dec-2019 </td> 12/02/2019 12:00:00 AM EDT - 12/02/2019 12:00:00 AM EDT [facility] ([facility]) NONINVASIVE EAR/PULSE OXIMETRY SINGLE DETER <td>REST O XIMETRY ([id number])</td><td></td><td>Status: Completed 02-Dec-2019 </td> 12/02/2019 12:00:00 AM EDT [...] Age 0911/16 12:00:00 AM EDT [facility] ([facility]) Excision; Circumcision Older Than 28 Days Of Age 0911/16 12:00:00 AM EDT [facility] ([facility]) Polysomnography <td>Polysomnography</td><td> </td><td>Status: Completed 07-Nov-2019 Comments: Abnormal. index 5.6, low sat 87%; increased in REM and supine</td> 11/07/2019 12:00:00 AM EDT - 11/07/2019 12:00:00 AM EDT [facility] ([facility]) Abnormal. index 5.6, low sat 87%; increa sed in REM and supine Depression screening (procedure) 10/30/2019 12:00:00 A M EDT [facility] ([facility]) ECG ROUTINE ECG W/LEAST 12 LDS W/I&R 10/30/2019 12:00: 00 AM [facility]T [facility] ([facility]) Results ID Date Data Source [id number] 12/15/2020 12:14:00 PM EDT [facility] ([facility]) Name Value Range Interpretation Code Description Data Lucia rce(s) Supporting Document(s) Cholesterol [Mass/volume] in Serum or Plasma 129 mg/dL 112-200 [facility] ([facility]) FASTING Fastin hours FASTING Fasting : 0 hours FASTING Fastin hours FASTING Fastin hours FASTING Fastin hours FASTING Fastin hours Triglyceride [Mass/volume] in Serum or Plasma 77 mg/dL 1-200 [facility] ([facility]) FASTING Fastin hours FASTING Fasting : 0 hours FASTING Fastin hours FASTING Fastin hours FASTING Fastin hours FASTING Fastin hours Cholesterol in HDL [Mass/volume] in Serum or Plasma 50 mg/dL 30-70 [facility] ([facility]) FASTING Fastin hours FASTING Fasting : 0 hours FASTING Fastin hours FASTING Fastin hours FASTING Fastin hours FASTING Fastin hours Cholesterol.total/Cholesterol in HDL [Mass Ratio] in Serum o r Plasma 2.58 4.00-6.70 [facility] ([facility]) FASTING Fastin hours FASTING Fasting : 0 hours FASTING Fastin hours FASTING Fastin hours FASTING Fastin hours FASTING Fastin hours Cholesterol non HDL [Mass/volume] in Serum or Plasma 79.00 mg/dL 0 .00-100.00 [facility] ([facility]) FASTING Fastin hours FASTING Fasting : 0 hours FASTING Fastin hours FASTING Fastin hours FASTING Fastin hours FASTING Fastin hours Cholesterol in LDL [Mass/volume] in Serum or Plasma by calcu lation 63.60 mg/dL 20.00-130.00 [facility] ([facility]) FASTING Fastin hours FASTING Fasting : 0 hours FASTING Fastin hours FASTING Fastin hours FASTING Fastin hours FASTING Fastin hours ID Date Data Source [id number] 12/15/2020 12:14:00 PM EDT [facility] ([facility]) Name Value Range Interpretation Code Description Data Lucia rce(s) Supporting Document(s) Vitamin B12 665.80 pg/mL 213.00-816.00 [facility] ([facility]) FASTING Fastin hours FASTING Fasting : 0 hours FASTING Fastin hours FASTING Fastin hours FASTING Fastin hours FASTING Fastin hours ID Date Data Source [id number] 12/15/2020 12:14:00 PM EDT [facility] ([facility]) Name Value Range Interpretation Code Description Data Lucia rce(s) Supporting Document(s) WBC 6.10 k/uL 4.60-10.20 [facility] ([facility]) FASTING Fastin hours FASTING Fasting : 0 hours FASTING Fastin hours FASTING Fastin hours FASTING Fastin hours FASTING Fastin hours Neutrophils [#/volume] in Blood by Automated count 4.17 2.00-7. 50 [facility] ([facility]) FASTING Fastin hours FASTING Fasting : 0 hours FASTING Fastin hours FASTING Fastin hours FASTING Fastin hours FASTING Fastin hours Neutrophils/100 leukocytes in Blood by Automated count 68.3 % 37. 0-80.0 [facility] ([facility]) FASTING Fastin hours FASTING Fasting : 0 hours FASTING Fastin hours FASTING Fastin hours FASTING Fastin hours FASTING Fastin hours Lymphocytes/100 leukocytes in Blood by Automated count 1.07 1.2 0-4.80 [facility] ([facility]) FASTING Fastin hours FASTING Fasting : 0 hours FASTING Fastin hours FASTING Fastin hours FASTING Fastin hours FASTING Fastin hours Lymphocytes/100 leukocytes in Blood by Automated count 17.5 % 10. 0-50.0 [facility] ([facility]) FASTING Fastin hours FASTING Fasting : 0 hours FASTING Fastin hours FASTING Fastin hours FASTING Fastin hours FASTING Fastin hours Monocytes [#/volume] in Blood by Automated count 0.650 0.000-0.9 00 [facility] ([facility]) FASTING Fastin hours FASTING Fasting : 0 hours FASTING Fastin hours FASTING Fastin hours FASTING Fastin hours FASTING Fastin hours Monocytes/100 leukocytes in Blood by Automated count 10.70 % 0.00- 12.00 [facility] ([facility]) FASTING Fastin hours FASTING Fasting : 0 hours FASTING Fastin hours FASTING Fastin hours FASTING Fastin hours FASTING Fastin hours Eosinophils [#/volume] in Blood by Automated count 0.160 0.000-0 .700 [facility] ([facility]) FASTING Fastin hours FASTING Fasting : 0 hours FASTING Fastin hours FASTING Fastin hours FASTING Fastin hours FASTING Fastin hours Eosinophils/100 leukocytes in Blood by Automated count 2.60 % 0.0 0-7.00 [facility] ([facility]) FASTING Fastin hours FASTING Fasting : 0 hours FASTING Fastin hours FASTING Fastin hours FASTING Fastin hours FASTING Fastin hours Basophils/100 leukocytes in Blood by Automated count 0.70 % 0.00- 4.00 [facility] ([facility]) FASTING Fastin hours FASTING Fasting : 0 hours FASTING Fastin hours FASTING Fastin hours FASTING Fastin hours FASTING Fastin hours Basophils [#/volume] in Blood by Automated count 0.040 0.000-0.2 00 [facility] ([facility]) FASTING Fastin hours FASTING Fasting : 0 hours FASTING Fastin hours FASTING Fastin hours FASTING Fastin hours FASTING Fastin hours Laboratory test finding (navigational concept) 0.010 0.000-0.040 [facility] ([facility]) FASTING Fastin hours FASTING Fasting : 0 hours FASTING Fastin hours FASTING Fastin hours FASTING Fastin hours FASTING Fastin hours Laboratory test finding (navigational concept) 0.20 % 0.00-0.50 [facility] ([facility]) FASTING Fastin hours FASTING Fasting : 0 hours FASTING Fastin hours FASTING Fastin hours FASTING Fastin hours FASTING Fastin hours Hemoglobin [Mass/volume] in Blood 13.3 g/dL 12.2-18.1 [facility] ([facility]) FASTING Fastin hours FASTING Fasting : 0 hours FASTING Fastin hours FASTING Fastin hours FASTING Fastin hours FASTING Fastin hours Erythrocytes [#/volume] in Blood by Automated count 4.07 m/uL 4.04-6 .13 [facility] ([facility]) FASTING Fastin hours FASTING Fasting : 0 hours FASTING Fastin hours FASTING Fastin hours FASTING Fastin hours FASTING Fastin hours Hematocrit [Volume Fraction] of Blood by Automated count 41.4 % 4 2.0-53.7 [facility] ([facility]) FASTING Fastin hours FASTING Fasting : 0 hours FASTING Fastin hours FASTING Fastin hours FASTING Fastin hours FASTING Fastin hours Erythrocyte mean corpuscular volume [Entitic volume] b y Automated count 101.7 fL 80.0-97.0 [facility] ([facility]) FASTING Fastin hours FASTING Fasting : 0 hours FASTING Fastin hours FASTING Fastin hours FASTING Fastin hours FASTING Fastin hours Erythrocyte mean corpuscular hemoglobin [Entitic mass] by Automated count 32.7 pg 27.0-31.2 [facility] ([facility]) FASTING Fastin hours FASTING Fasting : 0 hours FASTING Fastin hours FASTING Fastin hours FASTING Fastin hours FASTING Fastin hours Erythrocyte mean corpuscular hemoglobin concentration [Mass/volume] by Automated count 32.1 g/dL 31.8-35.4 [facility] ([facility]) FASTING Fastin hours FASTING Fasting : 0 hours FASTING Fastin hours FASTING Fastin hours FASTING Fastin hours FASTING Fastin hours Erythrocyte distribution width [Ratio] by Automated count 13.4 % 11.6-14.8 [facility] ([facility]) FASTING Fastin hours FASTING Fasting : 0 hours FASTING Fastin hours FASTING Fastin hours FASTING Fastin hours FASTING Fastin hours Platelets [#/volume] in Blood by Automated count 349 K/uL 142-424 [facility] ([facility]) FASTING Fastin hours FASTING Fasting : 0 hours FASTING Fastin hours FASTING Fastin hours FASTING Fastin hours FASTING Fastin hours Platelet mean volume [Entitic volume] in Blood by [place] 10.8 f L 0.0-99.9 [facility] ([facility]) FASTING Fastin hours FASTING Fasting : 0 hours FASTING Fastin hours FASTING Fastin hours FASTING Fastin hours FASTING Fastin hours ID Date Data Source [id number] 12/15/2020 12:14:00 PM EDT [facility] ([facility]) Name Value Range Interpretation Code Description Data Lucia rce(s) Supporting Document(s) TSH 1.461 uIU/mL 0.350-4.940 [facility] FASTING Fastin hours FASTING Fasting : 0 hours FASTING Fastin hours FASTING Fastin hours FASTING Fastin hours FASTING Fastin hours ID Date Data Source [id number] 12/15/2020 12:14:00 PM EDT [facility] ([facility] Name Value Range Interpretation Code Description Data Luica rce(s) Supporting Document(s) Glucose [Mass/volume] in Serum or Plasma 120.00 mg/dL 70.00-110.00 [facility] ([facility]) FASTING Fastin hours FASTING Fasting : 0 hours FASTING Fastin hours FASTING Fastin hours FASTING Fastin hours FASTING Fastin hours Urea nitrogen [Mass/volume] in Serum or Plasma 27 mg/dL 9-21 [facility] ([facility]) FASTING Fastin hours FASTING Fasting : 0 hours FASTING Fastin hours FASTING Fastin hours FASTING Fastin hours FASTING Fastin hours Creatinine [Mass/volume] in Serum or Plasma 1.1 mg/dL 0.7-1.3 [facility] ([facility]) FASTING Fastin hours FASTING Fasting : 0 hours FASTING Fastin hours FASTING Fastin hours FASTING Fastin hours FASTING Fastin hours GFR 72.99 mL/min [facility] ([facility] FASTING Fastin hours FASTING Fasting : 0 hours FASTING Fastin hours FASTING Fastin hours FASTING Fastin hours FASTING Fastin hours Potassium [Moles/volume] in Serum or Plasma 4.9 mmol/L 3.5-5.1 [facility] ([facility]) FASTING Fastin hours FASTING Fasting : 0 hours FASTING Fastin hours FASTING Fastin hours FASTING Fastin hours FASTING Fastin hours Chloride [Moles/volume] in Serum or Plasma 108 mmol/L 98-107 [facility] ([facility]) FASTING Fastin hours FASTING Fasting : 0 hours FASTING Fastin hours FASTING Fastin hours FASTING Fastin hours FASTING Fastin hours Protein [Mass/volume] in Serum or Plasma 6.7 g/dL 6.4-8.3 [facility] ([facility]) FASTING Fastin hours FASTING Fasting : 0 hours FASTING Fastin hours FASTING Fastin hours FASTING Fastin hours FASTING Fastin hours Albumin [Mass/volume] in Serum or Plasma 4.19 g/dL 3.30-5.00 [facility] ([facility]) FASTING Fastin hours FASTING Fasting : 0 hours FASTING Fastin hours FASTING Fastin hours FASTING Fastin hours FASTING Fastin hours Alanine aminotransferase [Enzymatic activity/volume] in Seru m or Plasma 14 U/L 0-55 [facility] ([facility]) FASTING Fastin hours FASTING Fasting : 0 hours FASTING Fastin hours FASTING Fastin hours FASTING Fastin hours FASTING Fastin hours Aspartate aminotransferase [Enzymatic activity/volume] in Serum or Plasma 18 U/L 5-34 [facility] ([facility]) FASTING Fastin hours FASTING Fasting : 0 hours FASTING Fastin hours FASTING Fastin hours FASTING Fastin hours FASTING Fastin hours Alkaline phosphatase [Enzymatic activity/volume] in Serum or Plasma 66 U/L 40-150 [facility] ([facility]) FASTING Fastin hours FASTING Fasting : 0 hours FASTING Fastin hours FASTING Fastin hours FASTING Fastin hours FASTING Fastin hours Carbon dioxide, total [Moles/volume] in Serum or Plasma 22.2 4 mmol/L 22.00-31.00 [facility] ([facility]) FASTING Fastin hours FASTING Fasting : 0 hours FASTING Fastin hours FASTING Fastin hours FASTING Fastin hours FASTING Fastin hours Osmolality of Serum or Plasma by calculation 300.00 275.00-295.00 [facility] ([facility]) FASTING Fastin hours FASTING Fasting : 0 hours FASTING Fastin hours FASTING Fastin hours FASTING Fastin hours FASTING Fastin hours Albumin/Globulin [Mass Ratio] in Serum or Plasma 1.67 Ratio [facility] ([facility]) FASTING Fastin hours FASTING Fasting : 0 hours FASTING Fastin hours FASTING Fastin hours FASTING Fastin hours FASTING Fastin hours Calcium [Mass/volume] in Serum or Plasma 9.70 mg/dL 8.90-10.40 [facility] ([facility]) FASTING Fastin hours FASTING Fasting : 0 hours FASTING Fastin hours FASTING Fastin hours FASTING Fastin hours FASTING Fastin hours Bilirubin.total [Mass/volume] in Serum or Plasma 0.3 mg/dL 0.2-1.2 [facility] ([facility]) FASTING Fastin hours FASTING Fasting : 0 hours FASTING Fastin hours FASTING Fastin hours FASTING Fastin hours FASTING Fastin hours Globulin [Mass/volume] in Serum by calculation 2.51 2.30-4.20 [facility] ([facility]) FASTING Fastin hours FASTING Fasting : 0 hours FASTING Fastin hours FASTING Fastin hours FASTING Fastin hours FASTING Fastin hours Urea nitrogen/Creatinine [Mass Ratio] in Serum or Plasma 24.55 Ratio [facility] ([facility]) FASTING Fastin hours FASTING Fasting : 0 hours FASTING Fastin hours FASTING Fastin hours FASTING Fastin hours FASTING Fastin hours Sodium [Moles/volume] in Serum or Plasma 142 mmol/L 136-145 [facility] ([facility]) FASTING Fastin hours FASTING Fasting : 0 hours FASTING Fastin hours FASTING Fastin hours FASTING Fastin hours FASTING Fastin hours ID Date Data Source [id number] 12/15/2020 12:14:00 PM EDT [facility] ([facility]) Name Value Range Interpretation Code Description Data Lucia rce(s) Supporting Document(s) Hemoglobin A1c/Hemoglobin.total in Blood 6.80 4.00-6.00 [facility] ([facility]) FASTING Fastin hours FASTING Fasting : 0 hours FASTING Fastin hours FASTING Fastin hours FASTING Fastin hours FASTING Fastin hours Estimated Average Glucose 148.46 mg/dL [facility] ([facility]) FASTING Fastin hours FASTING Fasting : 0 hours FASTING Fastin hours FASTING Fastin hours FASTING Fastin hours FASTING Fastin hours ID Date Data Source [id number] 11/22/2020 01:49:19 PM EDT [facility]PAT[facility] NT INFORMATIONPatient MRN Name Date of Age Gend*PT [id number] Marilyn Ribeiro 1960 60 years M ---PT Location Admission Date/Time Visit ID Attending Provider --- --- --- --- EPI ID CSN Admitting Provider [id number] ---Cardiology Office NoteName: Marilyn Ribeiro Gender: maleDate of : 1960 Age: 60 yearsPrimary Care Provider / Referring Physician: RYAN Kaiserurrent HistoryChief Complaint: 8-month follow-upHPI:This patient is a 60 years male presents today for follow-up. He has thefollowing medical problem list:1. Cardiac catheterization 06/14/2017 showing no progression of CAD. Patient hasprevious stent placement to the right coronary artery and diagonal xxbwzp7111/15/2016. Cardiac catheterization 05/2017 widely patent stents in [...] 02/11/2020 Procedure: Left heart cath; Surgeon: GEENA RHYTHMIC GYMNASTICS COACH;Laterality: N/A; CARDIAC CATHETERIZATION N/A 02/11/2020 Procedure: Coronary angiography; Surgeon: SJHCUPID, RHYTHMIC GYMNASTICS COACH;Laterality: N/A; CARDIAC CATHETERIZATION N/A 02/11/2020 Procedure: Left ventriculography; Surgeon: GEENA RHYTHMIC GYMNASTICS COACH;Laterality: N/A; KNEE SURGERY Left LAPAROSCOPIC RETROPUBIC PROSTATECTOMY [...] Social Gatherings with Friends and Family: Attends [employer] Services: Active Member of Clubs or Organizations: [...] NS IV, 2-10 mL,Intravenous, Once PRN, Duong Ball, NPPhysicalBMI: Body mass index is 30.83 kg/m [...] Known CAD; patient had ST elevation lateral MD February 11, 2020 treatedwith balloon angioplasty; patient does have moderate to severe disease in themid LAD2. Mild mitral regurgitation; his murmur is more impressive on today's exam. Iwill have him repeat echocardiogram in . Hypertension; [...] parts of this document, were dictated using AppCastware. A reasonable attempt at proofreading has been made to minimize errors.Please call with any questions or corrections. Name Value Range Interpretation Code Description Data Lucia rce(s) Supporting Document(s) ID Date Data Source [id number] 09/14/2020 09:33:00 AM EDT [facility] ([facility] [...] Serum or Plasma 3.89 g/dL 3.30-5.00 [facility] ([facility]) FASTING Fastin hours FASTING Fasting : 0 hours Aspartate aminotransferase [Enzymatic activity/volume] in Serum or Plasma 17 U/L 5-34 [facility] ([facility]) FASTING Fastin hours FASTING Fasting : 0 hours Alkaline phosphatase [Enzymatic activity/volume] in Serum or Plasma 73 U/L 40-150 [facility] ([facility]) FASTING Fastin hours FASTING Fasting : 0 hours Carbon dioxide, total [Moles/volume] in Serum or Plasma 26.4 0 mmol/L 22.00-31.00 [facility] ([facility]) FASTING Fastin hours FASTING Fasting : 0 hours Albumin/Globulin [Mass Ratio] in Serum or Plasma 1.55 Ratio [facility] ([facility]) FASTING Fastin hours FASTING Fasting : 0 hours Osmolality of Serum or Plasma by calculation 304.00 275.00-295.00 [facility] ([facility]) FASTING Fastin hours FASTING Fasting : 0 hours Calcium [Mass/volume] in Serum or Plasma 9.10 mg/dL 8.90-10.40 [facility] ([facility]) FASTING Fastin hours FASTING Fasting : 0 hours Bilirubin.total [Mass/volume] in Serum or Plasma 0.2 mg/dL 0.2-1.2 [facility] ([facility]) FASTING Fastin hours FASTING Fasting : 0 hours Globulin [Mass/volume] in Serum by calculation 2.51 2.30-4.20 [facility] ([facility]) FASTING Fastin hours FASTING Fasting : 0 hours Urea nitrogen/Creatinine [Mass Ratio] in Serum or Plasma 16.67 Ratio [facility] ([facility]) FASTING Fastin hours FASTING Fasting : 0 hours Sodium [Moles/volume] in Serum or Plasma 144 mmol/L 136-145 [facility] ([facility]) FASTING Fastin hours FASTING Fasting : 0 hours ID Date Data Source [id number] 09/14/2020 09:33:00 AM EDT [facility] ([facility]) Name Value Range Interpretation Code Description Data Lucia rce(s) Supporting Document(s) Hemoglobin A1c/Hemoglobin.total in Blood 7.00 4.00-6.00 [facility] ([facility]) FASTING Fastin hours FASTING Fasting : 0 hours Estimated Average Gl[facility].20 [facility] FAST[facility] Fastin hours FASTING Fasting : 0 hours ID Date Data Source [id number] 09/14/2020 09:33:00 AM ED[facility] Name Value Range Interpretation Code Description Data Lucia rce(s) Supporting Document(s) Hemoglobin A1c/Hemoglobin.total in Blood [facility] ID Date Data Source [id number] 06/22/2020 08:08:00 AM EDT [facility] Name Value Range Interpretation Code Description Data Lucia rce(s) Supporting Document(s) Prostate Specific Ag, Serum 0.0-4.0 [place] b[place] ECLIA methodology. According to th e [place] [employer], Serum PSA shoulddecrease and remain at undetectable levels after radicalprostatectomy. The AUA defines biochemical recurrence as an initialPSA value 0.2 ng/mL or greater followed by a subsequent confirmatoryPSA value 0.2 ng/mL or greater.Values obtained with different assay methods or kits cannot be usedinterchangeably. Results cannot be interpreted as absolute evidenceof the presence or absence of malignant disease. ID Date Data Source [id number] 06/14/2020 05:55:00 PM EDT [facility] Name Value Range Interpretation Code Description Data Lucia rce(s) Supporting Document(s) Opiates Urine 6 Am Laboratory test result [facility] ([facility]) INTERPRETIVE INFORMATION: Opiates, Urine , Quantitative Methodology: [...] developed and its performance characteristics determined by [facility]. It has not been cleared or approved [...] Care) Unit: ng/mL Opiates Norhydrocodo 1255 [facility] ([facility]) Unit: ng/mL Norhydrocodone is a metabolite of hydrocodone; consistent with use of a drug containing hydrocodone. Hydrocodone may also be a metabolite of codeine, or an impurity of oxycodone. Performed By: [facility] [address] [place] [id number] Slate Handler: Ning James MD Unless otherwise specified, testing performed by [facility] [place] [facility] [address] [address] ID Date Data Source [id number] 06/14/2020 05:55:00 PM EDT [facility] Name Value Range Interpretation Code [...] result Abnormal (applies to non-numeric results) [facility] ([facility]) SPECIMEN HAS BEEN SENT FOR CONFIRMATION. NOTE: Oxycodone is not sufficiently detected by this screening assay. A more sensitive assay is available upon request. Please Note: Laboratory test result [facility] ([facility]) THESE ARE SCREENING IMMUNOASSAY TESTS TH AT [...] Unless otherwise specified, testing performed by [facility] [place] of [facility], [address] [address] Phencyclidine,Urine Laboratory test result [facility] ([facility]) ID Date Data Source [id number] 06/14/2020 10:13:04 PM EDT [facility] Name Value Range Interpretation Code Description Data Lucia rce(s) Supporting Document(s) AMPHETAMINES,URINE (NEG) [facility] BARBITURATES,URINE (NEG) [facility] BENZODIAZEPINE,URINE (NEG) [facility] [place] [facility] CANNABINOIDS,URINE (NEG) [facility] COCAINE,URINE (NEG) [facility] OPIATES,URINE (NEG) A [facility] [facility] SPECIMEN HAS BEEN SENT FOR CONFIRMATION. NOTE: Oxycodone is not sufficientlydetected by this screening assay. A moresensitive assay is available upon request. PHENCYCLIDINE,URINE (NEG) [facility] PLEASE NOTE: [facility] ARE REPORTED POSITIVE WHEN THE RESULT SEXCEED THE THRESHOLD (CUTOFF) INDICATED. ALIST OF POTENTIAL INTERFERENCES FOR EACHMETHOD CAN BE MADE AVAILABLE UPON REQUEST.A CONFIRMATORY ANALYSIS IS ORDERED ONALL DRUG CLASSES SCREENING POSITIVE BYTHIS METHOD.* * * * * * * * * * * * * * *THIS ASSAY IS NOT INTENDED TO BE USED FORMONITORING MEDICATION COMPLIANCE. ID Date Data Source [id number] 06/17/2020 06:12:49 PM EDT [facility] [place] [facility] Name Value Range Interpretation Code Description Data Lucia rce(s) Supporting Document(s) OPIATES URINE 6 AM <10 ng/mL [facility] [place] [facility] INTERPRETIVE INFORMATION: Opiates, Urin e, Quantitative [...] developed and its performance characteristics determined by [facility]. It has not been cleared or approved by the US Food and Drug Administration. This test was performed in a CLIA certified laboratory and is intended for clinical purposes. OPIATES CODEINE <20 ng/mL [facility] OPIATES MORPHINE <20 ng/mL [facility] OPIATES HYDROCODONE 462 ng/mL [facility] Consistent with use of a drug containin g hydrocodone. Low concentrations may reflect impurity of another drug such as oxycodone. OPIATES HYDROMORPHO <20 ng/mL [facility] [place] [facility] OPIATES OXYCODONE <20 ng/mL [facility] OPIATES OXYMORPHONE <20 ng/mL [facility] [place] [facility] OPIATES NOROXYCODONE <20 [facility] [place] [facility] Unit: ng/mL OPIATES NOROXYMORPHO <20 [facility] [place] [facility] Unit: ng/mL OPIATES NORHYDROCODO 1255 [facility] [place] [facility] Unit: ng/mL Norhydrocodone is a metaboli te of hydrocodone; consistent with use of a drug containing hydrocodone. Hydrocodone may also be a metabolite of codeine, or an impurity of oxycodone. Performed By: [facility] [address] [place] [id number] Slate Handler: Ning James MD ID Date Data Source [id number] 06/14/2020 08:26:00 AM EDT [facility] ([facility] [...] ([facility]) ID Date Data Source [id number] 06/14/2020 08:26:00 AM EDT [facility] ([facility] [...] ([facility]) ID Date Data Source [id number] 06/14/2020 08:26:00 AM EDT [facility] Name Value Range Interpretation Code [...] ([facility]) ID Date Data Source [id number] 06/14/2020 08:26:00 AM EDT [facility] ([facility] [...] Family Care) Protein Laboratory test result [facility] ([facility]) pH 6.0 5.0-7.5 [facility] ([facility]) Hemoglobin Laboratory test result [facility] ([facility]) Specific Charlo 1.038 1.005-1.030 Abnormal (applies to non-nume giovanna results) [facility] ([facility]) Ketones Laboratory test result [facility] ([facility]) Bilirubin Laboratory test result [facility] ([facility]) Glucose Laboratory test result Abnormal (applies to non -numeric results) [facility] ([facility]) Laboratory test finding (navigational concept) Laboratory test result 0-5 [facility] ([facility]) Laboratory test finding (navigational concept) Laboratory test result 0-2 [facility] ([facility]) ID Date Data Source [id number] 06/14/2020 08:26:00 AM EDT [facility] ([facility]) Name Value Range Interpretation Code Description Data Lucia rce(s) Supporting Document(s) Hemoglobin A1c/Hemoglobin.total in Blood 7.53 4.00-6.00 [facility] ([facility]) <content>GOAL <7</content>
<content> </content> Estimated Average Glucose 169.45 mg/dL M [facility] ([facility]) ID Date Data Source [id number] 06/03/2020 01:05:00 PM EDT [facility] CT C HEST [...] mass lesion.Dictated by: SHAUNA KHAN MD on 06/03/2020lectronically Signed by: SHAUNA KHAN MD on 06/03/2020 02:43 PMTranscribed by: katy on <<TranscriptionDateTime1>>CDS G code: ,CDS Modifier: ,cc: Name Value Range Interpretation Code Description Data Lucia rce(s) Supporting Document(s) ID Date Data Source [id number] 04/26/2020 09:24:00 AM EST [facility] ([facility]) Name Value Range Interpretation Code Description Data Lucia rce(s) Supporting Document(s) TSH 8.387 uIU/mL 0.350-4.940 [facility] ([facility]) Free T4 1.10 ng/dL 0.70-1.48 [facility] ([facility]) ID Date Data Source [id number] 04/26/2020 09:24:00 AM EST [facility] ([facility] [...] ([facility]) ID Date Data Source [id number] 03/15/2020 10:31:00 AM EST [facility] ([facility] [...] ([facility]) ID Date Data Source [id number] 03/15/2020 10:31:00 AM EST [facility] ([facility]) Name Value Range Interpretation Code Description Data Lucia rce(s) Supporting Document(s) Free T4 0.91 ng/dL 0.70-1.48 [facility] ([facility]) TSH 24.051 uIU/mL 0.350-4.940 [facility] ([facility]) ID Date Data Source [id number] 03/15/2020 10:31:00 AM EST [facility] ([facility]) Name Value Range Interpretation Code Description Data Lucia rce(s) Supporting Document(s) Hemoglobin A1c/Hemoglobin.total in Blood 7.51 4.00-6.00 [facility] ([facility]) <content>GOAL <7</content>
<content> </content> Estimated Average Glucose 168.71 mg/dL M [facility] ([facility]) ID Date Data Source [id number] 03/15/2020 10:31:00 AM EST [facility] ([facility] [...] or Plasma 99.00 mg/dL 0 .00-100.00 [facility] ([facility]) GOAL LESS THAN 100 ID Date Data Source [id number] 03/15/2020 10:31:00 AM EST [facility] ([facility]) Name Value Range Interpretation Code Description Data Lucia rce(s) Supporting Document(s) Urea nitrogen [Mass/volume] in Serum or Plasma 23 mg/dL 9-21 [facility] ([facility]) Glucose [Mass/volume] in Serum or Plasma 179.00 mg/dL 70.00-110.00 [facility] ([facility]) Sodium [Moles/volume] in Serum or Plasma 139 mmol/L 136-145 [facility] ([facility]) GFR 57.29 mL/min [facility] ([facility] y Care) <content>NORMAL FUNCTION OR MILD RENAL D ISEASE:>60 ml/min</content>
<content>ADVANCED RENAL DISEASE:15-59 ml/min</content>
<content>RENAL FAILURE:<15 ml/min</content>
<content></content> Creatinine [Mass/volume] in Serum or Plasma 1.4 mg/dL 0.7-1.3 [facility] ([facility]) Chloride [Moles/volume] in Serum or Plasma 106 mmol/L 98-107 [facility] ([facility]) Potassium [Moles/volume] in Serum or Plasma 4.8 mmol/L 3.5-5.1 [facility] ([facility]) Protein [Mass/volume] in Serum or Plasma 7.1 g/dL 6.4-8.3 [facility] ([facility]) Albumin [Mass/volume] in Serum or Plasma 4.40 g/dL 3.30-5.00 [facility] ([facility]) Aspartate aminotransferase [Enzymatic activity/volume] in Serum or Plasma 23 U/L 5-34 [facility] ([facility]) Alanine aminotransferase [Enzymatic activity/volume] in Seru m or Plasma 26 U/L 0-55 [facility] ([facility]) Alkaline phosphatase [Enzymatic activity/volume] in Serum or Plasma 78 U/L 40-150 [facility] ([facility]) Carbon dioxide, total [Moles/volume] in Serum or Plasma 25.0 0 mmol/L 22.00-31.00 [facility] ([facility]) Albumin/Globulin [Mass Ratio] in Serum or Plasma 1.63 Ratio [facility] ([facility]) Calcium [Mass/volume] in Serum or Plasma 9.70 mg/dL 8.90-10.40 [facility] ([facility]) Osmolality of Serum or Plasma by calculation 296.16 275.00-295.00 [facility] ([facility]) Urea nitrogen/Creatinine [Mass Ratio] in Serum or Plasma 16.91 Ratio [facility] ([facility]) Bilirubin.total [Mass/volume] in Serum or Plasma 0.4 mg/dL 0.2-1.2 [facility] ([facility] Family [facility]) Globulin [Mass/volume] in Serum by calculation 2.70 2.30-4.20 [facility] ([facility]) ID Date Data Source [id number] 03/15/2020 10:31:00 AM EST [facility] ([facility]) Name Value Range Interpretation Code Description Data Lucia rce(s) Supporting Document(s) Calcidiol [Mass/volume] in Serum or Plasma 44 ng/mL 30-100 [facility] ([facility]) ID Date Data Source [id number] 03/15/2020 10:31:00 AM EST [facility] ([facility]) Name Value Range Interpretation Code Description Data Lucia rce(s) Supporting Document(s) Hemoglobin A1c/Hemoglobin.total in Blood Laboratory test result [facility] ([facility]) Free T4 Laboratory test result [facility] ([facility]) TSH Laboratory test result [facility] ([facility]) ID Date Data Source [id number] 03/03/2020 10:10:17 AM EST [facility] INFORMATIONPatient MRN Name Date of Age Gend*PT [id number] Gema Amrilyn 1960 59 years M ---PT Location Admission Date/Time Visit ID Attending Provider --- --- --- --- EPI ID CSN Admitting Provider [id number] ---Cardiology Office NoteName: Marilyn Gema Gender: maleDate of : 1960 Age: 59 yearsPrimary Care Provider / Referring Physician: RYAN Napolesurrent HistoryChief Complaint: Hospital follow-upHPI:This patient is a 59 years male presents today for follow-up. He has thefollowing medical problem list:1. Cardiac catheterization 06/14/2017 showing no progression of CAD. Patient hasprevious stent placement to the right coronary artery and diagonal [id number]/15/2016. Cardiac catheterization 05/2017 widely patent stents in [...] 02/11/2020 Procedure: Left heart cath; Surgeon: GEENA RHYTHMIC GYMNASTICS COACH;Laterality: N/A; CARDIAC CATHETERIZATION N/A 02/11/2020 Procedure: Coronary angiography; Surgeon: GEENA RHYTHMIC GYMNASTICS COACH;Laterality: N/A; CARDIAC CATHETERIZATION N/A 02/11/2020 Procedure: Left ventriculography; Surgeon: GEENA RHYTHMIC GYMNASTICS COACH;Laterality: N/A; KNEE SURGERY Left LAPAROSCOPIC RETROPUBIC PROSTATECTOMY [...] file Gets together: Not on file Attends uatsdin service: Not on file Active member of [...] a daywith meals , Disp: , Rfl: aovhagql-eyqrrzhlhe-lwsbhsgfd (NEOSPORIN) 5-400-5000 ointment, Apply 1application topically every [...] by mouth nightly, Disp: , Rfl: Tiotropium [place] Monohydrate (SPIRIVA HAND[employer] [place]), Inhale, Disp: , [...] N/AAssessment & Plan1. Known CAD with recent MD; he did have angioplasty and does have [...] parts of this document, were dictated using AppCastware. A reasonable attempt at proofreading has been made to minimize errors.Please call with any questions or corrections. Name Value Range Interpretation Code Description Data Lucia rce(s) Supporting Document(s) ID Date Data Source [id number] 02/16/2020 11:22:13 AM EST [facility] NT INFORMATIONPatient MRN Name Date of Age Gend*PT [id number] Marilyn Ribeiro 1960 59 years M IPPT Location Admission Date/Time Visit ID Attending ProviderCV-10 02/11/20 1724 --- --- EPI ID CSN Admitting Prov ider [id number] Noel Henson MD([id number]) Attestation signed by Noel Henson MD at 02/16/2020 11:22 AMSignature: JUNIOR Gonzalezate: February 16, 2020Time: 11:22 AM Physician Discharge Summary Marilyn RibeiroMRN: [id number] date: 02/11/2020Attending Physician: Noel Henson MDAdmission Diagnosis: <principal problem not specified>Principle Procedures:1. Cardiac catheterization: 02/11/2020Interpretation Zzqcacv62-[id number] man with diabetes and coronary artery disease [...] that and he will follow with his building official. He should beon dual antiplatelet therapy for [...] to the right coronary artery and diagonal xkjemv1011/15/2016. Cardiac catheterization 05/2017 widely patent stents in [...] symptoms.Patient was seen and evaluated by Dr. Clint Allen and deemed appropriate fordischarge to home. Patient [...] Recent Labs:Cardiac:Lab ResultsComponent Value Date TROPONINI 13.90 (HH) 02/12/2020 POCTROP 13.61 (HH) 11/15/2016CBC with Diff:Lab ResultsComponent Value Date WBC [...] dayIncruse Ellipta 62.5 MCG/INH AepbGeneric drug: Umeclidinium [place] Inhale 1 puff dailyJardiance 25 MG TabsGeneric [...] mouth 2 (two) times a day with jzranwdarwjnr-wakaorxymg-sdchhpmgc 5-400-5000 ointment Apply 1 application topically every [...] Get Your MedicationsThese medications [place] to [place] [address] clopidogrel 75 MG tablet metoprolol succinate 50 [...] rce(s) Supporting Document(s) ID Date Data Source [id number] 02/13/2020 01:26:48 PM EST [facility]PAT[facility] NT INFORMATIONPatient MRN Name Date of Age Gend*PT [id number] Marilyn Ribeiro 1960 59 years M IPPT Location Admission Date/Time Visit ID Attending ProviderCV-10 02/11/20 8784 --- Noel Henson MD([id number]) EPI ID CSN Admitting Provider [id number] oNel Henson MD([id number])DISCHARGE SUMMARYAdmission Date: 02/11/2020Discharge date: 02/13/20PRINCIPAL DIAGNOSIS: Acute high lateral myocardial infarctionCURRENT HTOFFGKBLETS48-qaiv-wmv man with coronary artery disease post stenting [...] 10*3/uL 288Results from last 7 daysLab Units 02/12/2005136120XLJGRD mmol/L 138POTASSIUM mmol/L 4.5CHLORIDE mmol/L 104CO2 mmol/L 25BUN mg/dL 33*CREATININE mg/dL 1.22GLUCOSE mg/dL 173*CALCIUM mg/dL 9.7Results from last 7 daysLab Units 02/12/2008CK TOTAL U/L 280 371* 547*Results from last 7 daysLab Units 02/11/2020TROPONIN I ng/mL 13.90* 30.60* 1.74*Results from last 7 daysLab Units 02/12/2008529097CDYHMUVCVCZ mg/dL 152TRIGLYCERIDES mg/dL 141HDL mg/dL 54DISCHARGE MEDICATION LIST Josefa Ribeiro Medication Instructions [id number] Printed on:02/13/20 1324Medication Informationalbuterol (PROVENTIL HFA;VENTOLIN HFA) [...] mouth 2 (two) times a day with bjdvoikrgjngn-sebrhtbuuo-koegidica (NEOSPORIN) 5-400-5000 ointmentApply 1 application topically every 2 (two) hours as needed (for irritation)nitroglycerin (NITROSTAT) 0.4 MG SL tabletPlace 1 tablet (0.4 mg total) under the tongue every 5 (five) minutes as neededfor chest painpantoprazole (PROTONIX) 40 MG tabletTake 40 mg by mouth dailysimvastatin (ZOCOR) 40 MG tabletTake 40 mg by mouth nightlysitaGLIPtin (JANUVIA) 50 MG tabletTake 50 mg by mouth nightlyTiotropium [place] Monohydrate (SPIRIVA HANDIH[employer]ER IN)Inhaletopiramate (TOPAMAX) 200 MG tabletTake 200 mg by mouth dailytraZODone (DESYREL) 100 MG tabletTake 100 mg by mouth nightlyUmeclidinium [place] (INCRUSE ELLIPTA) 62.5 MCG/INH AEPBInhale 1 puff dailySignature: Noel Henson, MDDate: February 13, 2020Time: 1:24 [facility]: Dr. Malhotra document or parts of this document, were dictated using IKO System software. A reasonable attempt at proofreading has been made tominimize errors. Please call with any questions or corrections. Name Value Range Interpretation Code Description Data Lucia rce(s) Supporting Document(s) ID Date Data Source [id number] 02/13/2020 11:33:32 AM EST [facility] [place] [facility] Name Value Range Interpretation Code Description Data Lucia rce(s) Supporting Document(s) POC NOVA GLU 185 mg/dL (70-99) H [facility] [place] [facility] [place] PERFOR[facility] BY [facility] CLINICAL STAFF ID Date Data Source [id number] 02/13/2020 08:48:59 AM EST [facility] [place] [facility] Name Value Range Interpretation Code Description Data Lucia rce(s) Supporting Document(s) POC NOVA GLU 186 mg/dL (70-99) H [facility] [place] [facility] [place] [facility] CLINICAL STA[facility] ID Date Data Source [id number] 02/13/2020 06:50:33 AM EST [facility] [place] [facility] Name Value Range Interpretation Code Description Data Lucia rce(s) Supporting Document(s) SODIUM 138 mmol/L (136-145) [facility] [place] [facility] POTASSIUM 4.5 mmol/L (3.6-5.2) [facility] [place] [facility] CHLORIDE 104 mmol/L (100-108) [facility] [place] [facility] CO2 25 mmol/L (22-31) [facility] [place] [facility] ANION GAP 9 mmol/L (7-16) [facility] [place] [facility] UREA NITROGEN 33 mg/dL (7-24) H [facility] [place] [facility] CREATININE 1.22 mg/dL (0.80-1.30) [facility] [place] [facility] BUN/CREAT RATIO 27.0 RATIO (10.0-20.0) H [facility] GLUCOSE 173 mg/dL (70-99) H [facility] [place] [facility] CALCIUM 9.7 mg/dL (8.4-10.2) [facility] [place] [facility] GFR >60 ml/min/1.73m2 (>59) [facility] [place] [facility] GFR ( AMER) >60 ml/min/1.73m2 (>59) [facility] [place] [facility] GFR INTERPRETATION [facility] --NORMAL KIDNEY FUNCTION OR MILD DISEASE - GFR >OR= 60CHRONIC KIDNEY DISEASE - GFR 15 - 59RENAL FAILURE - GFR <15 Est. GFR calculation based on the MDRDstudy equation, which assumes a steadystate for creatinine. Est. GFR should notbe used for medication dosing. ID Date Data Source [id number] 02/13/2020 06:21:14 AM EST [facility] [place] [facility] Name Value Range Interpretation Code Description Data Lucia rce(s) Supporting Document(s) WBC 9.0 10*3/uL (4.1-11.0) [facility] [place] RBC 5.16 10*6/uL (4.60-6.10) [facility] HGB 16.9 g/dL (13.5-18.0) [facility] HCT 49.8 % (41.0-53.0) [facility] MCV 96.4 fL (80.0-95.0) H [facility] MCH 32.6 pg (27.0-32.0) H [facility] [place] MCHC 33.9 g/dL (32.0-36.0) [facility] RDW 14.8 % (10.5-14.5) [facility] PLT 288 10*3/uL (150-450) [facility] MPV 8.1 fL (7.1-10.7) [facility] NEUT % 68.9 % (35.0-75.0) [facility] LYMPH % 17.2 % (16.0-52.0) [facility] MONO % 12.0 % (0.0-8.0) H [facility] EOS % 1.2 % (0.0-5.0) [facility] BASO % 0.7 % (0.0-4.0) [facility] NEUT # 6.2 10*3/uL (1.8-7.7) [facility] LYMPH # 1.6 10*3/uL (1.2-4.8) [facility] MONO # 1.1 10*3/uL (0.0-0.8) [facility] [place] Eosinophils [#/volume] in Blood by Automated count 0.1 10*3/uL (0.0-0 .5) [facility] BASO # 0.1 10*3/uL (0.0-0.2) [facility] ID Date Data Source [id number] 02/12/2020 05:51:45 PM EST [facility] Name Value Range Interpretation Code Description Data Lucia rce(s) Supporting Document(s) POC NOVA GLU 175 mg/dL (70-99) H [facility] [place] [facility] ID Date Data Source [id number] 02/12/2020 08:15:28 PM EST [facility] Name Value Range Interpretation Code Description Data Lucia rce(s) Supporting Document(s) CKMB 12.5 ng/mL (0.0-5.0) [facility] ALERTED CRITICAL RESULT TOAMANDA(39304) [place] 201202/12/2020 70604 CKMB RELATIVE INDEX 4.5 {index_val} (0.0-4.0) H [facility] ID Date Data Source [id number] 02/12/2020 07:03:27 PM EST [facility] Name Value Range Interpretation Code Description Data Lucia rce(s) Supporting Document(s) CK 280 U/L (39-308) [facility] ID Date Data Source [id number] 02/12/2020 06:58:34 PM EST [facility] Name Value Range Interpretation Code Description Data Lucia rce(s) Supporting Document(s) POTASSIUM 4.4 mmol/L (3.6-5.2) [facility] ID Date Data Source [id number] 02/12/2020 03:31:24 PM EST [facility] NT INFORMATIONPatient MRN Name Date of Age Gend*PT [id number] Marilyn Ribeiro 1960 59 years M IPPT Location Admission Date/Time Visit ID Attending ProviderCV-10 02/11/20 1724 --- Noel Henson MD([id number]) EPI ID CSN Admitting Provider [id number] Noel Henson MD([id number]) Attestation signed by Noel Henson MD at [...] to the right coronary artery and diagonal [id number]/15/2016. Cardiac catheterization 05/2017 widely patent stents in [...] file Gets together: Not on file Attends uatsdin service: Not on file Active member of [...] Blood pressure acceptable, monitor. May consider adding gwe-fmpdxucm-[id number] in a.m.-Hyperlipidemia: Will start high intensity statin.- Diabetes mellitus type 2: We will update hemoglobin A1c, continue meal insulinsliding scale coverage. Accu-Cheks 3 times daily AC. Diabetic diet.Full code.DVT prophylaxis: Integrilin drip.Further plan per Dr. Henson.Signature: Lynda Cheek NPDate: February 11, 2020Time: 6:35 PM Name Value Range Interpretation Code Description Data Lucia rce(s) Supporting Document(s) ID Date Data Source [id number] 02/12/2020 02:11:43 PM EST [facility] Name Value Range Interpretation Code Description Data Lucia rce(s) Supporting Document(s) POC NOVA GLU 161 mg/dL (70-99) H [facility] [place] [facility] [place] [facility] ID Date Data Source [id number] 02/12/2020 11:54:05 AM EST [facility] Name Value Range Interpretation Code Description Data Lucia rce(s) Supporting Document(s) &PDF [facility] DBRJFh3cVrGNNnOf26/ASTloDIZjb4UaTGxwSAq7KOreISFlS1VawMlwGUMVFV9TVHWBZJHBH5lnCNXz oRX [file] AgICAgICAgICAgICAgICAgICAgICAgICAgICAgICAgICAgICAgICAgICAgICAgICAgICANCiAgICAgIC AgICAgICAgICAgICAgICAgICAgICAgICAgICAgICAg ICAgICAgICAgICAgICAgICAgICAgICAgICAgICAgICAgICAgICAgICAgICAgICAgICAgICAgICAgICAg ICANCiAgICAgICAgICAgICAgICAgICAgICAgICAgICAgICAgICAgICAgICAgICAgICAgICAgICAgICAg ICAgICAgICAgICAgICAgICAgICAgICAgICAgICAgIC AgICAgICAgICAgICANCiAgICAgICAgICAgICAgICAgICAgICAgICAgICAgICAgICAgICAgICAgICAgIC AgICAgICAgICAgICAgICAgICAgICAgICAgICAgICAgICAgICAgICAgICAgICAgICAgICAgICANCiAgIC AgICAgICAgICAgICAgICAgICAgICAgICAgICAgICAg ICAgICAgICAgICAgICAgICAgICAgICAgICAgICAgICAgICAgICAgICAgICAgICAgICAgICAgICAgICAg ICAgICANCiAgICAgICAgICAgICAgICAgICAgICAgICAgICAgICAgICAgICAgICAgICAgICAgICAgICAg ICAgICAgICAgICAgICAgICAgICAgICAgICAgICAgIC AgICAgICAgICAgICAgICANCiAgICAgICAgICAgICAgICAgICAgICAgICAgICAgICAgICAgICAgICAgIC AgICAgICAgICAgICAgICAgICAgICAgICAgICAgICAgICAgICAgICAgICAgICAgICAgICAgICAgICANCi AgICAgICAgICAgICAgICAgICAgICAgICAgICAgICAg ICAgICAgICAgICAgICAgICAgICAgICAgICAgICAgICAgICAgICAgICAgICAgICAgICAgICAgICAgICAg ICAgICAgICANCiAgICAgICAgICAgICAgICAgICAgICAgICAgICAgICAgICAgICAgICAgICAgICAgICAg ICAgICAgICAgICAgICAgICAgICAgICAgICAgICAgIC AgICAgICAgICAgICAgICAgICANCiAgICAgICAgICAgICAgICAgICAgICAgICAgICAgICAgICAgICAgIC AgICAgICAgICAgICAgICAgICAgICAgICAgICAgICAgICAgICAgICAgICAgICAgICAgICAgICAgICAgIC ANCjw/aKWsX9ioiGTfphR3Y2ndIf4HTx0KBY4ul2Ud DCSoYNezlhViKhcMXvHwWQYwOlyWKwf2GPctSW9YrHXyJ2FaW5BcDLtlBT1ZUKXfXWYgiVWmSUDuSZXf AyV4HLUwGRvuHW0StOCvOXdsQIUnLDGqGcXsVYEdPBJtIHXiUS4ULHYrZ497ssUlQn2AHa4FKsJyER0c jv1ONzcxOVTsLhxIAag4JHpfLT0OoCNgQ3QreGWzk7 aGEnNzY6TFKHN7IOHkHv0PZQBpSaCdAFDaHWqkJD6iACWaIDIAmWpnlsJ0YW1QGR6bqfQpNU0VZxOnXl 4wTc4MUcAeL1QpP7QvGYAwBCRUNJnsVV6HQYAtRKY6RVCoLzLaAYJSCrAbB90bAG3ZB1Aas43wAbX2BG VgVgNnNIiuJB84vByquzXleVJvrBimQL6JHj2+DQpl kkVoDuaUBoopJROFOkHxLhgOObGoZYIvKGKuCSUlFwN3PyUnOc1TZXLpIJGuMJEsNaLeJNYpLBTlMZmi NTKaFAQ6LtOhFDOwRKViUQ3OYiAvHTIcWpw2FNLhSKHlAZYwjz0JNEKfFDMnRHH9KWNvALWtRSFvJAyn MRBsUXEhAHkuVMHsOXMsBU3OAiToFGIcTOUiBIUcAE LjBGJgrr4NEAHiOVPoXkQ8CTTkKTGtYLByKHvlFOAyYHA8Xon6JJWhRJPjXN5KSpLlDLCgOTfgHZYrLU ViWSOtmi2QGZXcUTBcYoMpHBXdHROhFDMiDOndIIJxINK2IEz0ZWUkWQHiNC8ZGoBlJOUiPMs2HjCqQR ArTFOgoc7YTNUyJFSeMMc6IYApOTNzEOWbAVclFWIp LZC7PLU4TCChGJIuFX2EQcWyFQHcZYMzNBUcKLTbEFQqiy5CILJeKQQiDBQkGAUpJAVwYWVqYKbvKJIz SUS7XKIoZEWwGSRnWO7MDpHkAZFeLGLnDrklOGDzHGHrwk0TISVzJRExRXJ3MTWySFXrIXFeEMuhDWKi RRH5TQU1ZBHbUMArMS4JJhFfUSDwHFR0ZeJmOYUrZB Qwlh4NXOSpQIGpCizaSJUiHIFoTYTdXYrtVWHbLVB8GXZySSTqLBVbEE1BNjLzDRUxFIonHtJvJBNlAK Aqqa6WQCPuWAKrQtR8GmMpCGHhETVpDPjlURIlONY8JvO7EYWqXWRyEG6HCxFcNPLxEtrfWQWaOAQaDF Ykyz5DAFRsXCWwSXUmOYCfTPUzEYCyCVd0mgIceRIs SZp1QP7BS2HdklAdMgwKJk2Dr519KEN3ASFcBp0PU2dgZx0oOONgXSPHTe6ZKMz1JzYiEDJcDMGaHqa2 GQF0TIMaVLPoWSR7KYDvQAT6GKA+BWqjU6QtAOU4CQU2YPy0MZD7KIVyGmUeCzqsNKJkFWOgQB5yMOAQ Cj4+ZSaeeUFvjPueUZLFQbK8OjmoUMfiFZFTPu2P ID Date Data Source [id number] 02/12/2020 09:51:47 AM EST [facility] [place] [facility] [place] Name Value Range Interpretation Code Description Data Lucia rce(s) Supporting Document(s) POC NOVA GLU 159 mg/dL (70-99) H [facility] [place] [facility] [place] [facility] ID Date Data Source [id number] 02/12/2020 05:43:44 PM EST [facility] [place] Name Value Range Interpretation Code Description Data Lucia rce(s) Supporting Document(s) CHOLESTEROL @ 152 mg/dL (0-200) [facility] TRIGLYCERIDE @ 141 mg/dL (30-200) [facility] HDL CHOLESTEROL @ 54 mg/dL (>40) [facility] [place] PER NCEP ATP III GUIDELINES:RESULTS LOWE R THAN 40 MG/DL ARE SUGGESTIVEOF INCREASED RISK FOR CORONARY ARTERYDISEASE. RESULTS > OR = TO 60 MG/DL ARECONSIDERED A NEGATIVE RISK FACTOR. CHOL/HDL RATIO 2.8 RATIO [facility] INTERPRETATION OF CHOL-HDL RATIO CHD RISK FEMALE MALEVERY HIGH >8.3 >14.3HIGH 5.6- 8.3 6.7- 14.3AVERAGE 3.7- 5.6 4.0- 6.7BELOW AVERAGE 2.5- 3.7 2.7- 4.0PROTECTED <2.5 <2.7 LDL CHOL (CALC) 70 mg/dL (<130) [facility] [place] [facility] [place] PER NCEP ATP III GUIDELINES: OPTIMAL < 100 NEAR OPTIMAL 100 - 129BORDERLINE HIGH 130 - 159 HIGH 160 - 189 VERY HIGH > 189 ID Date Data Source [id number] 02/12/2020 03:50:37 PM EST [facility] Name Value Range Interpretation Code Description Data Lucia rce(s) Supporting Document(s) SODIUM 141 mmol/L (136-145) [facility] POTASSIUM 6.1 mmol/L (3.6-5.2) HH [facility] [place] [facility] ALERTED CRITICAL RESULT TOCHRISTINE(1601 6) [place] 00027 12.17.20 1546 95847 CHLORIDE 108 mmol/L (100-108) [facility] CO2 25 mmol/L (22-31) [facility] ANION GAP 8 mmol/L (7-16) [facility] UREA NITROGEN 25 mg/dL (7-24) H [facility] [place] [facility] CREATININE 1.13 mg/dL (0.80-1.30) [facility] BUN/CREAT RATIO 22.1 RATIO (10.0-20.0) H [facility] GLUCOSE 165 mg/dL (70-99) H [facility] [place] CALCIUM 10.3 mg/dL (8.4-10.2) H [facility] [place] [place] GFR >60 ml/min/1.73m2 (>59) [facility] GFR ( AMER) >60 ml/min/1.73m2 (>59) [facility] GFR INTERPRETATION [facility] --NORMAL KIDNEY FUNCTION OR MILD DISEASE - GFR >OR= 60CHRONIC KIDNEY DISEASE - GFR 15 - 59RENAL FAILURE - GFR <15 Est. GFR calculation based on the MDRDstudy equation, which assumes a steadystate for creatinine. Est. GFR should notbe used for medication dosing. ID Date Data Source [id number] 02/12/2020 11:27:33 AM EST [facility] [place] Name Value Range Interpretation Code Description Data Lucia rce(s) Supporting Document(s) CKMB 22.8 ng/mL (0.0-5.0) [facility] ALERTED CRITICAL RESULT TOPAM(1309)[place] [address] ON 378025 AT 1021 [place] [address]85 CKMB RELATIVE INDEX 6.1 {index_val} (0.0-4.0) H [facility] ALERTED CRITICAL RESULT TOPAM(2719)[place] [address] ON 197106 AT 1021 [place] [address] ID Date Data Source [id number] 02/12/2020 10:09:43 AM EST [facility] [place] Name Value Range Interpretation Code Description Data Lucia rce(s) Supporting Document(s) TROPONIN I 13.90 ng/mL (<0.05) [facility] [place] [facility] [place] Less than 0.05: Myocardial injury unlike lyGreater than or equal to 0.05: Highly suggestive of myocardial injuryCorrelation with rise and/or fall ofserial troponins, clinical symptomsand ECG changes is necessary.ALERTED CRITICAL RESULT TOPAM(2599)[place] [address] ON 123996 AT 1008 [place] [address] ID Date Data Source [id number] 02/12/2020 10:03:20 AM EST [facility] [place] Name Value Range Interpretation Code Description Data Lucia rce(s) Supporting Document(s) CK 371 U/L (39-308) H [facility] [place] [facility] ID Date Data Source [id number] 02/12/2020 07:31:54 AM EST [facility] Name Value Range Interpretation Code Description Data Lucia rce(s) Supporting Document(s) [facility] [id number] jb2 [file] ID Date Data Source [id number] 02/12/2020 03:22:37 PM EST [facility] [place] Name Value Range Interpretation Code Description Data Lucia rce(s) Supporting Document(s) DIRECT LDL @ 60 mg/dL (<130) [facility] [place] [facility] [place] PER NCEP ATP III GUIDELINES: OPTIMAL < 100 NEAR OPTIMAL 100 - 129BORDERLINE HIGH 130 - 159 HIGH 160 - 189 VERY HIGH > 189 ID Date Data Source [id number] 02/12/2020 09:22:19 AM EST [facility] [place] Name Value Range Interpretation Code Description Data Lucia rce(s) Supporting Document(s) CHOLESTEROL @ 137 mg/dL (0-200) [facility] [place] TRIGLYCERIDE @ 376 mg/dL (30-200) H [facility] [place] [place] HDL CHOLESTEROL @ 43 mg/dL (>40) [facility] [place] [facility] [place] PER NCEP ATP III GUIDELINES:RESULTS LOWE R THAN 40 MG/DL ARE SUGGESTIVEOF INCREASED RISK FOR CORONARY ARTERYDISEASE. RESULTS > OR = TO 60 MG/DL ARECONSIDERED A NEGATIVE RISK FACTOR. CHOL/HDL RATIO 3.2 RATIO [facility] INTERPRETATION OF CHOL-HDL RATIO CHD RISK FEMALE MALEVERY HIGH >8.3 >14.3HIGH 5.6- 8.3 6.7- 14.3AVERAGE 3.7- 5.6 4.0- 6.7BELOW AVERAGE 2.5- 3.7 2.7- 4.0PROTECTED <2.5 <2.7 LDL CHOL (CALC) (<130) [facility] [place] [facility] [place] INTERFERENCE FROM ELEVATED TRIGLYCERIDES (GREATER THAN 300 MG/DL). SEE RESULTFOR DIRECT LDL. ID Date Data Source [id number] 02/12/2020 02:44:01 AM EST [facility] [place] [facility] [place] Name Value Range Interpretation Code Description Data Lucia rce(s) Supporting Document(s) CKMB 33.0 ng/mL (0.0-5.0) [facility] [place] ALERTED CRITICAL RESULT TOALLISON(06218) CV[facility](06595) AT 0240 ON 02/12/20 [place] [address] CKMB RELATIVE INDEX 6.0 {index_val} (0.0-4.0) H [facility] ID Date Data Source [id number] 02/12/2020 02:02:04 AM EST [facility] Name Value Range Interpretation Code Description Data Lucia rce(s) Supporting Document(s) HEMOGLOBIN A1C @ 7.0 % (4.0-6.0) H [facility] Performed using Siemens Evergreen immunoassa y.Care must be taken when interpreting TuW4mmilyows in patients with a hemoglobin variantor decreased erythrocyte lifespan. Values 5.7 - 6.4% suggest prediabetes.Values >=6.5% are diagnostic for diabetes.REFERENCE: DIABETES CARE 2018: 41(S13-S27).PERFORMED AT [address] [place] [address] 13472 EST AVERAGE GLUCOSE 154 mg/dL [facility] ID Date Data Source [id number] 02/12/2020 01:50:21 AM EST [facility] Name Value Range Interpretation Code Description Data Lucia rce(s) Supporting Document(s) CK 547 U/L (39-308) H [facility] ID Date Data Source [id number] 02/12/2020 01:50:21 AM EST [facility] Name Value Range Interpretation Code Description Data Lucia rce(s) Supporting Document(s) SODIUM 141 mmol/L (136-145) [facility] POTASSIUM 4.0 mmol/L (3.6-5.2) [facility] CHLORIDE 110 mmol/L (100-108) H [facility] CO2 24 mmol/L (22-31) [facility] ANION GAP 7 mmol/L (7-16) [facility] UREA NITROGEN 27 mg/dL (7-24) H [facility] [place] CREATININE 0.98 mg/dL (0.80-1.30) [facility] [place] BUN/CREAT RATIO 27.6 RATIO (10.0-20.0) H [facility] GLUCOSE 151 mg/dL (70-99) H [facility] [place] [facility] CALCIUM 9.3 mg/dL (8.4-10.2) [facility] GFR >60 ml/min/1.73m2 (>59) [facility] GFR ( AMER) >60 ml/min/1.73m2 (>59) [facility] GFR INTERPRETATION [facility] --NORMAL KIDNEY FUNCTION OR MILD DISEASE - GFR >OR= 60CHRONIC KIDNEY DISEASE - GFR 15 - 59RENAL FAILURE - GFR <15 Est. GFR calculation based on the MDRDstudy equation, which assumes a steadystate for creatinine. Est. GFR should notbe used for medication dosing. ID Date Data Source [id number] 02/12/2020 01:12:13 AM EST [facility] Name Value Range Interpretation Code Description Data Lucia rce(s) Supporting Document(s) WBC 8.0 10*3/uL (4.1-11.0) [facility] [place] [facility] [place] RBC 4.51 10*6/uL (4.60-6.10) L [facility] [place] [facility] HGB 14.8 g/dL (13.5-18.0) [facility] [place] HCT 44.4 % (41.0-53.0) [facility] [place] MCV 98.4 fL (80.0-95.0) H [facility] [place] [facility] [place] MCH 32.9 pg (27.0-32.0) H [facility] [place] [facility] [place] MCHC 33.4 g/dL (32.0-36.0) [facility] [place] [facility] [place] RDW 14.2 % (10.5-14.5) [facility] [place] PLT 282 10*3/uL (150-450) [facility] [place] MPV 8.2 fL (7.1-10.7) [facility] ID Date Data Source [id number] 02/11/2020 10:52:03 PM EST [facility] Name Value Range Interpretation Code Description Data Lucia rce(s) Supporting Document(s) TROPONIN I 30.60 ng/mL (<0.05) [facility] [place] [facility] [place] Less than 0.05: Myocardial injury unlike lyGreater than or equal to 0.05: Highly suggestive of myocardial injuryCorrelation with rise and/or fall ofserial troponins, clinical symptomsand ECG changes is necessary.ALERTED CRITICAL RESULT TRACIE (35006) [place] [place] [address] ON 02/11/20 AT 2237 [place] [address] ID Date Data Source [id number] 02/11/2020 10:33:15 PM EST [facility] [place] Name Value Range Interpretation Code Description Data Lucia rce(s) Supporting Document(s) PROCALCITONIN @ <0.10 ng/mL (<0.10) [facility] [place] INTERPRETATION OF RESULT < 0.51 Sepsis is not likely.0.51-2.00 Sepsis is possible, but other conditions are known to elevate PCT.2.01-9.99 Sepsis is likely, unless other causes are known. > 9.99 Important systemic inflammatory response, almost exclusively due to severe bacterial sepsis or septic shock.PERFORMED AT [address] [place] [address] ID Date Data Source [id number] 02/11/2020 07:28:03 PM EST [facility] [place] Name Value Range Interpretation Code Description Data Lucia rce(s) Supporting Document(s) POC NOVA GLU 115 mg/dL (70-99) H [facility] [place] [facility] [place] [facility] PERFORMED BY [facility] CLIN[facility] STA[facility] ID Date Data Source [id number] 02/11/2020 08:50:04 PM EST [facility] [place] Name Value Range Interpretation Code Description Data Lucia rce(s) Supporting Document(s) CKMB 6.8 ng/mL (0.0-5.0) H [facility] [place] [facility] [place] CKMB RELATIVE INDEX 3.0 {index_val} (0.0-4.0) [facility] [place] ID Date Data Source [id number] 02/11/2020 08:40:12 PM EST [facility] [place] Name Value Range Interpretation Code Description Data Lucia rce(s) Supporting Document(s) TROPONIN I 1.74 ng/mL (<0.05) [facility] [place] [facility] [place] Less than 0.05: Myocardial injury unlike lyGreater than or equal to 0.05: Highly suggestive of myocardial injuryCorrelation with rise and/or fall ofserial troponins, clinical symptomsand ECG changes is necessary.ALERTED CRITICAL RESULT TOSHANDRA(6502) [place] [address] ON 02/11/20 AT 7 BY 34422 ID Date Data Source [id number] 02/11/2020 08:36:40 PM EST [facility] Name Value Range Interpretation Code Description Data Lucia rce(s) Supporting Document(s) SODIUM 141 mmol/L (136-145) [facility] [place] [facility] POTASSIUM 4.3 mmol/L (3.6-5.2) [facility] [place] [facility] CHLORIDE 108 mmol/L (100-108) [facility] [place] [facility] CO2 22 mmol/L (22-31) [facility] [place] [facility] ANION GAP 11 mmol/L (7-16) [facility] [place] [facility] UREA NITROGEN 23 mg/dL (7-24) [facility] [place] [facility] CREATININE 1.02 mg/dL (0.80-1.30) [facility] [place] [facility] BUN/CREAT RATIO 22.5 RATIO (10.0-20.0) H [facility] GLUCOSE 128 mg/dL (70-99) H [facility] [place] [facility] CALCIUM 9.1 mg/dL (8.4-10.2) [facility] TOTAL PROTEIN 6.1 g/dL (6.4-8.2) L [facility] [place] [facility] ALBUMIN 3.7 g/dL (3.5-4.6) [facility] [place] [facility] GLOBULIN 2.4 g/dL (2.7-4.3) L [facility] [place] ALB/GLOB RATIO 1.5 RATIO [facility] [place] [facility] ALKALINE PHOSPHATASE 61 U/L (45-117) [facility] BILIRUBIN,TOTAL 0.4 mg/dL (0.0-1.0) [facility] [place] [facility] [place] PLEASE NOTE:Total bilirubin results may be falselyelevated in patients taking Eltrombopag. AST (SGOT) 31 U/L (11-39) [facility] [place] [facility] ALT (SGPT) 22 U/L (12-78) [facility] [facility] GFR >60 ml/min/1.73m2 (>59) [facility] [place] [facility] GFR ( AMER) >60 ml/min/1.73m2 (>59) [facility] [facility] GFR INTERPRETATION [facility] --NORMAL KIDNEY FUNCTION OR MILD DISEASE - GFR >OR= 60CHRONIC KIDNEY DISEASE - GFR 15 - 59RENAL FAILURE - GFR <15 Est. GFR calculation based on the MDRDstudy equation, which assumes a steadystate for creatinine. Est. GFR should notbe used for medication dosing. ID Date Data Source [id number] 02/11/2020 08:36:40 PM EST [facility] [place] [place] Name Value Range Interpretation Code Description Data Lucia rce(s) Supporting Document(s) CK 230 U/L (39-308) [facility] [place] [facility] ID Date Data Source [id number] 02/11/2020 07:00:52 PM EST [facility] [place] [place] Name Value Range Interpretation Code Description Data Lucia rce(s) Supporting Document(s) WBC 8.4 10*3/uL (4.1-11.0) [facility] [place] [facility] [place] RBC 4.28 10*6/uL (4.60-6.10) L [facility] [place] [facility] HGB 14.1 g/dL (13.5-18.0) [facility] [place] [facility] [place] HCT 41.9 % (41.0-53.0) [facility] [place] [facility] [place] MCV 98.0 fL (80.0-95.0) H [facility] [place] [facility] [place] MCH 32.9 pg (27.0-32.0) H [facility] [place] [facility] [place] MCHC 33.6 g/dL (32.0-36.0) [facility] [place] [facility] [place] RDW 14.4 % (10.5-14.5) [facility] [place] [facility] [place] PLT 252 10*3/uL (150-450) [facility] [place] [facility] [place] MPV 8.9 fL (7.1-10.7) [facility] [place] [facility] ID Date Data Source [id number] 02/11/2020 04:40:00 PM EST [facility] Name Value Range Interpretation Code Description Data Lucia rce(s) Supporting Document(s) SARS coronavirus 2 RNA [Presence] in Res piratory specimen by ENRRIQUE with probe detection [facility] This lab was reported by [facility]. ID Date Data Source [id number] 02/11/2020 10:12:16 PM EST [facility] Name Value Range Interpretation Code Description Data Lucia rce(s) Supporting Document(s) SPECIMEN DESCRIPTION Lab [facility] COVID19 RESULT (NDET) [facility] THIS ASSAY AMPLIFIES AND DETECTSTHE TARG ET RNA USING REAL-TIME PCR.NEGATIVE 2019_NCOV RT-PCR RESULTS DONOT PRECLUDE 2019_NCOV INFECTION ANDSHOULD NOT BE USED THE SOLE BASISFOR PATIENT MANAGEMENT DECISIONS. COMMENT Lab [facility] APPROVED B Y THE [place]SDOH. THE U.[place]. FOODAND DRUG ADMINISTRATION HAS NOT APPROVEDTHIS TEST. NEGATIVE RESULTS DO NOT [id number] INFECTION AND SHOULD NOT BEUSED THE SOLE BASIS FOR CLINICALDIAGNOSIS OR PATIENT MANAGEMENT DECISIONS.RESULTS EMAILED TO [facility] AT 2380. [id number] 70521. FIRST TEST [facility]PL[facility]ED IN [facility] Lab [facility] n[facility] of [facility] SYMPTOMATIC [facility] DATE OF SYMPT ONSET Lab [facility] [place] HOSPITALIZED [facility] [place] [facility] [place] [facility] CONGREG[facility] CARE SET Lab [facility] [place] [facility] ID Date Data Source [id number] 02/01/2020 12:00:00 AM EST [facility] Name Value Range Interpretation Code Description Data Lucia rce(s) Supporting Document(s) SARS coronavirus 2 Ag [facility] This lab was ordered by [facility] and reported by [facility]. ID Date Data Source [id number] 01/26/2020 01:59:00 PM EST [facility] Name Value Range Interpretation Code Description Data Lucia rce(s) Supporting Document(s) Covid-19 Laboratory test result [facility] ([facility]) A Not Detected (negative) test result fo [...] providers and patients using the following websites: https://www.[employer]HESKA/home/Covid-19/HCP/QuestIVD/ fact-sheet.html https://www.[employer]ESKA/home/Covid-19/Patients/ QuestIVD/fact-sheet.html This test has been authorized by the FDA under an Emergency Use Authorization (EUA) for use by authorized laboratories. Due to the current public health emergency, [facility] is receiving a high volume of samples [...] about COVID-19 can be found at the [facility] website: [email or web address].[facility].HESKA/Covid19. THIS TEST WAS PERFORMED AT: [id number] [id number] RICHARD HERNANDEZ MD ID Date Data Source [id number] 01/26/2020 01:59:00 PM EST [facility] ([facility]) Name Value Range Interpretation Code Description Data Lucia rce(s) Supporting Document(s) Chloride 103 mmol/L 98-107 [facility] ([facility]) Potassium 3.9 mmol/L 3.4-5.0 [facility] ([facility]) Sodium 139 mmol/L 136-145 [facility] ([facility]) Anion Gap 17 mmol/L 10-20 [facility] ([facility]) Glucose 224 mg/dL 70-99 [facility] ([facility]) Co2 23 mmol/L 22-29 [facility] ([facility]) Calcium [Mass/volume] in Serum or Plasma 9.4 mg/dL 8.6-10.2 [facility] ([facility]) Creatinine 1.1 mg/dL 0.7-1.2 [facility] ([facility]) Urea nitrogen [Mass/volume] in Serum or Plasma 21 mg/dL 6-20 [facility] ([facility]) GFR Laboratory test result [facility] ([facility]) <content>Estimated Glomerular Filtration Rate is estimated based [...] Failure <15</content>
<content></content> ID Date Data Source [id number] 01/26/2020 01:59:00 PM EST [facility] ([facility]) Name Value Range Interpretation Code Description Data Lucia rce(s) Supporting Document(s) Hemoglobin [Mass/volume] in Blood 14.1 g/dL 13.5-17.5 [facility] ([facility]) WBC 7.8 k/UL 4.3-11.0 [facility] ([facility]) RBC 4.39 M/UL 4.20-6.20 [facility] System) Hematocrit 43.5 % 40.0-54.0 [facility] ([facility]) MCV 99.1 FL 75.0-105.0 [facility] ([facility]) MCH 32.1 pg 26.0-33.0 [facility] ([facility]) MCHC 32.4 g/dL 31.0-36.0 [facility] ([facility]) Platelet Count 267 K/UL 150-400 [facility] ([facility] [place]) Red Cell Distribution Width 13.5 % 11.6-14.6 [facility] ([facility]) Lymphocyte Automated 15.1 % 12.0-44.0 MEDE NT ([facility]) Mean Platelet Volume 10.2 FL 8.7-12.3 MEDE NT ([facility]) Neutrophils Automated 75.7 % 47.0-76.0 MED ENT ([facility]) Basophils Automated 0.6 % 0.0-3.0 MEDEN T ([facility]) Eosinophils Automated 0.8 % 0.0-6.0 MED ENT ([facility]) Monocytes Automated 7.7 % 2.0-12.0 MEDEN T ([facility]) Abs.Neutrophils Automated 5.93 K/UL 1.50-7.50 [facility] ([facility]) Abs. Lymphocytes Automated 1.18 K/UL 0.80-2.80 [facility] ([facility]) Abs.Monocytes Automated 0.60 K/UL 0.20-1.00 M EDENT ([facility] [place]) Abs. Eosinophils Automated 0.06 K/UL 0.20-0.40 [facility] ([facility] [place]) Abs. Basophils Automated 0.05 K/UL 0.00-0.20 [facility] ([facility]) Immature Granulocyte 0.1 % 0.0-0.6 MEDE NT ([facility]) Abs Immature Granulocyte 0.01 K/UL 0.00-0.04 [facility] ([facility]) Nucleated RBC 0.0 % 0.0-0.0 [facility] ([facility] [place]) ID Date Data Source [id number] 01/26/2020 01:59:00 PM EST [facility] ([facility]) Name Value Range Interpretation Code Description Data Lucia rce(s) Supporting Document(s) Inr Laboratory test result ME DENT ([facility]) *MONITOR PATIENTS BASED ON INR VALUE* INR RESULT TO BE INTERPRETED FOR PATIENTS ON ORAL ANTICOAGULANT THERAPY ONLY. Conventional Anticoagulation: INR 2.0 - 3.0 Intensive Anticoagulation : INR 2.5 - 3.5 Prothrombin Time 9.8 SEC 9.7-11.9 [facility] ( [facility]) ID Date Data Source [id number] 01/26/2020 01:59:00 PM EST [facility] ([facility]) Name Value Range Interpretation Code Description Data Lucia rce(s) Supporting Document(s) Urine Culture Laboratory test result [facility] ([facility] [place] [place] [place] [address] Sandhya Carson M.D., Slate Handler Laboratory Report Pg 1 PATIENT: MARILYN RIBEIRO : 64 M.R.N.: [id number] DOCTOR: Chris Blake MD AGE/SEX: 59/M COPIES TO: LOC: PUNEET Blake MD Unknown,Physician Specimen: [id number] Collected: 01/26/20 Received: 01/26/20 Source: NATHALIE Alston Descrip: CLN CATCH Procedure Result Verified M I C R O B I O L O G Y > URINE CULTURE Final 01/28/20 NO GROWTH AFTER 48 HOURS > URINE CULTURE Preliminary (Original rpt) 01/27/20 NO GROWTH AFTER 24 HOURS ID Date Data Source [id number] 01/26/2020 01:59:00 PM EST [facility] ([facility]) Name Value Range Interpretation Code Description Data Lucia rce(s) Supporting Document(s) Color of Urine Laboratory test result [facility] ([facility]) Urine Appearance Laboratory test result [facility] ([facility]) Glucose [Presence] in Urine Laboratory test result 0-99 Abnormal (applies to non-numeric results) [facility] ([facility] [place]) Urine Specific Charlo Laboratory test result 1.005-1.025 [facility] ([facility]) Urine Ketones Laboratory test result 0-14 [facility] ([facility]) Urine Bilirubin Laboratory test result [facility] ([facility]) Blood [Presence] in Urine by Visual Laboratory test result [facility] ([facility]) pH of Urine by Test strip 6.0 5.0-8.0 [facility] ([facility]) Protein [Presence] in Urine by Test strip Laboratory test result 0-30 [facility] ([facility]) Urine Urobilinogen 1.0 EU/DL 0.2-1.0 [facility] ([facility]) Urine Leukocyte Esterase Laboratory test result [facility] ([facility]) Urine Nitrite Laboratory test result [facility] ([facility]) ID Date Data Source [id number] 01/26/2020 02:44:00 [place] [address] Sandhya Carson M.D., Slate Handler Laboratory Report Pg 1 PATIENT: MARILYN RIBEIRO : 64 M.R.N.: [id number] DOCTOR: Chris Blake MD AGE/SEX: 59/M COPIES TO: LOC: [facility] Chris Blake MD Unknown,Physician Specimen: [id number] Collected: 01/26/20 Received: 01/26/201358 Source: NATHALIE Alston Descrip: CLN CATCH Procedure Result Verified M I C R O B I O L O G Y > URINE CULTURE Final 01/28/20 NO GROWTH AFTER 48 HOURS > URINE CULTURE Preliminary (Original rpt) 01/27/20746 NO GROWTH AFTER 24 HOURS Name Value Range Interpretation Code Description Data Lucia rce(s) Supporting Document(s) URINE COLOR YELLOW [facility] URINE APPEARANCE CLEAR [facility] URINE SPECIFIC GRAVITY >=1.030 1.005-1.025 [facility] URINE GLUCOSE >=1000 MG/DL 0 - 99 A [facility] URINE BILIRUBIN NEGATIVE NEGATIVE [facility] Center URINE KETONES NEGATIVE MG/DL 0-14 [facility] URINE BLOOD NEGATIVE NEGATIVE [facility] URINE pH 6.0 5.0 - 8.0 [facility] Ce nter URINE PROTEIN NEGATIVE MG/DL 0-30 [facility] URINE UROBILINOGEN 1.0 EU/DL 0.2-1.0 [facility] URINE NITRITE NEGATIVE NEGATIVE [facility] Center URINE LEUKOCYTE ESTERASE NEGATIVE NEGATIVE [facility] ID Date Data Source [id number] 01/26/2020 02:47:00 [place] [address] Sandhya Carson M.D., [employer] Laboratory Report Pg 1 PATIENT: MARILYN RIBEIRO : 64 M.R.N.: [id number] DOCTOR: Chris Blake MD AGE/SEX: 59/M COPIES TO: LOC: SSLD Chris Blake MD Unknown,Physician Specimen: [id number] Collected: 01/26/20 Received: 01/26/201358 Source: NATHALIE Alston Descrip: BRUNO CATCH Procedure Result Verified M I C R O B I O L O G Y > URINE CULTURE Final 01/28/20302 NO GROWTH AFTER 48 HOURS > URINE CULTURE Preliminary (Original rpt) 01/27/20746 NO GROWTH AFTER 24 HOURS Name Value Range Interpretation Code Description Data Lucia rce(s) Supporting Document(s) PROTHROMBIN TIME 9.8 SEC 9.7-11.9 [facility] INR < 1.0 [facility] Ce nter *MONITOR PATIENTS BASED ON INR VALU E*INR RESULT TO BE INTERPRETED FOR PATIENTS ON ORAL ANTICOAGULANT THERAPY ONLY.Conventional Anticoagulation: INR 2.0 - 3.0Intensive Anticoagulation : INR 2.5 - 3.5 ID Date Data Source [id number] 01/26/2020 02:52:00 [place] [address] Sandhya Carson M.D., [employer] Laboratory Report Pg 1 PATIENT: MARILYN RIBEIRO : 64 M.R.N.: [id number] DOCTOR: Chris Blake MD AGE/SEX: 59/M COPIES TO: LOC: SSLD Chris Blake MD Unknown,Physician Specimen: [id number] Collected: 01/26/20 Received: 01/26/201358 Source: NATHALIE Alston Descrip: BRUNO CATCH Procedure Result Verified M I C R O B I O L O G Y > URINE CULTURE Final 01/28/20 NO GROWTH AFTER 48 HOURS > URINE CULTURE Preliminary (Original rpt) 01/27/20746 NO GROWTH AFTER 24 HOURS Name Value Range Interpretation Code Description Data Lucia rce(s) Supporting Document(s) WBC 7.8 k/UL 4.3-11.[address] [facility] nter RBC 4.39 M/UL 4.20-6.20 [facility] HEMOGLOBIN 14.1 G/DL 13.5-17.5 [facility] enter HEMATOCRIT 43.5 % 40.0-54.0 [facility] C enter MCV 99.1 FL 75.0-105.0 [facility] C enter MCH 32.1 PG 26.0-33.[address] [facility] nter MCHC 32.4 G/DL 31.0-36.0 [facility] RED CELL DISTRIBUTION WIDTH 13.5 % 11.6-14.6 On [facility] PLATELET COUNT 267 K/UL 150-400 [facility] MEAN PLATELET VOLUME 10.2 FL 8.7-12.3 [facility] NEUTROPHILS AUTOMATED 75.7 % 47.0-76.0 [facility] LYMPHOCYTE AUTOMATED 15.1 % 12.0-44.0 [facility] MONOCYTES AUTOMATED 7.7 % 2.0-12.0 [facility] EOSINOPHILS AUTOMATED 0.8 % 0.0-6.0 [facility] BASOPHILS AUTOMATED 0.6 % 0.0-3.0 [facility] ABS.NEUTROPHILS AUTOMATED 5.93 K/UL 1.50-7.50 [facility] ABS. LYMPHOCYTES AUTOMATED 1.18 K/UL 0.80-2.80 [facility] ABS.MONOCYTES AUTOMATED 0.60 K/UL 0.20-1.00 [facility] ABS. EOSINOPHILS AUTOMATED 0.06 K/UL 0.20-0.40 L [facility] ABS. BASOPHILS AUTOMATED 0.05 K/UL 0.00-0.20 [facility] IMMATURE GRANULOCYTE 0.1 % 0.0-0.6 [facility] ABS IMMATURE GRANULOCYTE 0.01 K/UL 0.00-0.04 [facility] NUCLEATED RBC 0.0 % 0.0-0.0 [facility] Center ID Date Data Source [id number] 01/26/2020 03:34:00 [place] [address] Sandhya Carson M.D., Slate Handler Laboratory Report Pg 1 PATIENT: MARILYN RIBEIRO : 64 M.R.N.: [id number] DOCTOR: Chris Blake MD AGE/SEX: 59/M COPIES TO: LOC: SSLD Chris Blake MD Unknown,Physician Specimen: [id number] Collected: 11/30/20-1359 Received: 01/26/201358 Source: NATHALIE Alston Descrip: CLN CATCH Procedure Result Verified M I C R O B I O L O G Y > URINE CULTURE Final 01/28/20 NO GROWTH AFTER 48 HOURS > URINE CULTURE Preliminary (Original rpt) 01/27/20746 NO GROWTH AFTER 24 HOURS Name Value Range Interpretation Code Description Data Lucia rce(s) Supporting Document(s) SODIUM 139 MMOL/L 136-145 [facility] enter POTASSIUM 3.9 MMOL/L 3.4-5.0 [facility] enter CHLORIDE 103 MMOL/L 98-107 [facility] enter CO2 23 MMOL/L 22-29 [facility] nter ANION GAP 17 MMOL/L 10-20 [facility] GLUCOSE 224 MG/DL 70-99 H [facility] CREATININE 1.1 MG/DL 0.7-1.2 [facility] C enter BUN 21 MG/DL 6-20 H [facility]ter CALCIUM 9.4 MG/DL 8.6-10.2 [facility] nter GFR > 60 ML/MIN [facility] Estimated Glomerular Filtration Rate is estimated based onthe MDRD equation, which assumes a steady state forcreatinine (Dipti Int Med 139 137-149, 2002),as recommended bythe National Kidney Disease Education Program [...] Kidney Failure <15 ID Date Data Source [id number] 01/28/2020 07:54:00 [place] [address] Sandhya Carson M.D., Slate Handler Laboratory Report Pg 1 PATIENT: MARILYN RIBEIRO : 64 M.R.N.: [id number] DOCTOR: Chris Blake MD AGE/SEX: 59/M COPIES TO: LOC: SSLD Chris Blake MD Unknown,Physician Specimen: [id number] Collected: 01/26/20 Received: 01/26/201358 Source: NATHALIE Alston Descrip: BRUNO CATCH Procedure Result Verified M I C R O B I O L O G Y > URINE CULTURE Final 01/28/20-075 NO GROWTH AFTER 48 HOURS > URINE CULTURE Preliminary (Original rpt) 01/27/20746 NO GROWTH AFTER 24 HOURS Name Value Range Interpretation Code Description Data Lucia rce(s) Supporting Document(s) ID Date Data Source [id number] 01/26/2020 01:45:00 PM EST [facility] Name Value Range Interpretation Code Description Data [facility] Supporting Document(s) SARS-COV-2 RNA RESP QL ENRRIQUE+PROBE [place] This lab was ordered by [facility] and reported by [facility]. ID Date Data Source [id number] 01/27/2020 10:47:00 PM EST [facility] Received: 01/27/2020 at 05:21:00 QPT : [facility], [address] [place] [address], [address] [place] [address], [phone], Richard Hernandez MD Name Value Range Interpretation Code Description Data [facility] Supporting Document(s) SARS CoV 2 RNA NOT DETECTED Normal (applies to non-numeric results) [facility] A Not Detected (negative) test result fo [...] health care providers andpatients using the following websites:https://www.[employer]HESKA/home/Covid-19/HCP/[facility]/fact-sheet. htmlhttps://www.[employer]ESKA/home/Covid-19/Patients/[facility]/fact-sheet. htmlThis test has been authorized by the FDA under anEmergency Use Authorization (EUA) for use by authorizedlaboratories.Due to the current public health emergency, [facility] is receiving a high volume of samples [...] information about COVID-19 can be foundat the [facility] website:www.[facility].HESKA/Covid19. ID Date Data Source [id number] 01/27/2020 10:47:00 PM EST [facility] Name Value Range Interpretation Code Description Data Lucia rce(s) Supporting Document(s) SARS-COV-2 RNA NOT DETECTED NOT DETECTED [facility] A Not Detected (negative) test result fo [...] health care providers andpatients using the following websites:https://www.[employer]HESKA/home/Covid-19/HCP/[facility]/fact-sheet. htmlhttps://www.[employer]HESKA/home/Covid-19/Patients/[facility]/fact-sheet. htmlThis test has been authorized by the FDA under anEmergency Use Authorization (EUA) for use by authorizedlaboratories.Due to the current public health emergency, [facility] is receiving a high volume of samples [...] information about COVID-19 can be foundat the [facility] website:www.[facility].HESKA/Covid19.THIS TEST WAS PERFORMED AT:[address] [id number] MERATI,MD ID Date Data Source [id number] 12/26/2019 09:30:00 AM EDT [facility] ([facility]) Name Value Range Interpretation Code Description Data Lucia rce(s) Supporting Document(s) Protein [Presence] in Urine by Test strip Laboratory test result [facility] ([facility] [place]) Glucose [Presence] in Urine Laboratory test result [facility] ([facility]) Ua Nitrite Laboratory test result ME DENT ([facility]) Blood [Presence] in Urine by Visual Laboratory test result [facility] ([facility]) Ua Leuko Laboratory test result ME DENT ([facility]) Clarity of Urine Laboratory test result [facility] ([facility]) Ketones [Presence] in Urine by Test strip Laboratory test result [facility] ([facility]) Color of Urine Laboratory test result [facility] ([facility]) pH of Urine by Test strip 5.0 5.0-7.5 [facility] ([facility]) Ua Specific Charlo 1.015 1.003-1.030 MEDE NT ([facility]) Bilirubin.total [Presence] in Urine by Test strip Laboratory test res ult [facility] ([facility]) Urobilinogen [Mass/volume] in Urine by Test strip 0.2 E.U./dL 0.0-1.0 [facility] ([facility]) ID Date Data Source [id number] 12/18/2019 12:24:00 PM EDT [facility] ([facility]) Name Value Range Interpretation Code Description Data Lucia rce(s) Supporting Document(s) Prostate specific Ag [Mass/volume] in Serum or Plasma Labora tory test result 0.0-4.0 [facility] ([facility]) A courtesy copy of this report has been sent to the patient, ID Date Data Source [id number] 12/18/2019 12:24:00 PM EDT [facility] ([facility]) Name Value Range Interpretation Code Description Data Lucia rce(s) Supporting Document(s) Prostate specific Ag [Mass/volume] in Serum or Plasma Labora tory test result 0.0-4.0 [facility] ([facility]) A courtesy copy of this report has been sent to the patient, ID Date Data Source [id number] 12/19/2019 08:09:00 AM EDT [facility] Name Value Range Interpretation Code Description Data Lucia rce(s) Supporting Document(s) Prostate Specific Ag, Serum 0.0-4.0 [facility] [place] ECLIA methodology. According to th e [place] [employer], Serum PSA shoulddecrease and remain at undetectable levels after radicalprostatectomy. The AUA defines biochemical recurrence as an initialPSA value 0.2 ng/mL or greater followed by a subsequent confirmatoryPSA value 0.2 ng/mL or greater.Values obtained with different assay methods or kits cannot be usedinterchangeably. Results cannot be interpreted as absolute evidenceof the presence or absence of malignant disease. ID Date Data Source [id number] 12/16/2019 03:58:00 PM EDT [facility] ([facility]) Name Value Range Interpretation Code Description Data Lucia rce(s) Supporting Document(s) Glucose [Presence] in Urine Laboratory test result [facility] ([facility]) Ua Nitrite Laboratory test result ME DENT ([facility]) Protein [Presence] in Urine by Test strip Laboratory test result [facility] ([facility]) Ua Leuko Laboratory test result ME DENT ([facility]) Blood [Presence] in Urine by Visual Laboratory test result [facility] ([facility]) Ketones [Presence] in Urine by Test strip Laboratory test result [facility] ([facility]) Color of Urine Laboratory test result [facility] ([facility]) Ua Specific Charlo 1.020 1.003-1.030 MEDE NT ([facility]) pH of Urine by Test strip 5.5 5.0-7.5 [facility] ([facility]) Clarity of Urine Laboratory test result [facility] ([facility]) Bilirubin.total [Presence] in Urine by Test strip Laboratory test res ult [facility] ([facility]) Urobilinogen [Mass/volume] in Urine by Test strip 0.2 E.U./dL 0.0-1.0 [facility] ([facility]) ID Date Data Source [id number] 12/12/2019 12:14:00 PM EDT [facility] ([facility]) Name Value Range Interpretation Code Description Data Lucia rce(s) Supporting Document(s) TSH 1.037 uIU/mL 0.350-4.940 [facility] ([facility]) ID Date Data Source [id number] 12/12/2019 12:14:00 PM EDT [facility] ([facility]) Name Value Range Interpretation Code Description Data Lucia rce(s) Supporting Document(s) Hemoglobin A1c/Hemoglobin.total in Blood 7.63 4.00-6.00 [facility] ([facility]) <content>GOAL <7</content>
<content> </content> Estimated Average Glucose 172.18 mg/dL M EDENT ([facility]) ID Date Data Source [id number] 12/12/2019 12:14:00 PM EDT [facility] ([facility] [...] LESS THAN 100 ID Date Data Source [id number] 12/12/2019 12:14:00 PM EDT [facility] ([facility] [...] mean volume [Entitic volume] in Blood by Rosmeryker 7.6 fL 0.0-99.9 [facility] ([facility]) ID Date Data Source [id number] 12/12/2019 12:14:00 PM EDT [facility] ([facility] Name Value Range Interpretation Code [...] Serum or Plasma 74 U/L 40-150 [facility] ([facility]) Carbon dioxide, total [Moles/volume] in Serum or Plasma 26.0 0 mmol/L 22.00-31.00 [facility] ([facility]) Albumin/Globulin [Mass Ratio] in Serum or Plasma 1.48 Ratio [facility] ([facility]) Osmolality of Serum or Plasma by calculation 295.62 275.00-295.00 [facility] ([facility]) Calcium [Mass/volume] in Serum or Plasma 10.20 mg/dL 8.90-10.40 [facility] ([facility]) Bilirubin.total [Mass/volume] in Serum or Plasma 0.2 mg/dL 0.2-1.2 [facility] ([facility]) Urea nitrogen/Creatinine [Mass Ratio] in Serum or Plasma 15.57 Ratio [facility] ([facility]) Globulin [Mass/volume] in Serum by calculation 2.90 2.30-4.20 [facility] ([facility]) ID Date Data Source [id number] 12/12/2019 12:14:00 PM EDT [facility] ([facility]) Name Value Range Interpretation Code Description Data Lucia rce(s) Supporting Document(s) Hemoglobin A1c/Hemoglobin.total in Blood 7.63 4.00-6.00 [facility] ([facility]) <content>GOAL <7</content>
<content> </content>
<content></content> Glucose mean value [Mass/volume] in Blood Estimated fr om glycated hemoglobin 172.18 mg/dL [facility] ([facility]) Thyrotropin [Units/volume] in Serum or Plasma 1.037 uIU/mL 0.350-4.94 0 [facility] ([facility]) ID Date Data Source [id number] 12/12/2019 12:14:00 PM EDT [facility] ([facility]) Name Value Range Interpretation Code Description Data Lucia rce(s) Supporting Document(s) Triglyceride [Mass/volume] in Serum or Plasma 98 mg/dL 1-200 [facility] ([facility]) GOAL LESS THAN 200 Cholesterol [Mass/volume] in Serum or Plasma 142 mg/dL 112-200 [facility] ([facility]) GOAL LESS THAN 200 Cholesterol non HDL [Mass/volume] in Serum or Plasma 96.00 mg/dL 0 .00-100.00 [facility] ([facility]) GOAL LESS THAN 100 Cholesterol.total/Cholesterol in HDL [Mass Ratio] in Serum o r Plasma 3.09 4.00-6.70 [facility] ([facility]) Cholesterol in HDL [Mass/volume] in Serum or Plasma 46 mg/dL 30-70 [facility] ([facility]) GOAL GREATER THAN 45 Cholesterol in LDL [Mass/volume] in Serum or Plasma by calcu lation 76.40 mg/dL 20.00-130.00 [facility] ([facility]) GOAL LESS THAN 100 ID Date Data Source [id number] 12/12/2019 12:14:00 PM EDT [facility] ([facility]) Name Value Range Interpretation Code Description Data Lucia rce(s) Supporting Document(s) Creatinine [Mass/volume] in Serum or Plasma 1.2 mg/dL 0.7-1.3 [facility] ([facility]) Urea nitrogen [Mass/volume] in Serum or Plasma 19 mg/dL 9-21 [facility] ([facility]) Glucose [Mass/volume] in Serum or Plasma 159.00 mg/dL 70.00-110.00 [facility] ([facility]) Glomerular filtration rate/1.73 sq M.pre dicted [Volume Rate/Area] in Serum or Plasma by Creatinine-based formula (MDRD) 65.00 mL/min [facility] ([facility]) <content>NORMAL FUNCTION OR MILD RENAL D ISEASE:>60 ml/min</content>
<content>ADVANCED RENAL DISEASE:15-59 ml/min</content>
<content>RENAL FAILURE:<15 ml/min</content>
<content></content>
<content></content> Chloride [Moles/volume] in Serum or Plasma 106 mmol/L 98-107 [facility] ([facility]) Potassium [Moles/volume] in Serum or Plasma 4.9 mmol/L 3.5-5.1 [facility] ([facility] Sodium [Moles/volume] in Serum or Plasma 140 mmol/L 136-145 [facility] ([facility] ) Alanine aminotransferase [Enzymatic activity/volume] in Seru m or Plasma 23 U/L 0-55 [facility] ([facility] ) Albumin [Mass/volume] in Serum or Plasma 4.30 g/dL 3.30-5.00 [facility] ([facility] ) Protein [Mass/volume] in Serum or Plasma 7.2 [...] 1.48 Ratio [facility] ([facility] ) Osmolality of Serum or Plasma by calculation 295.62 275.00-295.00 [facility] ([facility] ) Globulin [Mass/volume] in Serum by calculation 2.90 2.30-4.20 [facility] ([facility] ) Calcium [Mass/volume] in Serum or Plasma 10.20 mg/dL 8.90-10.40 [facility] ([facility] ) Bilirubin.total [Mass/volume] in Serum or Plasma 0.2 mg/dL 0.2-1.2 [facility] ([facility] ) Urea nitrogen/Creatinine [Mass Ratio] in Serum or Plasma 15.57 Ratio [facility] ([facility] ) ID Date Data Source [id number] 12/02/2019 08:47:00 AM EDT [facility] CT C HEST [...] rce(s) Supporting Document(s) ID Date Data Source [id number] 11/28/2019 11:24:00 AM EDT [facility] Name Value Range Interpretation Code Description Data Lucia rce(s) Supporting Document(s) SARS-CoV-2 (COVID19) [facility] This lab was ordered by [facility] and reported by [facility]. ID Date Data Source [id number] 11/18/2019 06:02:00 AM EDT [facility] SURGEON: Dr. Blake; PATTERN GENERATOR OPERATOR: Dr. Guanaco Long DATE OF PROCEDURE: 11/17/2019 [...] Electronically Signed By Chris Blake MD 11/18/19 1963 Transcribed By [email or web address] 11/18/19 1446 Name Value Range Interpretation Code Description Data [facility] rce(s) Supporting Document(s) ID Date Data Source [id number] 11/17/2019 08:43:00 AM EDT [facility] ([facility] Name Value Range Interpretation Code Description Data [facility] rce(s) Supporting Document(s) Surgical pathology study Laboratory test result [facility] ([facility]) [address] [place] [address] Sandhya Carson M.D., [facility] Laboratory Report Pg 1 PATIENT: MARILYN RIBEIRO : 64 M.R.N.: [id number] DOCTOR: Chris Blake MD AGE/SEX: 59/M COPIES TO: LOC: [facility] [place] Jerry Coker MD Nurudin Cemer, MD ACCESSION NUMBER: [id number] RECEIVED: 11/18/19 FINAL DIAGNOSIS: Foreskin, circumcision: Skin with focal parakeratosis and patchy mild to moderate acute and chronic inflammation. CLINICAL HISTORY: Phimosis. SPECIMEN: FORESKIN GROSS DESCRIPTION: The specimen is received in formalin labeled with the patient's name a nd "foreskin" and consists of rectangular galan skin measuring 5.5 x 3 x 0.8 cm. The skin surface is wrinkly and focally hemorrhagic. Women Nurse sections are submitted in 1 ca ssette. nw Signed (signature on file) Sandhya Carson MD 11/19/19 1232 ID Date Data Source [id number] 11/19/2019 12:32:00 PM EDT [facility] [place] [address] Sandhya angel M.D., [employer] Laboratory Report Pg 1 PATIENT: MARILYN RIBEIRO : 64 M.R.N.: [id number]: Chris Blake MD AGE/SEX: 59/M COPIES TO: LOC: [facility] MD Jerry Coker MD Nurudin Cemer, MD ACCESSION NUMBER: [id number] RECEIVED: 11/18/19 FINAL DIAGNOSIS: Foreskin, circumcision: Skin with focal parakeratosis and patchy mild to moderate acute andchronic inflammation. --- CLINICAL HISTORY: Phimosis. SPECIMEN: FORESKIN GROSS DESCRIPTION: The specimen is received in formalin labeled with the patient's name and "foreskin" andconsists of rectangular galan skin measuring 5.5 x 3 x 0.8 cm. The skin surface is wrinklyand focally hemorrhagic. Women Nurse sections are submitted in 1 cassette. nw Signed (signature on file) Sandhya Carson MD 11/19/19 1232 Name Value Range Interpretation Code Description Data Lucia carina(s) Supporting Document(s) ID Date Data Source [id number] 11/12/2019 09:30:00 AM EDT [facility] ([facility]) Name Value Range Interpretation Code Description Data [facility] Supporting Document(s) Covid-19 Laboratory test result ME VIDAL ([facility] [place]) TEST PERFORMED AT:\\[id number]\\\\[id number]\\[facility]\\[id number]\\\\[id number]\\[address] [facility];[address] [place] [address]\\X0D\\ ID Date Data Source [id number] 11/15/2019 12:34:42 PM EDT [facility] Received: 11/13/2019 at 20:46:00 P: [facility], [address] [place] [address], [address] [place] [address], [place], [address], RICHARD HERNANDEZ MD Name Value Range Interpretation [...] managementdecisions.Due to the current public health emergency, [facility] is receiving a high volume of samples [...] patients and the FDA authorized labeling available ontSnipi website: [email or web address] ID Date Data Source [id number] 11/15/2019 12:40:00 PM EDT [facility] TEST PERFORMED AT:[facility] [place] [address];[address] [place] [address] [id number] HERNANDEZ MD Name Value Range Interpretation Code Description Data Lucia rce(s) Supporting Document(s) SARS-COV-2 RNA NOT DETECTED NOT DETECTED [facility] A Not Detected (negative) test result fo [...] managementdecisions.Due to the current public health emergency, [facility] is receiving a high volume of samples [...] patients and the FDA authorized labeling available [employer]ipi website: [email or web address] ID Date Data Source [id number] 11/12/2019 12:00:00 AM EDT [facility] Name Value Range Interpretation Code Description Data Lucia rce(s) Supporting Document(s) SARS coronavirus 2 RNA [facility] This lab was ordered by [facility] and [facility] ID Date Data Source [id number] 11/06/2019 11:54:00 AM EDT [facility] ([facility]) Name Value Range Interpretation Code Description Data Lucia rce(s) Supporting Document(s) Urea nitrogen [Mass/volume] in Serum or Plasma 20 mg/dL 6-24 [facility] ([facility]) SRC:UC A courtesy copy of this report leger s been sent to the patient, SRC:UC Glucose [Mass/volume] in Serum or Plasma 190 mg/dL 65-99 [facility] ([facility]) SRC:UC A courtesy copy of this report leger s been sent to the patient, SRC:UC eGFR If NonAfricn Am 66 mL/min/1.73 [facility] ([facility]) SRC:UC A courtesy copy of this report leger s been sent to the patient, SRC:UC Creatinine [Mass/volume] in Serum or Plasma 1.21 mg/dL 0.76-1.27 [facility] ([facility]) SRC:UC A courtesy copy of this report leger s been sent to the patient, SRC:UC BUN/Creatinine Ratio 17 9-20 MEDE NT ([facility]) SRC:UC A courtesy copy of this report leger s been sent to the patient, SRC:UC eGFR If Africn Am 76 mL/min/1.73 MED ENT ([facility]) SRC:UC A courtesy copy of this report leger s been sent to the patient, SRC:UC Potassium 5.0 mmol/L 3.5-5.2 [facility] ([facility]) SRC:UC A courtesy copy of this report leger s been sent to the patient, SRC:UC Sodium 143 mmol/L 134-144 [facility] ([facility]) SRC:UC A courtesy copy of this report leger s been sent to the patient, SRC:UC Chloride 107 mmol/L 96-106 [facility] ([facility]) SRC:UC A courtesy copy of this report leger s been sent to the patient, SRC:UC Calcium [Mass/volume] in Serum or Plasma 9.6 mg/dL 8.7-10.2 [facility] ([facility]) SRC:UC A courtesy copy of this report leger s been sent to the patient, SRC:UC Carbon Dioxide, Total 24 mmol/L 20-29 MED ENT ([facility]) SRC:UC A courtesy copy of this report leger s been sent to the patient, SRC:UC ID Date Data Source [id number] 11/06/2019 11:54:00 AM EDT [facility] ([facility]) Name Value Range Interpretation Code Description Data Lucia rce(s) Supporting Document(s) WBC 7.6 x10E3/uL 3.4-10.8 [facility] ([facility]) SRC:UC A courtesy copy of this report leger s been sent to the patient, SRC:UC Hemoglobin [Mass/volume] in Blood 14.2 g/dL 13.0-17.7 [facility] ([facility]) SRC:UC A courtesy copy of this report leger s been sent to the patient, SRC:UC RBC 4.34 x10E6/uL 4.14-5.80 [facility] ([facility]) SRC:UC A courtesy copy of this report leger s been sent to the patient, SRC:UC Hematocrit [Volume Fraction] of Blood by Automated count 42.2 % 3 7.5-51.0 [facility] ([facility]) SRC:UC A courtesy copy of this report leger s been sent to the patient, SRC:UC MCV 97 fL 79-97 [facility] ([facility]) SRC:UC A courtesy copy of this report leger s been sent to the patient, SRC:UC MCH 32.7 pg 26.6-33.0 [facility] ([facility]) SRC:UC A courtesy copy of this report leger s been sent to the patient, SRC:UC MCHC 33.6 g/dL 31.5-35.7 [facility] ([facility]) SRC:UC A courtesy copy of this report leger s been sent to the patient, SRC:UC RDW 12.7 % 11.6-15.4 [facility] ([facility]) SRC:UC A courtesy copy of this report leger s been sent to the patient, SRC:UC Platelets 279 x10E3/uL 150-450 [facility] ([facility] [place]) SRC:UC A courtesy copy of this report leger s been sent to the patient, SRC:UC Neutrophils 69 % [facility] ([facility]) SRC:UC A courtesy copy of this report leger s been sent to the patient, SRC:UC Monocytes 10 % [facility] ([facility]) SRC:UC A courtesy copy of this report leger s been sent to the patient, SRC:UC Lymphs 19 % [facility] ([facility]) SRC:UC A courtesy copy of this report leger s been sent to the patient, SRC:UC Basos 1 % [facility] ([facility]) SRC:UC A courtesy copy of this report leger s been sent to the patient, SRC:UC Eos 1 % [facility] ([facility]) SRC:UC A courtesy copy of this report leger s been sent to the patient, SRC:UC Neutrophils (Absolute) 5.2 x10E3/uL 1.4-7.0 [facility] ([facility]) SRC:UC A courtesy copy of this report leger s been sent to the patient, SRC:UC Immature Cells Laboratory test result MED[facility] ([facility]) SRC:UC A courtesy copy of this report leger s been sent to the patient, SRC:UC Lymphs (Absolute) 1.4 x10E3/uL 0.7-3.1 MEDEN T ([facility]) SRC:UC A courtesy copy of this report leger s been sent to the patient, SRC:UC Monocytes(Absolute) 0.8 x10E3/uL 0.1-0.9 MED ENT ([facility]) SRC:UC A courtesy copy of this report leger s been sent to the patient, SRC:UC Baso (Absolute) 0.1 x10E3/uL 0.0-0.2 [facility] ([facility]) SRC:UC A courtesy copy of this report leger s been sent to the patient, SRC:UC Eos (Absolute) 0.1 x10E3/uL 0.0-0.4 [facility] ( [facility]) SRC:UC A courtesy copy of this report leger s been sent to the patient, SRC:UC Immature granulocytes/100 leukocytes in Blood by Automated count 0 % [facility] ([facility]) SRC:UC A courtesy copy of this report leger s been sent to the patient, SRC:UC Immature granulocytes [#/volume] in Blood by Automated count 0.0 x10E3/uL 0.0-0.1 [facility] ([facility]) SRC:UC A courtesy copy of this report leger s been sent to the patient, SRC:UC Hematology Comments: Laboratory test result [facility] ([facility]) SRC: A courtesy copy of this report leger s been sent to the patient, SRC:UC NR Laboratory test result ME DENT ([facility]) SRC:UC A courtesy copy of this report leger s been sent to the patient, SRC: ID Date Data Source [id number] 11/06/2019 11:54:00 AM EDT [facility] ([facility]) Name Value Range Interpretation Code Description Data Lucia rce(s) Supporting Document(s) Prothrombin Time 10.0 sec 9.1-12.0 [facility] ( [facility]) SRC: A courtesy copy of this report leger s been sent to the patient, SRC:UC Inr 0.9 0.8-1.2 [facility] ([facility]) SRC: A courtesy copy of this report leger s been sent to the patient, SRC: ID Date Data Source [id number] 11/06/2019 11:54:00 AM EDT [facility] ([facility]) Name Value Range Interpretation Code Description Data Lucia rce(s) Supporting Document(s) Urine Culture, Routine Laboratory test result [facility] ([facility]) SRC:UC A courtesy copy of this report leger s been sent to the patient, SRC:UC Result 1 Laboratory test result ME DENT ([facility]) SRC:UC A courtesy copy of this report leger s been sent to the patient, SRC:UC ID Date Data Source [id number] 11/06/2019 11:54:00 AM EDT [facility] ([facility] Name Value Range Interpretation Code Description Data Lucia rce(s) Supporting Document(s) Specific Charlo Laboratory test result 1.005-1.030 Abnormal (applies to non- numeric results) [facility] ([facility]) SRC:UC A courtesy copy of this report leger s been sent to the patient, SRC:UC Urine-Color Laboratory test result M EDENT ([facility]) SRC:UC A courtesy copy of this report leger s been sent to the patient, SRC:UC pH 5.5 5.0-7.5 [facility] ([facility]) SRC:UC A courtesy copy of this report leger s been sent to the patient, SRC:UC WBC Esterase Laboratory test result [facility] ([facility]) SRC:UC A courtesy copy of this report leger s been sent to the patient, SRC:UC Appearance Laboratory test result ME DENT ([facility]) SRC:UC A courtesy copy of this report leger s been sent to the patient, SRC:UC Protein Laboratory test result ME DENT ([facility]) SRC:UC A courtesy copy of this report leger s been sent to the patient, SRC:UC Glucose Laboratory test result Abnormal (applies to non -numeric results) [facility] ([facility]) SRC:UC A courtesy copy of this report leger s been sent to the patient, SRC:UC Ketones Laboratory test result ME DENT ([facility]) SRC:UC A courtesy copy of this report leger s been sent to the patient, SRC:UC Occult Blood Laboratory test result [facility] ([facility]) SRC:UC A courtesy copy of this report leger s been sent to the patient, SRC:UC Urobilinogen,Semi-Qn 0.2 mg/dL 0.2-1.0 MEDE NT ([facility]) SRC:UC A courtesy copy of this report leger s been sent to the patient, SRC:UC Bilirubin Laboratory test result ME DENT ([facility]) SRC:UC A courtesy copy of this report leger s been sent to the patient, SRC:UC Microscopic Examination Laboratory test result [facility] ([facility]) SRC:UC A courtesy copy of this report leger s been sent to the patient, SRC:UC Nitrite, Urine Laboratory test result [facility] ([facility]) SRC:UC A courtesy copy of this report leger s been sent to the patient, SRC:UC WBC Laboratory test result 0-5 ME DENT ([facility]) SRC:UC A courtesy copy of this report leger s been sent to the patient, SRC:UC Microscopic observation [Identifier] in Urine sediment by Light microscopy Laboratory test result [facility] ([facility]) SRC:UC A courtesy copy of this report leger s been sent to the patient, SRC:UC RBC Laboratory test result 0-2 ME DENT ([facility]) SRC:UC A courtesy copy of this report leger s been sent to the patient, SRC:UC Epithelial Cells (non renal) Laboratory test result 0-10 [facility] ([facility]) SRC:UC A courtesy copy of this report leger s been sent to the patient, SRC:UC Casts Laboratory test result ME DENT ([facility]) SRC:UC A courtesy copy of this report leger s been sent to the patient, SRC:UC Cast Type Laboratory test result ME DENT ([facility]) SRC:UC A courtesy copy of this report leger s been sent to the patient, SRC:UC Epithelial Cells (renal) Laboratory test result [facility] ([facility]) SRC: A courtesy copy of this report leger s been sent to the patient, SRC:UC Crystals Laboratory test result ME DENT ([facility]) SRC:UC A courtesy copy of this report leger s been sent to the patient, SRC: Crystal Type Laboratory test result [facility] ([facility]) SRC:UC A courtesy copy of this report leger s been sent to the patient, SRC:UC Mucus Threads Laboratory test result [facility] ([facility]) SRC:UC A courtesy copy of this report leger s been sent to the patient, SRC: Bacteria Laboratory test result ME DENT ([facility]) SRC: A courtesy copy of this report leger s been sent to the patient, SRC: Yeast Laboratory test result ME DENT ([facility]) SRC: A courtesy copy of this report leger s been sent to the patient, SRC: Trichomonas Laboratory test result M EDENT ([facility]) SRC: A courtesy copy of this report leger s been sent to the patient, SRC: Comment Laboratory test result ME DENT ([facility]) SRC: A courtesy copy of this report leger s been sent to the patient, SRC: ID Date Data Source [id number] 11/07/2019 04:05:00 AM EDT [facility] Name Value [...] 0.0-0.1 [facility] ID Date Data Source [id number] 11/07/2019 06:06:00 AM EDT [facility] Name Value Range Interpretation Code Description Data Lucia rce(s) Supporting Document(s) INR 0.9 0.8-1.2 [facility] Reference interval is for non-anticoagulated patients. Suggested INR therapeutic range for Vitamin K antagonist therapy: Standard Dose (moderate intensity therapeutic range): 2.0 - 3.0 Higher intensity therapeutic range 2.5 - 3.5 Prothrombin Time 10.0 sec 9.1-12.0 [facility] ID Date Data Source [id number] 11/07/2019 07:06:00 AM EDT [facility] Name Value Range Interpretation Code Description Data Lucia rce(s) Supporting Document(s) Specific Charlo >=1.030 1.005-1.030 Abnormal (applies to non -numeric [...] below: [facility] ID Date Data Source [id number] 11/08/2019 01:05:00 AM EDT [facility] Name Value Range Interpretation Code Description Data Lucia rce(s) Supporting Document(s) Urine Culture, Routine Final report [facility] ID Date Data Source [id number] 11/07/2019 04:05:00 AM EDT [facility] Name Value [...] mg/dL 8.7-10.2 [facility] ID Date Data Source [id number] 11/07/2019 07:06:00 AM EDT [facility] Name Value Range Interpretation Code Description Data Lucia rce(s) Supporting Document(s) WBC 0-5 /hpf 0 - 5 [facility] RBC None seen /hpf 0 - 2 [facility] Epithelial Cells (non renal) None seen /hpf 0 - 10 [facility] Bacteria None seen None seen/Few [facility] ID Date Data Source [id number] 11/08/2019 01:05:00 AM EDT [facility] Name Value Range Interpretation Code Description Data Lucia rce(s) Supporting Document(s) Result 1 No growth [facility] Procedure Social History Code Duration Value Status Description Data Source(s ) Tattoo/Piercing 12/07/2020 12:00:00 AM EDT Pierced ears completed Pi erced ears [facility] Tattoo/Piercing 12/07/2020 12:00:00 AM EDT Tattoo completed Tatt oo [facility] ETOH Use 12/07/2020 12:00:00 AM EDT Denies alcohol use complete d Denies alcohol use [facility] ([facility] Smoking 12/07/2020 12:00:00 AM EDT Patient has never smoked co mpleted Patient has never smoked [facility] ([facility] Alcohol intake 11/22/2020 12:00:00 AM EDT Current non-d ignacia of alcohol (finding) completed Current non-drinker of alcohol (finding) [facility] Recreational Drug Use 09/14/2020 12:00:00 AM EDT Denies Drug Use co mpleted Denies Drug Use MED[facility] ([facility]) ETOH Use 09/14/2020 12:00:00 AM EDT Has consumed alcohol in the past completed Has consumed alcohol in the past [facility] ([facility]) sober x7 years Smokeless Tobacco 09/14/2020 12:00:00 AM EDT Current Smokeless T obacco User completed Current Smokeless Tobacco User [facility] ([facility] ) 1 can per day x40 years Smoking 09/14/2020 12:00:00 AM EDT Current smokless tobacco us er completed Current smokless tobacco user [facility] ([facility]) Alcohol intake 03/03/2020 12:00:00 AM EST No completed [facility] Cigarette pack-years 03/03/2020 12:00:00 AM EST UNK completed [facility] Cigarettes smoked current (pack per day) - Reported 03/03/19 12:00:00 AM EST UNK completed [facility] Smoking 03/03/2020 12:00:00 AM EST Former smoker completed Former smoker [facility] Alcohol intake 02/13/2020 12:00:00 AM EST No completed [facility] Cigarette pack-years 02/13/2020 12:00:00 AM EST UNK completed [facility] Cigarettes smoked current (pack per day) - Reported 02/13/20 12:00:00 AM EST UNK completed [facility] Smoking 02/13/2020 12:00:00 AM EST Former smoker completed Former smoker [facility] Smoking 02/01/2020 12:00:00 AM EST Patient is a former smoker completed Patient is a former smoker [facility] ([facility]) Smoking 12/31/2019 12:00:00 AM EST Former Cigarette Smoker com pleted Former Cigarette Smoker [facility] ([facility]) Vital Signs ID Date Data Source UNK Name Value Range Interpretation Code Description Data Source(s) Systolic blood pressure 134 mm[Hg] 134 mm[Hg] M EDENT ([facility]) Body weight 223.00 [lb_av] 223.00 [lb_av] MEDEN T ([facility]) Body weight 101.153 kg 101.153 kg [facility] Heart rate 80 /min 80 /min [facility]) Body temperature 98.6 [degF] 98.6 [degF] [facility] ([facility]) Respiratory rate 16 /min 16 /min [facility] ( [facility]) Body height 71 [in_i] 71 [in_i] [facility] 5'11" Body mass index (BMI) [Ratio] 31.1 kg/m2 31.1 k g/m2 [facility] ([facility]) [place] body weight 172 [lb_av] 172 [lb_av] MEDEN T ([facility]) Diastolic blood pressure 70 mm[Hg] 70 mm[Hg] [facility] ([facility]) Body temperature 97.4 [degF] 97.4 [degF] [facility] ([facility] Body height 72 [in_i] 72 [in_i] [facility] ([facility] 6'0" Body weight 227.00 [lb_av] 227.00 [lb_av] MEDEN T ([facility]) Systolic blood pressure 127 mm[Hg] 127 mm[Hg] M EDENT ([facility]) Heart rate 87 /min 87 /min [facility] ([facility] Diastolic blood pressure 82 mm[Hg] 82 mm[Hg] [facility] ([facility]) Body mass index (BMI) [Ratio] 30.8 kg/m2 30.8 k g/m2 [facility] ([facility]) Systolic blood pressure 124 mm[Hg] 124 mm[Hg] [facility] Diastolic blood pressure 80 mm[Hg] 80 mm[Hg] [facility] Heart rate 84 /min 84 /min [facility] Respiratory rate 18 /min 18 /min [facility] Body height 182.9 cm 182.9 cm [facility] Body mass index (BMI) [Ratio] 30.83 kg/m2 30.83 kg/m2 [facility] Oxygen saturation in Arterial blood by Pulse oximetry 94 % 94 % [facility] Body temperature 37.33 Mary 37.33 Mary [facility] Body weight 103.148 kg 103.148 kg [facility] [facility] Diastolic blood pressure 72 mm[Hg] 72 mm[Hg] [facility] ([facility]) Heart rate 86 /min 86 /min [facility] Body weight 100.699 kg 100.699 kg [facility] Body temperature 98.5 [degF] 98.5 [degF] [facility] ([facility]) Body height 71 [in_i] 71 [in_i] [facility]) 5'11" Respiratory rate 18 /min 18 /min [facility] ( [facility]) Body weight 222.00 [lb_av] 222.00 [lb_av] MEDEN T ([facility]) Body mass index (BMI) [Ratio] 31.0 kg/m2 31.0 k g/m2 [facility] ([facility]) [place] body weight 172 [lb_av] 172 [lb_av] MEDEN [...] mm[Hg] 82 mm[Hg] [facility] ([facility]) [place] body weight 172 [lb_av] 172 [lb_av] MEDEN T ([facility]) Systolic blood pressure 140 mm[Hg] 140 mm[Hg] M EDENT ([facility]) Heart rate 84 /min 84 /min [facility] ([facility]) Body height 71 [in_i] 71 [in_i] [facility] 5'11" Heart rate 79 /min 79 /min [facility] ([facility]) Pattern: Regular Body temperature 97.5 [degF] 97.5 [degF] [facility]pts ([facility]) Method: Tympanic Respiratory rate 14 /min 14 /min [facility] ts ([facility]) Pattern: Unlabored Diastolic blood pressure 78 mm[Hg] 78 mm[Hg] [facility] ([facility]) Patient Position: Sitting; Cuff Location : Left Arm; Cuff Size: Standard Oxygen saturation in Arterial blood by Pulse oximetry 97 % 97 % [facility] ([facility]) Room air Systolic blood pressure 132 mm[Hg] 132 mm[Hg] A [facility] ([facility]) Patient Position: Sitting; Cuff Location : Left Arm; Cuff Size: Standard Body weight 229.2 [lb_av] 229.2 [lb_av] [facility] p[facility] ([facility]) Body height 72 [in_us] 72 [in_us] [facility] ([facility]) Body mass index (BMI) [Ratio] 31.08 kg/m2 31.08 kg/m2 [facility] ([facility]) Body surface area Derived from formula 2.26 m2 2.26 m2 [facility] ([facility]) Body temperature 97.7 [degF] 97.7 [degF] [facility] ([facility] Heart rate 82 /min 82 /min [facility] Body weight 242.00 [lb_av] 242.00 [lb_av] MEDEN T ([facility] ) Systolic blood pressure 120 mm[Hg] 120 mm[Hg] M EDENT ([facility] ) Diastolic blood pressure 72 mm[Hg] 72 mm[Hg] [facility] ([facility] Body height 72 [in_i] 72 [in_i] [facility] 6'0" Systolic blood pressure 120 mm[Hg] 120 mm[Hg] M EDENT ([facility] ) Diastolic blood pressure 72 mm[Hg] 72 mm[Hg] [facility] ([facility] Heart rate 82 /min 82 /min [facility] Body height 72 [in_i] 72 [in_i] [facility] 6'0" Body weight 242.00 [lb_av] 242.00 [lb_av] MED[facility] T ([facility] Body mass index (BMI) [Ratio] 32.8 kg/m2 32.8 k g/m2 [facility] ([facility] Body temperature 97.7 [degF] 97.7 [degF] [facility] ([facility] Body mass index (BMI) [Ratio] 32.8 kg/m2 32.8 k g/m2 [facility] ([facility] ) Respiratory rate 16 /min 16 /min [facility] ( [facility]) Body weight 230.00 [lb_av] 230.00 [lb_av] MEDEN T ([facility]) Body weight 104.328 kg 104.328 kg [facility] Body height 71 [in_i] 71 [in_i] [facility] 5'11" Body mass index (BMI) [Ratio] 32.1 kg/m2 32.1 k g/m2 [facility] ([facility]) [place] body weight 172 [lb_av] 172 [lb_av] MEDEN T ([facility]) Systolic blood pressure 120 mm[Hg] 120 mm[Hg] M EDENT ([facility]) Diastolic blood pressure 80 mm[Hg] 80 mm[Hg] [facility] ([facility]) Heart rate 80 /min 80 /min [facility] ([facility]) Body temperature 98.1 [degF] 98.1 [degF] [facility] ([facility]) Systolic blood pressure 104 mm[Hg] 104 mm[Hg] [facility] Diastolic blood pressure 62 mm[Hg] 62 mm[Hg] [facility] Heart rate 79 /min 79 /min [facility] Body temperature 36.44 Mary 36.44 Mary [facility] Respiratory rate 20 /min 20 /min [facility] Body height 182.9 cm 182.9 cm [facility] Body weight 104.781 kg 104.781 kg [facility] Body mass index (BMI) [Ratio] 31.32 kg/m2 31.32 kg/m2 [facility] Oxygen saturation in Arterial blood by Pulse oximetry 96 % 96 % [facility] Heart rate 88 /min 88 /min [facility] Systolic blood pressure 145 mm[Hg] 145 mm[Hg] [facility] Respiratory rate 16 /min 16 /min [facility] Diastolic blood pressure 77 mm[Hg] 77 mm[Hg] [facility] Body temperature 36.78 Mary 36.78 Mary [facility] Oxygen saturation in Arterial blood by Pulse oximetry 96 % 96 % [facility] Body height 182.9 cm 182.9 cm [facility] Body weight 104.8 kg 104.8 kg [facility] Body mass index (BMI) [Ratio] 31.33 kg/m2 31.33 kg/m2 [facility] Systolic blood pressure 118 mm[Hg] 118 mm[Hg] M EDENT ([facility]) Diastolic blood pressure 78 mm[Hg] 78 mm[Hg] [facility] ([facility]) Heart rate 84 /min 84 /min [facility] ([facility]) Respiratory rate 18 /min 18 /min [facility] ( [facility]) Oxygen saturation in Arterial blood by Pulse oximetry 97 % 97 % [facility] ([facility]) Body temperature 98.8 [degF] 98.8 [degF] [facility] ([facility]) Body weight 230.00 [lb_av] 230.00 [lb_av] MEDEN T ([facility]) Body height 73 [in_i] 73 [in_i] [facility] ([facility]) 6'1" Body mass index (BMI) [Ratio] 30.3 kg/m2 30.3 k g/m2 [facility] ([facility]) Diastolic blood pressure 76 mm[Hg] 76 mm[Hg] [facility] Heart rate 87 /min 87 /min [facility] Body height 72 [in_i] 72 [in_i] [facility] 6'0" Body weight 235.00 [lb_av] 235.00 [lb_av] MED[facility] T ([facility] Body weight 106.596 kg 106.596 kg [facility] Body mass index (BMI) [Ratio] 31.9 kg/m2 31.9 k g/m2 [facility] ([facility]) Systolic blood pressure 127 mm[Hg] 127 mm[Hg] M EDENT ([facility]) Body temperature 98.1 [degF] 98.1 [degF] [facility] ([facility]) Body mass index (BMI) [Ratio] 32.7 kg/m2 32.7 k g/m2 [facility] ([facility]) Heart rate 92 [...] [in_i] [facility]) 5'11" [place] body weight 172 [lb_av] 172 [lb_av] [facility] T ([facility]) Body height 71.5 [in_us] 71.5 [in_us] [facility] ([facility]) Body temperature 96.6 [degF] 96.6 [degF] [facility] ([facility]) Method: Tympanic Heart rate 85 /min 85 /min [facility] ([facility]) Pattern: Regular Respiratory rate 14 /min 14 /min [facility] ([facility]) Pattern: Unlabored Oxygen saturation in Arterial blood by Pulse oximetry 96 % 96 % [facility] ([facility]) Room air Body mass index (BMI) [Ratio] 32.46 kg/m2 [...] [Ratio] 32.8 kg/m2 32.8 k g/m2 [facility] ([facility]) [place] body weight 172 [lb_av] 172 [lb_av] MEDEN T ([facility]) Oxygen saturation in Arterial blood by Pulse oximetry 98 % 98 % [facility] ([facility]) Heart rate 82 /min 82 /min [facility] ([facility]) Body temperature 98.9 [degF] 98.9 [degF] [facility] ([facility]) ID Date Data Source [id number] 11/20/2019 08:24:00 AM EDT [facility] Name Value Range Interpretation Code Description Data Source(s) HEIGHT 182.88 cm 182.88 cm [facility] WEIGHT RECORDED 104.194546 kg 104.701931 kg [facility] HEIGHT 182.88 cm 182.88 cm [facility] WEIGHT RECORDED 106.082864 kg 106.839744 kg [facility] Patient Treatment Plan of Care Planned Activity Planned Date Details Description Data Source (s) perflutren lipid microsphere (DEFINITY) 8.476 mg in 10 mL NS IV 11/22/2020 01:34:13 PM EDT [facility] Nitroglycerin 0.4 MG Sublingual Tablet 11/22/2020 12:00:00 AM EDT [facility] Stiolto Respimat 2.5-2.5 MCG/ACT AERS 10/18/2020 12:00:00 AM EDT [facility] 200 ACTUAT Albuterol 0.09 MG/ACTUAT Metered Dose Inhal er [ProAir] 09/15/2020 12:00:00 AM EDT [facility] Albuterol 0.83 MG/ML Inhalant Solution 09/15/2020 12:00:00 AM EDT [facility] ([facility]) clopidogrel 75 MG Oral Tablet 09/09/2020 12:00:00 AM EDT [facility] nebivolol 10 MG Oral Tablet 09/09/2020 12:00:00 AM EDT [facility] Stiolto Respimat 2.5-2.5 MCG/ACT Inhalation Aerosol So lution 06/03/2020 12:00:00 AM EDT [facility] ([facility] nebivolol 10 MG Oral Tablet 03/03/2020 12:00:00 AM EST [facility] empagliflozin 25 MG / Linagliptin 5 MG Oral Tablet [Gl yxambi] 02/19/2020 12:00:00 AM EST [facility] 30 ACTUAT umeclidinium 0.0625 MG/ACTUAT / vilanterol 0.025 MG/ACTUAT Dry Powder Inhaler [Anoro] 02/19/2020 12:00:00 AM EST [facility] 24 HR metoprolol succinate 50 MG Extended Release Oral Tablet 02/14/2020 12:00:00 AM EST [facility] clopidogrel 75 MG Oral Tablet 02/14/2020 12:00:00 AM EST [facility] 30 ACTUAT umeclidinium 0.0625 MG/ACTUAT / vilanterol 0.025 MG/ACTUAT Dry Powder Inhaler [Anoro] 01/21/2020 12:00:00 AM EST [facility] ([facility]) Nitroglycerin 0.4 MG Sublingual Tablet 03/25/2019 12:00:00 AM EST [facility] Metoprolol Tartrate 25 MG Oral Tablet 03/25/2019 12:00:00 AM EST [facility] Bacitracin 0.5 UNT/MG / Neomycin 0.0035 MG/MG / Polymyxin B 10 UNT/MG Topical Ointment 03/06/2019 12:00:00 AM EST [facility] empagliflozin 25 MG Oral Tablet [Jardiance] 10/09/2018 12:00:00 AM EDT [facility] Tiotropium [place] Monohydrate ([place]) [facility] Betamethasone 0.5 MG/ML Topical Cream [facility] linaclotide 0.145 MG Oral Capsule [facility] Acetaminophen 325 MG / Hydrocodone Bitartrate 10 MG Oral Tablet [facility] 60 ACTUAT Fluticasone propionate 0.5 MG/ ACTUAT / salmeterol 0.05 MG/ACTUAT Dry Powder Inhaler [facility] Linagliptin 5 MG Oral Tablet [facility] 7 ACTUAT umeclidinium 0.0625 MG/ACTUAT Dry Powder Inhaler [facility] sitagliptin 50 MG Oral Tablet [facility]
[2020-12-27 16:56] LABS: ALBUMIN 3.2 GM/DL (3.2-5.2); ALT/SGPT 31 U/L (12-78); BILIRUBIN,DIRECT 0.2 MG/DL (0.0-0.2); BILIRUBIN,TOTAL 0.4 MG/DL (0.2-1.0); BLOOD UREA NITROGEN 25 MG/DL (7-18); CALCIUM LEVEL 9.1 MG/DL (8.5-10.1); CARBON DIOXIDE LEVEL 24 MEQ/L (21-32); CHLORIDE LEVEL 105 MEQ/L (98-107); CREATININE FOR GFR 1.07 MG/DL (0.70-1.30); GLOMERULAR FILTRATION RATE > 60.0 (>56); GLUCOSE, FASTING 202 MG/DL (70-100); POTASSIUM SERUM 4.9 MEQ/L (3.5-5.1); SODIUM LEVEL 137 MEQ/L (136-145); TOTAL PROTEIN 7.1 GM/DL (6.4-8.2)
[2020-12-27] MEDS ORDERED: cefTRIAXone SOD 1 GM in D5W MINI-BAG PLUS 50 ML IV ONE (17:20)
[2020-12-27 17:44] LABS: RSV AMPLIFICATION NEGATIVE (NEGATIVE)
[2020-12-27 18:08] LABS: CK-MB VALUE MASS < 1.0 NG/ML (<3.6); CPK CREATINE PHOSPHOKINASE 89 U/L (39-308); MB/CK RELATIVE INDEX 1.12 (< OR =4); TROPONIN I < 0.02 NG/ML (< 0.10)
[2020-12-27] MEDS ORDERED: STIO1AER INH (18:11)
[2020-12-27] MEDS ORDERED: TOPI200T7 PO (18:11)
[2020-12-27] MEDS ORDERED: SIMV40TA20 PO (18:11)
[2020-12-27] MEDS ORDERED: SYNT175T2 PO (18:11)
[2020-12-27] MEDS ORDERED: BYST10TA2 PO (18:11)
[2020-12-27] MEDS ORDERED: ALBU83IN NEB (18:11)
[2020-12-27] MEDS ORDERED: NAPR375T4 PO (18:11)
[2020-12-27] MEDS ORDERED: LOSA50TA88 PO (18:11)
[2020-12-27] MEDS ORDERED: GLIP5TAB20 PO (18:11)
[2020-12-27] MEDS ORDERED: PLAV1TAB2 PO (18:11)
[2020-12-27] MEDS ORDERED: ASPI81TA26 PO (18:11)
[2020-12-27] MEDS ORDERED: VENTAER INH (18:11)
[2020-12-27] MEDS ORDERED: CITA40TA4 PO (18:11)
[2020-12-27] MEDS ORDERED: TRAZ-186 PO (18:11)
[2020-12-27] MEDS ORDERED: VITMTA PO (18:11)
[2020-12-27] MEDS ORDERED: PANT-23 PO (18:11)
[2020-12-27] MEDS ORDERED: METF-838 PO (18:11)
[2020-12-27] MEDS ORDERED: AZITHROMYCIN INJ 500 MG, VIAL MATE ADAPTER 1 EACH in NS 250 ML IV ONE (18:20)
[2020-12-27] MEDS ORDERED: ACETAMINOPHEN TAB 650MG DOSE (2X325MG) PO PRN (18:40)
[2020-12-27 18:45] LABS: C REACTIVE PROTEIN QUANTITATIV 6.16 MG/DL (0.00-0.30)
--- NOTE | 2020-12-27 18:46 | HPEPDOC ---
[facility] Medical History & Physical Date of Admission Dec 27, 2020 Date of Service: Dec 27, 2020 Attending Physician: CATRACHITA BILL DO History and Physical CHIEF COMPLAINT: Shortness of breath HISTORY OF PRESENT ILLNESS: Patient is a 60-year-old male who presents to the hospital with a 1 week history of shortness of breath and cough. Patient states that he has been having coughing fits where he has been bringing up yellow sputum for the past week. Patient is also noticed an increase of shortness of breath especially with exertion. Patient has a history of COPD and has been checking his oxygen and has been remaining in the low 90s. Patient took an at- home COVID-19 test on 12/25/2020 which was positive. Patient states that today was the worst day he has had since he began to have shortness of breath and had a coughing fit so bad that his oxygen level dropped down to 75%. Patient called EMS who brought him into the emergency department. Patient has been trying his at home inhalers to no avail. Patient states that he was not vaccinated for COVID-19 but did recently receive his influenza vaccination at his primary care office last week. Patient had a close contact who was positive for COVID-19 and ended up having go to the hospital last Sunday. Patient states he is having some pain with deep breaths and when he is coughing. Patient states he has been having diarrhea and has not been eating very much over the last few days because he does not have much of an appetite. Patient states he thinks he still has a sense of smell and taste. Patient son finally called him and convinced him to come into the hospital today because his symptoms were getting so bad. In the emergency department, patient again tested positive for COVID-19 and needed to be placed on 4 L of oxygen. While in route, EMS gave the patient 10 mg of IV dexamethasone. PAST MEDICAL HISTORY: 1. COPD, not oxygen dependent. 2. Hypertension. 3. Coronary artery disease. 4. Type 2 diabetes mellitus, oral medication only 5. History of Hodgkin's lymphoma in his 30s 6. History of prostate cancer status post prostatectomy 7. Hypothyroidism 8. Hyperlipidemia PAST SURGICAL HISTORY: 1. Prostatectomy. 2. Sleep apnea surgery. 3. Septoplasty. SOCIAL HISTORY: Patient denies smoking cigarettes, drinking alcohol, and illicit drug use. Patient states he is been disabled for more than 10 years and used to work at [employer] who he states took 75% of his disability claim for his COPD FAMILY HISTORY: Patient's mother probably had cancer but never got tested according the patient. She also had a history of COPD. ALLERGIES: Please see below. REVIEW OF SYSTEMS: General: Patient reports fevers with highest fever being 100.5 F HEENT: Patient denies headaches Cardiovascular: Patient denies chest pain Respiratory: Patient reports shortness of breath and cough as above GI: Patient reports diarrhea as above. Patient denies abdominal pain, nausea, or vomiting : Patient denies increased frequency or pain with urination Extremities: Patient denies swelling or pain in extremities Neurological: Patient denies numbness or tingling in legs Skin: Patient denies any new rashes or lesions. Hematologic: Patient denies any easy bruising. Lymphatic: Patient denies any lumps lumps or bumps in neck, axilla, or groin HOME MEDICATIONS: Please see below. PHYSICAL EXAMINATION: VITAL SIGNS: Temperature 99.9, pulse 83, respiratory rate 26, blood pressure 161/79, pulse oximetry 95% on 4 L oxygen on nasal cannula General: Alert and oriented male patient who was sitting up in bed with nasal ca nnula oxygen in place when I walked in. Patient did appear ill but did not appear to be in any acute distress HEENT: Normocephalic, atraumatic, moist mucous membranes. Neck: No lymphadenopathy or thyromegaly Cardiac: Regular rate and rhythm, no murmurs, normal S1, normal S2 Pulm: And expiratory wheezing heard throughout the lung [place] Abd: Nondistended, nontender to palpation, normal bowel sounds Ext: No edema bilateral lower extremities Neuro: Patient was able to move all 4 extremities on command and reported equal sensation light touch in all 4 extremities. Skin: Skin of the head, neck, upper and lower extremities was examined did not show any evidence of rash or wounds. LABORATORY DATA: See below. IMAGING: Chest x-ray performed on 12/27/2020 was reported to show abnormal opacities described as patchy bilateral airspace and interstitial opacities are seen in heaviest in the left lower lobe. There are no gross pleural effusions. Asymmetric pulmonary edema versus pneumonia MICROBIOLOGY: Please see below. ASSESSMENT: 60-year-old male who presented to the hospital with chief complaint of shortness of breath and cough was diagnosed with a COPD exacerbation on top of COVID-19. . PLAN: 1. COPD exacerbation requiring 4 L of oxygen. Patient will receive 10 mg of IV Decadron in the ambulance on the way to the hospital. We will continue with 10 mg of IV dexamethasone daily. Continue with oxygen therapy to maintain oxygen saturations between 88 and 92%. Patient COPD exacerbation is most likely secondary to COVID-19 infection although patient may also have a bacterial pne umonia. Procalcitonin has been ordered. 2. COVID-19. We will continue with dexamethasone as above and start IV remdesivir. If the patient's oxygen status continues to worsen to the point where the patient needs greater than 6 L of oxygen and appears to be in distress, baricitinib should be added to the patient's regimen. Patient will be admitted to the Covid unit. Patient will have awake pronation. Acapella and incentive spirometer will be ordered. 3. Possible bacterial pneumonia superimposed on COVID-19 and COPD exacerbation. Because of the abnormal opacities that were seen on chest x-ray, patient was given a dose of ceftriaxone azithromycin in the emergency department. These wi ll be continued and can be deescalated based on the results of procalcitonin. 4. Type 2 diabetes mellitus. Patient placed on sliding scale insulin and on a consistent carbohydrate diet. 5. Coronary artery disease. Continue patient's home medications. 6. Hypertension. Continue patient's home medications. 7. Hyperlipidemia. Continue patient's on medications. 8. Hypothyroidism. Continue patient's on medications. 9. DVT prophylaxis: Lovenox 10. CODE STATUS: Full code Disposition: Patient will be admitted to the medical surgical floor. I expect the patient be discharged after greater than equal to 2 midnight stay. Vital Signs Vital Signs Date Time Temp Pulse Resp B/P (MAP) Pulse Ox O2 Delivery O2 Flow Rate FiO2 12/27/20 18:17 99.9 83 26 95 Nasal Cannula 4.0 12/27/20 15:39 161/79 (106) Laboratory Data Labs 24H Laboratory Tests 2 12/27/20 15:51: Immature Granulocyte % (Auto) 0.3, Neutrophils (%) (Auto) 86.0H, Lymphocytes (%) (Auto) 6.9L, Monocytes (%) (Auto) 6.7, Eosinophils (%) (Auto) 0.0, Basophils (%) (Auto) 0.1, Neutrophils # (Auto) 6.5, Lymphocytes # (Auto) 0.5L, Monocytes # (Auto) 0.5, Eosinophils # (Auto) 0.0, Basophils # (Auto) 0.0, Nucleated Red Blood Cells % (auto) 0.0, Anion Gap 8, Glomerular Filtration Rate > 60.0, Lactic Acid Level 1.7, Calcium Level 9.1, Total Bilirubin 0.4, Direct Bilirubin 0.2, Aspartate Amino Transf (AST/SGOT) 55H, Alanine Aminotransferase (ALT/SGPT) 31, Alkaline Phosphatase 91, Total Creatine Kinase 89, Creatine Kinase MB < 1.0, Creatine Kinase MB Relative Index 1.12, Troponin I < 0.02, Total Protein 7.1, Albumin 3.2, Albumin/Globulin Ratio 0.8, Coronavirus (COVID-19)(PCR) POSITIVEA, Influenza Type A (RT-PCR) NEGATIVE, Influenza Type B (RT-PCR) NEGATIVE, Respiratory Syncytial Virus (PCR) NEGATIVE CBC/BMP Laboratory Tests 12/27/20 15:51 Microbiology Microbiology 12/27/20 Blood Culture, Received Pending Home Medications Scheduled Aspirin (Aspirin EC) 81 Mg Tablet.dr, 81 MG PO DAILY Citalopram Hydrobromide (Citalopram HBr) 40 Mg Tablet, 40 MG PO QHS Clopidogrel Bisulfate (Plavix) 75 Mg Tablet, 75 MG PO DAILY Glipizide (Glipizide ER) 5 Mg Tab.er.24, 5 MG PO DAILY Levothyroxine Sodium (Synthroid) 175 Mcg Tablet, 175 MCG PO DAILY Losartan Potassium (Losartan Potassium) 50 Mg Tablet, 50 MG PO DAILY Metformin HCl (Metformin HCl ER) 500 Mg Tab.er.24h, 1,000 MG PO BID Multivitamins (Thera M Plus Tablet) 1 Each Tablet, 1 TAB PO DAILY Naproxen (Naproxen) 375 Mg Tablet.dr, 375 MG PO BID Nebivolol HCl (Bystolic) 10 Mg Tablet, 10 MG PO DAILY Pantoprazole Sodium (Pantoprazole Sodium) 40 Mg Tablet.dr, 40 MG PO DAILY Simvastatin (Simvastatin) 40 Mg Tablet, 40 MG PO QHS Tiotropium Br/Olodaterol HCl (Stiolto Respimat Inhal [place]) 4 Gm Mist.inhal, 2 PUFF INH DAILY Topiramate (Topiramate) 200 Mg Tablet, 200 MG PO DAILY Trazodone HCl (Trazodone HCl) 50 Mg Tablet, 100 MG PO QHS Scheduled PRN Albuterol Sulf (Albuterol Sulfate) 2.5 Mg/3 Ml Vial.neb, 1 VIAL NEB Q4H PRN for SOB/WHEEZING Albuterol Sulfate (Ventolin Hfa) 18 Gm Hfa.aer.ad, 2 PUFFS INH QID PRN for DYS PNEA Allergies Coded Allergies: sertraline (Verified Allergy, Unknown, 10/20/18) A-FIB/CHADSVASC A-FIB History Current/History of A-Fib/PAF?: No CATRACHITA BILL DO Dec 27, 2020 18:46
--- OUTSIDE RECORDS SUMMARY | 2020-12-27 18:56 | CCD ---
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 Medical Resident Name Role Phone Carina GOTTLIEB MD Unavailable [...] Unavailable OMARBASHA, BASXIOMARA MD Unavailable Unavailable OMARBASHA, BASIXOMARA MD Unavailable Unavailable OMARBASHA, BASXIOMARA MD Unavailable [...] Flintrop, Marina Edwards MD Unavailable Unavailable Flintrop, Mairna Edwards MD Unavailable Unavailable Flintrop, Marina Edwards [...] Isabel EDWARDS MD Unavailable Unavailable Mahoney, Suze UNDER TRIMMER Unavailable Unavailable Mahoney, Suze UNDER TRIMMER Unavailable Unavailable Mahoney, Suze UNDER TRIMMER Unavailable Unavailable Mahoney, Suze UNDER TRIMMER Unavailable Unavailable Mahoney, Suze UNDER TRIMMER Unavailable Unavailable Mahoney, Suze UNDER TRIMMER Unavailable Unavailable Mahoney, Suze UNDER TRIMMER Unavailable Unavailable Mahoney, Suze UNDER TRIMMER Unavailable Unavailable Mahoney, Suze UNDER TRIMMER Unavailable Unavailable Mahoney, Suze UNDER TRIMMER Unavailable Unavailable Mahoney, Suze UNDER TRIMMER Unavailable Unavailable Mahoney, Suze UNDER TRIMMER Unavailable Unavailable Mahoney, Suze UNDER TRIMMER Unavailable Unavailable CEMER, ADNAN MD Unavailable Unavailable [...] CEMERELANA MD Unavailable Unavailable ZABOROWSKI, J DUONG UNDER TRIMMER Unavailable Unavailable ZABOROWSKI, J DUONG UNDER TRIMMER Unavailable Unavailable ZABOROWSKI, J DUONG UNDER TRIMMER Unavailable Unavailable ZABOROWSKI, J DUONG UNDER TRIMMER Unavailable Unavailable ZABOROWSKI, J DUONG UNDER TRIMMER Unavailable Unavailable ZABOROWSKI, J DUONG UNDER TRIMMER Unavailable Unavailable ZABOROWSKI, J DUONG UNDER TRIMMER Unavailable Unavailable ZABOROWSKI, J DUONG UNDER TRIMMER Unavailable Unavailable ZABOROWSKI, J DUONG UNDER TRIMMER Unavailable Unavailable ZABOROWSKI, J DUONG UNDER TRIMMER Unavailable Unavailable ZABOROWSKI, J DUONG UNDER TRIMMER Unavailable Unavailable ZABOROWSKI, J DUONG UNDER TRIMMER Unavailable Unavailable ZABOROWSKI, J DUONG UNDER TRIMMER Unavailable Unavailable ZABOROWSKI, J DUONG UNDER TRIMMER Unavailable Unavailable ZABOROWSKI, J DUONG UNDER TRIMMER Unavailable Unavailable ZABOROWSKI, J DUONG UNDER TRIMMER Unavailable Unavailable ZABOROWSKI, J DUONG UNDER TRIMMER Unavailable Unavailable ZABOROWSKI, J DUONG UNDER TRIMMER Unavailable Unavailable ZABOROWSKI, J DUONG UNDER TRIMMER Unavailable Unavailable ZABOROWSKI, J DUONG UNDER TRIMMER Unavailable Unavailable ZABOROWSKI, J DUONG UNDER TRIMMER Unavailable Unavailable ZABOROWSKI, J DUONG UNDER TRIMMER Unavailable Unavailable ZABOROWSKI, J DUONG UNDER TRIMMER Unavailable Unavailable ZABOROWSKI, J DUONG UNDER TRIMMER Unavailable Unavailable ZABOROWSKI, J DUONG UNDER TRIMMER Unavailable Unavailable ZABOROWSKI, J DUONG UNDER TRIMMER Unavailable Unavailable ZABOROWSKI, J DUONG UNDER TRIMMER Unavailable Unavailable ZABOROWSKI, J DUONG UNDER TRIMMER Unavailable Unavailable ZABOROWSKI, J DUONG UNDER TRIMMER Unavailable Unavailable ZABOROWSKI, J DUONG UNDER TRIMMER Unavailable Unavailable ZABOROWSKI, J DUONG UNDER TRIMMER Unavailable Unavailable ZABOROWSKI, J DUONG UNDER TRIMMER Unavailable Unavailable ZABOROWSKI, J DUONG UNDER TRIMMER Unavailable Unavailable ZABOROWSKI, J DUONG UNDER TRIMMER Unavailable Unavailable ZABOROWSKI, J DUONG UNDER TRIMMER Unavailable Unavailable ZABOROWSKI, J DUONG UNDER TRIMMER Unavailable Unavailable ZABOROWSKI, J DUONG UNDER TRIMMER Unavailable Unavailable ZABOROWSKI, J DUONG UNDER TRIMMER Unavailable Unavailable ZABOROWSKI, J DUONG UNDER TRIMMER Unavailable Unavailable ZABOROWSKI, J DUONG UNDER TRIMMER Unavailable Unavailable ZABOROWSKI, J DUONG UNDER TRIMMER Unavailable Unavailable ZABOROWSKI, J DUONG UNDER TRIMMER Unavailable Unavailable ZABOROWSKI, J DUONG UNDER TRIMMER Unavailable Unavailable ZABOROWSKI, J DUONG UNDER TRIMMER Unavailable Unavailable ZABOROWSKI, J DUONG UNDER TRIMMER Unavailable Unavailable ZABOROWSKI, J DUONG UNDER TRIMMER Unavailable Unavailable ZABOROWSKI, J DUONG UNDER TRIMMER Unavailable Unavailable ZABOROWSKI, J DUONG UNDER TRIMMER Unavailable Unavailable MINCOLLA, Isabel EDWARDS MD Unavailable [...] Unavailable MINCOLLA, Isabel EDWARDS MD Unavailable Unavailable Dahlgren, D Selina UNDER TRIMMER Unavailable Unavailable Dahlgren, D Selina UNDER TRIMMER Unavailable Unavailable Dahlgren, D Selina UNDER TRIMMER Unavailable Unavailable Chiara, D Selina UNDER TRIMMER Unavailable Unavailable Chiara, D Selina UNDER TRIMMER Unavailable Unavailable Chiara, D Selina UNDER TRIMMER Unavailable Unavailable Dahlgren, D Selina UNDER TRIMMER Unavailable Unavailable Chiara, D Selina UNDER TRIMMER Unavailable Unavailable Chiara, D Selina UNDER TRIMMER Unavailable Unavailable Chiara, D Selina UNDER TRIMMER Unavailable Unavailable Dahlgren, D Selina UNDER TRIMMER Unavailable Unavailable Dahlgren, D Selina UNDER TRIMMER Unavailable Unavailable Dahlgren, D Sleina UNDER TRIMMER Unavailable Unavailable Chiara, D Selina UNDER TRIMMER Unavailable Unavailable Dahlgren, D Selina UNDER TRIMMER Unavailable Unavailable Chiara, D Selina UNDER TRIMMER Unavailable Unavailable Chiara, D Selina UNDER TRIMMER Unavailable Unavailable Chiara, D Selina UNDER TRIMMER Unavailable Unavailable Chiara, D Selina UNDER TRIMMER Unavailable Unavailable Chiara, D Selina UNDER TRIMMER Unavailable Unavailable Dahlgren, D Selina UNDER TRIMMER Unavailable Unavailable Dahlgren, D Selina UNDER TRIMMER Unavailable Unavailable Chiara, D Selina UNDER TRIMMER Unavailable Unavailable Dahlgren, D Selina UNDER TRIMMER Unavailable Unavailable Chiara, D Selina UNDER TRIMMER Unavailable Unavailable Dahlgren, D Selina UNDER TRIMMER Unavailable Unavailable Dahlgren, D Selina UNDER TRIMMER Unavailable Unavailable Dahlgren, D Selina UNDER TRIMMER Unavailable Unavailable Gris, Sharmin Harris MD Unavailable [...] Salzhauer, Sharmin Harris MD Unavailable Unavailable Salzhauer, Sharimn Harris MD Unavailable Unavailable Salzhauer, Sharmin Harris [...] is protected by Article 27-F of the [facility] Public Health law. If you continue you may have access to information: Regarding HIV / AIDS; Provided by facilities licensed or operated by the [facility] Office of Mental Health; or Provided by the [facility] Office for People With Developmental Disabilities. If such information is present, then the following [facility] mandated warning applies: This information has [...] law may result in a fine or detention sentence or both. A general authorization for the release of medical or other information is NOT sufficient authorization for further disc losure. Advance Directives Directive Description Adult Services Librarian Pan Greaser Status Observation Descr iption Data Source(s) 95810-7 HIPAA - Effective on 12/02/19. Expiration date unspecified. Scanned Document is available upon request. Phong Ribeiro completed [facility] ([facility]) 31535-4 HIPAA - Effective on 12/02/19. Expiration date unspecified. Scanned Document is available upon request. Phong Ribeiro completed [facility] ([facility]) Allergies and Adverse Reactions Type Description Substance Reaction Status Data Source(s ) Drug allergy tamsulosin tamsulosin Rash [facility] Drug allergy sertraline sertraline suicidial thought [facility] Family History Family Member Name Family Member Gender Family Member Status Date o f Status Description Data Source(s) Unknown Male Problem [facility] ([facility] [place]) Unknown Male Problem [facility] ([facility]) () Unknown Unknown Problem [facility] ([facility]) Unknown Unknown Problem [facility] ([facility]) Encounters Encounter Providers Location Date Indications Data Source(s ) Outpatient Attender: ZANE GOTTLIEB MD Main Office 12/15/2020 09:30:00 AM EDT [facility] ([facility]) Outpatient Attender: Yamile DELONG [facility] 5 11/26 10:00:00 AM EDT [facility] ([facility] Outpatient Attender: DUONG BALL NP [facility] 12:00:00 AM EDT - 11/22/2020 01:39:52 PM EDT [facility] Medication Order<td><content ID="_[id number]">Medication Order</content>
<content><content styleCode="xSecondary xLabel">Encounter Diagnosis</content>: <content ID="_[id number]" styleCode="xSecondary">COPD (CHRONIC OBSTRUCTIVE PULMONARY DISEASE)</content></content></td><td><content styleCode="xSecondary">15-Sep-2020 10:06 </content><content styleCode="xLabel xSecondary"> To </content><content styleCode="xSecondary">15-Sep-2020 10:08</content>
<content styleCode="xSecondary">Pulmonary Health [facility] Office</content></td><td></td> [facility] Pulmonary [facility] Office 09/15/2020 10:06:21 AM EDT - 09/15/2020 10:08:51 AM EDT COPD (CHRONIC OBSTRUCTIVE PULMONARY DISEASE) [facility] ([facility]) COPD (CHRONIC OBSTRUCTIVE PULMONARY DISE ASE) Outpatient Attender: ZANE GOTTLIEB MD Main Office 09/14/2020 08:45:00 AM EDT [facility] ([facility]) Outpatient Attender: ZANE GOTTLIEB MD Main Office 06/14/2020 02:30:00 PM EDT [facility] ([facility]) <td><content ID="_[id number]">Office Visit</content>
<content><content styleCode="xLabel xSecondary">Encounter Reason</content>: <content ID="_[id number]" styleCode="xSecondary">COPD - The primary physician is Dr. [...] quit).</content></content>
<content><content styleCode="xSecondary xLabel"> Encounter Diagnosis</content>: <content ID="_[id number]" styleCode="xSecondary">COPD (CHRONIC OBSTRUCTIVE PULMONARY DISEASE)</content><content styleCode="xSecondary">, </content><content [id number]" styleCode="xSecondary">PULMONARY NODULE</content></content></td><td><content styleCode="xSecondary">03-Jun-2020 13:15 </content><content styleCode="xLabel xSecondary"> To </content><content styleCode="xSecondary">03-Jun-2020 13:31</content>
<content styleCode="xSecondary">Pulmonary [facility] Office</content></td><td></td>Outpatient [facility] Pulmonary [facility] Office 06/03/2020 01:15:00 PM EDT - 06/03/2020 [...] Javed MD 06/03/2020 08:08: [address] [facility] Outpatient Attender: Selina Guadarrama NP [facility] 5 03/18/2020 0 7:20:00 AM EST [facility] ([facility] Outpatient Attender: JERRY PATEL MD Main Office 03/15/2020 09:00:00 AM EST [facility] ([facility]) Outpatient Attender: DUONG BALL NP [facility] 07/2020 12:00:00 AM EST - 03/03/2020 09:19:20 AM EST [facility] Inpatient Attender: Noel Henson MDAdmitter: Noel knapp MD ES[facility] 02/11/2020 05:24:00 PM EST - 02/13/2020 01:35:00 PM EST [facility] Patient discharged. Outpatient Attender: Suze kenny 02/01/2020 10:20:00 AM EST [facility] ([facility]) Outpatient Attender: CHRIS BLAKE MD 01:59:00 PM EST - 01/26/2020 02:00:00 PM EST PRE-OP N52.31 [facility] PRE-OP N52.31 Patient discharged. Outpatient Attender: CHRIS BLAKE MD 12:00:00 AM EST - 01/26/2020 11:59:00 PM EST COVID TESTING [facility] COVID TESTING Patient discharged. <td><content ID="_[id number]">Medication Order</content>
<content><content styleCode="xSecondary xLabel">Encounter Diagnosis</content>: <content ID="_[id number]" styleCode="xSecondary">COPD (CHRONIC OBSTRUCTIVE PULMONARY DISEASE)</content></content></td><td><content styleCode="xSecondary">21-Jan-2020 11:34 </content><content styleCode="xLabel xSecondary"> To </content><content styleCode="xSecondary">21-Jan-2020 11:42</content>
<content styleCode="xSecondary">Pulmonary Health [facility] Office</content></td><td></td>Medication Order [facility] Office 01/21/2020 11:34:20 AM EST - 01/21/2020 11:42:26 AM EST COPD (CHRONIC OBSTRUCTIVE PULMONARY DISEASE) [facility] ([facility]) COPD (CHRONIC OBSTRUCTIVE PULMONARY DISE ASE) Preadmit Attender: CHRIS Tobin DAdmitter: JERRY PATEL MDReferrer: CHRIS BLAKE MD 01/05/2020 07:45:00 AM EST ERECTILE DYSF UNCTION FOLLOWING RADICAL PROSTATECTO [facility] ERECTILE DYSFUNCTION FOLLOWING RADICAL P ROSTATECTO Admission cancelled. Disregard status an d admitted date. Outpatient Attender: Steven Landry MD [place] 12/26/2019 09:15:00 AM EDT [facility] ([facility] Outpatient Attender: GUANACO LONG MD [place] 12/16/2019 03:30:00 PM EDT [facility] ([facility] Outpatient Attender: JERRY PATEL MD Main Office 12/12/2019 11:00:00 AM EDT [facility] ([facility]) <td><content [id number]">Office Visit</content>
<content><content styleCode="xLabel xSecondary">Encounter Reason</content>: <content ID="_[id number]" styleCode="xSecondary">COPD - The primary physician is Dr. Jerry Patel MD . The last office visit was 2 m onth(s) ago. Management changes made at the last visit include ordering CT chest and PFT. The Gold Classification is Stage 3: Severe COPD (as per patient, from testing at Dr Woosd years ago). Symptoms include dyspnea on exertion. Onset was gradual year(s) ago (in his early 40's). There is no known event that preceded symptom onset. The symptoms occur constantly (working around the house, mows his lawn with a riding mower, can't use a mask (failed a fit test at his prior work-[employer], a paper [employer])-before covid, couldn't walk around the house.). The episodes occur daily. The patient describes this as severe and worsening. Symptoms are exacerbated by activity. Symptoms are relieved by inhaler use and use of a nebulizer. Associated symptoms do not include fever, weakness, hemoptysis, upper respiratory infection symptoms or chest pain.</content></content>
<content><content styleCode="xSecondary xLabel">Encounter Diagnosis</content>: <content ID="_[id number]" styleCode="xSecondary">COPD (CHRONIC OBSTRUCTIVE PULMONARY DISEASE)</content><content styleCode="xSecondary">, </content><content ID="_[id number]" styleCode="xSecondary">ASBESTOS EXPOSURE</content><content styleCode="xSecondary">, </content><content [id number]" styleCode="xSecondary">SLEEP APNEA</content><content styleCode="xSecondary">, </content><content ID="_[id number]" styleCode="xSecondary">OBESITY</content><content styleCode="xSecondary">, </content><content [id number]" styleCode="xSecondary">PROSTATE CA</content><content styleCode="xSecondary">, </content><content [id number]" styleCode="xSecondary">MYOCARDIAL INFARCT</content><content styleCode="xSecondary">, </content><content [id number]" styleCode="xSecondary">HYPERLIPIDEMIA</content><content styleCode="xSecondary">, </content><content [id number]" styleCode="xSecondary">HYPERTENSION</content><content styleCode="xSecondary">, </content><content [id number]" styleCode="xSecondary">DIABETES MELLITUS, TYPE 2</content><content styleCode="xSecondary">, </content><content [id number]" styleCode="xSecondary">CAD (CORONARY ARTERY DISEASE)</content><content styleCode="xSecondary">, </content><content [id number]" styleCode="xSecondary">HODGKIN'S DISEASE</content></content></td><td><content styleCode="xSecondary">04-Dec-2019 14:45 </content><content styleCode="xLabel xSecondary"> To </content><content styleCode="xSecondary">04-Dec-2019 15:05</content>
<content styleCode="xSecondary">Pulmonary [facility] Office</content> </td><td></td>Outpatient [facility] Pulmonary [facility] Office 2019 02:45:00 PM EDT - 12/04/2019 03:05:14 PM EDT PROSTATE CAMYOCARDIAL INFARCTHODGKIN'S DISEASECOPD - The primary physician is Dr. 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
<content styleCode="xSecondary">Pulmonary [facility] Office</content></td><td></td> [facility] Pulmonary [facility] Office 12/04/2019 02:45:00 PM EDT - 11/28/2019 12:33:13 PM EDT [facility] ([facility]) <td><content ID="_[id number]">Radiology</content>
<content><con tent styleCode="xSecondary xLabel">Encounter Diagnosis</content>: <content [id number]" styleCode="xSecondary">ASBESTOS EXPOSURE</content></content></td><td><content styleCode="xSecondary">02-Dec-2019 9:15 </content><content styleCode="xLabel xSecondary"> To </content><content styleCode="xSecondary">02-Dec-2019 8:53</content>
<content styleCode="xSecondary">Pulmonary [facility]</content></td><td></td>Radiology [facility] Office 12/02/2019 09:15:00 AM EDT - 12/02/2019 08:53:09 AM EDT ASBESTOS EXPOSURE [facility] ([facility]) ASBESTOS EXPOSURE Outpatient Referrer: Jerry Javed MD 12/02/2019 08:33: [address] [facility] PFT Testing<td><content [id number]">PFT Testing</content>
<content><content styleCode="xSecondary xLabel">Encounter Diagnosis</content>: <content ID="_[id number]" styleCode="xSecondary">COPD (CHRONIC OBSTRUCTIVE PULMONARY DISEASE)</content></content></td><td><content styleCode="xSecondary">02-Dec-2019 8:30 </content><content styleCode="xLabel xSecondary"> To </content><content styleCode="xSecondary">02-Dec-2019 8:53</content>
<content styleCode="xSecondary">[facility]</content></td><td></td> [facility] Office 12/02/2019 08:30:00 AM EDT - 12/02/2019 08:53:33 AM EDT COPD (CHRONIC OBSTRUCTIVE PULMONARY DISEASE) [facility] ([facility]) COPD (CHRONIC OBSTRUCTIVE PULMONARY DISE ASE) <td><content ID="_[id number]">Nurse Visit</content>
<content><content styleCode="xSecondary xLabel">Encounter Diagnosis</content>: <content ID="_[id number]" styleCode="xSecondary">COPD (CHRONIC OBSTRUCTIVE PULMONARY DISEASE)</content><content styleCode="xSecondary">, </content><content ID="_[id number]" styleCode="xSecondary">EXPOSURE TO SARS-ASSOCIATED CORONAVIRUS</content></content></td><td><content styleCode="xSecondary"> 28-Nov-2019 10:30 </content><content styleCode="xLabel xSecondary"> To </content><content styleCode="xSecondary">28-Nov-2019 16:22</content>
<content styleCode="xSecondary">[facility]</content></td><td></td>Outpatient [facility] Pulmonary [facility] Office 11/28/2019 10:30:00 AM EDT - 11/28/2019 04:22:58 PM EDT EXPOSURE TO SARS- ASSOCIATED CORONAVIRUSCOPD (CHRONIC OBSTRUCTIVE PULMONARY DISEASE) [facility] ([facility]) EXPOSURE TO SARS-ASSOCIATED CORONAVIRUS COPD (CHRONIC OBSTRUCTIVE PULMONARY DISE ASE) Outpatient Attender: CHRIS Tobin DAdmitter: JERRY PATEL MDConsultant: ELANA MESSER MD 11/17/2019 12:19:00 AM EDT - 11/17/2019 12:35:00 PM EDT PHIMOSIS [facility] PHIMOSIS Patient discharged. Outpatient Attender: CHRIS BLAKE MD 09:30:00 AM EDT - 11/12/2019 09:31:00 AM EDT COVID TESTING [facility] COVID TESTING Patient discharged. Outpatient Attender: Jerry Javed MDReferrer: JERRY MESSINA MD [facility] 11/07/2019 08:45:00 PM EDT - 11/07/2019 11:59:00 PM EDT [facility] Patient discharged. Outpatient Attender: JERRY PATEL MD Main Office 10/30/2019 09:15:00 AM EDT [facility] Immunizations Vaccine Date Status Description Data Source(s) New in 2012. IIV4 12/15/2020 10:53:00 AM EDT completed [facility] ([facility]) New in 2012. IIV4 12/12/2019 12:10:00 PM EDT completed [facility] ([facility]) Medications Medication Brand Name Start Date Product Form Dose Route Admi nistrative Instructions Pharmacy Instructions Status Indications Reaction Description Data Source(s) POLYETHYLENE GLYCOL 3350 142 MG/ML Oral Solution [Miralax] M iralax 12/07/2020 12:00:00 AM EDT active M [facility] ([facility]) perflutren lipid microsphere (DEFINITY) 8.476 mg in 10 mL NS IV drug or medication 11/22/2020 01:34:13 PM EDT mL Intravenous active [facility] Nitroglycerin 0.4 MG Sublingual Tablet n itroglycerin (NITROSTAT) 0.4 MG SL tablet nitroglycerin (NITROSTAT) 0.4 MG SL tablet 11/22/2020 12:00:00 A M EDT 0.[address] 1 t ablet (0.4 mg total) under the tongue every 5 (five) minutes as needed for chest pain [facility] Stiolto Respimat 2.5-2.5 MCG/ACT AERS 9234-9881-94 10/18/2020 12:00 :00 AM EDT active INHALE 2 PUFFS BY MOUTH ONCE DAILY [facility] 200 ACTUAT Albuterol 0.09 MG/ACTUAT Mete red Dose Inhaler [ProAir] ProAir HFA 108 (90 Base) MCG/ACT Inhalation Aerosol Solution ProAir HFA 108 (90 Base) MCG/ACT Inhalation Aerosol Solution 09/15/2020 12:00:00 AM EDT 2 {Puff} C3821 6 active ProAir HFA [facility] Medication taken as needed. Albuterol 0.83 MG/ML Inhalant Solution A lbuterol Sulfate (2.5 MG/3ML) 0.083% Inhalation Nebulization Solution Albuterol Sulfate (2.5 MG/3ML) 0.083% Inhalation Nebulization Solution 09/15/2020 12:00:00 AM EDT 1 {ampu le} C48616 active Albuterol Sulfate [facility] ([facility]) Medication taken as needed. 24 HR Glipizide 5 MG Extended Release Oral Tablet Glipizide ER 09/14/2020 12:00:00 AM EDT active M [facility]ENT ([facility]) nebivolol 10 MG Oral Tablet nebivolol (Bystolic) 10 MG tablet nebivolol (Bystolic) 10 MG tablet 09/09/2020 12:00:00 AM EDT 10 mg Oral active Take 1 tablet (10 mg total) by mouth daily [facility] clopidogrel 75 MG Oral Tablet clopidogrel (PLAVIX) 75 MG tablet clopidogrel (PLAVIX) 75 MG tablet 09/09/2020 12:00:00 AM EDT 75 mg Oral active Take 1 tablet (75 mg total) by mouth daily [facility] 24 HR Glipizide 2.5 MG Extended Release Oral Tablet Glipizid e ER 06/18/2020 12:00:00 AM EDT ORAL completed [facility] ([facility]) Levothyroxine Sodium 0.175 MG Oral Tablet Levothyroxine Sodi um 06/07/2020 12:00:00 AM EDT ORAL active M [facility] ([facility]) Stiolto Respimat 2.5-2.5 MCG/ACT Inhalation Aerosol Solution [id number] 06/03/2020 12:00:00 AM EDT 2 {Aerosol_Soln} [id number] active Stiolto Respimat [facility] ([facility]) Suprep Bowel Prep Kit Suprep Bowel Prep Kit 03/18/2020 12:00:00 AM EST active [facility] ([facility]) nebivolol 10 MG Oral Tablet nebivolol (BYSTOLIC) 10 MG tablet nebivolol (BYSTOLIC) 10 MG tablet 03/03/2020 12:00:00 AM EST 10 mg Oral active Take 1 tablet (10 mg total) by mouth daily [facility] 30 ACTUAT umeclidinium 0.0625 MG/ACTUAT / vilanterol 0.025 MG/ACTUAT Dry Powder Inhaler [Anoro] ANORO ELLIPTA 62.5-25 MCG/INH inhaler ANORO ELLIPTA 62.5-25 MCG/INH inhaler 02/19/2020 12:00:00 AM EST ab orted INHALE 1 PUFF BY MOUTH ONCE DAILY [facility] empagliflozin 25 MG / Linagliptin 5 MG O ral Tablet [Glyxambi] GLYXAMBI 25-5 MG TABS GLYXAMBI 25-5 MG TABS 02/19/2020 12:00:00 AM EST 1 {tbl} Oral aborted Take 1 tablet by mouth daily [facility] clopidogrel 75 MG Oral Tablet clopidogrel (PLAVIX) 75 MG tablet clopidogrel (PLAVIX) 75 MG tablet 02/14/2020 12:00:00 AM EST 75 mg Oral active Take 1 tablet (75 mg total) by mouth daily [facility] 24 HR metoprolol succinate 50 MG Extende d Release Oral Tablet metoprolol succinate (TOPROL-XL) 50 MG 24 hr tablet metoprolol succinate (TOPROL-XL) 50 MG 24 hr tablet 02/14/2020 12:00:00 AM EST 50 mg Oral abort ed Take 1 tablet (50 mg total) by mouth daily [facility] 24 HR metoprolol succinate 50 MG Extende d Release Oral Tablet metoprolol succinate (TOPROL-XL) 24 hr tablet 50 mg metoprolol succinate (TOPROL-XL) 24 hr tablet 50 mg 02/13/2020 09:00:00 AM EST 50 mg Oral activ e 50 mg, Oral, Daily, First dose on 02/13/20 at 0900 [facility] Medication administered onsite Citalopram 40 MG Oral Tablet citalopram (CeleXA) table t 40 mg citalopram (CeleXA) tablet 40 mg 02/12/2020 09:00:00 PM EST 40 mg Oral active 40 mg, Oral, Nightly, First dose on Bernie 02/12/20 at 2100 [facility] Medication administered onsite Metoprolol Tartrate 25 MG Oral Tablet me toprolol tartrate (LOPRESSOR) tablet 25 mg metoprolol tartrate (LOPRESSOR) tablet 25 mg 02/12/2020 04:00:00 PM EST 25 mg Oral completed 25 mg, Oral, Once, Bernie 02/12/20 at 1600, For 1 dose [facility] Medication administered onsite furosemide (LASIX) injection 20 mg [id number] 02/12/2020 03:00:00 PM EST 20 mg Intravenous completed 20 mg, I ntravenous, Once, Bernie 02/12/20 at 1500, For 1 dose [facility] Medication administered onsite linaclotide 0.145 MG Oral Capsule linaclotide (LINZESS ) capsule 145 mcg linaclotide (LINZESS) capsule 145 mcg 02/12/2020 09:00:00 AM EST 14 5 ug Oral active 145 mcg, Oral, Every other day, First dose on Bernie 02/12/20 at 0900 [facility] Medication administered onsite pantoprazole 40 MG Delayed Release Oral Tablet pantoprazole (PROTONIX) EC tablet 40 mg pantoprazole (PROTONIX) EC tablet 40 mg 02/12/2020 09:00:[address] 40 mg Oral active Gastroesophageal Reflux Diseas e 40 mg, Oral, Daily, Indications: Gastroesophageal Reflux Disease, First dose on Bernie 02/12/20 at 0900 [facility] Gastroesophageal Reflux Disease Medication administered onsite topiramate 100 MG Oral Tablet topiramate (TOPAMAX) tab let 200 mg topiramate (TOPAMAX) tablet 200 mg 02/12/2020 09:00:00 AM EST 200 mg Oral active 200 mg, Oral, Daily, First dose on Bernie 02/12/20 at 0900
For administration and preparation considerations, refer to Hazardous Drugs in the Workplace Policy on Intranet.
[facility] Medication administered onsite clopidogrel 75 MG Oral Tablet clopidogrel (PLAVIX) tab let 75 mg clopidogrel (PLAVIX) tablet 75 mg 02/12/2020 09:00:00 AM EST 75 mg Oral active 75 mg, Oral, Daily, First dose on Bernie 02/12/20 at 0900, Post-op
May begin the same day
[facility] Medication administered onsite Losartan Potassium 25 MG Oral Tablet losartan (COZAAR) tablet 50 mg losartan (COZAAR) tablet 50 mg 02/12/2020 09:00:00 AM EST 50 mg Oral active 50 mg, Oral, Daily, First dose on Bernie 02/12/20 at 0900 [facility] Medication administered onsite 24 HR metoprolol succinate 25 MG Extende d Release Oral Tablet metoprolol succinate (TOPROL-XL) 24 hr tablet 25 mg metoprolol succinate (TOPROL-XL) 24 hr tablet 25 mg 02/12/2020 09:00:00 AM EST 25 mg Oral abort ed 25 mg, Oral, Daily, First dose on Bernie 02/12/20 at 0900 [facility] Medication administered onsite Insulin Lispro 100 [...] cover POC glucose at 08:00, 12:00, 17:00.
[facility] Medication administered onsite Levothyroxine Sodium 0.175 MG Oral Table t levothyroxine (SYNTHROID, LEVOTHROID) tablet 175 mcg levothyroxine (SYNTHROID, LEVOTHROID) tablet 175 mcg 1 04/14/2019 06:00:00 AM EST 175 ug Oral active 175 mcg, Oral, Daily, First dose on Bernie 02/12/20 at 0600 [facility] Medication administered onsite atorvastatin 40 MG Oral Tablet atorvastatin (LIPITOR) tablet 80 mg atorvastatin (LIPITOR) tablet 80 mg 02/11/2020 09:00:00 PM EST 80 mg Oral active 80 mg, Oral, Nightly, First dose on Sun02/11/20 at 2100 [facility] Medication administered onsite Trazodone Hydrochloride 100 MG Oral Tablet traZODone ( DESYREL) tablet 100 mg traZODone (DESYREL) tablet 100 mg 02/11/2020 09:00:00 PM EST 100 mg Oral active 100 mg, Oral, Nightly, First dos e on Sun02/11/20 at 2100 [facility] Medication administered onsite 60 ACTUAT formoterol fumarate 0.005 MG/A CTUAT / mometasone furoate 0.2 MG/ACTUAT Metered Dose Inhaler mometasone-formoterol (DULERA) 200-5 MCG/ACT inhaler 2 puff mometasone-formoterol (DULERA) 200-5 MCG/ACT inhaler 2 puff 02/11/2020 08:00:00 PM EST 2 {puff} Inhalation active 2 puff, Inhalation, 2 times daily, First dose on Sun02/11/20 at 1999 [facility] Medication administered onsite Ipratropium Morenci 0.2 MG/ML Inhalant S olution ipratropium (ATROVENT) 0.02 % nebulizer solution 0.5 mg ipratropium (ATROVENT) 0.02 % nebulizer solution 0.5 mg 02/11/2020 08:00:00 PM EST 0.5 mg active 0.5 mg, Nebulization, 4 times daily, First dose on Sun02/11/20 at 1999 [facility] Medication administered onsite normal saline flush 0.9 % injection 3 mL [id number] 02/11/2020 06:00:00 PM EST 3 mL Intravenous active 3 mL , Intravenous, Every 8 hours (scheduled), First dose on Sun02/11/20 at 1800
flush per protocol, D/C Main IV fluid if appropriate
[facility] Medication administered onsite Aspirin 81 MG Chewable Tablet aspirin chewable tablet 81 mg aspirin chewable tablet 81 mg 02/11/2020 06:00:00 PM EST 81 mg Oral activ e 81 mg, Oral, Daily, First dose on Sun02/11/20 at 1800, Post-op
D/C any prior aspirin order
[facility] Medication administered onsite Nitroglycerin 0.4 MG Sublingual Tablet n itroglycerin (NITROSTAT) SL tablet 0.4 mg nitroglycerin (NITROSTAT) SL tablet 0.4 mg 02/11/2020 05:32:54 P M EST 0.4 mg Sublingual active 0.4 mg, S ublingual, Every 5 min PRN, chest pain, Starting Sun02/11/20 at 1732, Post-op
May administer every 5 minutes for 3 doses and call cardio lab MD.
[facility] Medication administered onsite Acetaminophen 325 MG Oral Tablet acetaminophen (TYLENO L) 325 MG tablet 650 mg acetaminophen (TYLENOL) 325 MG tablet 650 mg 02/11/2020 05:32:54 PM EST 650 mg Oral active 650 mg, Or al, Every 4 hours PRN, headaches, and non cardiac pain, Starting Sun02/11/20 at 1732, Post-op
"Maximum dose of acetaminophen is 4,000 mg from all sources in 24 hours."
[facility] Medication administered onsite Albuterol 0.83 MG/ML Inhalant Solution a lbuterol (PROVENTIL) nebulizer solution 2.5 mg albuterol (PROVENTIL) nebulizer solution 2.5 mg 2019 05:32:32 PM EST 2.5 mg active 2.5 mg, Nebulization, RT every 6 hours as needed, wheezing, shortness of breath, Starting Sun02/11/20 at 1732 [facility] Medication administered onsite eptifibatide 0.75 MG/ML Injectable Solut ion eptifibatide (INTEGRILIN) 75 MG/100ML infusion eptifibatide (INTEGRILIN) 75 MG/100ML infusion 020 05:20:00 PM EST 2 ug/kg/min Intravenous aborted 2 mcg/kg/min, Intravenous, Continuous, Starting Sun02/11/20 at 1720
Infuse this medication only through single port tubing ([employer] Infusion Set ref [id number]). Medica tion and tubing is to be discarded if infusion off for 4 hours.
Duration of Infusion: Until 100 ml bottle is complete [facility] Medication administered onsite 30 ACTUAT umeclidinium 0.0625 MG/ACTUAT / vilanterol 0.025 MG/ACTUAT Dry Powder Inhaler [Anoro] Anoro Ellipta 62.5-25 MCG/INH Inhalation Aerosol Powder Breath Activated Anoro Ellipta 62.5-25 MCG/INH Inhalation Aerosol Powder Breath Activated 01/21/2020 12:00:00 AM EST 1 {Aero_Pow_Br_Act} [id number] suspended Anoro Ellipta [employer] ([facility]) Levothyroxine Sodium 0.175 MG Oral Tablet [Euthyrox] Euthyro x 11/30/2019 12:00:00 AM EDT ORAL active M [facility] ([facility]) Cephalexin 250 MG Oral Capsule Cephalexin 11/16/2019 12:00:00 AM EDT ORAL completed [facility] ([facility]) Acetaminophen 300 MG / Codeine Phosphate 30 MG Oral Ta blet Acetaminophen-Codeine #3 11/16/2019 12:00:00 AM EDT ORAL completed [facility] ([facility]) Docusate Sodium 100 MG Oral Capsule [Colace] Colace 12:00:00 AM EDT ORAL completed [facility] ([facility]) Levofloxacin 500 MG Oral Tablet Levofloxacin 10/02/2019 12:00:00 AM EDT completed [facility] ([facility]) chlorhexidine gluconate 40 MG/ML Medicated Liquid Soap [Hibi clens] Hibiclens 10/02/2019 12:00:00 AM EDT completed [facility] ([facility]) chlorhexidine gluconate 40 MG/ML Medicated Liquid Soap [Hibi clens] Hibiclens 10/02/2019 12:00:00 AM EDT completed [facility] ([facility]) Levofloxacin 500 MG Oral Tablet Levofloxacin 10/02/2019 12:00:00 AM EDT completed [facility] ([facility]) Metoprolol Tartrate 25 MG Oral Tablet me toprolol tartrate (LOPRESSOR) 25 MG tablet metoprolol tartrate (LOPRESSOR) 25 MG tablet 03/25/2019 12:0 0:00 AM EST 25 mg Oral aborted Take 1 tablet (2 5 mg total) by mouth 2 (two) times a day [facility] Nitroglycerin 0.4 MG Sublingual Tablet n itroglycerin (NITROSTAT) 0.4 MG SL tablet nitroglycerin (NITROSTAT) 0.4 MG SL tablet 03/25/2019 12:00:00 A M EST 0.[address] 1 t ablet (0.4 mg total) under the tongue every 5 (five) minutes as needed for chest pain [facility] Bacitracin 0.5 UNT/MG / Neomycin 0.0035 MG/MG / Polymyxin B 10 UNT/MG Topical Ointment pfhgzenl-prscgpnfsz-japozoxjx (NEOSPORIN) 5-400-5000 ointment bvpybgfo-uqgqerqkas-hmsszdnyf (NEOSPORIN) 5-400-5000 ointment 03/06/2019 12:00:00 AM EST 1 {application} Topical aborted Apply 1 application topically every 2 (two) hours as needed (for irritation) [facility] empagliflozin 25 MG Oral Tablet [Jardiance] JARDIANCE 25 MG TABS JARDIANCE 25 MG TABS 10/09/2018 12:00:00 AM EDT 25 mg Oral aborted Take 25 mg by mouth daily [facility] sitagliptin 50 MG Oral Tablet sitaGLIPtin (JANUVIA) 50 MG tablet sitaGLIPtin (JANUVIA) 50 MG tablet 50 mg Oral aborted Take 50 mg by mouth nightly [facility] Acetaminophen 325 MG / Hydrocodone Sea trate 10 MG Oral Tablet HYDROcodone- acetaminophen (NORCO 10-325) 10-325 MG per tablet HYDROcodone-acetaminophen (NORCO 10-325) 10-325 MG per tablet 1 {tbl} Oral a borted Take 1 tablet by mouth 2 (two) times a day [facility] 7 ACTUAT umeclidinium 0.0625 MG/ACTUAT D ry Powder Inhaler Umeclidinium Morenci (INCRUSE ELLIPTA) 62.5 MCG/INH AEPB Umeclidinium Morenci (INCRUSE ELLIPTA) 6 2.5 MCG/INH AEPB 1 {puff} Inhalation aborted Inh smita 1 puff daily [facility] 60 ACTUAT Fluticasone propionate 0.5 MG/ ACTUAT / salmeterol 0.05 MG/ACTUAT Dry Powder Inhaler fluticasone-salmeterol (ADVAIR) 500-50 MCG/DOSE DISKUS fluticasone-salmeterol (ADVAIR) 500-50 MCG/DOSE DISKUS 1 {puff} Inhalation aborted Inhale 1 puff 2 (two) jen es a day [facility] linaclotide 0.145 MG Oral Capsule linaclotide (LINZESS ) 145 MCG CAPS linaclotide (LINZESS) 145 MCG CAPS 145 ug Oral aborted Take 145 mcg by mouth every other day [facility] Tiotropium Morenci Monohydrate (SPIRIVA HANDIHALER IN) drug or medica tion Inhalation aborted Inhale [facility] Linagliptin 5 MG Oral Tablet linaGLIPtin (TRADJENTA) 5 MG TABS linaGLIPtin (TRADJENTA) 5 MG TABS 5 mg Oral aborted Ta ke 5 mg by mouth daily [facility] Betamethasone 0.5 MG/ML Topical Cream be tamethasone dipropionate (DIPROLENE) 0.05 % cream betamethasone dipropionate (DIPROLENE) 0.05 % cream 1 {application} Topical aborted Apply 1 application topically 2 (two) times a day [facility] Insurance Providers Payer name Policy type / Coverage type Policy ID Covered libertarian ID Covered libertarian's relationship to ibarra Policy Ibarra Plan Information BS [place] Med[employer] Part B [id number] Self S [id number] BS [place] Med[employer] Part B [id number] Self S [id number] BS [place] Medigap Part B [id number] [id number] Self S [id number] BS [place] Medigap Part B [id number] [id number] Self S [id number] BS [place] Med[employer]ap Part B [id number] [id number] Self S [id number] BS [place] Medigap Part B [id number] Self BS [place] Med[employer] Part B [id number] Self [id number] BS [place] Medigap Part B [id number] 2.840.1.330509.3.227.99.991.71686.0 Self S [id number] Ghi/Emblem HLTH (pr) Medigap Part B [id number] [id number] Family Dependent 9 [id number] Ghi/Emblem HLTH (pr) Medigap Part B [id number] [id number] Family Dependent 9 [id number] Ghi/Emblem HLTH (pr) Medigap Part B [id number] 2.16.840.1.38[id number] Family Dependent 9 [id number] Ghi/Emblem HLTH (pr) Medigap Part B [id number] 2.16840.1.783877.3.227.99.991.33862.0 Family Dependent 9 [id number] Ghi/Emblem HLTH (pr) Medigap Part B [id number] Family Dependent [id number] Ghi/Emblem HLTH (pr) Medigap Part B [id number] Family Depende nt Ghi/Emblem HLTH (pr) Medigap Part B [id number] 2.840.1.699703.3.227.99.991.80684.0 Family Dependent 9 [id number] Ghi/Emblem HLTH (pr) Medigap Part B [id number] 2.16840.1.880165.3.227.99.991.59324.0 Family Dependent 9 [id number] MEDICARE [id number] xxxxxxxxxxx [id number] MEDICARE B [id number] P [id number] Medicare [place] Primary [id number]1.87838.0 Self 1 [id number] MEDICARE A [id number] P [id number] Medicare [place] Medicare Primary [id number] Self [id number] MEDICARE [id number] SP [id number] A Medicare [place] Medicare Primary [id number] 2.16.840.1.739454.3.227.99.991.91754.0 Self 1 [id number] [place] Medicare Primary [id number] 2.16.840.1.049286.3.227.99.991.19967.0 Self 1 [id number] Medicare [place] Medicare Primary [id number] Self MEDICARE [id number] Aliza [id number] Medicare [place] Medicare Primary [id number] 2.16.840.1.792375.3.227.99.991.90791.0 Self 1 [id number] Medicare [place] Medicare Primary [id number] 2.16.840.1.261994.3.227.99.991.78808.0 Self 1 [id number] Medicare [place] Medicare Primary [id number] 2.16.840.1.301138.3.227.99.991.95191.0 Self 1 [id number] MEDICARE BLUE PPO 306 [id number] SP [id number] [facility] [id number] Self [id number] [facility] [id number] Self TODAYS OPTION MEDICARE [id number] Aliza [id number] TODAYS OPTIONS [id number] SP [id number] WELLCARE [id number] SP [id number] [employer] Options Ppo Commercial [id number] 7.99.802.074984.0 Self [id number] [employer] Medicare Adv Plan F [id number] SELF [id number] [employer] Plans 14 [id number] SELF [id number] Wellcare Commercial [id number] Self [id number] WELLCARE MEDICARE [id number] Aliza [id number] [facility] [id number] Aliza [id number] [facility] [id number] xxxxxxxxxxx [id number] [facility] AARP [id number] P [id number] [facility] AARP [id number] P [id number] 1 [facility] [id number] Aliza [id number] INSURANCE COVID-19 COVID Aliza C OVID INSURANCE COVID-19 [id number] xxxxx [id number] INSURANCE COVID-19 COVID Aliza C OVID [employer] PROGRESSIVE [id number] SP [id number] MEDICARE - [place] MCR [id number] S [id number] [employer] PROGRESSIVE S [id number] S [id number] MEDICARE P [id number] S [id number] A [id number] MEDICARE B [id number] P [id number] MEDICARE A [id number] [facility] AARP [id number] 1 [employer] Commercial [id number] Self [id number] [employer] Commercial [id number] Self [id number] [employer] [facility] [id number] Self [id number] [place] [employer] (pr) Medigap Part B [id number] Self [id number] Well[employer] Commercial [id number] Self [id number] [employer] Medigap Part B [id number] Self [id number] [employer] [facility] [id number] 2.160.1.536077.3.227.99.991.20816.0 Self 1 [id number] [place] (pr) Medigap Part B [id number] 2.16840.1.538861.3.227.99.991.03627.0 Self [id number] [employer] Commercial [id number] 2.16840.1.332813.3.227.99.991.39702.0 Self [id number] [employer] Commercial [id number] 2.16840.1.645163.3.227.99 .824.604335.0 Self [id number] [employer] Commercial [id number] 2.840.1.804804.3.227.99 .824.344356.0 Self [id number] Well[employer] Health Plans F [id number] SELF [id number] [employer] Commercial [id number] 2.0.1.646663.3.227.99 .824.676934.0 Self [id number] WE[employer] HEALTH PLANS O [id number] S [id number] [employer]/Wellcare Commercial [id number] 2.0.1.035225.3.227.99.824.045294.0 Self [id number] TODAYS OPTIONS/CONGOLESE O [id number] S [id number] [employer] [facility] [id number] 2.0.1.613173.3.227.99.991.95527.0 Self 1 [id number] [place] (pr) Medigap Part B [id number] 2.16840.1.470760.3.227.99.991.44338.0 Self [id number] [employer] Commercial [id number] 2.16840.1.753472.3.227.99.991.5 1869.0 Self [id number] [employer] Commercial [id number] 2.840.1.430873.3.227.99.824.139084.0 Self [id number] [employer] Commercial [id number] 2.16840.1.881567.3.227.99.824.626686.0 Self [id number] [employer] Medigap Part B [id number] 2.16840.1.812892.3.227.99.991.83606.0 Self 1 [id number] [place] (pr) Medigap Part B [id number] 2.16840.1.538697.3.227.99.991.93685.0 Self [id number] [employer] Commercial [id number] 2.160.1.282793.3.227.99.824.901085.0 Self [id number] [employer] Commercial [id number] 2.160.1.400437.3.227.99.824.176678.0 Self [id number] [employer] Commercial [id number] 2.160.1.887570.3.227.99.824.297863.0 Self [id number] TOD[employer] OPTION MEDICARE PI PI TOD[employer]YS OPTION MEDICARE [id number] Aliza [id number] [employer] Medicare Adv Plan F [id number] SELF [id number] [employer] [facility] [id number] 2.16840.1.805584.3.227.99.991.25129.0 Self 1 [id number] [place] (pr) Medigap Part B [id number] 2.16840.1.425463.3.227.99.991.43625.0 Self [id number] TODAYS OPTIONS [id number] SP [id number] [employer] Options [employer] [id number] 0 [id number] [employer] Medigap Part B [id number] 2.16840.1.572984.3.227.99.991.09616.0 Self 1 [id number] [place] Progressive (pr) Medigap Part B [id number] 2.16840.1.580399.3.227.99.991.39261.0 Self [id number] [employer] Medigap Part B [id number] 2.16.840.1.190431.3.227.99.991.70143.0 Self 1 [id number] [place] Progressive (pr) Medigap Part B [id number] 2.16.840.1.876615.3.227.99.991.39905.0 Self [id number] Today's Option Medicare Commercial 2.16.840.1.736910 .[id number] Self [employer] Medigap Part B [id number] Self [place] Progressive (pr) Medigap Part B [id number] Self [employer] Commercial [id number] Self [employer] Options [id number] 18 [id number] BCBS [place] [id number] SP [id number] [employer] BCBS 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 Diagnosis 11/22/2020 12:58:27 PM EDT [facility] E11.9 Type 2 diabetes mellitus without complic ations Type 2 diabetes mellitus without complic Diagnosis 11/22/2020 12:58:27 PM EDT [facility] I10 Essential (primary) hypertension Essential (primary) h ypertension Diagnosis 11/22/2020 12:58:27 PM EDT [facility] E78.00 Pure hypercholesterolemia, unspecified P ure hypercholesterolemia, unspecified Diagnosis 11/22/2020 12:58:27 PM EDT [facility] I25.10 Atherosclerotic heart diseas e of [place] coronary artery without angina pectoris Atherosclerotic heart disease of [place] Diagnosis 11/22/2020 12:58:27 PM EDT [facility] E78.5 Hyperlipidemia, unspecified Hyperlipidemia, unspecifie d Diagnosis 03/03/2020 08:41:47 AM EST [facility] I21.29 ST elevation (STEMI) myocardial infarcti on involving other sites ST elevation (STEMI) myocardial infarcti Diagnosis 03/03/2020 08:41:47 AM EST [facility] I21.3 ST elevation (STEMI) myocardial infarcti on of unspecified site ST elevation (STEMI) myocardial infarcti Diagnosis 02/11/2020 05:24:00 PM Health system N52.31 Erectile dysfunction following radical p rostatectomy ERECTILE DYSFUNCTION FOLLOWING RADICAL PROSTATECTOMY Diagnosis 01/26/2020 01:59:00 PM [facility] Z01.812 Encounter for preprocedural laboratory e xamination ENCOUNTER FOR PREPROCEDURAL LABORATORY EXAMINATION Diagnosis 01/26/2020 01:59:00 PM [facility] Z20.828 Contact with and (suspected) exposure to other viral communicable diseases CONTACT W AND EXPOSURE TO OTH VIRAL COMMUNICABLE DISEASES Di agnosis 01/26/2020 01:30:00 PM [facility] Z11.59 Encounter for screening for other viral diseases ENCOUNTER FOR SCREENING FOR OTHER VIRAL DISEASES Diagnosis 01/26/2020 01:30:00 PM [facility] N47.1 Phimosis PHIMOSIS Diagnosis 11/17/2019 12:19:00 AM ED T [facility] I34.0 Nonrheumatic mitral valve regurgitation Nonrheumatic mitral valve regurgitation [id number] 11/22/2020 12:00:00 AM EDT [facility] [id number] Hereditary peripheral neuropathy Hereditary sue pheral neuropathy Problem 09/14/2020 12:00:00 AM EDT [facility] ([place] [facility]) Note: I think he has Tyxjlvf-Epfyr-Lfdfv , based on foot exam Z86.010 History of polyp of colon History of polyp of colon Pr oblem 03/18/2020 12:00:00 AM EST [facility] ([facility] [id number] Essential hypertension Essential hypertension Problem 03/11/2020 12:00:00 AM EST [facility] ([facility] E11.9 Diabetes mellitus Diabetes mellitus [id number] 02/11/2020 12:00:00 AM Health system E78.5 HLD (hyperlipidemia) HLD (hyperlipidemia) [id number] 02/11/2020 12:00:00 AM Health system I10 HTN (hypertension) HTN (hypertension) [id number] 0 12:00:00 AM Health system I21.3 STEMI (ST elevation myocardial infarctio n) STEMI (ST elevation myocardial infarction) [id number] 02/11/2020 12:00:00 AM Health system Surgeries/Procedures Procedure Description Date Indications Data Source(s) OFFICE OUTPATIENT VISIT 25 MINUTES 12/15/2020 12:00:00 AM EDT [facility] ([facility]) OFFICE OUTPATIENT VISIT 25 MINUTES 12/07/2020 12:00:00 AM EDT [facility] ([facility]) OFFICE OUTPATIENT VISIT 25 MINUTES 09/14/2020 12:00:00 AM EDT [facility] ([facility]) OFFICE OUTPATIENT VISIT 25 MINUTES 06/14/2020 12:00:00 AM EDT [facility] ([facility]) OFFICE OUTPATIENT VISIT 25 MINUTES 06/03 01:15:00 PM EDT - 06/03/2020 01:31:14 PM EDT [facility] ([facility]) CT THORAX W/O CONTRAST MATERIAL <td colspan="2"> CAT SCAN OF CHEST: CT THORAX W/O DYE (09172)Result: Are you or could you become ?: No; When was you last CXR/CT?: over week ago; Bereavement Counselor: ISAC SalcidoT</td><td> Status: Completed 03-Jun-2020 </td> 06/03/2020 12:50:37 PM [...] AM EST</td><td></td><td> </td> 02/13/2020 04:32:00 PM EST [facility] GLUC BLD GLUC MNTR DEV CLEARED FDA SPEC HOME USE <td>P OCT GLUCOSE</td><td>Routine</td><td>02/13/2020 8:47 AM EST</td><td></td><td> </td> 02/13/2020 01:47:00 PM EST [facility] BLOOD COUNT COMPLETE AUTO&AUTO DIFRNTL WBC COUNT <td>C BC AND DIFFERENTIAL</td><td>Timed</td><td>02/13/2020 5:40 AM EST</td><td></td><td> </td> 02/13/2020 10:40:00 AM EST [facility] BASIC METABOLIC PANEL CALCIUM TOTAL <td>BASIC METABOLI C PANEL</td><td>Timed</td><td>02/13/2020 5:40 AM EST</td><td></td><td> </td> 02/13/2020 10:40:00 AM EST [facility] GLUC BLD GLUC MNTR DEV CLEARED FDA SPEC HOME USE <td>P OCT GLUCOSE</td><td>Routine</td><td>02/12/2020 5:50 PM EST</td><td></td><td> </td> 02/12/2020 10:50:00 PM EST [facility] CMB <td>CMB</td><td>Timed</td><t d>02/12/2020 5:19 PM EST</td><td></td><td> </td> 02/12/2020 10:19:00 PM EST [facility] POTASSIUM SERUM PLASMA/WHOLE BLOOD <td>POTASSIUM</td>< td>STAT</td><td>02/12/2020 5:19 PM EST</td><td></td><td> </td> 02/12/2020 10:19:00 PM EST [facility] CREATINE KINASE MB FRACTION ONLY <td>CKMB</td><td>Time d</td><td>02/12/2020 5:19 PM EST</td><td></td><td> </td> 02/12/2020 10:19:00 PM EST [facility] GLUC BLD GLUC MNTR DEV CLEARED FDA SPEC HOME USE <td>P OCT GLUCOSE</td><td>Routine</td><td>02/12/2020 2:10 PM EST</td><td></td><td> </td> 02/12/2020 07:10:00 PM Health system ECHO TTHRC R-T 2D W/WOM-MODE COMPL SPEC&COLR DOP <td>E CHOCARDIOGRAM TRANSTHORACIC</td><td>Routine</td><td>02/12/2020 11:49 AM EST</td><td></td><td> </td> 02/12/2020 04:49:08 PM EST [facility] GLUC BLD GLUC MNTR DEV CLEARED FDA SPEC HOME USE <td>P OCT GLUCOSE</td><td>Routine</td><td>02/12/2020 9:49 AM EST</td><td></td><td> </td> 02/12/2020 02:49:00 PM Health system CMB <td>CMB</td><td>STAT</td><td >02/12/2020 8:25 AM EST</td><td></td><td> </td> 02/12/2020 01:25:00 PM EST [facility] TROPONIN QUANTITATIVE <td>TROPONIN I</td><td>Routi ne</td><td>02/12/2020 8:25 AM EST</td><td></td><td> </td> 02/12/2020 01:25:00 PM EST [facility] CREATINE KINASE MB FRACTION ONLY <td>CKMB</td><td>Time d</td><td>02/12/2020 8:25 AM EST</td><td></td><td> </td> 02/12/2020 01:25:00 PM EST [facility] LIPID PANEL <td>LIPID PANEL</td><td>Add- On</td><td>02/12/2020 8:25 AM EST</td><td></td><td> </td> 02/12/2020 01:25:00 PM EST [facility] BASIC METABOLIC PANEL CALCIUM TOTAL <td>BASIC METABOLI C PANEL</td><td>Add- On</td><td>02/12/2020 8:25 AM EST</td><td></td><td> </td> 02/12/2020 01:25:00 PM EST [facility] CMB <td>CMB</td><td>STAT</td><td >02/12/2020 12:15 AM EST</td><td></td><td> </td> 02/12/2020 05:15:00 AM EST [facility] BLOOD COUNT COMPLETE AUTOMATED <td>CBC</td><td>Timed</ td><td>02/12/2020 12:15 AM EST</td><td></td><td> </td> 02/12/2020 05:15:00 AM EST [facility] LIPOPROTEIN DIRECT MEASUREMENT LDL CHOLESTEROL <td>LDL CHOLESTEROL, DIRECT</td><td>Timed</td><td>02/12/2020 12:15 AM EST</td><td></td><td> </td> 02/12/2020 05:15:00 AM EST [facility] HEMOGLOBIN GLYCOSYLATED A1C <td>HEMOGLOBIN A1C</td><td>Routine</td><td>02/12/2020 12:15 AM EST</td><td></td><td> </td> 02/12/2020 05:15:00 AM EST [facility] CREATINE KINASE MB FRACTION ONLY <td>CKMB</td><td>Time d</td><td>02/12/2020 12:15 AM EST</td><td></td><td> </td> 02/12/2020 05:15:00 AM EST [facility] LIPID PANEL <td>LIPID PANEL</td><td>Time d</td><td>02/12/2020 12:15 AM EST</td><td></td><td> </td> 02/12/2020 05:15:00 AM EST [facility] BASIC METABOLIC PANEL CALCIUM TOTAL <td>BASIC METABOLI C PANEL</td><td>Timed</td><td>02/12/2020 12:15 AM EST</td><td></td><td> </td> 02/12/2020 05:15:00 AM EST [facility] PROCALCITONIN (PCT) <td>PROCALCITONIN</td><td>Ro utine</td><td>02/11/2020 8:35 PM EST</td><td></td><td> </td> 02/12/2020 01:35:00 AM EST [facility] TROPONIN QUANTITATIVE <td>TROPONIN I</td><td>Timed </td><td>02/11/2020 8:35 PM EST</td><td></td><td> </td> 02/12/2020 01:35:00 AM EST [facility] GLUC BLD GLUC MNTR DEV CLEARED FDA SPEC HOME USE <td>P OCT GLUCOSE</td><td>Routine</td><td>02/11/2020 7:26 PM EST</td><td></td><td> </td> 02/12/2020 12:26:00 AM EST [facility] ECG ROUTINE ECG W/LEAST 12 LDS TRCG ONLY W/O I&R <td>E CG 12- LEAD</td><td>Routine</td><td>02/11/2020 6:30 PM EST</td><td></td><td></td> 02/11/2020 11:30:50 PM EST [facility] CMB <td>CMB</td><td>STAT</td><td >02/11/2020 5:15 PM EST</td><td></td><td> </td> 02/11/2020 10:15:00 PM EST [facility] TROPONIN QUANTITATIVE <td>TROPONIN I</td><td>STAT< /td><td>02/11/2020 5:15 PM EST</td><td></td><td> </td> 02/11/2020 10:15:00 PM EST [facility] BLOOD COUNT COMPLETE AUTOMATED <td>CBC</td><td>STAT</t d><td>02/11/2020 5:15 PM EST</td><td></td><td> </td> 02/11/2020 10:15:00 PM EST [facility] CREATINE KINASE MB FRACTION ONLY <td>CKMB</td><td>STAT </td><td>02/11/2020 5:15 PM EST</td><td></td><td> </td> 02/11/2020 10:15:00 PM EST [facility] COMPREHENSIVE METABOLIC PANEL <td>COMPREHENSIVE METABO LIC PANEL</td><td>STAT</td><td>02/11/2020 5:15 PM EST</td><td></td><td> </td> 02/11/2020 10:15:00 PM EST [facility] INSJ IMPLANTABLE INTRA-ARTERIAL INFUSION PUM <td>CARDI AC CATHETERIZATION</td><td>Routine</td><td>02/11/2020 5:06 PM EST</td><td> STEMI (ST elevation myocardial infarction)</td><td></td> 02/11/2020 10:06:00 PM EST STEMI (ST elevation myocardial infarction) [facility] STEMI (ST elevation myocardial infarctio n) 2018 NCOV AMPLIFIED <td>2019 NCOV AMPLIFIED</td> <td>STAT</td><td>02/11/2020 4:40 PM EST</td><td></td><td> </td> 02/11/2020 09:40:00 PM EST [facility] Colonoscopy 12/16/2019 12:00:00 AM LUIS FERNANDO HENSON ([facility]) Diabetic Retinal Eye Exam 12/12/2019 12:00:00 AM LUIS FERNANDO LUNDBERG ([facility]) FUNDUS PHOTOGRAPHY W/INTERPRETATION & REPORT 0 12:00:00 AM EDT [facility]) CT THORAX W/O CONTRAST MATERIAL <td colspan="2"> CAT SCAN OF CHEST: CT THORAX W/O DYE (39948)Result: Are you or could you become ?: No; When was you last CXR/CT?: over a week ago; Bereavement Counselor: Leann Bond LRT</td><td> Status: Completed 02-Dec-2019 </td> [...] CAPACITY <td>DLCO (CARBON MONOXIDE DI FFUSING CAPACITY) (80184)</td><td></td><td>Status: Completed 02-Dec-2019 </td> 12/02/2019 12:00:00 AM EDT - 12/02/2019 12:00:00 AM EDT [facility] ([facility]) GAS DILUT/WASHOUT LUNG VOL W/WO DISTRIB VENT&VOL <td>T HORACIC GAS VOLUME: AIRWAY CLOSING VOLUME MEASUREMENT: PULM FUNCTION TEST BY GAS (85079)</td><td></td><td>Status: Completed 02-Dec-2019 </td> 12/02/2019 12:00:00 AM EDT - 12/02/2019 12:00:00 AM EDT [facility] ([facility]) VITAL CAPACITY TOTAL SEPARATE PROCEDURE <td>TOTAL PABLO L CAPACITY (23625)</td><td></td><td>Status: Completed 02-Dec-2019 </td> 12/02/2019 12:00:00 AM EDT - 12/02/2019 12:00:00 AM EDT [facility] ([facility]) SPMTRY W/VC EXPIRATORY EDDI +-MXML VOL VNTJ <td>PFT SIM PLE: BREATHING CAPACITY TEST: BREATHING CAPACITY TEST (12954)</td><td></td><td>Status: Completed 02-Dec-2019 </td> 12/02/2019 12:00:00 AM EDT - 12/02/2019 12:00:00 AM EDT [facility] ([facility]) NONINVASIVE EAR/PULSE OXIMETRY SINGLE DETER <td>REST O XIMETRY (42132)</td><td></td><td>Status: Completed 02-Dec-2019 </td> 12/02/2019 12:00:00 AM EDT [...] Age 0911/16 12:00:00 AM EDT [facility] ([facility]) Excision; Circumcision Older Than 28 Days Of Age 0911/16 12:00:00 AM EDT [facility] ([facility]) Polysomnography <td>Polysomnography</td><td> </td><td>Status: Completed 07-Nov-2019 Comments: Abnormal. index 5.6, low sat 87%; increased in REM and supine</td> 11/07/2019 12:00:00 AM EDT - 11/07/2019 12:00:00 AM EDT [facility] ([facility]) Abnormal. index 5.6, low sat 87%; increa sed in REM and supine Depression screening (procedure) 10/30/2019 12:00:00 A M EDT [facility] ([facility]) ECG ROUTINE ECG W/LEAST 12 LDS W/I&R 10/30/2019 12:00: 00 AM EDT [facility] ([facility]) Results ID Date Data Source [id number] 12/15/2020 12:14:00 PM EDT [facility] ([facility]) Name Value Range Interpretation Code Description Data Lucia rce(s) Supporting Document(s) Cholesterol [Mass/volume] in Serum or Plasma 129 mg/dL 112-200 [facility] ([facility]) FASTING Fastin hours FASTING Fasting : 0 hours FASTING Fastin hours FASTING Fastin hours FASTING Fastin hours FASTING Fastin hours Triglyceride [Mass/volume] in Serum or Plasma 77 mg/dL 1-200 [facility] ([facility]) FASTING Fastin hours FASTING Fasting : 0 hours FASTING Fastin hours FASTING Fastin hours FASTING Fastin hours FASTING Fastin hours Cholesterol in HDL [Mass/volume] in Serum or Plasma 50 mg/dL 30-70 [facility] ([facility]) FASTING Fastin hours FASTING Fasting : 0 hours FASTING Fastin hours FASTING Fastin hours FASTING Fastin hours FASTING Fastin hours Cholesterol.total/Cholesterol in HDL [Mass Ratio] in Serum o r Plasma 2.58 4.00-6.70 [facility] ([facility]) FASTING Fastin hours FASTING Fasting : 0 hours FASTING Fastin hours FASTING Fastin hours FASTING Fastin hours FASTING Fastin hours Cholesterol non HDL [Mass/volume] in Serum or Plasma 79.00 mg/dL 0 .00-100.00 [facility] ([facility]) FASTING Fastin hours FASTING Fasting : 0 hours FASTING Fastin hours FASTING Fastin hours FASTING Fastin hours FASTING Fastin hours Cholesterol in LDL [Mass/volume] in Serum or Plasma by calcu lation 63.60 mg/dL 20.00-130.00 [facility] ([facility]) FASTING Fastin hours FASTING Fasting : 0 hours FASTING Fastin hours FASTING Fastin hours FASTING Fastin hours FASTING Fastin hours ID Date Data Source [id number] 12/15/2020 12:14:00 PM EDT [facility] ([facility]) Name Value Range Interpretation Code Description Data Lucia rce(s) Supporting Document(s) Vitamin B12 665.80 pg/mL 213.00-816.00 [facility] ([facility]) FASTING Fastin hours FASTING Fasting : 0 hours FASTING Fastin hours FASTING Fastin hours FASTING Fastin hours FASTING Fastin hours ID Date Data Source [id number] 12/15/2020 12:14:00 PM EDT [facility] ([facility]) Name Value Range Interpretation Code Description Data Lucia rce(s) Supporting Document(s) WBC 6.10 k/uL 4.60-10.20 [facility] ([facility]) FASTING Fastin hours FASTING Fasting : 0 hours FASTING Fastin hours FASTING Fastin hours FASTING Fastin hours FASTING Fastin hours Neutrophils [#/volume] in Blood by Automated count 4.17 2.00-7. 50 [facility] ([facility]) FASTING Fastin hours FASTING Fasting : 0 hours FASTING Fastin hours FASTING Fastin hours FASTING Fastin hours FASTING Fastin hours Neutrophils/100 leukocytes in Blood by Automated count 68.3 % 37. 0-80.0 [facility] ([facility]) FASTING Fastin hours FASTING Fasting : 0 hours FASTING Fastin hours FASTING Fastin hours FASTING Fastin hours FASTING Fastin hours Lymphocytes/100 leukocytes in Blood by Automated count 1.07 1.2 0-4.80 [facility] ([facility]) FASTING Fastin hours FASTING Fasting : 0 hours FASTING Fastin hours FASTING Fastin hours FASTING Fastin hours FASTING Fastin hours Lymphocytes/100 leukocytes in Blood by Automated count 17.5 % 10. 0-50.0 [facility] ([facility]) FASTING Fastin hours FASTING Fasting : 0 hours FASTING Fastin hours FASTING Fastin hours FASTING Fastin hours FASTING Fastin hours Monocytes [#/volume] in Blood by Automated count 0.650 0.000-0.9 00 [facility] ([facility]) FASTING Fastin hours FASTING Fasting : 0 hours FASTING Fastin hours FASTING Fastin hours FASTING Fastin hours FASTING Fastin hours Monocytes/100 leukocytes in Blood by Automated count 10.70 % 0.00- 12.00 [facility] ([facility]) FASTING Fastin hours FASTING Fasting : 0 hours FASTING Fastin hours FASTING Fastin hours FASTING Fastin hours FASTING Fastin hours Eosinophils [#/volume] in Blood by Automated count 0.160 0.000-0 .700 [facility] ([facility]) FASTING Fastin hours FASTING Fasting : 0 hours FASTING Fastin hours FASTING Fastin hours FASTING Fastin hours FASTING Fastin hours Eosinophils/100 leukocytes in Blood by Automated count 2.60 % 0.0 0-7.00 [facility] ([facility]) FASTING Fastin hours FASTING Fasting : 0 hours FASTING Fastin hours FASTING Fastin hours FASTING Fastin hours FASTING Fastin hours Basophils/100 leukocytes in Blood by Automated count 0.70 % 0.00- 4.00 [facility] ([facility]) FASTING Fastin hours FASTING Fasting : 0 hours FASTING Fastin hours FASTING Fastin hours FASTING Fastin hours FASTING Fastin hours Basophils [#/volume] in Blood by Automated count 0.040 0.000-0.2 00 [facility] ([facility]) FASTING Fastin hours FASTING Fasting : 0 hours FASTING Fastin hours FASTING Fastin hours FASTING Fastin hours FASTING Fastin hours Laboratory test finding (navigational concept) 0.010 0.000-0.040 [facility] ([facility]) FASTING Fastin hours FASTING Fasting : 0 hours FASTING Fastin hours FASTING Fastin hours FASTING Fastin hours FASTING Fastin hours Laboratory test finding (navigational concept) 0.20 % 0.00-0.50 [facility] ([facility]) FASTING Fastin hours FASTING Fasting : 0 hours FASTING Fastin hours FASTING Fastin hours FASTING Fastin hours FASTING Fastin hours Hemoglobin [Mass/volume] in Blood 13.3 g/dL 12.2-18.1 [facility] ([facility]) FASTING Fastin hours FASTING Fasting : 0 hours FASTING Fastin hours FASTING Fastin hours FASTING Fastin hours FASTING Fastin hours Erythrocytes [#/volume] in Blood by Automated count 4.07 m/uL 4.04-6 .13 [facility] ([facility]) FASTING Fastin hours FASTING Fasting : 0 hours FASTING Fastin hours FASTING Fastin hours FASTING Fastin hours FASTING Fastin hours Hematocrit [Volume Fraction] of Blood by Automated count 41.4 % 4 2.0-53.7 [facility] ([facility]) FASTING Fastin hours FASTING Fasting : 0 hours FASTING Fastin hours FASTING Fastin hours FASTING Fastin hours FASTING Fastin hours Erythrocyte mean corpuscular volume [Entitic volume] b y Automated count 101.7 fL 80.0-97.0 [facility] ([facility]) FASTING Fastin hours FASTING Fasting : 0 hours FASTING Fastin hours FASTING Fastin hours FASTING Fastin hours FASTING Fastin hours Erythrocyte mean corpuscular hemoglobin [Entitic mass] by Automated count 32.7 pg 27.0-31.2 [facility] ([facility]) FASTING Fastin hours FASTING Fasting : 0 hours FASTING Fastin hours FASTING Fastin hours FASTING Fastin hours FASTING Fastin hours Erythrocyte mean corpuscular hemoglobin concentration [Mass/volume] by Automated count 32.1 g/dL 31.8-35.4 [facility]) FASTING Fastin hours FASTING Fasting : 0 hours FASTING Fastin hours FASTING Fastin hours FASTING Fastin hours FASTING Fastin hours Erythrocyte distribution width [Ratio] by Automated count 13.4 % 11.6-14.8 [facility] ([facility]) FASTING Fastin hours FASTING Fasting : 0 hours FASTING Fastin hours FASTING Fastin hours FASTING Fastin hours FASTING Fastin hours Platelets [#/volume] in Blood by Automated count 349 K/uL 142-424 [facility] ([facility]) FASTING Fastin hours FASTING Fasting : 0 hours FASTING Fastin hours FASTING Fastin hours FASTING Fastin hours FASTING Fastin hours Platelet mean volume [Entitic volume] in Blood by [place] 10.8 f L 0.0-99.9 [facility] ([facility]) FASTING Fastin hours FASTING Fasting : 0 hours FASTING Fastin hours FASTING Fastin hours FASTING Fastin hours FASTING Fastin hours ID Date Data Source [id number] 12/15/2020 12:14:00 PM EDT [facility] ([facility]) Name Value Range Interpretation Code Description Data Lucia rce(s) Supporting Document(s) TSH 1.461 uIU/mL 0.350-4.940 [facility] ([facility]) FASTING Fastin hours FASTING Fasting : 0 hours FASTING Fastin hours FASTING Fastin hours FASTING Fastin hours FASTING Fastin hours ID Date Data Source [id number] 12/15/2020 12:14:00 PM EDT [facility] ([facility] [...] 27 mg/dL 9-21 [facility] ([facility]) FASTING [...] 4.9 mmol/L 3.5-5.1 [facility] ([facility]) FASTING Fastin hours FASTING Fasting : 0 hours FASTING Fastin hours FASTING Fastin hours FASTING Fastin hours FASTING Fastin hours Chloride [Moles/volume] in Serum or Plasma 108 mmol/L 98-107 [facility] ([facility]) FASTING Fastin hours FASTING Fasting : 0 hours FASTING Fastin hours FASTING Fastin hours FASTING Fastin hours FASTING Fastin hours Protein [Mass/volume] in Serum or Plasma 6.7 g/dL 6.4-8.3 [facility] ([facility]) FASTING Fastin hours FASTING Fasting : 0 hours FASTING Fastin hours FASTING Fastin hours FASTING Fastin hours FASTING Fastin hours Albumin [Mass/volume] in Serum or Plasma 4.19 g/dL 3.30-5.00 [facility] ([facility]) FASTING Fastin hours FASTING Fasting : 0 hours FASTING Fastin hours FASTING Fastin hours FASTING Fastin hours FASTING Fastin hours Alanine aminotransferase [Enzymatic activity/volume] in Seru m or Plasma 14 U/L 0-55 [facility] ([facility]) FASTING Fastin hours FASTING Fasting : 0 hours FASTING Fastin hours FASTING Fastin hours FASTING Fastin hours FASTING Fastin hours Aspartate aminotransferase [Enzymatic activity/volume] in Serum or Plasma 18 U/L 5-34 [facility] ([facility]) FASTING Fastin hours FASTING Fasting : 0 hours FASTING Fastin hours FASTING Fastin hours FASTING Fastin hours FASTING Fastin hours Alkaline phosphatase [Enzymatic activity/volume] in Serum or Plasma 66 U/L 40-150 [facility] ([facility]) FASTING Fastin hours FASTING Fasting : 0 hours FASTING Fastin hours FASTING Fastin hours FASTING Fastin hours FASTING Fastin hours Carbon dioxide, total [Moles/volume] in Serum or Plasma 22.2 4 mmol/L 22.00-31.00 [facility] ([facility]) FASTING Fastin hours FASTING Fasting : 0 hours FASTING Fastin hours FASTING Fastin hours FASTING Fastin hours FASTING Fastin hours Osmolality of Serum or Plasma by calculation 300.00 275.00-295.00 [facility] ([facility]) FASTING Fastin hours FASTING Fasting : 0 hours FASTING Fastin hours FASTING Fastin hours FASTING Fastin hours FASTING Fastin hours Albumin/Globulin [Mass Ratio] in Serum or Plasma 1.67 Ratio [facility] ([facility]) FASTING Fastin hours FASTING Fasting : 0 hours FASTING Fastin hours FASTING Fastin hours FASTING Fastin hours FASTING Fastin hours Calcium [Mass/volume] in Serum or Plasma 9.70 mg/dL 8.90-10.40 [facility] ([facility]) FASTING Fastin hours FASTING Fasting : 0 hours FASTING Fastin hours FASTING Fastin hours FASTING Fastin hours FASTING Fastin hours Bilirubin.total [Mass/volume] in Serum or Plasma 0.3 mg/dL 0.2-1.2 [facility] ([facility]) FASTING Fastin hours FASTING Fasting : 0 hours FASTING Fastin hours FASTING Fastin hours FASTING Fastin hours FASTING Fastin hours Globulin [Mass/volume] in Serum by calculation 2.51 2.30-4.20 [facility] ([facility]) FASTING Fastin hours FASTING Fasting : 0 hours FASTING Fastin hours FASTING Fastin hours FASTING Fastin hours FASTING Fastin hours Urea nitrogen/Creatinine [Mass Ratio] in Serum or Plasma 24.55 Ratio [facility] ([facility]) FASTING Fastin hours FASTING Fasting : 0 hours FASTING Fastin hours FASTING Fastin hours FASTING Fastin hours FASTING Fastin hours Sodium [Moles/volume] in Serum or Plasma 142 mmol/L 136-145 [facility] ([facility]) FASTING Fastin hours FASTING Fasting : 0 hours FASTING Fastin hours FASTING Fastin hours FASTING Fastin hours FASTING Fastin hours ID Date Data Source [id number] 12/15/2020 12:14:00 PM EDT [facility] ([facility]) Name Value Range Interpretation Code Description Data Lucia rce(s) Supporting Document(s) Hemoglobin A1c/Hemoglobin.total in Blood 6.80 4.00-6.00 [facility] ([facility]) FASTING Fastin hours FASTING Fasting : 0 hours FASTING Fastin hours FASTING Fastin hours FASTING Fastin hours FASTING Fastin hours Estimated Average Glucose [facility].46 mg/[facility] FASTING Fastin hours FASTING Fasting : 0 hours FASTING Fastin hours FASTING Fastin hours FASTING Fastin hours FASTING Fastin hours ID Date Data Source [id number] 11/22/2020 01:49:19 PM [facility] Name Date of Age Gend*PT [id number] Marilyn Ribeiro 1960 60 years M ---PT Location Admission Date/Time Visit ID Attending Provider --- --- --- --- EPI ID CSN Admitting Provider [id number] ---Cardiology Office NoteName: Marilyn Ribeiro Gender: maleDate of : 1960 Age: 60 yearsPrimary Care Provider / Referring Physician: RYAN Kaiserurrent HistoryChief Complaint: 8-month follow-upHPI:This patient is a 60 years male presents today for follow-up. He has thefollowing medical problem list:1. Cardiac catheterization 06/14/2017 showing no progression of CAD. Patient hasprevious stent placement to the right coronary artery and diagonal [id number]/15/2016. Cardiac catheterization 05/2017 widely patent stents in [...] 02/11/2020 Procedure: Left heart cath; Surgeon: GEENA PIANO MECHANIC;Laterality: N/A; CARDIAC CATHETERIZATION N/A 02/11/2020 Procedure: Coronary angiography; Surgeon: GEENA PIANO MECHANIC;Laterality: N/A; CARDIAC CATHETERIZATION N/A 02/11/2020 Procedure: Left ventriculography; Surgeon: RANDAL SEAYPIANO MECHANIC;Laterality: N/A; KNEE SURGERY Left LAPAROSCOPIC RETROPUBIC PROSTATECTOMY [...] Social Gatherings with Friends and Family: Attends [employer] Services: Active Member of Clubs or Organizations: [...] Known CAD; patient had ST elevation lateral ID February 11, 2020 treatedwith balloon angioplasty; patient [...] parts of this document, were dictated using [employer]. A reasonable attempt at proofreading has been made to minimize errors.Please call with any questions or corrections. Name Value Range Interpretation Code Description Data Lucia rce(s) Supporting Document(s) ID Date Data Source [id number] 09/14/2020 09:33:00 AM EDT [facility] ([facility] [...] Serum or Plasma 17 U/L 5-34 [facility] ([facility]) FASTING Fastin hours FASTING Fasting : 0 hours Alkaline phosphatase [Enzymatic activity/volume] in Serum or Plasma 73 U/L 40-150 [facility] FASTING Fastin hours FASTING Fasting : 0 hours Carbon dioxide, total [Moles/volume] in Serum or Plasma 26.4 0 mmol/L 22.00-31.00 [facility] ([facility]) FASTING Fastin hours FASTING Fasting : 0 hours Albumin/Globulin [Mass Ratio] in Serum or Plasma 1.55 Ratio [facility] ([facility]) FASTING Fastin hours FASTING Fasting : 0 hours Osmolality of Serum or Plasma by calculation 304.00 275.00-295.00 [facility] ([facility]) FASTING Fastin hours FASTING Fasting : 0 hours Calcium [Mass/volume] in Serum or Plasma 9.10 mg/dL 8.90-10.40 [facility] ([facility]) FASTING Fastin hours FASTING Fasting : 0 hours Bilirubin.total [Mass/volume] in Serum or Plasma 0.2 mg/dL 0.2-1.2 [facility] ([facility]) FASTING Fastin hours FASTING Fasting : 0 hours Globulin [Mass/volume] in Serum by calculation 2.51 2.30-4.20 [facility] ([facility]) FASTING Fastin hours FASTING Fasting : 0 hours Urea nitrogen/Creatinine [Mass Ratio] in Serum or Plasma 16.67 Ratio [facility] ([facility]) FASTING Fastin hours FASTING Fasting : 0 hours Sodium [Moles/volume] in Serum or Plasma 144 mmol/L 136-145 [facility] ([facility]) FASTING Fastin hours FASTING Fasting : 0 hours ID Date Data Source [id number] 09/14/2020 09:33:00 AM EDT [facility] ([facility]) Name Value Range Interpretation Code Description Data Lucia rce(s) Supporting Document(s) Hemoglobin A1c/Hemoglobin.total in Blood 7.00 4.00-6.00 [facility] ([facility]) FASTING Fastin hours FASTING Fasting : 0 hours Estimated Average Glucose 154.20 mg/dL [facility] ([facility]) FASTING Fastin hours FASTING Fasting : 0 hours ID Date Data Source [id number] 09/14/2020 09:33:00 AM EDT [facility] ([facility]) Name Value Range Interpretation Code Description Data Lucia rce(s) Supporting Document(s) Hemoglobin A1c/Hemoglobin.total in Blood Laboratory test result [facility] ([facility]) ID Date Data Source [id number] 06/22/2020 08:08:00 AM EDT [facility] Name Value Range Interpretation Code Description Data Lucia rce(s) Supporting Document(s) Prostate Specific Ag, Serum 0.0-4.0 [facility] [place] ECLIA methodology. According to th e [place] [employer], Serum PSA shoulddecrease and remain at undetectable levels after radicalprostatectomy. The AUA defines biochemical recurrence as an initialPSA value 0.2 ng/mL or greater followed by a subsequent confirmatoryPSA value 0.2 ng/mL or greater.Values obtained with different assay methods or kits cannot be usedinterchangeably. Results cannot be interpreted as absolute evidenceof the presence or absence of malignant disease. ID Date Data Source [id number] 06/14/2020 05:55:00 PM EDT [facility] ([facility]) Name Value Range Interpretation Code Description Data Lucia rce(s) Supporting Document(s) Opiates Urine 6 Am Laboratory test result [facility] ([facility]) INTERPRETIVE INFORMATION: Opiates, Urine , Quantitative [...] developed and its performance characteristics determined by [facility]. It has not been cleared or approved [...] or an impurity of oxycodone. Performed By: [facility] [address] [place] [id number] Pole Sander Operator: Ning James MD Unless otherwise specified, testing performed by [facility] [address] [address] ID Date Data Source [id number] 06/14/2020 05:55:00 PM EDT [facility] Name Value Range Interpretation Code [...] Please Note: Laboratory test result MED[facility] NT ([facility]) THESE ARE SCREENING IMMUNOASSAY TESTS TH [...] Unless otherwise specified, testing performed by Laboratory [facility] of [facility], [address] [address] Phencyclidine,Urine Laboratory test result [facility] ([facility]) ID Date Data Source [id number] 06/14/2020 10:13:04 PM EDT Laboratory Al liance [facility] Name Value Range Interpretation Code Description Data Lucia rce(s) Supporting Document(s) AMPHETAMINES,URINE (NEG) Laboratory Mar[facility] BARBITURATES,URINE (NEG) Laboratory Mar[facility] BENZODIAZEPINE,URINE (NEG) Laborator y Marissa [facility] CANNABINOIDS,URINE (NEG) Laboratory [facility] COCAINE,URINE (NEG) Laboratory Allia nce [facility] OPIATES,URINE (NEG) A Laboratory Allia nce of [facility] SPECIMEN HAS BEEN SENT FOR CONFIRMATION. NOTE: Oxycodone is not sufficientlydetected by this screening assay. A moresensitive assay is available upon request. PHENCYCLIDINE,URINE (NEG) Laboratory [facility] PLEASE NOTE: Laboratory Allian ce of [facility] ARE REPORTED POSITIVE WHEN THE RESULT SEXCEED THE THRESHOLD (CUTOFF) INDICATED. ALIST OF POTENTIAL INTERFERENCES FOR EACHMETHOD CAN BE MADE AVAILABLE UPON REQUEST.A CONFIRMATORY ANALYSIS IS ORDERED ONALL DRUG CLASSES SCREENING POSITIVE BYTHIS METHOD.* * * * * * * * * * * * * * *THIS ASSAY IS NOT INTENDED TO BE USED FORMONITORING MEDICATION COMPLIANCE. ID Date Data Source [id number] 06/17/2020 06:12:49 PM EDT Laboratory Al liance of [facility] Name Value Range Interpretation Code Description Data Lucia rce(s) Supporting Document(s) OPIATES URINE 6 AM <10 ng/mL Laboratory Mar[facility] INTERPRETIVE INFORMATION: Opiates, Urin e, Quantitative Methodology: [...] developed and its performance characteristics determined by [facility] [employer]. It has not been cleared or approved by the US Food and Drug Administration. This test was performed in a CLIA certified laboratory and is intended for clinical purposes. OPIATES CODEINE <20 ng/mL Laboratory All iance of [facility] OPIATES MORPHINE <20 ng/mL Laboratory Al liance of [facility] OPIATES HYDROCODONE 462 ng/mL Laboratory Marissa [facility] Consistent with use of a drug containin g hydrocodone. Low concentrations may reflect impurity of another drug such as oxycodone. OPIATES HYDROMORPHO <20 ng/mL Laboratory Marissa of [facility] OPIATES OXYCODONE <20 ng/mL Laboratory A [facility]liance of [facility] OPIATES OXYMORPHONE <20 ng/mL Laboratory Marissa of [facility] OPIATES NOROXYCODONE <20 Laborator y Marissa of [facility] Unit: ng/mL OPIATES NOROXYMORPHO <20 Laborator y Marissa of [facility] Unit: ng/mL OPIATES NORHYDROCODO 1255 Laborator y Marissa of [facility] Unit: ng/mL Norhydrocodone is a metaboli te of hydrocodone; consistent with use of a drug containing hydrocodone. Hydrocodone may also be a metabolite of codeine, or an impurity of oxycodone. Performed By: [facility] [address] [place] [id number] Pole Sander Operator: Ning James MD ID Date Data Source [id number] 06/14/2020 08:26:00 AM EDT [facility] ([facility] [...] ([facility]) ID Date Data Source [id number] 06/14/2020 08:26:00 AM EDT [facility] ([facility] [...] ([facility]) ID Date Data Source [id number] 06/14/2020 08:26:00 AM EDT [facility] Name Value Range Interpretation Code [...] ([facility]) ID Date Data Source [id number] 06/14/2020 08:26:00 AM EDT [facility] ([facility] F [...] C are) Hemoglobin Laboratory test result [facility] ([facility]) Specific [place] 1.038 1.005-1.030 Abnormal (applies to non-nume giovanna [...] ([facility]) ID Date Data Source [id number] 06/14/2020 08:26:00 AM EDT [facility] ([facility]) Name Value Range Interpretation Code Description Data Lucia rce(s) Supporting Document(s) Hemoglobin A1c/Hemoglobin.total in Blood 7.53 4.00-6.00 [facility] ([facility]) <content>GOAL <7</content>
<content> </content> Estimated Average Glucose 169.45 mg/dL M [facility] ([facility]) ID Date Data Source [id number] 06/03/2020 01:05:00 PM EDT [facility] CT C HEST WO [...] rce(s) Supporting Document(s) ID Date Data Source [id number] 04/26/2020 09:24:00 AM EST [facility] ([facility]) Name Value Range Interpretation Code Description Data Lucia rce(s) Supporting Document(s) TSH 8.387 uIU/mL 0.350-4.940 [facility] ([facility]) Free T4 1.10 ng/dL 0.70-1.48 [facility] ([facility]) ID Date Data Source [id number] 04/26/2020 09:24:00 AM EST [facility] ([facility] [...] ([facility]) ID Date Data Source [id number] 03/15/2020 10:31:00 AM EST [facility] ([facility] [...] ([facility]) ID Date Data Source [id number] 03/15/2020 10:31:00 AM EST [facility] ([facility]) Name Value Range Interpretation Code Description Data Lucia rce(s) Supporting Document(s) Free T4 0.91 ng/dL 0.70-1.48 [facility] ([facility]) TSH 24.051 uIU/mL 0.350-4.940 [facility] ([facility]) ID Date Data Source [id number] 03/15/2020 10:31:00 AM EST [facility] ([facility]) Name Value Range Interpretation Code Description Data Lucia rce(s) Supporting Document(s) Hemoglobin A1c/Hemoglobin.total in Blood 7.51 4.00-6.00 [facility] ([facility]) <content>GOAL <7</content>
<content> </content> Estimated Average Glucose 168.71 mg/dL [facility] ([facility]) ID Date Data Source [id number] 03/15/2020 10:31:00 AM EST [facility] ([facility] [...] or Plasma 99.00 mg/dL 0 .00-100.00 [facility] ([facility]) GOAL LESS THAN 100 ID Date Data Source [id number] 03/15/2020 10:31:00 AM EST [facility] ([facility]) Name Value Range Interpretation Code Description Data Lucia rce(s) Supporting Document(s) Urea nitrogen [Mass/volume] in Serum or Plasma 23 mg/dL 9-21 [facility] ([facility]) Glucose [Mass/volume] in Serum or Plasma 179.00 mg/dL 70.00-110.00 [facility] ([facility]) Sodium [Moles/volume] in Serum or Plasma 139 mmol/L 136-145 [facility] ([facility]) GFR 57.29 mL/min [facility] ([facility]) <content>NORMAL FUNCTION OR MILD RENAL D ISEASE:>60 ml/min</content>
<content>ADVANCED RENAL DISEASE:15-59 ml/min</content>
<content>RENAL FAILURE:<15 ml/min</content>
<content></content> Creatinine [Mass/volume] in Serum or Plasma 1.4 mg/dL 0.7-1.3 [facility] ([facility]) Chloride [Moles/volume] in Serum or Plasma 106 mmol/L 98-107 [facility] ([facility]) Potassium [Moles/volume] in Serum or Plasma 4.8 mmol/L 3.5-5.1 [facility] ([facility]) Protein [Mass/volume] in Serum or Plasma 7.1 g/dL 6.4-8.3 [facility] ([facility]) Albumin [Mass/volume] in Serum or Plasma 4.40 g/dL 3.30-5.00 [facility] ([facility]) Aspartate aminotransferase [Enzymatic activity/volume] in Serum or Plasma 23 U/L 5-34 [facility] ([facility]) Alanine aminotransferase [Enzymatic activity/volume] in Seru m or Plasma 26 U/L 0-55 [facility] ([facility]) Alkaline phosphatase [Enzymatic activity/volume] in Serum or Plasma 78 U/L 40-150 [facility] ([facility]) Carbon dioxide, total [Moles/volume] in [...] ([facility]) ID Date Data Source [id number] 03/15/2020 10:31:00 AM EST [facility] ([facility]) Name Value Range Interpretation Code Description Data Lucia rce(s) Supporting Document(s) Calcidiol [Mass/volume] in Serum or Plasma 44 ng/mL 30-100 [facility] ([facility]) ID Date Data Source [id number] 03/15/2020 10:31:00 AM EST [facility] ([facility]) Name Value Range Interpretation Code Description Data Lucia rce(s) Supporting Document(s) Hemoglobin A1c/Hemoglobin.total in Blood Laboratory test result [facility] ([facility]) Free T4 Laboratory test result [facility] ([facility]) TSH Laboratory test result [facility] ([facility]) ID Date Data Source [id number] 03/03/2020 10:10:17 AM EST [facility] MRN Name Date of Age Gend*PT [id number] Marilyn Ribeiro 1960 59 years M ---PT Location Admission Date/Time Visit ID Attending Provider --- --- --- --- EPI ID CSN Admitting Provider [id number] ---Cardiology Office NoteName: Marilyn Ribeiro Gender: maleDate of : 1960 Age: 59 yearsPrimary Care Provider / Referring Physician: RYAN Napolesurrent HistoryChief Complaint: Hospital follow-upHPI:This patient is a 59 years male presents today for follow-up. He has thefollowing medical problem list:1. Cardiac catheterization 06/14/2017 showing no progression of CAD. Patient hasprevious stent placement to the right coronary artery and diagonal jxyyar0111/15/2016. Cardiac catheterization 05/2017 widely patent stents in [...] vision. Denies tinnitus. Respiratory Denies PND, orthopnea, ROMREO, hemoptysis, cough, or shortness ofbreath. Cardiac Denies [...] 02/11/2020 Procedure: Left heart cath; Surgeon: GEENA PIANO MECHANIC;Laterality: N/A; CARDIAC CATHETERIZATION N/A 02/11/2020 Procedure: Coronary angiography; Surgeon: GEENA PIANO MECHANIC;Laterality: N/A; CARDIAC CATHETERIZATION N/A 02/11/2020 Procedure: Left ventriculography; Surgeon: GEENA PIANO MECHANIC;Laterality: N/A; KNEE SURGERY Left LAPAROSCOPIC RETROPUBIC PROSTATECTOMY [...] file Gets together: Not on file Attends congregational service: Not on file Active member of [...] a daywith meals , Disp: , Rfl: zkksvzyb-diuhyguepk-bllzejxqg (NEOSPORIN) 5-400-5000 ointment, Apply 1application topically every [...] by mouth nightly, Disp: , Rfl: Tiotropium Morenci Monohydrate (SPIRIVA HANDIHALER IN), Inhale, Disp: , [...] N/AAssessment & Plan1. Known CAD with recent ID; he did have angioplasty and does have [...] parts of this document, were dictated using [employer]. A reasonable attempt at proofreading has been made to minimize errors.Please call with any questions or corrections. Name Value Range Interpretation Code Description Data Lucia rce(s) Supporting Document(s) ID Date Data Source [id number] 02/16/2020 11:22:13 AM EST [facility]FORMATIONPatient MRN Name Date of Age Gend*PT [id number] Marilyn Ribeiro 1960 59 years M IPPT Location Admission Date/Time Visit ID Attending ProviderCV-10 02/11/20 1724 --- --- EPI ID CSN Admitting Prov ider [id number] Noel Henson MD([id number]) Attestation signed by Noel Henson MD at 02/16/2020 11:22 AMSignature: JUNIOR Gonzalezate: February 16, 2020Time: 11:22 AM Physician Discharge Summary Marilyn RibeiroN: [id number] date: 02/11/2020Attending Physician: Noel Henson MDAdmlilly Diagnosis: <principal problem not specified>Principle Procedures:1. 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 He should beon dual antiplatelet therapy for [...] to the right coronary artery and diagonal tinzjd1611/15/2016. Cardiac catheterization 05/2017 widely patent stents in [...] dayIncruse Ellipta 62.5 MCG/INH AepbGeneric drug: Umeclidinium Morenci Inhale 1 puff dailyJardiance 25 MG TabsGeneric [...] mouth 2 (two) times a day with euogdhtbbllzj-emzmzmkgih-nhrltpncr 5-400-5000 ointment Apply 1 application topically every [...] Get Your MedicationsThese medications [facility] [address] clopidogrel 75 MG tablet metoprolol succinate 50 [...] rce(s) Supporting Document(s) ID Date Data Source [id number] 02/13/2020 01:26:48 PM EST [facility]FORMATIONPatient MRN Name Date of Age Gend*PT [id number] Marilyn Ribeiro 1960 59 years M IPPT Location Admission Date/Time Visit ID Attending ProviderCV-10 02/11/20 9454 --- Noel Henson MD([id number]) EPI ID CSN Admitting Provider [id number] Noel Henson MD([id number])DISCHARGE SUMMARYAdmission Date: 02/11/2020Discharge date: 02/13/20PRINCIPAL DIAGNOSIS: Acute high lateral myocardial infarctionCURRENT YFRLJCZWUJHO28-kycx-tmy man with coronary artery disease post stenting [...] 10*3/uL 288Results from last 7 daysLab Units 02/12/2005218592ALTYOF mmol/L 138POTASSIUM mmol/L 4.5CHLORIDE mmol/L 104CO2 mmol/L 25BUN mg/dL 33*CREATININE mg/dL 1.22GLUCOSE mg/dL 173*CALCIUM mg/dL 9.7Results from last 7 daysLab Units 02/12/2008CK TOTAL U/L 280 371* 547*Results from last 7 daysLab Units 02/11/2020TROPONIN I ng/mL 13.90* 30.60* 1.74*Results from last 7 daysLab Units 02/12/2008344572VHSCGDCOVHD mg/dL 152TRIGLYCERIDES mg/dL 141HDL mg/dL 54DISCHARGE MEDICATION LIST Josefa Ribeiro Medication Instructions [id number] Printed on:02/13/20 1324Medication Informationalbuterol (PROVENTIL HFA;VENTOLIN HFA) [...] mouth 2 (two) times a day with bjhwzwolzzyct-hwbepmdcvp-xqyfbjjze (NEOSPORIN) 5-400-5000 ointmentApply 1 application topically every 2 (two) hours as needed (for irritation)nitroglycerin (NITROSTAT) 0.4 MG SL tabletPlace 1 tablet (0.4 mg total) under the tongue every 5 (five) minutes as neededfor chest painpantoprazole (PROTONIX) 40 MG tabletTake 40 mg by mouth dailysimvastatin (ZOCOR) 40 MG tabletTake 40 mg by mouth nightlysitaGLIPtin (JANUVIA) 50 MG tabletTake 50 mg by mouth nightlyTiotropium Morenci Monohydrate (SPIRIVA HANDIHALER IN)Inhaletopiramate (TOPAMAX) 200 MG tabletTake 200 mg by mouth dailytraZODone (DESYREL) 100 MG tabletTake 100 mg by mouth nightlyUmeclidinium Morenci (INCRUSE ELLIPTA) 62.5 MCG/INH AEPBInhale 1 puff dailySignature: Noel Henson MDDate: February 13, 2020Time: 1:24 [facility]: Dr. Malhotra document or parts of this document, were dictated using [employer] software. A reasonable attempt at proofreading has been made tominimize errors. Please call with any questions or corrections. Name Value Range Interpretation Code Description Data Lucia rce(s) Supporting Document(s) ID Date Data Source [id number] 02/13/2020 11:33:32 AM EST [facility] Name Value Range Interpretation Code Description Data Lucia rce(s) Supporting Document(s) POC NOVA GLU 185 mg/dL (70-99) H [facility] CLINICAL STAFF ID Date Data Source [id number] 02/13/2020 08:48:59 AM EST [facility] Name Value Range Interpretation Code Description Data Lucia rce(s) Supporting Document(s) POC NOVA GLU 186 mg/dL (70-99) H [facility] CLINICAL STAFF ID Date Data Source [id number] 02/13/2020 06:50:33 AM EST [facility] Name Value Range Interpretation Code Description Data Lucia rce(s) Supporting Document(s) SODIUM 138 mmol/L (136-145) [facility] POTASSIUM 4.5 mmol/L (3.6-5.2) [facility] CHLORIDE 104 mmol/L (100-108) [facility] CO2 25 mmol/L (22-31) [facility] ANION GAP 9 mmol/L (7-16) [facility] UREA NITROGEN 33 mg/dL (7-24) H [facility] CREATININE 1.22 mg/dL (0.80-1.30) [facility] BUN/CREAT RATIO 27.0 RATIO (10.0-20.0) H [facility] GLUCOSE 173 mg/dL (70-99) H [facility] CALCIUM 9.7 mg/dL (8.4-10.2) [facility] GFR >60 ml/min/1.73m2 (>59) [facility] GFR ( AMER) >60 ml/min/1.73m2 (>59) [facility] GFR INTERPRETATION [facility] --NORMAL KIDNEY FUNCTION OR MILD DISEASE - GFR >OR= 60CHRONIC KIDNEY DISEASE - GFR 15 - 59RENAL FAILURE - GFR <15 Est. GFR calculation based on the MDRDstudy equation, which assumes a steadystate for creatinine. Est. GFR should notbe used for medication dosing. ID Date Data Source [id number] 02/13/2020 06:21:14 AM EST [facility] Name Value Range Interpretation Code Description Data Lucia rce(s) Supporting Document(s) WBC 9.0 10*3/uL (4.1-11.0) [facility] [place] RBC 5.16 10*6/uL (4.60-6.10) [facility] HGB 16.9 g/dL (13.5-18.0) [facility] HCT 49.8 % (41.0-53.0) [facility] MCV 96.4 fL (80.0-95.0) H [facility] MCH 32.6 pg (27.0-32.0) H [facility] MCHC 33.9 g/dL (32.0-36.0) [facility] RDW 14.8 % (10.5-14.5) H [facility] PLT 288 10*3/uL (150-450) [facility] MPV 8.1 fL (7.1-10.7) [facility] NEUT % 68.9 % (35.0-75.0) [facility] LYMPH % 17.2 % (16.0-52.0) [facility] MONO % 12.0 % (0.0-8.0) H [facility] EOS % 1.2 % (0.0-5.0) [facility] BASO % 0.7 % (0.0-4.0) [facility] NEUT # 6.2 10*3/uL (1.8-7.7) [facility] LYMPH # 1.6 10*3/uL (1.2-4.8) [facility] MONO # 1.1 10*3/uL (0.0-0.8) H [facility] Eosinophils [#/volume] in Blood by Automated count 0.1 10*3/uL (0.0-0 .5) [facility] BASO # 0.1 10*3/uL (0.0-0.2) [facility] ID Date Data Source [id number] 02/12/2020 05:51:45 PM EST [facility] Name Value Range Interpretation Code Description Data Lucia rce(s) Supporting Document(s) POC NOVA GLU 175 mg/dL (70-99) H [facility] [place] [facility] CLINICAL STAFF ID Date Data Source [id number] 02/12/2020 08:15:28 PM EST [facility] Name Value Range Interpretation Code Description Data Lucia rce(s) Supporting Document(s) CKMB 12.5 ng/mL (0.0-5.0) [facility] ALERTED CRITICAL RESULT TOAMANDA([id number]) ON CVAU AT 201202/12/2020 27195 CKMB RELATIVE INDEX 4.5 {index_val} (0.0-4.0) H [facility] ID Date Data Source [id number] 02/12/2020 07:03:27 PM EST [facility] Name Value Range Interpretation Code Description Data Lucia rce(s) Supporting Document(s) CK 280 U/L (39-308) [facility] ID Date Data Source [id number] 02/12/2020 06:58:34 PM EST [facility] Name Value Range Interpretation Code Description Data Lucia rce(s) Supporting Document(s) POTASSIUM 4.4 mmol/L (3.6-5.2) [facility] ID Date Data Source [id number] 02/12/2020 03:31:24 PM EST [facility] Name Date of Age Gend*PT [id number] Marilyn Ribeiro 1960 59 years M IPPT Location Admission Date/Time Visit ID Attending ProviderCV-02/11/20 1724 --- Noel Henson MD([id number]) EPI ID CSN Admitting Provider [id number] Noel Henson MD([id number]) Attestation signed by Noel Henson MD at [...] to the right coronary artery and diagonal ihdkkm6511/15/2016. Cardiac catheterization 05/2017 widely patent stents in [...] file Gets together: Not on file Attends congregational service: Not on file Active member of [...] Blood pressure acceptable, monitor. May consider adding mjl-qekeztrp-ltvndym in a.m.-Hyperlipidemia: Will start high intensity statin.- Diabetes mellitus type 2: We will update hemoglobin A1c, continue meal insulinsliding scale coverage. Accu-Cheks 3 times daily AC. Diabetic diet.Full code.DVT prophylaxis: Integrilin drip.Further plan per Dr. Henson.Signature: Lynda Cheek NPDate: February 11, 2020Time: 6:35 PM Name Value Range Interpretation Code Description Data Lucia pickens(s) Supporting Document(s) ID Date Data Source [id number] 02/12/2020 02:11:43 PM EST Lab [facility] Name Value Range Interpretation Code Description Data Lucia rce(s) Supporting Document(s) POC NOVA GLU 161 mg/dL (70-99) H [facility] [place] [facility] CLINICAL STAFF ID Date Data Source [id number] 02/12/2020 11:54:05 AM EST [facility] Name Value Range Interpretation Code Description Data Lucia rce(s) Supporting Document(s) &PDF [facility] KYRARo1rZjXQUfTy30/AQUmgXKPsw6PcMSplOLo7GDlqGDFjP4AglTjxMBRWCJ8WVDJRTYMUX6hsLSTz oRX [file] AgICAgICAgICAgICAgICAgICAgICAgICAgICAgICAgICAgICAgICAgICAgICAgICAgICANCiAgICAgIC AgICAgICAgICAgICAgICAgICAgICAgICAgICAgICAg ICAgICAgICAgICAgICAgICAgICAgICAgICAgICAgICAgICAgICAgICAgICAgICAgICAgICAgICAgICAg ICANCiAgICAgICAgICAgICAgICAgICAgICAgICAgICAgICAgICAgICAgICAgICAgICAgICAgICAgICAg ICAgICAgICAgICAgICAgICAgICAgICAgICAgICAgIC AgICAgICAgICAgICANCiAgICAgICAgICAgICAgICAgICAgICAgICAgICAgICAgICAgICAgICAgICAgIC AgICAgICAgICAgICAgICAgICAgICAgICAgICAgICAgICAgICAgICAgICAgICAgICAgICAgICANCiAgIC AgICAgICAgICAgICAgICAgICAgICAgICAgICAgICAg ICAgICAgICAgICAgICAgICAgICAgICAgICAgICAgICAgICAgICAgICAgICAgICAgICAgICAgICAgICAg ICAgICANCiAgICAgICAgICAgICAgICAgICAgICAgICAgICAgICAgICAgICAgICAgICAgICAgICAgICAg ICAgICAgICAgICAgICAgICAgICAgICAgICAgICAgIC AgICAgICAgICAgICAgICANCiAgICAgICAgICAgICAgICAgICAgICAgICAgICAgICAgICAgICAgICAgIC AgICAgICAgICAgICAgICAgICAgICAgICAgICAgICAgICAgICAgICAgICAgICAgICAgICAgICAgICANCi AgICAgICAgICAgICAgICAgICAgICAgICAgICAgICAg ICAgICAgICAgICAgICAgICAgICAgICAgICAgICAgICAgICAgICAgICAgICAgICAgICAgICAgICAgICAg ICAgICAgICANCiAgICAgICAgICAgICAgICAgICAgICAgICAgICAgICAgICAgICAgICAgICAgICAgICAg ICAgICAgICAgICAgICAgICAgICAgICAgICAgICAgIC AgICAgICAgICAgICAgICAgICANCiAgICAgICAgICAgICAgICAgICAgICAgICAgICAgICAgICAgICAgIC AgICAgICAgICAgICAgICAgICAgICAgICAgICAgICAgICAgICAgICAgICAgICAgICAgICAgICAgICAgIC ANCjw/hHCkH2ponXLybrR8W6uzFy4MAm4UXD4ux5Di VHLrFXshqyBdRhrHIiBqBJDnTzvIXhx9MFpiDU4NoNPwH0TkA4CfNBhiGE9PUTPxOSLcfAZjHPPgUHAm WlS4VZQgVQwjPD4AjIAlXXisCBKbIBEwElAfIEKyHDOiLWNlUJ7DINTjM747nhPyAa2KFw7DPzXgIT6d mc7KEtsnHUWaDuuKVel7NLqlTU1EdWWqG2FpvLKvq1 fPOlSnU2HFEOZ8KLSeCt1KDORiExFtRQFoFBqtPN2dFHCgTULYjSnsxdR1LR2LTH2gvsJxID8HKiJaDl 0iXl1UFmZdA4SeD2YtRZYwKMMLRXyrBZ4GEOWiZIZ0RIIvFmYbICJSUnYaH57eZD5VC2Fwb71pIqA9OV ShUmGlXYqwEV80fDbqexZjqDYjaOwdGU6KWv3+DQpl ttTiYluHGcodSKOXVnIoPeqUQaRsLGRhIDOdCMQqVrB1EqGvLu7TLQIqASJnAWPkCeNmMDZwSHWtTDgx SRSnCWQ4FlKtPJZeWQAxDF0UMaYpKDBwSgd1AWIwJYIcDCKxvh6PVKQdEHPtYMK4PMIcOIXkVHIrPOek JBIaESMqXWaxXNOpKYCcSF2XRbApNDKtKOLhDWVtLW JkSCLhtu5XIIFdCADsZfR2BHGhQXLpFERvVTzzCEJpFEX6Gxg1ESNnSVMtWS3QRsVxRKMnDThtKOSiYL SuGWLrpe5OXDTlYQUmJoEbYRCwKDSbLLMwTEcxGTSrLQV2LRh6AYYqPIBzJR3VEwBtCLRsYBf8ZtZeHO DqGNZudb7HUQYmHPXrKQs0HWVzUBJfMGIiWRzzKHYx TIG3DNX6KZUhAYExKN8ZUaTtZCGlSJZhWESuHFAiGOVxzi2TMWGyIKCpSDDxGNZcWESiEECaCVzoPRYm YZG5VFQnLNFzCSLoJT1XBoBoPPDuTNBoJtnkDYNqOUVpew5RQZWrOXLfWPO7RUHrYLSzCHNnXLcxYDHe SJN2WFW8VEQhJOLsAK0JJxTkQUHcZMS5IyMgVCGiFO Hffx3EVJFlAIXjAaukMAHzMJKyUISgHIikETWtRXA3KJYqZHAyJHAeKD8ZOySaARWeQAwyGiVsBOJpIC Ugyg3GOALmFHHgEyR0DsIzVCUlEAQvSDqgYBXkJLL7ApL1YQGbOTDwKH8UWyFmHJNfLthwBGCsZVHsGG Gzoi8QPQUjYWFeDUQmWAVjAAOaZJZpIPg0udSpcJMl KWw9GC3QI6VgbvHsYcyYQd9Kt323FLG6NBAdOo3BW2weOd2aBYYoEXKOTz7JNKi2CvHlAIGhQLCnVbz9 FXD9ZYEtKQKyCQL0ZADbROT8WLM+UNkaU4UlTVX9APJ8BQp5SND0JZHbHjLuThbkPWYhHJPaIB7bCSZJ Cj4+RYugzIXqgXcyZFFMBjN7FzoeFWpoJQYLCr2L ID Date Data Source [id number] 02/12/2020 09:51:47 AM EST [facility] Name Value Range Interpretation Code Description Data Lucia rce(s) Supporting Document(s) POC NOVA GLU 159 mg/dL (70-99) H [facility] [place] PERFORMED BY [facility] CLINICAL STAFF ID Date Data Source [id number] 02/12/2020 05:43:44 PM EST [facility] Name Value Range Interpretation Code Description Data Lucia rce(s) Supporting Document(s) CHOLESTEROL @ 152 mg/dL (0-200) [facility] TRIGLYCERIDE @ 141 mg/dL (30-200) [facility] HDL CHOLESTEROL @ 54 mg/dL (>40) [facility] PER NCEP ATP III GUIDELINES:RESULTS LOWE R THAN 40 MG/DL ARE SUGGESTIVEOF INCREASED RISK FOR CORONARY ARTERYDISEASE. RESULTS > OR = TO 60 MG/DL ARECONSIDERED A NEGATIVE RISK FACTOR. CHOL/HDL RATIO 2.8 RATIO [facility] INTERPRETATION OF CHOL-HDL RATIO CHD RISK FEMALE MALEVERY HIGH >8.3 >14.3HIGH 5.6- 8.3 6.7- 14.3AVERAGE 3.7- 5.6 4.0- 6.7BELOW AVERAGE 2.5- 3.7 2.7- 4.0PROTECTED <2.5 <2.7 LDL CHOL (CALC) 70 mg/dL (<130) [facility] [place] PER NCEP ATP III GUIDELINES: OPTIMAL < 100 NEAR OPTIMAL 100 - 129BORDERLINE HIGH 130 - 159 HIGH 160 - 189 VERY HIGH > 189 ID Date Data Source [id number] 02/12/2020 03:50:37 PM EST [facility] Name Value Range Interpretation Code Description Data Lucia rce(s) Supporting Document(s) SODIUM 141 mmol/L (136-145) [facility] POTASSIUM 6.1 mmol/L (3.6-5.2) HH [facility] ALERTED CRITICAL RESULT TOCHRISTINE(1601 6) CVAU 32029 1217. 1546 86984 CHLORIDE 108 mmol/L (100-108) [facility] CO2 25 mmol/L (22-31) [facility] ANION GAP 8 mmol/L (7-16) [facility] UREA NITROGEN 25 mg/dL (7-24) H [facility] CREATININE 1.13 mg/dL (0.80-1.30) [facility] BUN/CREAT RATIO 22.1 RATIO (10.0-20.0) H [facility] GLUCOSE 165 mg/dL (70-99) H [facility] CALCIUM 10.3 mg/dL (8.4-10.2) H [facility] GFR >60 ml/min/1.73m2 (>59) [facility] GFR ( AMER) >60 ml/min/1.73m2 (>59) [facility] GFR INTERPRETATION [facility] --NORMAL KIDNEY FUNCTION OR MILD DISEASE - GFR >OR= 60CHRONIC KIDNEY DISEASE - GFR 15 - 59RENAL FAILURE - GFR <15 Est. GFR calculation based on the MDRDstudy equation, which assumes a steadystate for creatinine. Est. GFR should notbe used for medication dosing. ID Date Data Source [id number] 02/12/2020 11:27:33 AM EST [facility] Name Value Range Interpretation Code Description Data Lucia rce(s) Supporting Document(s) CKMB 22.8 ng/mL (0.0-5.0) [facility] [place] ALERTED CRITICAL RESULT TOPAM(9869)[place] [address] ON 380246 AT 1021 BY [address]337 CKMB RELATIVE INDEX 6.1 {index_val} (0.0-4.0) H [facility] [place] ALERTED CRITICAL RESULT TOPAM(9019)[place] [address] ON 129040 AT 1021 BY 8[address]83 ID Date Data Source [id number] 02/12/2020 10:09:43 AM EST [facility] Name Value Range Interpretation Code Description Data Lucia rce(s) Supporting Document(s) TROPONIN I 13.90 ng/mL (<0.05) [facility] [place] Less than 0.05: Myocardial injury unlike lyGreater than or equal to 0.05: Highly suggestive of myocardial injuryCorrelation with rise and/or fall ofserial troponins, clinical symptomsand ECG changes is necessary.ALERTED CRITICAL RESULT TOPAM(9189)[place] [address] ON 180889 AT 1008 BY 17434 ID Date Data Source [id number] 02/12/2020 10:03:20 AM EST [facility] Name Value Range Interpretation Code Description Data Lucia rce(s) Supporting Document(s) CK 371 U/L (39-308) H [facility] ID Date Data Source [id number] 02/12/2020 07:31:54 AM EST [facility] Name Value Range Interpretation Code Description Data Lucia rce(s) Supporting Document(s) EKG [facility] [id number] jb2 [file] ID Date Data Source [id number] 02/12/2020 03:22:37 PM EST [facility] Name Value Range Interpretation Code Description Data Lucia rce(s) Supporting Document(s) DIRECT LDL @ 60 mg/dL (<130) [facility] [place] PER NCEP ATP III GUIDELINES: OPTIMAL < 100 NEAR OPTIMAL 100 - 129BORDERLINE HIGH 130 - 159 HIGH 160 - 189 VERY HIGH > 189 ID Date Data Source [id number] 02/12/2020 09:22:19 AM EST [facility] Name Value Range Interpretation Code Description Data Lucia rce(s) Supporting Document(s) CHOLESTEROL @ 137 mg/dL (0-200) [facility] [place] TRIGLYCERIDE @ 376 mg/dL (30-200) H [facility] HDL CHOLESTEROL @ 43 mg/dL (>40) [facility] [place] PER NCEP ATP III GUIDELINES:RESULTS LOWE R THAN 40 MG/DL ARE SUGGESTIVEOF INCREASED RISK FOR CORONARY ARTERYDISEASE. RESULTS > OR = TO 60 MG/DL ARECONSIDERED A NEGATIVE RISK FACTOR. CHOL/HDL RATIO 3.2 RATIO [facility] INTERPRETATION OF CHOL-HDL RATIO CHD RISK FEMALE MALEVERY HIGH >8.3 >14.3HIGH 5.6- 8.3 6.7- 14.3AVERAGE 3.7- 5.6 4.0- 6.7BELOW AVERAGE 2.5- 3.7 2.7- 4.0PROTECTED <2.5 <2.7 LDL CHOL (CALC) (<130) [facility] [place] INTERFERENCE FROM ELEVATED TRIGLYCERIDES (GREATER THAN 300 MG/DL). SEE RESULTFOR DIRECT LDL. ID Date Data Source [id number] 02/12/2020 02:44:01 AM EST [facility] Name Value Range Interpretation Code Description Data Lucia rce(s) Supporting Document(s) CKMB 33.0 ng/mL (0.0-5.0) [facility] [place] ALERTED CRITICAL RESULT TOALLISON(42641) CVAU(95657) AT 0240 ON 02/12/20 [place] [address] CKMB RELATIVE INDEX 6.0 {index_val} (0.0-4.0) H [facility] ID Date Data Source [id number] 02/12/2020 02:02:04 AM EST [facility] Name Value Range Interpretation Code Description Data Lucia rce(s) Supporting Document(s) HEMOGLOBIN A1C @ 7.0 % (4.0-6.0) H [facility] Performed using Siemens [place] immunoassa y.Care must be taken when interpreting YpQ7udpeaazl in patients with a hemoglobin variantor decreased erythrocyte lifespan. Values 5.7 - 6.4% suggest prediabetes.Values >=6.5% are diagnostic for diabetes.REFERENCE: DIABETES CARE 2018: 41(S13-S27).PERFORMED AT [address] [place] [address] 576[address] EST AVERAGE GLUCOSE 154 mg/dL [facility] ID Date Data Source [id number] 02/12/2020 01:50:21 AM EST [facility] Name Value Range Interpretation Code Description Data Lucia rce(s) Supporting Document(s) CK 547 U/L (39-308) H [facility] ID Date Data Source [id number] 02/12/2020 01:50:21 AM EST [facility] Name Value Range Interpretation Code Description Data Lucia rce(s) Supporting Document(s) SODIUM 141 mmol/L (136-145) [facility] POTASSIUM 4.0 mmol/L (3.6-5.2) [facility] CHLORIDE 110 mmol/L (100-108) H [facility] CO2 24 mmol/L (22-31) [facility] ANION GAP 7 mmol/L (7-16) [facility] UREA NITROGEN 27 mg/dL (7-24) H [facility] CREATININE 0.98 mg/dL (0.80-1.30) [facility] BUN/CREAT RATIO 27.6 RATIO (10.0-20.0) H [facility] GLUCOSE 151 mg/dL (70-99) H [facility] CALCIUM 9.3 mg/dL (8.4-10.2) [facility] GFR >60 ml/min/1.73m2 (>59) [facility] GFR ( AMER) >60 ml/min/1.73m2 (>59) [facility] GFR INTERPRETATION [facility] --NORMAL KIDNEY FUNCTION OR MILD DISEASE - GFR >OR= 60CHRONIC KIDNEY DISEASE - GFR 15 - 59RENAL FAILURE - GFR <15 Est. GFR calculation based on the MDRDstudy equation, which assumes a steadystate for creatinine. Est. GFR should notbe used for medication dosing. ID Date Data Source [id number] 02/12/2020 01:12:13 AM EST [facility] Name Value Range Interpretation Code Description Data Lucia rce(s) Supporting Document(s) WBC 8.0 10*3/uL (4.1-11.0) [facility] [place] RBC 4.51 10*6/uL (4.60-6.10) L [facility] HGB 14.8 g/dL (13.5-18.0) [facility] HCT 44.4 % (41.0-53.0) [facility] MCV 98.4 fL (80.0-95.0) H [facility] MCH 32.9 pg (27.0-32.0) H [facility] MCHC 33.4 g/dL (32.0-36.0) [facility] RDW 14.2 % (10.5-14.5) [facility] PLT 282 10*3/uL (150-450) [facility] MPV 8.2 fL (7.1-10.7) [facility] ID Date Data Source [id number] 02/11/2020 10:52:03 PM EST [facility] Name Value Range Interpretation Code Description Data Lucia rce(s) Supporting Document(s) TROPONIN I 30.60 ng/mL (<0.05) HH [facility] [place] Less than 0.05: Myocardial injury unlike lyGreater than or equal to 0.05: Highly suggestive of myocardial injuryCorrelation with rise and/or fall ofserial troponins, clinical symptomsand ECG changes is necessary.ALERTED CRITICAL RESULT TRACIE (09978) [place] [address] ON 02/11/20 AT 2237 [place] [address] ID Date Data Source [id number] 02/11/2020 10:33:15 PM EST [facility] Name Value Range Interpretation Code Description Data Lucia rce(s) Supporting Document(s) PROCALCITONIN @ <0.10 ng/mL (<0.10) [facility] INTERPRETATION OF RESULT < 0.51 Sepsis is not likely.0.51-2.00 Sepsis is possible, but other conditions are known to elevate PCT.2.01-9.99 Sepsis is likely, unless other causes are known. > 9.99 Important systemic inflammatory response, almost exclusively due to severe bacterial sepsis or septic shock.PERFORMED AT [address] [place] [address] ID Date Data Source [id number] 02/11/2020 07:28:03 PM EST [facility] Name Value Range Interpretation Code Description Data Lucia rce(s) Supporting Document(s) POC NOVA GLU 115 mg/dL (70-99) H [facility] [place] PERFORMED BY [facility] CLINICAL STAFF ID Date Data Source [id number] 02/11/2020 08:50:04 PM EST [facility] Name Value Range Interpretation Code Description Data Lucia rce(s) Supporting Document(s) CKMB 6.8 ng/mL (0.0-5.0) H [facility] [place] CKMB RELATIVE INDEX 3.0 {index_val} (0.0-4.0) [facility] ID Date Data Source [id number] 02/11/2020 08:40:12 PM EST [facility] Name Value Range Interpretation Code Description Data Lucia rce(s) Supporting Document(s) TROPONIN I 1.74 ng/mL (<0.05) HH [facility] Less than 0.05: Myocardial injury unlike lyGreater than or equal to 0.05: Highly suggestive of myocardial injuryCorrelation with rise and/or fall ofserial troponins, clinical symptomsand ECG changes is necessary.ALERTED CRITICAL RESULT TOSHANDRA(6502) [place] [address] ON 02/11/20 AT 2037 [place] [address] ID Date Data Source [id number] 02/11/2020 08:36:40 PM EST [facility] Name Value Range Interpretation Code Description Data Lucia rce(s) Supporting Document(s) SODIUM 141 mmol/L (136-145) [facility] POTASSIUM 4.3 mmol/L (3.6-5.2) [facility] CHLORIDE 108 mmol/L (100-108) [facility] CO2 22 mmol/L (22-31) [facility] ANION GAP 11 mmol/L (7-16) [facility] UREA NITROGEN 23 mg/dL (7-24) [facility] CREATININE 1.02 mg/dL (0.80-1.30) [facility] BUN/CREAT RATIO 22.5 RATIO (10.0-20.0) H [facility] GLUCOSE 128 mg/dL (70-99) H [facility] CALCIUM 9.1 mg/dL (8.4-10.2) [facility] TOTAL PROTEIN 6.1 g/dL (6.4-8.2) L [facility] ALBUMIN 3.7 g/dL (3.5-4.6) [facility] GLOBULIN 2.4 g/dL (2.7-4.3) L [facility] ALB/GLOB RATIO 1.5 RATIO [facility] ALKALINE PHOSPHATASE 61 U/L (45-117) [facility] BILIRUBIN,TOTAL 0.4 mg/dL (0.0-1.0) [facility] PLEASE NOTE:Total bilirubin results may be falselyelevated in patients taking Eltrombopag. AST (SGOT) 31 U/L (11-39) [facility] ALT (SGPT) 22 U/L (12-78) [facility] GFR >60 ml/min/1.73m2 (>59) [facility] GFR ( AMER) >60 ml/min/1.73m2 (>59) [facility] GFR INTERPRETATION [facility] --NORMAL KIDNEY FUNCTION OR MILD DISEASE - GFR >OR= 60CHRONIC KIDNEY DISEASE - GFR 15 - 59RENAL FAILURE - GFR <15 Est. GFR calculation based on the MDRDstudy equation, which assumes a steadystate for creatinine. Est. GFR should notbe used for medication dosing. ID Date Data Source [id number] 02/11/2020 08:36:40 PM EST [facility] Name Value Range Interpretation Code Description Data Lucia rce(s) Supporting Document(s) CK 230 U/L (39-308) [facility] ID Date Data Source [id number] 02/11/2020 07:00:52 PM EST [facility] Name Value Range Interpretation Code Description Data Lucia rce(s) Supporting Document(s) WBC 8.4 10*3/uL (4.1-11.0) [facility] [place] RBC 4.28 10*6/uL (4.60-6.10) L [facility] HGB 14.1 g/dL (13.5-18.0) [facility] HCT 41.9 % (41.0-53.0) [facility] MCV 98.0 fL (80.0-95.0) H [facility] MCH 32.9 pg (27.0-32.0) H [facility] MCHC 33.6 g/dL (32.0-36.0) [facility] RDW 14.4 % (10.5-14.5) [facility] PLT 252 10*3/uL (150-450) [facility] MPV 8.9 fL (7.1-10.7) [facility] ID Date Data Source [id number] 02/11/2020 04:40:00 PM EST [facility] Name Value Range Interpretation Code Description Data Lucia rce(s) Supporting Document(s) SARS coronavirus 2 RNA [Presence] in Res piratory specimen by ENRRIQUE with probe detection [facility] This lab was reported by [facility]. ID Date Data Source [id number] 02/11/2020 10:12:16 PM EST Lab [facility] Name Value Range Interpretation Code Description Data Lucia rce(s) Supporting Document(s) SPECIMEN DESCRIPTION [facility] [place] COVID19 RESULT (NDET) [facility] THIS ASSAY AMPLIFIES AND DETECTSTHE TARG ET RNA USING REAL-TIME PCR.NEGATIVE 2019_NCOV RT-PCR RESULTS DONOT PRECLUDE 2019_NCOV INFECTION ANDSHOULD NOT BE USED THE SOLE BASISFOR PATIENT MANAGEMENT DECISIONS. COMMENT Lab [facility] LABORATORY [facility] APPROVED B Y THE [place]. THE [place] FOODAND DRUG ADMINISTRATION HAS NOT APPROVEDTHIS TEST. NEGATIVE RESULTS DO NOT [id number] INFECTION AND SHOULD NOT BEUSED THE SOLE BASIS FOR CLINICALDIAGNOSIS OR PATIENT MANAGEMENT DECISIONS.RESULTS EMAILED TO [facility] IC AT 8919. [id number] 79620. FIRST TEST [facility] [place] SYMPTOMATIC Lab [facility] DATE OF SYMPT ONSET [facility] HOSPITALIZED [facility] CONGREGATE CARE SET [facility] [place] [facility] ID Date Data Source [id number] 02/01/2020 12:00:00 AM EST [facility] Name Value Range Interpretation Code Description Data Lucia rce(s) Supporting Document(s) SARS coronavirus 2 Ag [facility] This lab was ordered by [facility] and reported by [facility]. ID Date Data Source [id number] 01/26/2020 01:59:00 PM EST [facility] ([facility] [employer] [facility] [place]) Name Value Range Interpretation Code Description Data Lucia rce(s) Supporting Document(s) Covid-19 Laboratory test result ME V[facility]AL ([facility] [employer] [facility] [employer] [place]) A Not Detected (negative) test result fo [...] providers and patients using the following websites: https://[email or web address]/home/Covid-19/HCP/[facility]/ fact-sheet.html https://www.[employer]/home/Covid-19/Patients/ [facility]/fact-sheet.html This test has been authorized by the FDA under an Emergency Use Authorization (EUA) for use by authorized laboratories. Due to the current public health emergency, [facility] is receiving a high volume of samples [...] about COVID-19 can be found at the [facility] website: www.[employer]/Covid19. THIS TEST WAS PERFORMED AT: [facility] [address] RICHARD HERNANDEZ MD ID Date Data Source [id number] 01/26/2020 01:59:00 PM EST [facility] ([facility] [employer] [facility] [place]) Name Value Range Interpretation Code Description Data Lucia rce(s) Supporting Document(s) Chloride 103 mmol/L 98-107 [facility] ([facility] [employer] [facility] [employer] [place]) Potassium 3.9 mmol/L 3.4-5.0 [facility] (Associ ated [employer] [facility]) Sodium 139 mmol/L 136-145 [facility] ([facility] [employer] [facility]) Anion Gap 17 mmol/L 10-20 [facility] ([facility] [employer]) Glucose 224 mg/dL 70-99 [facility] ([facility]) Co2 23 mmol/L 22-29 [facility] ([facility] [employer]) Calcium [Mass/volume] in Serum or Plasma 9.4 mg/dL 8.6-10.2 [facility] ([facility] [employer] [facility]) Creatinine 1.1 mg/dL 0.7-1.2 [facility] (Associ at[facility] [employer] [facility]) Urea nitrogen [Mass/volume] in Serum or Plasma 21 mg/dL 6-20 [facility] ([facility] [employer] [facility]) GFR Laboratory test result MO DENT ([facility] [employer] [facility]) <content>Estimated Glomerular Filtration Rate is estimated based [...] Failure <15</content>
<content></content> ID Date Data Source [id number] 01/26/2020 01:59:00 PM EST [facility] ([facility] [employer] [facility] [place]) Name Value Range Interpretation Code Description Data Lucia rce(s) Supporting Document(s) Hemoglobin [Mass/volume] in Blood 14.1 g/dL 13.5-17.5 [facility] ([facility] [employer] [facility]) WBC 7.8 k/UL 4.3-11.0 [facility] ([facility] [employer]) RBC 4.39 M/UL 4.20-6.20 [facility] ([facility] [employer] [facility]) Hematocrit 43.5 % 40.0-54.0 [facility] ([facility] [employer] [facility]) MCV 99.1 FL 75.0-105.0 [facility] ([facility] [employer] [facility]) MCH 32.1 pg 26.0-33.0 [facility] ([facility] [employer]) MCHC 32.4 g/dL 31.0-36.0 [facility] ([facility] [employer]) Platelet Count 267 K/UL 150-400 [facility] (As sociated [employer] [facility]) Red Cell Distribution Width 13.5 % 11.6-14.6 [facility] ([facility] [employer] [facility]) Lymphocyte Automated 15.1 % 12.0-44.0 MEDE NT ([facility] [employer] [facility]) Mean Platelet Volume 10.2 FL 8.7-12.3 MEDE NT ([facility] [employer] [facility]) Neutrophils Automated 75.7 % 47.0-76.0 MED ENT ([facility] [employer] [facility]) Basophils Automated 0.6 % 0.0-3.0 MEDEN T ([facility] [employer] [facility]) Eosinophils Automated 0.8 % 0.0-6.0 MED ENT ([facility] [employer] [facility]) Monocytes Automated 7.7 % 2.0-12.0 MEDEN T ([facility] [employer] [facility]) Abs.Neutrophils Automated 5.93 K/UL 1.50-7.50 [facility] ([facility] [employer] [facility]) Abs. Lymphocytes Automated 1.18 K/UL 0.80-2.80 [facility] ([facility] [employer] [facility]) Abs.Monocytes Automated 0.60 K/UL 0.20-1.00 M EDENT ([facility] [employer] [facility]) Abs. Eosinophils Automated 0.06 K/UL 0.20-0.40 [facility] ([facility] [employer] [facility] [place]) Abs. Basophils Automated 0.05 K/UL 0.00-0.20 [facility] ([facility] [employer] [facility] [place]) Immature Granulocyte 0.1 % 0.0-0.6 MEDE NT ([facility] [employer] [facility] [place]) Abs Immature Granulocyte 0.01 K/UL 0.00-0.04 [facility] ([facility] [employer] [facility] [place]) Nucleated RBC 0.0 % 0.0-0.0 [facility] ([facility] [employer] [facility] [place]) ID Date Data Source [id number] 01/26/2020 01:59:00 PM EST [facility] ([facility] [employer] [facility] [place]) Name Value Range Interpretation Code Description Data Lucia rce(s) Supporting Document(s) Inr Laboratory test result ME DENT ([employer] [employer] [place]) *MONITOR PATIENTS BASED ON INR VALUE* INR RESULT TO BE INTERPRETED FOR PATIENTS ON ORAL ANTICOAGULANT THERAPY ONLY. Conventional Anticoagulation: INR 2.0 - 3.0 Intensive Anticoagulation : INR 2.5 - 3.5 Prothrombin Time 9.8 SEC 9.7-11.9 [facility] ( [facility] [employer] [facility] [place]) ID Date Data Source [id number] 01/26/2020 01:59:00 PM EST [facility] ([facility] [employer] [facility] [place]) Name Value Range Interpretation Code Description Data Lucia rce(s) Supporting Document(s) Urine Culture Laboratory test result [facility] ([employer] [place]) [place] [address] Sandhya Carson M.D., Pole Sander Operator Laboratory Report Pg 1 PATIENT: MARILYN RIBEIRO : 64 M.R.N.: [id number] DOCTOR: Chris Blake MD AGE/SEX: 59/M COPIES TO: LOC: SSLD Chris Blake MD Unknown,Physician Specimen: [id number] COMP Collected: 01/26/20 Received: 01/26/20 Source: NATHALIE Alston Descrip: CLN CATCH Procedure Result Verified M I C R O B I O L O G Y > URINE CULTURE Final 01/28/20 NO GROWTH AFTER 48 HOURS > URINE CULTURE Preliminary (Original rpt) 01/27/20 NO GROWTH AFTER 24 HOURS ID Date Data Source [id number] 01/26/2020 01:59:00 PM EST [facility] ([facility]) Name Value Range Interpretation Code Description Data Lucia rce(s) Supporting Document(s) Color of Urine Laboratory test result [facility] ([facility]) Urine Appearance Laboratory test result [facility] ([facility]) Glucose [Presence] in Urine Laboratory test result 0-99 Abnormal (applies to non-numeric results) [facility] ([facility]) Urine Specific [place] Laboratory test result 1.005-1.025 [facility] ([facility]) Urine Ketones Laboratory test result 0-14 [facility] ([facility]) Urine Bilirubin Laboratory test result [facility] ([facility]) Blood [Presence] in Urine by Visual Laboratory test result [facility] ([facility]) pH of Urine by Test strip 6.0 5.0-8.0 [facility] ([facility]) Protein [Presence] in Urine by Test strip Laboratory test result 0-30 [facility] ([facility]) Urine Urobilinogen 1.0 EU/DL 0.2-1.0 [facility] ([facility]) Urine Leukocyte Esterase Laboratory test result [facility] ([facility]) Urine Nitrite Laboratory test result MED[facility] ([employer]) ID Date Data Source [id number] 01/26/2020 02:44:00 [place] [address] Sandhya Carson M.D., Pole Sander Operator Laboratory Report Pg 1 PATIENT: MARILYN RIBEIRO : 64 M.R.N.: [id number] DOCTOR: Chris Blake MD AGE/SEX: 59/M COPIES TO: LOC: [facility] Chris Blake MD Unknown,Physician Specimen: [id number] COMP Collected: 01/26/20 Received: 01/26/201358 Source: NATHALIE Alston Descrip: CLN CATCH Procedure Result Verified M I C R O B I O L O G Y > URINE CULTURE Final 01/28/20 NO GROWTH AFTER 48 HOURS > URINE CULTURE Preliminary (Original rpt) 01/27/20746 NO GROWTH AFTER 24 HOURS Name Value Range Interpretation Code Description Data Lucia rce(s) Supporting Document(s) URINE COLOR YELLOW [facility] URINE APPEARANCE CLEAR [facility] URINE SPECIFIC GRAVITY >=1.030 1.005-1.025 [facility] URINE GLUCOSE >=1000 MG/DL 0 - 99 A [facility] URINE BILIRUBIN NEGATIVE NEGATIVE [facility] [place] URINE KETONES NEGATIVE MG/DL 0-14 [facility] URINE BLOOD NEGATIVE NEGATIVE [facility] URINE pH 6.0 5.0 - 8.0 [facility] URINE PROTEIN NEGATIVE MG/DL 0-30 [facility] URINE UROBILINOGEN 1.0 EU/DL 0.2-1.0 [facility] URINE NITRITE NEGATIVE NEGATIVE [facility] [place] URINE LEUKOCYTE ESTERASE NEGATIVE NEGATIVE [facility] ID Date Data Source [id number] 01/26/2020 02:47:00 [place] [address] Sandhya Carson M.D., Pole Sander Operator Laboratory Report Pg 1 PATIENT: MARILYN RIBEIRO : 64 M.R.N.: [id number] DOCTOR: Chris Blake MD AGE/SEX: 59/M COPIES TO: LOC: [facility] Chris Blake MD Unknown,Physician Specimen: [id number] COMP Collected: 01/26/20 Received: 01/26/201358 Source: NATHALIE [...] Document(s) PROTHROMBIN TIME 9.8 SEC 9.7-11.9 [facility] INR < 1.0 [facility] *MONITOR PATIENTS BASED ON INR VALU E*INR RESULT TO BE INTERPRETED FOR PATIENTS ON ORAL ANTICOAGULANT THERAPY ONLY.Conventional Anticoagulation: INR 2.0 - 3.0Intensive Anticoagulation : INR 2.5 - 3.5 ID Date Data Source [id number] 01/26/2020 02:52:00 [place] [address] Sandhya Carson M.D., Pole Sander Operator Laboratory Report Pg 1 PATIENT: MARILYN RIBEIRO : 64 M.R.N.: [id number] DOCTOR: Chris Blake MD AGE/SEX: 59/M COPIES TO: LOC: [facility]D Chris Blake MD Unknown,Physician Specimen: [id number] COMP Collected: 01/26/20 Received: 01/26/201358 Source: ANTHALIE Alston Descrip: BRUNO CATCH Procedure Result Verified M I C R O B I O L O G Y > URINE CULTURE Final 01/28/20 NO GROWTH AFTER 48 HOURS > URINE CULTURE Preliminary (Original rpt) 01/27/20746 NO GROWTH AFTER 24 HOURS Name Value Range Interpretation Code Description Data Lucia rce(s) Supporting Document(s) WBC 7.8 k/UL 4.3-11.0 [facility] nter RBC 4.39 M/UL 4.20-6.20 [facility] nter HEMOGLOBIN 14.1 G/DL 13.5-17.5 [facility] C enter HEMATOCRIT 43.5 % 40.0-54.0 [facility] C enter MCV 99.1 FL 75.0-105.0 [facility] C enter MCH 32.1 PG 26.0-33.0 [facility] nter MCHC 32.4 G/DL 31.0-36.0 [facility] RED CELL DISTRIBUTION WIDTH 13.5 % 11.6-14.6 [facility] PLATELET COUNT 267 K/UL 150-400 [facility] MEAN PLATELET VOLUME 10.2 FL 8.7-12.3 [facility] NEUTROPHILS AUTOMATED 75.7 % 47.0-76.0 [facility] LYMPHOCYTE AUTOMATED 15.1 % 12.0-44.0 [facility] MONOCYTES AUTOMATED 7.7 % 2.0-12.0 [facility] EOSINOPHILS AUTOMATED 0.8 % 0.0-6.0 [facility] BASOPHILS AUTOMATED 0.6 % 0.0-3.0 [facility] ABS.NEUTROPHILS AUTOMATED 5.93 K/UL 1.50-7.50 [facility] ABS. LYMPHOCYTES AUTOMATED 1.18 K/UL 0.80-2.80 [facility] ABS.MONOCYTES AUTOMATED 0.60 K/UL 0.20-1.00 [facility] ABS. EOSINOPHILS AUTOMATED 0.06 K/UL 0.20-0.40 L [facility] ABS. BASOPHILS AUTOMATED 0.05 K/UL 0.00-0.20 [facility] IMMATURE GRANULOCYTE 0.1 % 0.0-0.6 [facility] ABS IMMATURE GRANULOCYTE 0.01 K/UL 0.00-0.04 [facility] NUCLEATED RBC 0.0 % 0.0-0.0 [facility] ID Date Data Source [id number] 01/26/2020 03:34:00 [place] [address] Sandhya Carson M.D., Pole Sander Operator Laboratory Report Pg 1 PATIENT: MARILYN RIBEIRO : 64 M.R.N.: [id number] DOCTOR: Chris Blake MD AGE/SEX: 59/M COPIES TO: LOC: [facility] Chris Blake MD Unknown,Physician Specimen: [id number] COMP Collected: 01/26/20 Received: 01/26/201358 Source: NATHALIE Alston Descrip: CLN CATCH Procedure Result Verified M I C R O B I O L O G Y > URINE CULTURE Final 01/28/20 NO GROWTH AFTER 48 HOURS > URINE CULTURE Preliminary (Original rpt) 01/27/20746 NO GROWTH AFTER 24 HOURS Name Value Range Interpretation Code Description Data Lucia rce(s) Supporting Document(s) SODIUM 139 MMOL/L 136-145 [facility] C enter POTASSIUM 3.9 MMOL/L 3.4-5.0 [facility] C enter CHLORIDE 103 MMOL/L 98-107 [facility] C enter CO2 23 MMOL/L 22-29 [facility] Ce [facility] ANION GAP 17 MMOL/L 10-20 [facility] GLUCOSE 224 MG/DL 70-99 H [facility] CREATININE 1.1 MG/DL 0.7-1.2 [facility] C enter BUN 21 MG/DL 6-20 H [facility] CALCIUM 9.4 MG/DL 8.6-10.2 [facility] nter GFR > 60 ML/MIN [facility] Estimated Glomerular Filtration Rate is estimated based [...] Kidney Failure <15 ID Date Data Source [id number] 01/28/2020 07:54:00 [place] [address] Sandhya Carson M.D., Pole Sander Operator Laboratory Report Pg 1 PATIENT: MARILYN RIBEIRO : 64 M.R.N.: [id number] DOCTOR: Chris Blake MD AGE/SEX: 59/M COPIES TO: LOC: [facility] Chris Blake MD Unknown,Physician Specimen: [id number] COMP Collected: 01/26/20 Received: 01/26/201358 Source: NATHALIE Alston Descrip: BRUNO CATCH Procedure Result Verified M I C R O B I O L O G Y > URINE CULTURE Final 01/28/20 NO GROWTH AFTER 48 HOURS > URINE CULTURE Preliminary (Original rpt) 01/27/20746 NO GROWTH AFTER 24 HOURS Name Value Range Interpretation Code Description Data Lucia rce(s) Supporting Document(s) ID Date Data Source [id number] 01/26/2020 01:45:00 PM [facility] Name Value Range Interpretation Code Description Data Lucia e(s) Supporting Document(s) SARS-COV-2 RNA RESP QL ENRRIQUE+PROBE [place] This lab was ordered by [facility] and reported by [employer] [facility]. ID Date Data Source [id number] 01/27/2020 10:47:00 PM EST [facility] ([facility] [employer]) tics Received: 01/27/2020 at 05:21:00 QPT : [facility], [address] [facility], [address] [place] [address], [phone], Richard Hernandez MD Name Value Range Interpretation Code Description Data Lucia e(s) Supporting Document(s) SARS CoV 2 RNA NOT DETECTED Normal (applies to non-numeric results) [facility] A Not Detected (negative) test result fo [...] health care providers andpatients using the following websites:https://www.[employer]/home/Covid-19/HCP/[facility]/fact-sheet. htmlhttps://www.[employer]/home/Covid-19/Patients/[facility]/fact-sheet. htmlThis test has been authorized by the FDA under anEmergency Use Authorization (EUA) for use by authorizedlaboratories.Due to the current public health emergency, [employer] is receiving a high volume of samples [...] information about COVID-19 can be foundat the [employer] website:www.[employer]/Covid19. ID Date Data Source [id number] 01/27/2020 10:47:00 PM EST [facility] Name Value Range Interpretation Code Description Data Lucia rce(s) Supporting Document(s) SARS-COV-2 RNA NOT DETECTED NOT DETECTED [facility] A Not Detected (negative) test result [...] health care providers andpatients using the following websites:https://www.[employer]/home/Covid-19/HCP/[facility]/fact-sheet. htmlhttps://www.[employer]/home/Covid-19/Patients/[facility]/fact-sheet. htmlThis test has been authorized by the FDA under anEmergency Use Authorization (EUA) for use by authorizedlaboratories.Due to the current public health emergency, [employer] is receiving a high volume of samples [...] information about COVID-19 can be foundat the [employer] website:www.[employer]/Covid19.THIS TEST WAS PERFORMED AT:[employer] [id number] MERATI,MD ID Date Data Source [id number] 12/26/2019 09:30:00 AM EDT [facility] ([facility] [employer] [employer] [facility]) Name Value Range Interpretation Code Description Data Lucia rce(s) Supporting Document(s) Protein [Presence] in Urine by Test strip Laboratory test result [facility] ([employer] [place]) Glucose [Presence] in Urine Laboratory test result [facility] ([employer] [facility]) Ua Nitrite Laboratory test result ME DENT ([employer] [facility]) Blood [Presence] in Urine by Visual Laboratory test result [facility] ([employer] [facility]) Ua Leuko Laboratory test result ME DENT ([employer] [facility]) Clarity of Urine Laboratory test result [facility] ([employer] [facility]) Ketones [Presence] in Urine by Test strip Laboratory test result [facility] ([employer] [facility]) Color of Urine Laboratory test result [facility] ([employer] [facility]) pH of Urine by Test strip 5.0 5.0-7.5 [facility] ([employer] [employer] [facility]) Ua Specific [place] 1.015 1.003-1.030 MEDE NT ([employer] [facility]) Bilirubin.total [Presence] in Urine by Test strip Laboratory test res ult [facility] ([employer] [facility]) Urobilinogen [Mass/volume] in Urine by Test strip 0.2 E.U./dL 0.0-1.0 [facility] ([employer] [facility]) ID Date Data Source [id number] 12/18/2019 12:24:00 PM EDT [facility] ([facility]) Name Value Range Interpretation Code Description Data Lucia rce(s) Supporting Document(s) Prostate specific Ag [Mass/volume] in Serum or Plasma Labora tory test result 0.0-4.0 [facility] ([facility]) A courtesy copy of this report has been sent to the patient, ID Date Data Source [id number] 12/18/2019 12:24:00 PM EDT [facility] ([facility] [employer] [facility]) Name Value Range Interpretation Code Description Data Lucia rce(s) Supporting Document(s) Prostate specific Ag [Mass/volume] in Serum or Plasma Labora tory test result 0.0-4.0 [facility] ([facility]) A courtesy copy of this report has been sent to the patient, ID Date Data Source [id number] 12/19/2019 08:09:00 AM EDT [facility] Name Value Range Interpretation Code Description Data Lucia rce(s) Supporting Document(s) Prostate Specific Ag, Serum 0.0-4.0 [facility] [place] ECLIA methodology. According to th e [place] [employer], Serum PSA shoulddecrease and remain at undetectable levels after radicalprostatectomy. The AUA defines biochemical recurrence as an initialPSA value 0.2 ng/mL or greater followed by a subsequent confirmatoryPSA value 0.2 ng/mL or greater.Values obtained with different assay methods or kits cannot be usedinterchangeably. Results cannot be interpreted as absolute evidenceof the presence or absence of malignant disease. ID Date Data Source [id number] 12/16/2019 03:58:00 PM EDT [facility] ([facility] [employer] [facility]) Name Value Range Interpretation Code Description Data Lucia rce(s) Supporting Document(s) Glucose [Presence] in Urine Laboratory test result [facility] ([employer] [place]) Ua Nitrite Laboratory test result ME DENT ([facility] [employer] [facility]) Protein [Presence] in Urine by Test strip Laboratory test result [facility] ([facility] [employer] [facility]) Ua Leuko Laboratory test result ME DENT ([facility] [employer] [facility]) Blood [Presence] in Urine by Visual Laboratory test result [facility] ([employer] [employer] [facility]) Ketones [Presence] in Urine by Test strip Laboratory test result [facility] ([employer] [employer] [facility]) Color of Urine Laboratory test result [facility] ([facility] [employer] [facility]) Ua Specific [place] 1.020 1.003-1.030 MEDE NT ([facility] [employer] [facility]) pH of Urine by Test strip 5.5 5.0-7.5 [facility] ([facility] [employer] [facility]) Clarity of Urine Laboratory test result [facility] ([employer] [employer] [facility]) Bilirubin.total [Presence] in Urine by Test strip Laboratory test res ult [facility]ENT ([facility] [employer] [facility]) Urobilinogen [Mass/volume] in Urine by Test strip 0.2 E.U./dL 0.0-1.0 [facility] ([facility] [employer] [facility]) ID Date Data Source [id number] 12/12/2019 12:14:00 PM EDT [facility] ([facility]) Name Value Range Interpretation Code Description Data Lucia rce(s) Supporting Document(s) TSH 1.037 uIU/mL 0.350-4.940 [facility] ([facility]) ID Date Data Source [id number] 12/12/2019 12:14:00 PM EDT [facility] ([facility]) Name Value Range Interpretation Code Description Data Lucia rce(s) Supporting Document(s) Hemoglobin A1c/Hemoglobin.total in Blood 7.63 4.00-6.00 [facility] ([facility]) <content>GOAL <7</content>
<content> </content> Estimated Average Glucose 172.18 mg/dL M EDENT ([facility]) ID Date Data Source [id number] 12/12/2019 12:14:00 PM EDT [facility] ([facility] [...] LESS THAN 100 ID Date Data Source [id number] 12/12/2019 12:14:00 PM EDT [facility] ([facility] [...] ([facility]) ID Date Data Source [id number] 12/12/2019 12:14:00 PM EDT [facility] ([facility]) Name Value Range Interpretation Code Description [...] Serum or Plasma 74 U/L 40-150 [facility] ([facility]) Carbon dioxide, total [Moles/volume] in Serum or Plasma 26.0 0 mmol/L 22.00-31.00 [facility] ([facility]) Albumin/Globulin [Mass Ratio] in Serum or Plasma 1.48 Ratio [facility] ([facility]) Osmolality of Serum or Plasma by calculation 295.62 275.00-295.00 [facility] ([facility]) Calcium [Mass/volume] in Serum or Plasma 10.20 mg/dL 8.90-10.40 [facility] ([facility]) Bilirubin.total [Mass/volume] in Serum or Plasma 0.2 mg/dL 0.2-1.2 [facility] ([facility]) Urea nitrogen/Creatinine [Mass Ratio] in Serum or Plasma 15.57 Ratio [facility] ([facility]) Globulin [Mass/volume] in Serum by calculation 2.90 2.30-4.20 [facility] ([facility]) ID Date Data Source [id number] 12/12/2019 12:14:00 PM EDT [facility] ([facility]) Name Value Range Interpretation Code Description Data Lucia rce(s) Supporting Document(s) Hemoglobin A1c/Hemoglobin.total in Blood 7.63 4.00-6.00 [facility] ([facility]) <content>GOAL <7</content>
<content> </content>
<content></content> Glucose mean value [Mass/volume] in Blood Estimated fr om glycated hemoglobin 172.18 mg/dL [facility] ([facility]) Thyrotropin [Units/volume] in Serum or Plasma 1.037 uIU/mL 0.350-4.94 0 [facility] ([facility]) ID Date Data Source [id number] 12/12/2019 12:14:00 PM EDT [facility] ([facility]) Name Value Range Interpretation Code Description Data Lucia rce(s) Supporting Document(s) Triglyceride [Mass/volume] in Serum or Plasma 98 mg/dL 1-200 [facility] ([facility]) GOAL LESS THAN 200 Cholesterol [Mass/volume] in Serum or Plasma 142 mg/dL 112-200 [facility] ([facility]) GOAL LESS THAN 200 Cholesterol non HDL [Mass/volume] in Serum or Plasma 96.00 mg/dL 0 .00-100.00 [facility] ([facility]) GOAL LESS THAN 100 Cholesterol.total/Cholesterol in HDL [Mass Ratio] in Serum o r Plasma 3.09 4.00-6.70 [facility] ([facility]) Cholesterol in HDL [Mass/volume] in Serum or Plasma 46 mg/dL 30-70 [facility] ([facility]) GOAL GREATER THAN 45 Cholesterol in LDL [Mass/volume] in Serum or Plasma by calcu lation 76.40 mg/dL 20.00-130.00 [facility] ([facility]) GOAL LESS THAN 100 ID Date Data Source [id number] 12/12/2019 12:14:00 PM EDT [facility] ([facility]) Name Value Range Interpretation Code Description Data Lucia rce(s) Supporting Document(s) Creatinine [Mass/volume] in Serum or Plasma 1.2 mg/dL 0.7-1.3 [facility] ([facility]) Urea nitrogen [Mass/volume] in Serum or Plasma 19 mg/dL 9-21 [facility] ([facility]) Glucose [Mass/volume] in Serum or Plasma 159.00 mg/dL 70.00-110.00 [facility] ([facility]) Glomerular filtration rate/1.73 sq M.pre dicted [Volume Rate/Area] in Serum or Plasma by Creatinine-based formula (MDRD) 65.00 mL/min [facility] ([facility]) <content>NORMAL FUNCTION OR MILD RENAL D ISEASE:>60 ml/min</content>
<content>ADVANCED RENAL DISEASE:15-59 ml/min</content>
<content>RENAL FAILURE:<15 ml/min</content>
<content></content>
<content></content> Chloride [Moles/volume] in Serum or Plasma 106 mmol/L 98-107 [facility] ([facility]) Potassium [Moles/volume] in Serum or Plasma [...] of [facility] ) ID Date Data Source [id number] 12/02/2019 08:47:00 AM EDT [facility] CT C HEST WO [...] rce(s) Supporting Document(s) ID Date Data Source [id number] 11/28/2019 11:24:00 AM EDT [facility] Name Value Range Interpretation Code Description Data Lucia rce(s) Supporting Document(s) SARS-CoV-2 (COVID19) [place] This lab was ordered by [facility] and reported by [facility]. ID Date Data Source [id number] 11/18/2019 06:02:00 AM EDT [facility] SURGEON: Dr. Blake; APPLICATOR SPRAYER: Dr. Guanaco Long DATE OF PROCEDURE: 11/17/2019 [...] Electronically Signed By Chris Blake MD 11/18/19 9442 Transcribed By [email or web address] 11/18/19 1446 Name Value Range Interpretation Code Description Data Lucia rce(s) Supporting Document(s) ID Date Data Source [id number] 11/17/2019 08:43:00 AM EDT [facility] ([facility] [place]) Name Value Range Interpretation Code Description Data Lucia rce(s) Supporting Document(s) Surgical pathology study Laboratory test result [facility] ([facility] [employer] [facility] [place]) [address] [place] [address] Sandhya Carson M.D., Pole Sander Operator Laboratory Report Pg 1 PATIENT: MARILYN RIBEIRO : 64 M.R.N.: [id number] DOCTOR: Chris Blake MD AGE/SEX: 59/M COPIES TO: LOC: [facility] MD Jerry Coker MD Nurudin Cemer, MD ACCESSION NUMBER: [id number] RECEIVED: 11/18/19 FINAL DIAGNOSIS: Foreskin, circumcision: Skin with focal parakeratosis and patchy mild to moderate acute and chronic inflammation. CLINICAL HISTORY: Phimosis. SPECIMEN: FORESKIN GROSS DESCRIPTION: The specimen is received in formalin labeled with the patient's name a nd "foreskin" and consists of rectangular galan skin measuring 5.5 x 3 x 0.8 cm. The skin surface is wrinkly and focally hemorrhagic. Community Development Aide sections are submitted in 1 ca ssette. nw Signed (signature on file) Sandhya Carson MD 11/19/19 1232 ID Date Data Source [id number] 11/19/2019 12:32:00 PM EDT [facility] [place] [address] Sandhya angel M.D., Pole Sander Operator Laboratory Report Pg 1 PATIENT: MARILYN RIBEIRO : 64 M.R.N.: [id number]: Chris Blkae MD AGE/SEX: 59/M COPIES TO: LOC: [facility] MD Jerry Coker MD Nurudin Cemer, MD ACCESSION NUMBER: [id number] RECEIVED: 11/18/19 FINAL DIAGNOSIS: Foreskin, circumcision: Skin with focal parakeratosis and patchy mild to moderate acute andchronic inflammation. --- CLINICAL HISTORY: Phimosis. SPECIMEN: FORESKIN GROSS DESCRIPTION: The specimen is received in formalin labeled with the patient's name and "foreskin" andconsists of rectangular galan skin measuring 5.5 x 3 x 0.8 cm. The skin surface is wrinklyand focally hemorrhagic. Community Development Aide sections are submitted in 1 cassette. nw Signed (signature on file) Sandhya Carson MD 11/19/19 1232 Name Value Range Interpretation Code Description Data [facility](s) Supporting Document(s) ID Date Data Source [id number] 11/12/2019 09:30:00 AM LUIS FERNANDO LUNDBERG ([facility] [employer] [place]) Name Value Range Interpretation Code Description Data [facility](s) Supporting Document(s) Covid-19 Laboratory test result ME VIDAL ([facility] [employer] [facility] [employer] [place]) TEST PERFORMED AT:\\X0D\\\\X0A\\[facility]\\X0D\\\\X0A\\[address] [facility]\\X0D\\ ID Date Data Source [id number] 11/15/2019 12:34:42 PM EDT [facility] Received: 11/13/2019 at 20:46:00 P: [facility], [address] [facility], [address] [place] [address], [id number], RICHARD HERNANDEZ MD Name Value Range Interpretation [...] managementdecisions.Due to the current public health emergency, [employer] is receiving a high volume of samples [...] patients and the FDA authorized labeling available [employer] website: www.[employer]/Covid19 ID Date Data Source [id number] 11/15/2019 12:40:00 PM EDT [facility] TEST PERFORMED AT:[facility] [place] [address];4 [place], [place] [address]WZVBTORICHARD HERNANDEZ MD Name Value Range Interpretation Code Description Data Lucia rce(s) Supporting Document(s) SARS-COV-2 RNA NOT DETECTED NOT DETECTED [facility] A Not Detected (negative) test result [...] managementdecisions.Due to the current public health emergency, [employer] is receiving a high volume of samples [...] patients and the FDA authorized labeling available [employer] website: www.[employer]/Covid19 ID Date Data Source [id number] 11/12/2019 12:00:00 AM EDT [facility] Name Value Range Interpretation Code Description Data Lucia rce(s) Supporting Document(s) SARS coronavirus [address] [facility] [address] [facility] [place] This lab was ordered by [facility] and reported by [facility]. ID Date Data Source [id number] 11/06/2019 11:54:00 AM EDT [facility] ([facility] [employer] [facility] [employer]) Name Value Range Interpretation Code Description Data Lucia rce(s) Supporting Document(s) Urea nitrogen [Mass/volume] in Serum or Plasma 20 mg/dL 6-24 [facility] ([facility] [employer] [facility] [place]) SRC:UC A courtesy copy of this report leger s been sent to the patient, SRC:UC Glucose [Mass/volume] in Serum or Plasma 190 mg/dL 65-99 [facility] ([facility]) SRC:UC A courtesy copy of this report leger s been sent to the patient, SRC:UC eGFR If NonAfricn Am 66 mL/min/1.73 [facility] ([facility]) SRC:UC A courtesy copy of this report leger s been sent to the patient, SRC:UC Creatinine [Mass/volume] in Serum or Plasma 1.21 mg/dL 0.76-1.27 [facility] ([facility]) SRC:UC A courtesy copy of this report leger s been sent to the patient, SRC:UC BUN/Creatinine Ratio 17 9-20 MEDE NT ([facility]) SRC:UC A courtesy copy of this report leger s been sent to the patient, SRC:UC eGFR If Africn Am 76 mL/min/1.73 MED [facility] ([facility]) SRC:UC A courtesy copy of this report leger s been sent to the patient, SRC:UC Potassium 5.0 mmol/L 3.5-5.2 [facility] ([facility]) SRC:UC A courtesy copy of this report leger s been sent to the patient, SRC:UC Sodium 143 mmol/L 134-144 [facility] ([facility]) SRC:UC A courtesy copy of this report leger s been sent to the patient, SRC:UC Chloride 107 mmol/L 96-106 [facility] ([facility]) SRC:UC A courtesy copy of this report leger s been sent to the patient, SRC:UC Calcium [Mass/volume] in Serum or Plasma 9.6 mg/dL 8.7-10.2 [facility] ([facility]) SRC:UC A courtesy copy of this report leger s been sent to the patient, SRC:UC Carbon Dioxide, Total 24 mmol/L 20-29 MED [facility] ([facility]) SRC:UC A courtesy copy of this report leger s been sent to the patient, SRC:UC ID Date Data Source [id number] 11/06/2019 11:54:00 AM EDT [facility] ([facility]) Name Value Range Interpretation Code Description Data Lucia rce(s) Supporting Document(s) WBC 7.6 x10E3/uL 3.4-10.8 [facility] ([facility]) SRC:UC A courtesy copy of this report leger s been sent to the patient, SRC:UC Hemoglobin [Mass/volume] in Blood 14.2 g/dL 13.0-17.7 [facility] ([facility]) SRC:UC A courtesy copy of this report leger s been sent to the patient, SRC:UC RBC 4.34 x10E6/uL 4.14-5.80 [facility] ([facility]) SRC:UC A courtesy copy of this report leger s been sent to the patient, SRC:UC Hematocrit [Volume Fraction] of Blood by Automated count 42.2 % 3 7.5-51.0 [facility] ([facility]) SRC:UC A courtesy copy of this report leger s been sent to the patient, SRC:UC MCV 97 fL 79-97 [facility] ([facility]) SRC:UC A courtesy copy of this report leger s been sent to the patient, SRC:UC MCH 32.7 pg 26.6-33.0 [facility] ([facility]) SRC:UC A courtesy copy of this report leger s been sent to the patient, SRC:UC MCHC 33.6 g/dL 31.5-35.7 [facility] ([facility]) SRC:UC A courtesy copy of this report leger s been sent to the patient, SRC:UC RDW 12.7 % 11.6-15.4 [facility] ([facility]) SRC:UC A courtesy copy of this report leger s been sent to the patient, SRC:UC Platelets 279 x10E3/uL 150-450 [facility] ([facility]) SRC:UC A courtesy copy of this report leger s been sent to the patient, SRC:UC Neutrophils 69 % [facility] ([facility]) SRC:UC A courtesy copy of this report leger s been sent to the patient, SRC:UC Monocytes 10 % [facility] ([facility]) SRC:UC A courtesy copy of this report leger s been sent to the patient, SRC:UC Lymphs 19 % [facility] ([facility]) SRC:UC A courtesy copy of this report leger s been sent to the patient, SRC:UC Basos 1 % [facility] ([facility]) SRC:UC A courtesy copy of this report leger s been sent to the patient, SRC:UC Eos 1 % [facility] ([facility]) SRC:UC A courtesy copy of this report leger s been sent to the patient, SRC:UC Neutrophils (Absolute) 5.2 x10E3/uL 1.4-7.0 [facility] ([facility]) SRC:UC A courtesy copy of this report leger s been sent to the patient, SRC:UC Immature Cells Laboratory test result [facility] ([facility]) SRC:UC A courtesy copy of this report leger s been sent to the patient, SRC:UC Lymphs (Absolute) 1.4 x10E3/uL 0.7-3.1 MEDEN T ([facility]) SRC:UC A courtesy copy of this report leger s been sent to the patient, SRC:UC Monocytes(Absolute) 0.8 x10E3/uL 0.1-0.9 MED [facility] ([facility]) SRC:UC A courtesy copy of this report leger s been sent to the patient, SRC:UC Baso (Absolute) 0.1 x10E3/uL 0.0-0.2 [facility] ([facility]) SRC:UC A courtesy copy of this report leger s been sent to the patient, SRC:UC Eos (Absolute) 0.1 x10E3/uL 0.0-0.4 [facility] ( [facility]) SRC:UC A courtesy copy of this report leger s been sent to the patient, SRC:UC Immature granulocytes/100 leukocytes in Blood by Automated count 0 % [facility] ([facility]) SRC:UC A courtesy copy of this report leger s been sent to the patient, SRC:UC Immature granulocytes [#/volume] in Blood by Automated count 0.0 x10E3/uL 0.0-0.1 [facility] ([facility]) SRC:UC A courtesy copy of this report leger s been sent to the patient, SRC:UC Hematology Comments: Laboratory test result [facility] ([facility]) SRC:UC A courtesy copy of this report leger s been sent to the patient, SRC:UC NRBC Laboratory test result ME DENT ([facility]) SRC:UC A courtesy copy of this report leger s been sent to the patient, SRC:UC ID Date Data Source [id number] 11/06/2019 11:54:00 AM EDT [facility] ([facility]) Name Value Range Interpretation Code Description Data Lucia rce(s) Supporting Document(s) Prothrombin Time 10.0 sec 9.1-12.0 [facility] ( [facility]) SRC:UC A courtesy copy of this report leger s been sent to the patient, SRC:UC Inr 0.9 0.8-1.2 [facility] ([facility]) SRC:UC A courtesy copy of this report leger s been sent to the patient, SRC: ID Date Data Source [id number] 11/06/2019 11:54:00 AM EDT [facility] ([facility]) Name Value Range Interpretation Code Description Data Lucia rce(s) Supporting Document(s) Urine Culture, Routine Laboratory test result [facility] ([facility]) SRC:UC A courtesy copy of this report leger s been sent to the patient, SRC:UC Result 1 Laboratory test result ME DENT ([facility]) SRC:UC A courtesy copy of this report leger s been sent to the patient, SRC:UC ID Date Data Source [id number] 11/06/2019 11:54:00 AM EDT [facility] ([facility]) Name Value Range Interpretation Code Description Data Lucia rce(s) Supporting Document(s) Specific [place] Laboratory test result 1.005-1.030 Abnormal (applies to non- numeric results) [facility] ([facility]) SRC:UC A courtesy copy of this report leger s been sent to the patient, SRC:UC Urine-Color Laboratory test result M EDENT ([facility]) SRC:UC A courtesy copy of this report leger s been sent to the patient, SRC:UC pH 5.5 5.0-7.5 [facility] ([facility]) SRC:UC A courtesy copy of this report leger s been sent to the patient, SRC:UC WBC Esterase Laboratory test result [facility] ([facility]) SRC:UC A courtesy copy of this report leger s been sent to the patient, SRC:UC Appearance Laboratory test result ME DENT ([facility]) SRC:UC A courtesy copy of this report leger s been sent to the patient, SRC:UC Protein Laboratory test result ME DENT ([facility]) SRC:UC A courtesy copy of this report leger s been sent to the patient, SRC:UC Glucose Laboratory test result Abnormal (applies to non -numeric results) [facility] ([facility]) SRC:UC A courtesy copy of this report leger s been sent to the patient, SRC:UC Ketones Laboratory test result ME DENT ([facility]) SRC:UC A courtesy copy of this report leger s been sent to the patient, SRC:UC Occult Blood Laboratory test result [facility] ([facility]) SRC:UC A courtesy copy of this report leger s been sent to the patient, SRC:UC Urobilinogen,Semi-Qn 0.2 mg/dL 0.2-1.0 MEDE NT ([facility]) SRC:UC A courtesy copy of this report leger s been sent to the patient, SRC:UC Bilirubin Laboratory test result ME [facility]ENT ([facility]) SRC:UC A courtesy copy of this report leger s been sent to the patient, SRC:UC Microscopic Examination Laboratory test result [facility] ([facility]) SRC:UC A courtesy copy of this report leger s been sent to the patient, SRC:UC Nitrite, Urine Laboratory test result [facility] ([facility]) SRC:UC A courtesy copy of this report leger s been sent to the patient, SRC:UC WBC Laboratory test result 0-5 ME DENT ([facility]) SRC:UC A courtesy copy of this report leger s been sent to the patient, SRC:UC Microscopic observation [Identifier] in Urine sediment by Light microscopy Laboratory test result [facility] ([facility]) SRC:UC A courtesy copy of this report leger s been sent to the patient, SRC:UC RBC Laboratory test result 0-2 ME DENT ([facility]) SRC:UC A courtesy copy of this report leger s been sent to the patient, SRC:UC Epithelial Cells (non renal) Laboratory test result 0-10 [facility] ([facility]) SRC:UC A courtesy copy of this report leger s been sent to the patient, SRC:UC Casts Laboratory test result ME DENT ([facility]) SRC:UC A courtesy copy of this report leger s been sent to the patient, SRC:UC Cast Type Laboratory test result ME DENT ([facility]) SRC:UC A courtesy copy of this report leger s been sent to the patient, SRC:UC Epithelial Cells (renal) Laboratory test result [facility] ([facility]) SRC:UC A courtesy copy of this report leger s been sent to the patient, SRC: Crystals Laboratory test result ME [facility] ([facility]) SRC: A courtesy copy of this report leger s been sent to the patient, SRC: Crystal Type Laboratory test result [facility] ([facility]) SRC: A courtesy copy of this report leger s been sent to the patient, SRC: Mucus Threads Laboratory test result [facility] ([facility]) SRC: A courtesy copy of this report leger s been sent to the patient, SRC: Bacteria Laboratory test result ME [facility] ([facility]) SRC: A courtesy copy of this report leger s been sent to the patient, SRC: Yeast Laboratory test result ME D[facility] ([facility]) SRC: A courtesy copy of this report leger s been sent to the patient, SRC: Trichomonas Laboratory test result M EDENT ([facility]) SRC: A courtesy copy of this report leger s been sent to the patient, SRC: Comment Laboratory test result ME DENT ([facility]) SRC: A courtesy copy of this report leger s been sent to the patient, SRC: ID Date Data Source [id number] 11/07/2019 04:05:00 AM EDT [facility] Name Value [...] 0.0-0.1 [facility] ID Date Data Source [id number] 11/07/2019 06:06:00 AM EDT [facility] Name Value Range Interpretation Code Description Data Lucia rce(s) Supporting Document(s) INR 0.9 0.8-1.2 [facility] Reference interval is for non-anticoagulated patients. Suggested INR therapeutic range for Vitamin K antagonist therapy: Standard Dose (moderate intensity therapeutic range): 2.0 - 3.0 Higher intensity therapeutic range 2.5 - 3.5 Prothrombin Time 10.0 sec 9.1-12.0 [facility] ID Date Data Source [id number] 11/07/2019 07:06:00 AM EDT [facility] Name Value Range Interpretation Code Description Data Lucia rce(s) Supporting Document(s) Specific [place] >=1.030 1.005-1.030 Abnormal (applies to non -numeric [...] below: [facility] ID Date Data Source [id number] 11/08/2019 01:05:00 AM EDT [facility] Name Value Range Interpretation Code Description Data Lucia rce(s) Supporting Document(s) Urine Culture, Routine Final report [facility] ID Date Data Source [id number] 11/07/2019 04:05:00 AM EDT [facility] Name Value [...] mg/dL 8.7-10.2 [facility] ID Date Data Source [id number] 11/07/2019 07:06:00 AM EDT [facility] Name Value Range Interpretation Code Description Data Lucia rce(s) Supporting Document(s) WBC 0-5 /hpf 0 - 5 [facility] RBC None seen /hpf 0 - 2 [facility] Epithelial Cells (non renal) None seen /hpf 0 - 10 [facility] Bacteria None seen None seen/Few [facility] ID Date Data Source [id number] 11/08/2019 01:05:00 AM EDT [facility] Name Value Range Interpretation Code Description Data Lucia rce(s) Supporting Document(s) Result 1 No growth [facility] Procedure Social History Code Duration Value Status Description Data Source(s ) Tattoo/Piercing 12/07/2020 12:00:00 AM EDT Pierced ears completed Pi erced ears [facility] ([facility]) Tattoo/Piercing 12/07/2020 12:00:00 AM EDT Tattoo completed Tatt oo [facility] ([facility]) ETOH Use 12/07/2020 12:00:00 AM EDT Denies alcohol use complete d Denies alcohol use [facility] ([facility] Smoking 12/07/2020 12:00:00 AM EDT Patient has never smoked co mpleted Patient has never smoked [facility] ([facility] Alcohol intake 11/22/2020 12:00:00 AM EDT Current non-d ignacia of alcohol (finding) completed Current non-drinker of alcohol (finding) [facility] Recreational Drug Use 09/14/2020 12:00:00 AM EDT Denies Drug Use co mpleted Denies Drug Use [facility] ([facility]) ETOH Use 09/14/2020 12:00:00 AM EDT Has consumed alcohol in the past completed Has consumed alcohol in the past [facility] ([facility]) sober x7 years Smokeless Tobacco 09/14/2020 12:00:00 AM EDT Current Smokeless T obacco User completed Current Smokeless Tobacco User [facility] ([facility] ) 1 can per day x40 years Smoking 09/14/2020 12:00:00 AM EDT Current smokless tobacco us er completed Current smokless tobacco user [facility] ([facility]) Alcohol intake 03/03/2020 12:00:00 AM EST No completed [facility] Cigarette pack-years 03/03/2020 12:00:00 AM EST UNK completed [facility] Cigarettes smoked current (pack per day) - Reported 03/03/19 12:00:00 AM EST UNK completed [facility] Smoking 03/03/2020 12:00:00 AM EST Former smoker completed Former smoker [facility] Alcohol intake 02/13/2020 12:00:00 AM EST No completed [facility] Cigarette pack-years 02/13/2020 12:00:00 AM EST UNK completed [facility] Cigarettes smoked current (pack per day) - Reported 02/13/20 12:00:00 AM EST UNK completed [facility] Smoking 02/13/2020 12:00:00 AM EST Former smoker completed Former smoker [facility] Smoking 02/01/2020 12:00:00 AM EST Patient is a former smoker completed Patient is a former smoker [facility] ([facility]) Smoking 12/31/2019 12:00:00 AM EST Former Cigarette Smoker com pleted Former Cigarette Smoker [facility] ([facility]) Vital Signs ID Date Data Source UNK Name Value Range Interpretation Code Description Data Source(s) Body weight 223.00 [lb_av] 223.00 [lb_av] MEDEN T ([facility]) Systolic blood pressure 134 mm[Hg] 134 mm[Hg] M EDENT ([facility]) Body weight 101.153 kg [...] 31.1 k g/m2 [facility] ([facility]) [place] body weight 172 [lb_av] 172 [lb_av] MEDEN T ([facility]) Diastolic blood pressure 70 mm[Hg] 70 mm[Hg] [facility] ([facility]) Body temperature 97.4 [degF] 97.4 [degF] [facility] ([facility]) Body height 72 [in_i] 72 [in_i] [facility] ([facility]) 6'0" Body weight 227.00 [lb_av] 227.00 [lb_av] MEDEN T ([facility]) Systolic blood pressure 127 mm[Hg] 127 mm[Hg] M EDENT ([facility]) Heart rate 87 /min 87 /min [facility] Diastolic blood pressure 82 mm[Hg] 82 mm[Hg] [facility] ([facility]) Body mass index (BMI) [Ratio] 30.8 kg/m2 30.8 k g/m2 [facility] ([facility] Diastolic blood pressure 80 mm[Hg] 80 mm[Hg] [facility] Systolic blood pressure 124 mm[Hg] 124 mm[Hg] [facility] Heart rate 84 /min 84 /min [facility] Body temperature 37.33 Mary 37.33 Mary [facility] Respiratory rate 18 /min 18 /min [facility] Body height 182.9 cm 182.9 cm [facility] Body weight 103.148 kg 103.148 kg [facility] Body mass index (BMI) [Ratio] 30.83 kg/m2 30.83 kg/m2 [facility] Oxygen saturation in Arterial blood by Pulse oximetry 94 % 94 % [facility] Body weight 100.699 kg 100.699 kg [facility]) Diastolic blood pressure 72 mm[Hg] 72 mm[Hg] [facility] ([facility]) Heart rate 86 /min 86 /min [facility] Body temperature 98.5 [degF] 98.5 [degF] [facility] ([facility]) Respiratory rate 18 /min 18 /min [facility] ( [facility]) Body height 71 [in_i] 71 [in_i] [facility] 5'11" Body weight 222.00 [lb_av] 222.00 [lb_av] MEDEN T ([facility]) Body mass index (BMI) [Ratio] 31.0 kg/m2 31.0 k g/m2 [facility] ([facility]) [place] body weight 172 [lb_av] 172 [lb_av] MEDEN [...] mm[Hg] 82 mm[Hg] [facility] ([facility]) [place] body weight 172 [lb_av] 172 [lb_av] MEDEN [...] 79 /min 79 /min [employer] ([facility]) Pattern: Regular Respiratory rate 14 /min 14 /min [employer] [facility] ([facility]) Pattern: Unlabored Diastolic blood pressure 78 mm[Hg] 78 mm[Hg] [employer] ([facility]) Patient Position: Sitting; Cuff Location : Left Arm; Cuff Size: Standard Body height 72 [in_us] 72 [in_us] [employer] ([facility]) Body mass index (BMI) [Ratio] 31.08 kg/m2 31.08 kg/m2 [employer] ([facility]) Oxygen saturation in Arterial blood by Pulse oximetry 97 % 97 % [employer] ([facility]) Room air Systolic blood pressure 132 mm[Hg] 132 mm[Hg] [employer] ([facility]) Patient Position: Sitting; Cuff Location : Left Arm; Cuff Size: Standard Body weight 229.2 [lb_av] 229.2 [lb_av] [employer] ([facility]) Body surface area Derived from formula 2.26 m2 2.26 m2 [employer] ([facility]) Body temperature 97.7 [degF] 97.7 [degF] [facility] ([facility] Body height 72 [in_i] 72 [in_i] [facility] ([facility] 6'0" Body weight 242.00 [lb_av] 242.00 [lb_av] MEDEN T ([facility] ) Systolic blood pressure 120 mm[Hg] 120 mm[Hg] M EDENT ([facility]) Heart rate 82 /min 82 /min [facility] ([facility] Diastolic blood pressure 72 mm[Hg] 72 mm[Hg] [facility] ([facility]) Systolic blood pressure 120 mm[Hg] 120 mm[Hg] M EDENT ([facility]) Diastolic blood pressure 72 mm[Hg] 72 mm[Hg] [facility] ([facility]) Heart rate 82 /min 82 /min [facility] ([facility] Body height 72 [in_i] 72 [in_i] [facility] ([facility]) 6'0" Body weight 242.00 [lb_av] 242.00 [lb_av] MED[facility] T ([facility]) Body mass index (BMI) [Ratio] 32.8 kg/m2 32.8 k g/m2 [facility] ([facility]) Body temperature 97.7 [degF] 97.7 [degF] [facility] ([facility] Body mass index (BMI) [Ratio] 32.8 kg/m2 32.8 k g/m2 [facility] ([facility] Respiratory rate 16 /min 16 /min [facility] ( [facility]) Body weight 230.00 [lb_av] 230.00 [lb_av] MEDEN T ([facility]) Body weight 104.328 kg 104.328 kg [facility] Body height 71 [in_i] 71 [in_i] [facility] 5'11" Body mass index (BMI) [Ratio] 32.1 kg/m2 32.1 k g/m2 [facility] ([facility]) [place] body weight 172 [lb_av] 172 [lb_av] MEDEN T ([facility]) Systolic blood pressure 120 mm[Hg] 120 mm[Hg] M EDENT ([facility]) Diastolic blood pressure 80 mm[Hg] 80 mm[Hg] [facility] ([facility]) Heart rate 80 /min 80 /min [facility] Body temperature 98.1 [degF] 98.1 [degF] [facility] ([facility]) Systolic blood pressure 104 mm[Hg] 104 mm[Hg] [facility] Body weight 104.781 kg 104.781 kg [facility] Body mass index (BMI) [Ratio] 31.32 kg/m2 31.32 kg/m2 [facility] Oxygen saturation in Arterial blood by Pulse oximetry 96 % 96 % [facility] Diastolic blood pressure 62 mm[Hg] 62 mm[Hg] [facility] Heart rate 79 /min 79 /min [facility] Body temperature 36.44 Mary 36.44 Mary [facility] Respiratory rate 20 /min 20 /min [facility] Body height 182.9 cm 182.9 cm [facility] Heart rate 88 /min 88 /min [facility] Systolic blood pressure 145 mm[Hg] 145 mm[Hg] [facility] Respiratory rate 16 /min 16 /min [facility] Diastolic blood pressure 77 mm[Hg] 77 mm[Hg] [facility] Body temperature 36.78 Mary 36.78 Mary [facility] Oxygen saturation in Arterial blood by Pulse oximetry 96 % 96 % [facility] Body height 182.9 cm 182.9 cm [facility] Body weight 104.8 kg 104.8 kg [facility] Body mass index (BMI) [Ratio] 31.33 kg/m2 31.33 kg/m2 [facility] Systolic blood pressure 118 mm[Hg] 118 mm[Hg] M EDENT ([facility]) Diastolic blood pressure 78 mm[Hg] 78 mm[Hg] MED[facility] ([facility], [facility]) Heart rate 84 /min 84 /min [facility] ([facility], [facility]) Respiratory rate 18 /min 18 /min [facility] ( [facility]) Oxygen saturation in Arterial blood by Pulse oximetry 97 % 97 % [facility] ([facility], [facility]) Body temperature 98.8 [degF] 98.8 [degF] [facility] ([facility], [facility]) Body weight 230.00 [lb_av] 230.00 [lb_av] MEDEN T ([facility], [facility]) Body height 73 [in_i] 73 [in_i] [facility] ([facility], [facility]) 6'1" Body mass index (BMI) [Ratio] 30.3 kg/m2 30.3 k g/m2 [facility] ([facility], [facility]) Heart rate 87 /min 87 /min [facility] ([facility] Diastolic blood pressure 76 mm[Hg] 76 mm[Hg] [facility] ([facility]) Body height 72 [in_i] 72 [in_i] [facility] ([facility] [facility] [employer]) 6'0" Body weight 235.00 [lb_av] 235.00 [lb_av] MEDEN T ([employer] [facility]) Body weight 106.596 kg 106.596 kg MED[facility] ([facility] [employer] [facility]) Body mass index (BMI) [Ratio] 31.9 kg/m2 31.9 k g/m2 MED[facility] ([employer]) Systolic blood pressure 127 mm[Hg] 127 mm[Hg] M EDENT ([employer]) Body mass index (BMI) [Ratio] 32.7 kg/m2 [...] [in_i] MEDENT ([facility]) 5'11" [place] body weight 172 [lb_av] 172 [lb_av] MEDEN T ([facility]) Body height 71.5 [in_us] 71.5 [in_us] [facility] s ([facility]) Body temperature 96.6 [degF] 96.6 [degF] AllScr ipts ([facility]) Method: Tympanic Heart rate 85 /min 85 /min [facility] ([facility]) Pattern: Regular Respiratory rate [...] [Ratio] 32.8 kg/m2 32.8 k g/m2 MEDENT ([facility]) [place] body weight 172 [lb_av] 172 [lb_av] MEDEN T ([facility]) Oxygen saturation in Arterial blood by Pulse oximetry 98 % 98 % MEDENT ([facility]) Heart rate 82 /min 82 /min MEDENT ([facility]) Body temperature 98.9 [degF] 98.9 [degF] MEDENT ([facility]) ID Date Data Source [id number] 11/20/2019 08:24:00 AM EDT [facility] Name Value Range Interpretation Code Description Data Source(s) HEIGHT 182.88 cm 182.88 cm [facility] WEIGHT RECORDED 104.556777 kg 104.270221 kg [facility] HEIGHT 182.88 cm 182.88 cm [facility] WEIGHT RECORDED 106.889810 kg 106.945704 kg [facility] Patient Treatment Plan of Care Planned Activity Planned Date Details Description Data Source (s) perflutren lipid microsphere ([facility]) 8.476 mg in 10 mL NS IV 11/22/2020 01:34:13 PM EDT [facility] Nitroglycerin 0.4 MG Sublingual Tablet 11/22/2020 12:00:00 AM EDT [facility] Stiolto Respimat 2.5-2.5 MCG/ACT AERS 10/18/2020 12:00:00 AM EDT [facility] 200 ACTUAT Albuterol 0.09 MG/ACTUAT Metered Dose Inhal er [ProAir] 09/15/2020 12:00:00 AM EDT [facility] ([facility] Albuterol 0.83 MG/ML Inhalant Solution 09/15/2020 12:00:00 AM EDT [facility] ([facility]) clopidogrel 75 MG Oral Tablet 09/09/2020 12:00:00 AM EDT [facility] nebivolol 10 MG Oral Tablet 09/09/2020 12:00:00 AM EDT [facility] Stiolto Respimat 2.5-2.5 MCG/ACT Inhalation Aerosol So lution 06/03/2020 12:00:00 AM EDT [facility] ([facility]) nebivolol 10 MG Oral Tablet 03/03/2020 12:00:00 AM EST [facility] empagliflozin 25 MG / Linagliptin 5 MG Oral Tablet [Gl yxambi] 02/19/2020 12:00:00 AM EST [facility] 30 ACTUAT umeclidinium 0.0625 MG/ACTUAT / vilanterol 0.025 MG/ACTUAT Dry Powder Inhaler [Anoro] 02/19/2020 12:00:00 AM EST [facility] 24 HR metoprolol succinate 50 MG Extended Release Oral Tablet 02/14/2020 12:00:00 AM EST [facility] clopidogrel 75 MG Oral Tablet 02/14/2020 12:00:00 AM EST [facility] 30 ACTUAT umeclidinium 0.0625 MG/ACTUAT / vilanterol 0.025 MG/ACTUAT Dry Powder Inhaler [Anoro] 01/21/2020 12:00:00 AM EST [facility] ([facility]) Nitroglycerin 0.4 MG Sublingual Tablet 03/25/2019 12:00:00 AM EST [facility] Metoprolol Tartrate 25 MG Oral Tablet 03/25/2019 12:00:00 AM EST [facility] Bacitracin 0.5 UNT/MG / Neomycin 0.0035 MG/MG / Polymyxin B 10 UNT/MG Topical Ointment 03/06/2019 12:00:00 AM EST [facility] empagliflozin 25 MG Oral Tablet [Jardiance] 10/09/2018 12:00:00 AM EDT [facility] Tiotropium [place] Monohydrate (SPIRIV[employer] IN) [facility] Betamethasone 0.5 MG/ML Topical Cream [facility] linaclotide 0.145 MG Oral Capsule [facility] Acetaminophen 325 MG / Hydrocodone Bitartrate 10 MG Oral Tablet [facility] 60 ACTUAT Fluticasone propionate 0.5 MG/ ACTUAT / salmeterol 0.05 MG/ACTUAT Dry Powder Inhaler [facility] Linagliptin 5 MG Oral Tablet [facility] 7 ACTUAT umeclidinium 0.0625 MG/ACTUAT Dry Powder Inhaler [facility] sitagliptin 50 MG Oral Tablet [facility]
[2020-12-27] MEDS ORDERED: HOME MED LIST COMPLETE! XX SCH (19:35)
[2020-12-27 19:59] LABS: INR 1.08; PROTHROMBIN TIME 14.4 SECONDS (12.7-14.5)
[2020-12-27 20:00] LABS: PARTIAL THROMBOPLASTIN TIME 34.9 SECONDS (25.9-37.0)
[2020-12-27] MEDS ORDERED: ALBUTEROL 90 MCG/ACT 8GM HFA INHALER INH PRN (20:00)
[2020-12-27] MEDS ORDERED: DEXTROSE 50% 50 ML SYRINGE IV PRN (20:00)
[2020-12-27] MEDS ORDERED: GLUCOSE 4GM CHEW TABLET PO PRN (20:00)
[2020-12-27] MEDS ORDERED: ALBUTEROL SULFATE 2.5 MG/0.5 ML INH NEB SOLN NEB PRN (20:00)
[2020-12-27] MEDS ORDERED: REMDESIVIR 200 MG in NS 250 ML IV ONE (20:00)
[2020-12-27] MEDS ORDERED: GLUCAGON INJ 1MG VIAL SC PRN (20:00)
[2020-12-27 20:02] LABS: D-DIMER QUANT 1270.04 ng/ml (<500)
[2020-12-27] MEDS: HumaLOG INSULIN (NovoLOG) PER UNIT SC SCH (21:00)
[2020-12-27] MEDS: traZODone 50 MG TAB PO SCH (21:49)
[2020-12-27] MEDS: SIMVASTATIN 40 MG TAB PO SCH (21:50)
[2020-12-27] MEDS: CitaloPRAM (CeleXA) 20 MG TAB PO SCH (21:50)
[2020-12-27] MEDS ORDERED: SODIUM CHLORIDE 0.9% INJ 10 ML SYR IV ONE (22:00)
[2020-12-27 22:45] VITALS: BP 150/77
[2020-12-27 23:00] VITALS: O2SAT 93
[2020-12-28 06:00] VITALS: BP 145/81
[2020-12-28 06:13] LABS: MEAN CORPUSCULAR HEMOGLOBIN 31.7 pg (27.0-33.0); MEAN CORPUSCULAR HGB CONC 33.3 g/dl (32.0-36.5); MEAN CORPUSCULAR VOLUME 95.2 fl (80.0-96.0); PLATELET COUNT, AUTOMATED 303 10^3/uL (150-450); RED BLOOD COUNT 4.41 10^6/uL (4.30-6.10); WHITE BLOOD COUNT 4.4 10^3/uL (4.0-10.0)
[2020-12-28 06:32] LABS: BLOOD UREA NITROGEN 23 MG/DL (7-18); CARBON DIOXIDE LEVEL 23 MEQ/L (21-32); CHLORIDE LEVEL 106 MEQ/L (98-107); GLOMERULAR FILTRATION RATE > 60.0 (>56); GLUCOSE, FASTING 195 MG/DL (70-100); MAGNESIUM LEVEL 1.8 MG/DL (1.8-2.4); POTASSIUM SERUM 4.5 MEQ/L (3.5-5.1); SODIUM LEVEL 136 MEQ/L (136-145)
[2020-12-28] MEDS: LEVOTHYROXINE 75MCG TABLET (0.075MG) PO SCH (06:47)
[2020-12-28] MEDS: LEVOTHYROXINE 100MCG TABLET (0.1MG) PO SCH (06:47)
[2020-12-28] MEDS: HumaLOG INSULIN (NovoLOG) PER UNIT SC SCH ×4 (07:30→21:00)
[2020-12-28 07:50] LABS: ATYPICAL LYMPH 3 % (0-5); LYMPHOCYTES 7 % (16-44); MONOCYTES 6 % (0-5); NEUTROPHILS 84 % (28-66); PLATELET ESTIMATE NORMAL (NORMAL)
[2020-12-28] MEDS: TIOTROPIUM INHALER/CAPSULE (SPIRIVA) INH SCH (08:00)
--- NOTE | 2020-12-28 08:09 | ECGEPIP ---
[facility] - ED Test Date: 2020-12-27 Pat Name: MARILYN ARCHER Department: Room: - Gender: Male [employer] Paraprofessional: elia : 1960 Requested By: Dinesh Johnson Order Number: [id number] Reading MD: Dinesh Crowley Measurements Intervals [place] Rate: 84 P: 28 TX: 142 QRS: -42 QRSD: 134 T: -4 QT: 412 QTc: 486 Interpretive Statements Normal sinus rhythm Left axis deviation Right bundle branch block Septal infarct , age undetermined NO PRIORS FOR COMPARISON Electronically Signed on 12-28-2020 8:09:06 EDT by Dinesh Crowley
[2020-12-28] MEDS: TOPIRAMATE (TopAMAX) 100 MG TAB PO SCH (08:52)
[2020-12-28] MEDS: ENOXAPARIN 40MG/0.4ML SYRINGE (J1650 PER 10MG) SC SCH (08:52)
[2020-12-28] MEDS: ASPIRIN 81MG ENTERIC TABLET PO SCH (08:52)
[2020-12-28] MEDS: LOSARTAN 50MG TABLET PO SCH (08:52)
[2020-12-28] MEDS: CLOPIDOGREL 75 MG TAB PO SCH (08:52)
[2020-12-28] MEDS: MULTIVITAMINS/MINERALS THERAP 1 TAB PO SCH (08:52)
[2020-12-28] MEDS: PANTOPRAZOLE 40MG TAB (PROTONIX) PO SCH (08:52)
[2020-12-28] MEDS: NEBIVOLOL 5 MG TAB (BYSTOLIC) PO SCH (08:52)
[2020-12-28] MEDS: dexameTHASONE 4 MG/ML 1ML VIAL (J1100 PER 1MG) IV SCH (08:53)
[2020-12-28 14:00] VITALS: BP 132/73
--- NOTE | 2020-12-28 16:55 | IPNPDOC ---
Text Note Date of Service The patient was seen on 12/28/20. NOTE Subjective: No new acute events overnight. Patient continues to complain of shortness of breath. No fever or chills reported. Patient's oxygen requirements increased to 4 L Objective: GENERAL APPEARANCE: NAD HEENT: no scleral icterus, no JVD, EOMI CARDIOVASCULAR: S1S2 LUNGS: Diminished lung sounds bilaterally ABDOMEN: soft & not tender w palpation MUSCULOSKELETAL: no cyanosis, no swelling INTEGUMENT: no generalized pallor NEUROLOGICAL: cranial nerve function from 2-12 intact, follows commands, speech not dysarthric Assessment and plan 60-year-old male who presented to the hospital with chief complaint of shortness of breath and cough was diagnosed with a COPD exacerbation on top of COVID-19. COVID-19 pneumonia/ARDS Continue Decadron IV, baricitinib, remdesivir Labs according to COVID-19 protocol Procalcitonin negative, I discontinue antibiotic therapy Encouraged for prone position Type 2 diabetes Glucose level is under control Diabetes diet Insulin sliding scale Coronary artery disease. Continue patient's home medications. Hypertension. Continue patient's home medications. Hyperlipidemia. Continue patient's on medications. Hypothyroidism. Continue patient's on medications. DVT prophylaxis: Lovenox VS,Fishbone, I+O VS, Fishbone, I+O Laboratory Tests 12/28/20 05:37 Vital Signs Date Time Temp Pulse Resp B/P (MAP) Pulse Ox O2 Delivery O2 Flow Rate FiO2 12/28/20 14:00 97.3 77 22 132/73 (92) 95 Nasal Cannula 4.0 I&O- Last 24 Hours up to 6 AM 12/28/20 06:00 Intake Total 645 ml Balance 645 ml PAUL DE JESUS DO Dec 28, 2020 16:55
[2020-12-28] MEDS ORDERED: AZITHROMYCIN INJ 500 MG, VIAL MATE ADAPTER 1 EACH in NS 250 ML IV SCH (17:00)
[2020-12-28] MEDS: BARICITINIB 2MG TABLET (OLUMIANT) FOR EUA PO SCH (17:43)
[2020-12-28] MEDS ORDERED: REMDESIVIR 100 MG in NS 250 ML IV SCH (18:00)
[2020-12-28] MEDS ORDERED: cefTRIAXone SOD 1 GM in D5W MINI-BAG PLUS 50 ML IV SCH (18:00)
[2020-12-28] MEDS ORDERED: SODIUM CHLORIDE 0.9% INJ 10 ML SYR IV SCH (19:00)
[2020-12-28] MEDS: CitaloPRAM (CeleXA) 20 MG TAB PO SCH (21:53)
[2020-12-28] MEDS: SIMVASTATIN 40 MG TAB PO SCH (21:53)
[2020-12-28] MEDS: traZODone 50 MG TAB PO SCH (21:53)
[2020-12-28 22:00] VITALS: BP 136/81
[2020-12-29 03:52] VITALS: O2SAT 96
[2020-12-29] MEDS: LEVOTHYROXINE 75MCG TABLET (0.075MG) PO SCH (05:54)
[2020-12-29] MEDS: LEVOTHYROXINE 100MCG TABLET (0.1MG) PO SCH (05:54)
[2020-12-29 06:00] VITALS: BP 131/73
[2020-12-29 06:36] LABS: HEMATOCRIT 44.8 % (42.0-52.0); HEMOGLOBIN 14.6 g/dl (13.5-17.5); MEAN CORPUSCULAR HEMOGLOBIN 31.8 pg (27.0-33.0); MEAN CORPUSCULAR HGB CONC 32.6 g/dl (32.0-36.5); MEAN CORPUSCULAR VOLUME 97.6 fl (80.0-96.0); PLATELET COUNT, AUTOMATED 386 10^3/uL (150-450); RED BLOOD COUNT 4.59 10^6/uL (4.30-6.10); WHITE BLOOD COUNT 8.4 10^3/uL (4.0-10.0)
[2020-12-29 06:48] LABS: INR 0.96; PARTIAL THROMBOPLASTIN TIME 27.8 SECONDS (25.9-37.0); PROTHROMBIN TIME 13.2 SECONDS (12.7-14.5)
[2020-12-29 07:06] LABS: ALBUMIN 2.8 GM/DL (3.2-5.2); ALT/SGPT 41 U/L (12-78); BILIRUBIN,DIRECT 0.1 MG/DL (0.0-0.2); BILIRUBIN,TOTAL 0.4 MG/DL (0.2-1.0); BLOOD UREA NITROGEN 32 MG/DL (7-18); CALCIUM LEVEL 9.5 MG/DL (8.5-10.1); CARBON DIOXIDE LEVEL 26 MEQ/L (21-32); CHLORIDE LEVEL 109 MEQ/L (98-107); CPK CREATINE PHOSPHOKINASE 53 U/L (39-308); CREATININE FOR GFR 1.03 MG/DL (0.70-1.30); FERRITIN 922 NG/ML (26-388); GLOMERULAR FILTRATION RATE > 60.0 (>56); GLUCOSE, FASTING 161 MG/DL (70-100); LDH LACTATE DEHYDROGENASE 439 U/L (87-241); MAGNESIUM LEVEL 1.8 MG/DL (1.8-2.4); NT-PRO BNP 818 PG/ML (<125); POTASSIUM SERUM 4.1 MEQ/L (3.5-5.1); SODIUM LEVEL 139 MEQ/L (136-145); TOTAL PROTEIN 7.1 GM/DL (6.4-8.2); TROPONIN I < 0.02 NG/ML (< 0.10)
[2020-12-29 07:09] LABS: LYMPHOCYTES 14 % (16-44); MONOCYTES 6 % (0-5); NEUTROPHILS 80 % (28-66); PLATELET ESTIMATE NORMAL (NORMAL)
[2020-12-29] MEDS: TIOTROPIUM INHALER/CAPSULE (SPIRIVA) INH SCH (08:03)
[2020-12-29] MEDS: HumaLOG INSULIN (NovoLOG) PER UNIT SC SCH ×2 (08:26→12:33)
[2020-12-29 08:27] VITALS: BP 131/73
[2020-12-29] MEDS: LOSARTAN 50MG TABLET PO SCH (08:27)
[2020-12-29] MEDS: NEBIVOLOL 5 MG TAB (BYSTOLIC) PO SCH (08:27)
[2020-12-29] MEDS: ASPIRIN 81MG ENTERIC TABLET PO SCH (08:27)
[2020-12-29] MEDS: dexameTHASONE 4 MG/ML 1ML VIAL (J1100 PER 1MG) IV SCH (08:28)
[2020-12-29] MEDS: CLOPIDOGREL 75 MG TAB PO SCH (08:28)
[2020-12-29] MEDS: ENOXAPARIN 40MG/0.4ML SYRINGE (J1650 PER 10MG) SC SCH (08:28)
[2020-12-29] MEDS: MULTIVITAMINS/MINERALS THERAP 1 TAB PO SCH (08:28)
[2020-12-29] MEDS: PANTOPRAZOLE 40MG TAB (PROTONIX) PO SCH (08:28)
[2020-12-29] MEDS: TOPIRAMATE (TopAMAX) 100 MG TAB PO SCH (08:28)
[2020-12-29] MEDS: BARICITINIB 2MG TABLET (OLUMIANT) FOR EUA PO SCH (08:28)
[2020-12-29] MEDS ORDERED: PRED10TA2 PO ×2 (11:30→17:03)
[2020-12-29] MEDS ORDERED: LEVO500T3 PO (18:49)
--- NOTE | 2020-12-29 18:50 | DS.PDOC ---
Discharge Summary General Date of Admission Dec 27, 2020 at 18:19 Date of Discharge 12/29/20 Discharge Summary PROCEDURES PERFORMED DURING STAY: [None]. ADMITTING DIAGNOSES: COVID-19 pneumonia Type 2 diabetes Coronary artery disease Hypertension Hyperlipidemia Hypothyroidism DISCHARGE DIAGNOSES: COVID-19 pneumonia Type 2 diabetes Coronary artery disease Hypertension Hyperlipidemia Hypothyroidism COMPLICATIONS/CHIEF COMPLAINT: Copd Exacerbation, Covid-19. HISTORY OF PRESENT ILLNESS: Patient is a 60-year-old male who presents to the hospital with a 1 week history of shortness of breath and cough. Patient states that he has been having coughing fits where he has been bringing up yellow sputum for the past week. Patient is also noticed an increase of shortness of breath especially with exertion. Patient has a history of COPD and has been checking his oxygen and has been remaining in the low 90s. Patient took an at- home COVID-19 test on 12/25/2020 which was positive. Patient states that today was the worst day he has had since he began to have shortness of breath and had a coughing fit so bad that his oxygen level dropped down to 75%. Patient called EMS who brought him into the emergency department. Patient has been trying his at home inhalers to no avail. Patient states that he was not vaccinated for COVID-19 but did recently receive his influenza vaccination at his primary care office last week. Patient had a close contact who was positive for COVID-19 and ended up having go to the hospital last Sunday. Patient states he is having some pain with deep breaths and when he is coughing. Patient states he has been having diarrhea and has not been eating very much over the last few days because he does not have much of an appetite. Patient states he thinks he still has a sense of smell and taste. Patient son finally called him and convinced him to come into the hospital today because his symptom s were getting so bad. In the emergency department, patient again tested positive for COVID-19 and needed to be placed on 4 L of oxygen. While in route, EMS gave the patient 10 mg of IV dexamethasone HOSPITAL COURSE: During the hospital stay the following issue addressed Patient was diagnosed with COVID-19 pneumonia Patient received Decadron IV, baricitinib, remdesivir Procalcitonin negative Today his breathing improved and he was on the 3 L of oxygen in the morning. Patient developed yellowish sputum production and I will discharge him on course of Levaquin for 5 days in total Type 2 diabetes Glucose level is under control Patient received diabetes diet And insulin sliding scale DISCHARGE MEDICATIONS: Please see below. ALLERGIES: Please see below. PHYSICAL EXAMINATION ON DISCHARGE: VITAL SIGNS: Please see below. GENERAL APPEARANCE: NAD HEENT: no scleral icterus, no JVD, EOMI CARDIOVASCULAR: S1S2 LUNGS: Diminished lung sounds bilaterally ABDOMEN: soft & not tender w palpation MUSCULOSKELETAL: no cyanosis, no swelling INTEGUMENT: no generalized pallor NEUROLOGICAL: cranial nerve function from 2-12 intact, follows commands, speech not dysarthric LABORATORY DATA: Please see below. PROGNOSIS: Fair ACTIVITY: [As tolerated]. DIET: Cardiac/diabetes DISPOSITION: Home Health Service. ITEMS TO FOLLOWUP ON ON OUTPATIENT: Follow-up with PCP in 3 to 5 days DISCHARGE CONDITION: [Stable]. TIME SPENT ON DISCHARGE:40minutes. Vital Signs/I&Os Vital Signs Date Time Temp Pulse Resp B/P (MAP) Pulse Ox O2 Delivery O2 Flow Rate FiO2 12/29/20 09:00 3.0 12/29/20 08:27 62 131/73 12/29/20 06:00 97.2 20 90 Nasal Cannula I&O- Last 24 Hours up to 6 AM 12/29/20 06:00 Intake Total 900 ml Balance 900 ml Laboratory Data Labs 24H Laboratory Tests 2 12/28/20 20:14: Bedside Glucose (Misc Panel) 194H 12/29/20 05:13: Bedside Glucose (Misc Panel) 165H 12/29/20 05:54: Neutrophils (%) (Auto) , Nucleated Red Blood Cells % (auto) 0.0, Neutrophils 80H, Lymphocytes (Manual) 14L, Monocytes (Manual) 6H, Red Blood Cell Morphology NORMAL, Platelet Estimate NORMAL, Prothrombin Time 13.2, Prothromb Time International Ratio 0.96, Activated Partial Thromboplast Time 27.8, Fibrinogen 617H, Anion Gap 4L, Glomerular Filtration Rate > 60.0, Calcium Level 9.5, Magnesium Level 1.8, Ferritin 922H, Total Bilirubin 0.4, Direct Bilirubin 0.1, Aspartate Amino Transf (AST/SGOT) 51H, Alanine Aminotransferase (ALT/SGPT) 41, Alkaline Phosphatase 82, Lactate Dehydrogenase 439H, Total Creatine Kinase 53, Troponin I < 0.02, BT-Psk-N-Type Natriuretic Peptide 818H, Total Protein 7.1, Albumin 2.8L, Albumin/Globulin Ratio 0.7, Procalcitonin 0.07 12/29/20 11:58: Bedside Glucose (Misc Panel) 195H CBC/BMP Laboratory Tests 12/29/20 05:54 FSBS Laboratory Tests Test 12/28/20 20:14 12/29/20 05:13 12/29/20 11:58 Range/Units Bedside Glucose (Misc Panel) 194 165 195 70-105 MG/DL Microbiology Microbiology 12/27/20 Blood Culture - Preliminary, Resulted No growth after 24 hours . All specim... 12/27/20 Blood Culture - Preliminary, Resulted No growth after 24 hours . All specim... 12/27/20 Blood Culture - Preliminary, Resulted No Growth after 48 hours. All Specime... Discharge Medications Scheduled Aspirin (Aspirin EC) 81 Mg Tablet.dr, 81 MG PO DAILY, (Reported) Citalopram Hydrobromide (Citalopram HBr) 40 Mg Tablet, 40 MG PO QHS, (Reported) Clopidogrel Bisulfate (Plavix) 75 Mg Tablet, 75 MG PO DAILY, (Reported) Glipizide (Glipizide ER) 5 Mg Tab.er.24, 5 MG PO DAILY, (Reported) Levofloxacin (Levofloxacin) 500 Mg Tablet, 1 TAB PO DAILY Levothyroxine Sodium (Synthroid) 175 Mcg Tablet, 175 MCG PO DAILY, (Reported) Losartan Potassium (Losartan Potassium) 50 Mg Tablet, 50 MG PO DAILY, (Reported) Metformin HCl (Metformin HCl ER) 500 Mg Tab.er.24h, 1,000 MG PO BID, (Reported) Multivitamins (Thera M Plus Tablet) 1 Each Tablet, 1 TAB PO DAILY, (Reported) Naproxen (Naproxen) 375 Mg Tablet.dr, 375 MG PO BID, (Reported) Nebivolol HCl (Bystolic) 10 Mg Tablet, 10 MG PO DAILY, (Reported) Pantoprazole Sodium (Pantoprazole Sodium) 40 Mg Tablet.dr, 40 MG PO DAILY, (Reported) Prednisone (Prednisone) 10 Mg Tablet, 10 MG PO TAPER Take 4 tabs daily x 3 days, then 3 tabs daily x 3 days, then 2 tabs daily x 3 days, then 1 tab daily x 3 days and stop Simvastatin (Simvastatin) 40 Mg Tablet, 40 MG PO QHS, (Reported) Tiotropium Br/Olodaterol HCl (Stiolto Respimat Inhal [place]) 4 Gm Mist.inhal, 2 PUFF INH DAILY, (Reported) Topiramate (Topiramate) 200 Mg Tablet, 200 MG PO DAILY, (Reported) Trazodone HCl (Trazodone HCl) 50 Mg Tablet, 100 MG PO QHS, (Reported) Scheduled PRN Albuterol Sulf (Albuterol Sulfate) 2.5 Mg/3 Ml Vial.neb, 1 VIAL NEB Q4H PRN for SOB/WHEEZING, (Reported) Albuterol Sulfate (Ventolin Hfa) 18 Gm Hfa.aer.ad, 2 PUFFS INH QID PRN for DYSPNEA, (Reported) Allergies Coded Allergies: sertraline (Verified Allergy, Unknown, 10/20/18) PAUL DE JESUS DO Dec 29, 2020 18:50
== END 2020-12-29 16:51 | disposition home health service (06) | DRG 177 ==
LOC: M ED 15:17 → M ED INP 18:19 → ENRESERV 20:01 → M 4MAIN 22:45
PROVIDERS: ADMIT Family Medicine; ATTEND Internal Medicine
PROC: XW033E5 Introduction of Remdesivir Anti-infective into Peripheral Vein, Percutaneous Approach, New Technology Group 5 (ICD-10-PCS; principal; 2020-12-27)
PROC: 3E0333Z Introduction of Anti-inflammatory into Peripheral Vein, Percutaneous Approach (ICD-10-PCS; 2020-12-27)
DX: U07.1 COVID-19 (principal); J12.82 Pneumonia due to coronavirus disease 2019; J44.1 Chronic obstructive pulmonary disease with (acute) exacerbation; I25.10 Atherosclerotic heart disease of native coronary artery without angina pectoris; E11.9 Type 2 diabetes mellitus without complications; E03.9 Hypothyroidism, unspecified; E78.5 Hyperlipidemia, unspecified; I10 Essential (primary) hypertension; Z85.46 Personal history of malignant neoplasm of prostate; Z85.79 Personal history of other malignant neoplasms of lymphoid, hematopoietic and related tissues; Z79.82 Long term (current) use of aspirin; Z79.84 Long term (current) use of oral hypoglycemic drugs; Z79.02 Long term (current) use of antithrombotics/antiplatelets; Z79.899 Other long term (current) drug therapy; Z88.8 Allergy status to other drugs, medicaments and biological substances